=== PATIENT | female | born 1935 | race Caucasian/White ===

== ENCOUNTER 2020-03-11 14:07 | Inpatient (IN) | payer MEDICARE, SELFPAY ==
[2020-03-11] VITALS (8 sets, daily range): BP systolic 133–195; BP diastolic 73–84; PULSE 78–94; RESP 12–20; TEMP 36.2–36.6; O2SAT 94–100
--- NOTE | ~2020-03-11 | XR_ITS ---
EXAMINATION: XR lumbar spine 2-3V EXAM DATE: 03/11/2020 15:21 INDICATION: injury x yrs ago, increased pain shoots down both legs . TECHNIQUE: Lumber spine frontal, lateral, lateral L5-S1 projections for interpretation. There is no prior study for comparison. FINDINGS: There is grade 2 anterolisthesis L4 on L5, without definite spondylolysis. Grade 1 retroli sthesis L2 on L3 and L3 on L4. There is severe disc disease at L2-3, moderate to severe at the lower lumbar levels. There is moderate to severe lumbar facet arthropathy. There is mild to moderate lumbar levoscoliosis. There are no acute fractures identified. Sacrum, sacroiliac joints, sacral arcuate li valerio are intact. IVC filter, cholecystectomy clips. IMPRESSION: 1. Mild to moderate lumbar levoscoliosis. 2. Moderate to severe lumbar spondylosis. 3. Multiple subluxations. Reviewed, dictated and finalized at location A.
--- NOTE | ~2020-03-11 | XR_ITS ---
EXAMINATION: XR hip BI 2V w AP pelvis EXAM DATE: 03/12/2020 17:43 INDICATION: Bilateral hip pain, low back pain. No known recent injury. TECHNIQUE: Each hip imaged independently (separate right and also left hip) 'frog leg' and frontal p rojections for interpretation. Frontal projection pelvis. Comparison is made to prior examination fr om 03/08/2017. FINDINGS: No radiographic evidence of hip avascular necrosis. There is moderate bilateral hip primar y osteoarthritis. There are no acute fractures or dislocations identified. There is no subcutaneous gas. There are arterial calcifications, arteriosclerosis. There is an IVC filter. Advanced lower l umbar spondylosis. IMPRESSION: Moderate bilateral hip osteoarthritis. Reviewed, dictated and finalized at location A.
--- NOTE | 2020-03-11 14:38 | ED.BACK ---
HPI - Back Pain/Injury General Chief Complaint: Back Pain/Injury <Sabi Hector PA-C - Last Filed: 03/11/20 20:36> Stated Complaint: LOW BACK AND HIP PAIN <ABDI De Santiago Last Filed: 03/11/20 20:36> Time Seen by Provider: 03/11/20 14:15 <ABDI De Santiago Last Filed: 03/11/20 20:36> Source: patient and EMS <Sabi Hector PA-C - Last Filed: 03/11/20 20:36> Mode of arrival: EMS <ABDI De Santiago Last Filed: 03/11/20 20:36> Limitations: physical limitation <ABDI De Santiago Last Filed: 03/11/20 20:36> History of Present Illness HPI Narrative: Patient presents to the emergency department with chief complaint of low back pain that is radiating down bilateral legs. It began this morning. Patient states she has chronic low back pain but does not usually have radiation down the posterior aspects of her lower extremities. Patient states that her daughter attempted to help her ambulate today but could not so she called EMS. Patient states she has been prescribed hydrocodone for pain and last took 1 at 5 AM. Patient was given 15 mg of Toradol IV and 4 mg of Zofran by EMS reports that her symptoms have greatly improved. The nurse noted at the patient reported diarrhea, the patient states she has chronic intermittent diarrhea due to gastritis and she is at her baseline on today. She denies bloody stools or persistent watery stools. Patient denies loss of bowel or bladder function or saddle paresthesias. She denies fever, chills, nausea, vomiting, abdominal pain, chest pain, shortness of breath, headache, changes in vision or hearing or any other associated symptoms. Patient denies any recent falls or direct injuries to her back. <ABDI De Santiago Last Filed: 03/11/20 20:36> Related Data Home Medications: Home Medications Medication Instructions Recorded Confirmed amlodipine 5 mg PO DAILY 03/11/20 esomeprazole magnesium 40 mg PO DAILY 03/11/20 <ABDI De Santiago Last Filed: 03/11/20 20:36> Allergies/Adverse Reactions: Allergies Allergy/AdvReac Type Severity Reaction Status Date / Time atorvastatin Allergy Unknown ache Verified 03/11/20 14:24 <Sabi Hector PA-C - Last Filed: 03/11/20 20:36> Review of Systems Review of Systems: Narrative: CONSTITUTIONAL: Denies fever, chills, or sweats. EYES: Denies visual changes, redness, or discharge. ENT: Denies rhinorrhea, congestion, sore throat, or otalgia. CARDIOVASCULAR: Denies chest pain, palpitations, or edema. RESPIRATORY: Denies cough or dyspnea. GASTROINTESTINAL: Denies abdominal pain, nausea, vomiting, or diarrhea. GENITOURINARY: Denies dysuria or hematuria. SKIN: Denies rash or itching. MUSCULOSKELETAL: Reports back pain denies joint pain, or myalgia. NEUROLOGIC: Denies headache, numbness, dizziness, or weakness. PSYCHIATRIC: Denies anxiety or depression. <Sabi Hector PA-C - Last Filed: 03/11/20 20:36> [facility] Social History Social History: Social History Smoking status: Never smoker Alcohol intake: never Gender identity (if verbalized by the patient): Female <Sabi Hector PA-C - Last Filed: 03/11/20 20:36> Exam Narrative: Exam Narrative: GENERAL: Well-appearing, well-nourished, and in no acute distress. HEAD: Normocephalic, atraumatic. EYES: PERRLA and EOMI. ENT: Nares clear, no rhinorrhea or epistaxis. Mucous membranes moist. Oropharynx without tonsillar hypertrophy exudate or other lesions. Bilateral TMs pearly george nonbulging NECK: Supple. No adenopathy or masses. CHEST: Clear to auscultation. No respiratory distress. No wheezes rales or rhonchi HEART: Regular rate and rhythm. No murmur heard. BACK: Patient declined evaluation at this time and she does not want to remove herself from the bedpan. Will reevaluate once patient is complete. ABDOMEN: Soft, nontender, nondistended, normal active bowel sounds. EXTREMITIES: Normal range of motion. No cindy
[2020-03-11 16:18] LABS: Add Urine Microscopic? YES; Appearance Urine Cloudy (Clear); Bacteria Urine 2+ /hpf; Bilirubin Urine Negative (Negative); Blood Urine 1+ (Negative); Color Urine Yellow (Yellow); Glucose Urine UA Negative (Negative); Ketones Urine Negative (Negative); Leukocyte Esterase Ur 2+ LEU/UL (Negative); Nitrate Urine Negative (Negative); Protein Urine 1+ mg/dL (Negative); Specific Grav Ur 1.018 (1.001-1.035); Squamous Epithelial Cell Urine Rare /hpf (Few); Urobilinogen Urine Negative mg/dL (<2.0); WBC Urine 31-50 /hpf
[2020-03-11 17:01] LABS: Basophils Percent Auto 0.3 % (0.2-1.2); Eosinophils Percent Auto 0.1 % (0-4.4); Hematocrit 36.2 % (37.0-47.0); Hemoglobin 11.9 g/dL (12.0-15.0); Immature Granulocyte Absolute 0.03 K/mm3 (0.00-0.031); Immature Granulocyte Percent A 0.2 % (0-0.5); Lymphocytes Absolute Auto 1.22 K/mm3 (0.9-3.2); Lymphocytes Percent Auto 9.6 % (18.3-44.2); Mean Corpuscular HGB Conc 32.9 g/dl (32-36); Mean Corpuscular Volume 88.3 fl (80-100); Monocytes Absolute Auto 0.4 K/mm3 (0.1-0.6); Monocytes Percent Auto 3.2 % (2.6-8.5); Neutrophils Percent Auto 86.6 % (45.5-73.1); Nucleated Red Blood Cells Perc 0.2 % (0.0-0.2); Platelet Count Result 291 k/mm3 (150-375); Red Cell Distribution Width 14.6 % (11.5-14.5); White Blood Count 12.7 K/mm3 (4.5-10.0)
[2020-03-11 18:29] LABS: Alanine Aminotransferase 9 U/L (4-35); Albumin Level 4.4 g/dL (3.5-5.1); Alkaline Phosphatase 78 U/L (38-126); Anion Gap 10 mmol/L (8-16); Aspartate Amino Transferase 18 U/L (14-36); Bilirubin,Total 0.5 mg/dL (0.2-1.3); Blood Urea Nitrogen 22 mg/dL (7-17); Calcium 9.6 mg/dL (8.4-10.2); Carbon Dioxide 26 mmol/L (22-30); Chloride 103 mmol/L (98-107); Estimated CRCL calculation 24 ml/min; Estimated Glomerular Filt Rate 33; Glucose 146 mg/dL (65-105); Potassium 5.1 mmol/L (3.4-5.0); Sodium 139 mmol/L (137-145)
[2020-03-11] MEDS: fentaNYL CITRATE INJ (*CRX) 100 MCG/2 ML VIAL 25 MCG IV PUSH (18:58)
[2020-03-11] MEDS: SODIUM CHLORIDE 0.9% IV 1,000 ML 999 ML IV CONT (18:59)
--- NOTE | 2020-03-11 20:20 | PC.NURSE ---
Patient notified this RN she has not taken any of her medications today. Patient due for dose of 5mg amlodipine. TAYLOR Celestin notified.
[2020-03-11] MEDS: amLODIPine BESYLATE 5 MG TABLET PO (20:32)
--- NOTE | 2020-03-11 21:21 | PC.NURSE ---
Patient unable to get out of bed and ambulate due to pain. She reports this is why she called the ambulance this evening because she has been unable to walk. MALLORY Anne notified.
[2020-03-12] MEDS: HYDROmorphone HCL INJ (*CRX) 1 MG/ML SYR 0.5 MG IV PUSH (00:01)
--- NOTE | 2020-03-12 00:06 | PM.IMHP ---
H&P: HPI History of Present Illness Date/Time: 03/12/20 00:06 Chief complaint: Intractable Back Pain Narrative: Meche Woodward is a 84 year old female with past medical history arthritis, GERD, hypothyroidism presents to the ED with complaints of bilateral hip pain. She was feeling fine until this morning when she could not get out of her bed. Her pain was very severe and in both hips. She has had a similar episode last year treated with steroids with good improvement by her primary care physician. she states her arthritis is in most joints. she previously has had a right knee replacement and thinks she may need hip replacements however is apprehensive because friend of hers a few months after hip replacement. In the ED: Patient was found to have a UTI with positive UA elevated WBCs, leuk esterase positive, rare epithelial cells. Lumbar spine x-ray shows [id number] scoliosis and moderate to severe spondylosis, multiple subluxations. Patient was recently planned to be discharged home with antibiotic for UTI. Patient was unable to transfer from bed to wheelchair. patient admitted for observation for UTI and intractable hip pain. Review of Systems Review of Systems: Narrative: Constitutional: No Fever, No Chills, No Night Sweats, No Fatigue, No Malaise ENT/Mouth: No Hearing Changes, No Ear Pain, No Nasal Congestion, No Sinus Pain, No Hoarseness, No sore throat, No Rhinorrhea, No Swallowing Difficulty Eyes: No Eye Pain, No Redness, No Vision Changes Cardiovascular: No Chest Pain, No Palpitations, No Dyspnea on Exertion, No Orthopnea, No Claudication, No Edema Respiratory: No Cough, No Sputum, No Wheezing, No Shortness of Breath Gastrointestinal: No Nausea, No Vomiting, No Diarrhea, No Constipation, No Abdominal Pain, No Heartburn, No Hematochezia, No Melena Genitourinary: No Dysuria, No Urinary Frequency, No Hematuria, No Urinary Incontinence, No Urgency Musculoskeletal: severe back pain, hip joint stiffness and pain Skin: No Skin Lesions, No Pruritis, No Hair Changes Neuro: No Weakness, No Numbness, No Paresthesias, No Loss of Consciousness, No Syncope, No Dizziness, No Headache Psych: No Anxiety/Panic, No Depression, No Insomnia Heme: No Bruising, No Bleeding Lymph: No Adenopathy Endocrine: No Polyuria, No Polydipsia, No Temperature Intolerance PMFSH Past Medical History Medical History CAD (coronary artery disease) 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, lower extremity, recurrent Essential hypertension Gastritis 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 Osteoarthritis Surgical History Surgical History (Updated 03/12/20 @ 01:02 by Viviana Love, RN) Status post right knee replacement Family History Family History (Updated 03/12/20 @ 00:44 by Viviana Love, RN) Father Pancreas cancer COPD (chronic obstructive pulmonary disease) Mother Acute myocardial infarction Sibling Hypertension Social History Social History (Updated 03/12/20 @ 00:44 by Viviana Love, RN) Smoking status: Never smoker Alcohol intake: never Substance use: never Substance use type: does not use Living arrangements: with family Additional living arrangements comments: lives with her adult daughter, a respiratory therapist at [facility]. she is thinking about moving to [place] as she is becoming a burden on her daughter Occupation/Education: retired Gender identity (if verbalized by the patient): Female Spiritual care concerns: No Agree to blood products: Yes Meds Home Medications and Allergies Home Medications Medication Instructions Recorded Confirmed Type apixaban 2.5 mg tablet 2.5 mg PO BID #60 tablet 04/11/19 Rx levothyroxine 150 mcg tablet 150 mcg PO DAILY #90 tablet 10/09/19 Rx hydrocodone 7.5 mg-acetaminophen 1 tablet PO Q6H PRN #120 tablet 03/02/20 Rx 325 mg tablet amlodipine 5 mg PO DAILY 03/11/20 History esomeprazole ma
--- NOTE | 2020-03-12 00:10 | ADMGEN ---
This patient, Meche Woodward, was admitted to Medical Room 340-01. Patient/family oriented to hospital policies and general routines including ID bracelet, bed and alarms, visiting hours, pain management, procedures, bathroom and other care routines, personal items, smoking policy, room service/diet, and visiting hours. Information on how to activate the Rapid Response Team has been discussed. Patient/Family are encouraged to report perceived risks to care and to ask questions if they do not understand what they are told or what they should do.
[2020-03-12 00:23] VITALS: BP 158/80; PULSE 84; RESP 18; TEMP 36.4; O2SAT 98; BMI 27.8
[2020-03-12] MEDS: SODIUM CHLORIDE 0.9% IV 250 ML 75 ML IV CONT (01:51)
[2020-03-12 04:47] VITALS: BP 148/72; PULSE 84; RESP 16; TEMP 36.2; O2SAT 99
[2020-03-12] MEDS: HYDROcodone/acetaminophen (*CRX) 7.5-325 MG TABLET 1 TAB PO ×3 (05:35→20:07)
[2020-03-12] MEDS: LEVOTHYROXINE SODIUM 150 MCG TABLET PO (05:36)
[2020-03-12] MEDS: amLODIPine BESYLATE 5 MG TABLET PO (08:08)
[2020-03-12] MEDS: PANTOPRAZOLE 40 MG TABLET PO (08:09)
[2020-03-12] MEDS: APIXABAN 2.5 MG TABLET PO ×2 (08:09→20:05)
[2020-03-12 09:52] LABS: Basophils Absolute Auto 0.1 K/mm3 (0.0-0.1); Basophils Percent Auto 0.6 % (0.2-1.2); Eosinophils Absolute Auto 0.1 K/mm3 (0-0.3); Eosinophils Percent Auto 1.2 % (0-4.4); Hematocrit 34.4 % (37.0-47.0); Immature Granulocyte Absolute 0.03 K/mm3 (0.00-0.031); Immature Granulocyte Percent A 0.3 % (0-0.5); Lymphocytes Absolute Auto 2.28 K/mm3 (0.9-3.2); Lymphocytes Percent Auto 26.4 % (18.3-44.2); Mean Corpuscular Hemoglobin 28.4 pg (26-34); Mean Corpuscular Volume 88.9 fl (80-100); Mean Platelet Volume 11.2 fl (7.4-10.4); Monocytes Absolute Auto 0.7 K/mm3 (0.1-0.6); Neutrophils Absolute Auto 5.5 K/mm3 (1.3-6.7); Neutrophils Percent Auto 63.5 % (45.5-73.1); Platelet Count Result 151 k/mm3 (150-375); Red Blood Count 3.87 M/mm3 (4.2-5.4); Red Cell Distribution Width 14.7 % (11.5-14.5); White Blood Count 8.7 K/mm3 (4.5-10.0)
[2020-03-12 10:08] LABS: Anion Gap 8 mmol/L (8-16); Blood Urea Nitrogen 23 mg/dL (7-17); Calcium 9.1 mg/dL (8.4-10.2); Carbon Dioxide 26 mmol/L (22-30); Chloride 104 mmol/L (98-107); Estimated CRCL calculation 22 ml/min; Estimated Glomerular Filt Rate 31; Glucose 173 mg/dL (65-105); Magnesium 1.7 mg/dL (1.6-2.3); Potassium 4.1 mmol/L (3.4-5.0); Sodium 138 mmol/L (137-145)
--- NOTE | 2020-03-12 11:47 | PM.IMPN ---
Progress Note: A&P Assessment and Plan (1) Intractable back pain: Code(s): M54.9 - Dorsalgia, unspecified Status: Acute Assessment and Plan: Patient describes worsening back pain and MARLO hip pain. EMS was activated when she was unable to get out of bed. Unable to stand due to pain. XR L-spine shows moderate to severe lumbar spondylosis, multiple subluxations. Bilateral hip XRs pending. Continue pain control [place] for now. Avoiding NSAIDs given her renal function, anticoagulation, and history of gastritis. Appreciate orthopedic surgery recommendations. PT OT, discharge planning. Patient declines discharge placement other than home. Care coordination arranging home health. (2) Acute UTI: Code(s): N39.0 - Urinary tract infection, site not specified Status: Acute Assessment and Plan: Patient reports increased urinary frequency. Urine culture growing E coli. Continue IV Rocephin (day 2) with sensitivity report pending. (3) Hypertension: Qualifiers: Hypertension type: unspecified Qualified Code(s): I10 - Essential (primary) hypertension Code(s): I10 - Essential (primary) hypertension Status: Chronic Assessment and Plan: BP stable maintained on her home Norvasc. Continue to monitor BP. (4) Hyperkalemia: Code(s): E87.5 - Hyperkalemia Status: Resolved Assessment and Plan: Resolved. Monitor BMP. (5) Atherosclerotic heart disease of [place] coronary artery with other forms of angina pectoris: Code(s): I25.118 - Atherosclerotic heart disease of [place] coronary artery with other forms of angina pectoris Status: Chronic Assessment and Plan: Stable. No chest pain today. (6) Chronic kidney disease, stage 4 (severe): Code(s): N18.4 - Chronic kidney disease, stage 4 (severe) Status: Acute Assessment and Plan: Appears to be a baseline based on review previous labs. Monitor BMP. (7) 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 (acquired): Code(s): E03.9 - 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, unspecified Status: Chronic Assessment and Plan: Maintained on home levothyroxine. Subjective Date/time seen: 03/12/20 11:00 Interval history: Ms. Woodward is an 84yo F admitted for bilateral hip pain and UTI. She was unable to get out of bed and presented to ED due to weakness and intractable pain. She reports her pain is controlled at rest currently, worse with any movement. She has a history of chronic bowel and bladder incontinence, this is unchanged. She denies chest pain, shortness of breath, palpitations. She has tolerated some oral intake without nausea or vomiting. Review of Systems Review of Systems: All systems reviewed & are unremarkable except as noted in HPI and below Exam Narrative: Exam Narrative: General: Elderly female resting supine in bed in no acute distress. HEENT: Normocephalic, EOMI, oral mucosa moist. Cardiovascular: Rate and rhythm are regular. Respiratory: Lungs clear to auscultation anteriorly and laterally. Non-labored breathing. Tolerating room air. Abdomen: Soft, non-tender, non-distended, bowel sounds present. Extremities: Peripheral pulses intact. Bilateral hip range of motion limited secondary to pain. Positive straight leg raise bilateral. Neuro: No focal neurological deficits appreciated. Speech is clear. Objective Data Vital Signs Vital Signs: Last Vital Signs Temp 97.8 F 03/12/20 14:27 Pulse 86 03/12/20 14:27 Resp 18 03/12/20 14:27 BP 129/60 03/12/20 14:27 Pulse Ox 97 03/12/20 14:27 Intake/Output Intake/Output: Intake & Output 03/09/20 03/10/20 03/11/20 03/12/20 23:
--- NOTE | 2020-03-12 13:17 | PM.CNOR ---
Assessment and Plan Assessment and plan (1) Bilateral hip pain: Code(s): M25.551 - Pain in right hip; M25.552 - Pain in left hip Status: Acute Assessment and Plan: Previous lumbar xrays show lumbar scoliosis, spondylosis and subluxations. No pain in groin. Hip pain is likely from back. Waiting results of hip xrays. Will access need for hip injection after reviewing xrays. History of Present Illness HPI Consult date: 03/13/20 Requesting physician: Naren Schneider DO Consult reason: other (hip injection for severe hip arthritis) Chief complaint: Intractable Back Pain Narrative: Pleasant 84-year-old female patient was admitted 03/11/2020 for intractable back pain. She states she woke fine and was able to ambulate normally with a walker. When she went back to bed, she got dizzy lightheaded and diaphoretic. She states at that point she had severe back pain and hip pain that radiated through her back down to her posterior legs. No radiation past the knee. She states the pain was sharp 10/10 pain and she was a unable to ambulate. No pain in her groin on either side. Pain worse with movement and walking. Pain is better if she is lying still. She states at night she sleeps on both her back and her sides. Mild pain when she is laying on either side. She states this has happened to her once last year; however, it was less severe. She was prescribed prednisone and her pain got better. She states she has a long history of arthritis in her back. She has a history of a right TKA in 2010. She also has pain in her left knee when ambulating. She believes this is due to arthritis. she takes hydrocodone for her pain. 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 she is thinking about moving to custodial as she is becoming a burden on her daughter Gender identity (if verbalized by the patient): Female Spiritual care concerns: No Agree to blood products: Yes Meds Home Medications and Allergies Home Medications Medication Instructions Recorded Confirmed Type apixaban 2.5 mg tablet 2.5 mg PO BID #60 tablet 04/11/19 03/12/20 Rx levothyroxine 150 mcg tablet 150 mcg PO DAILY #90 tablet 10/09/19 03/12/20 Rx hydrocodone 7.5 mg-acetaminophen 1 tablet PO Q6H PRN #120 tablet 03/02/20 03/12/20 Rx 325 mg tablet amlodipine 5 mg PO DAILY 03/11/20 03/12/20 History esomeprazole magnesium [Nexium] 40 mg PO BID 03/11/20 03/12/20 History Allergies Allergy/AdvReac Type Severity Reaction Status Date / Time atorvastatin Allergy Unknown ache Verified 03/11/20 14:24 Vital Signs Vital Signs - 24 hr 03/11/20 14:15 03/11/20 16:16 03/11/20 18:17 Temperature 97.8 F Pulse Rate 94 78 78 Respiratory Rate 20 15 12 Blood Pressure 133/73 170/80 H Pulse Oximetry 96 98 97 03/11/20 19:16 03/11/20 19:28 03/11/20 20:27 Temperature 97.8 F Pulse Rate 83 84 Respiratory Rate 14 15 Blood Pressure 195/79 H 148/76 H Pulse Oximetry 100 94 03/11/20 22:12 03/11/20 23:28 03/12/20 00:23 Temperature 97.2 F L 97.6 F Pulse Rate 84 78 84 Respir
[2020-03-12 14:27] VITALS: BP 129/60; PULSE 86; RESP 18; TEMP 36.6; O2SAT 97
[2020-03-12] MEDS: MAGNESIUM OXIDE 200 MG TABLET PO (20:05)
[2020-03-12 22:00] VITALS: BP 146/74; PULSE 88; RESP 16; TEMP 36.1; O2SAT 97
[2020-03-13] MEDS: LEVOTHYROXINE SODIUM 150 MCG TABLET PO (05:30)
[2020-03-13] MEDS: HYDROcodone/acetaminophen (*CRX) 7.5-325 MG TABLET 1 TAB PO ×2 (05:31→12:02)
[2020-03-13 05:51] LABS: Hematocrit 32.3 % (37.0-47.0); Hemoglobin 10.3 g/dL (12.0-15.0); Mean Corpuscular HGB Conc 31.9 g/dl (32-36); Mean Corpuscular Hemoglobin 27.9 pg (26-34); Mean Corpuscular Volume 87.5 fl (80-100); Mean Platelet Volume 11.5 fl (7.4-10.4); Platelet Count Result 140 k/mm3 (150-375); Red Blood Count 3.69 M/mm3 (4.2-5.4); Red Cell Distribution Width 14.6 % (11.5-14.5); White Blood Count 10.3 K/mm3 (4.5-10.0)
[2020-03-13 06:00] VITALS: BP 128/61; PULSE 78; RESP 18; TEMP 36.1; O2SAT 96
[2020-03-13 06:07] LABS: Anion Gap 7 mmol/L (8-16); Blood Urea Nitrogen 23 mg/dL (7-17); Carbon Dioxide 27 mmol/L (22-30); Chloride 105 mmol/L (98-107); Estimated CRCL calculation 24 ml/min; Estimated Glomerular Filt Rate 33; Glucose 102 mg/dL (65-105); Magnesium 1.8 mg/dL (1.6-2.3); Potassium 4.2 mmol/L (3.4-5.0); Sodium 139 mmol/L (137-145)
[2020-03-13] MEDS: MAGNESIUM OXIDE 200 MG TABLET PO ×2 (08:31→20:15)
[2020-03-13] MEDS: amLODIPine BESYLATE 5 MG TABLET PO (08:31)
[2020-03-13] MEDS: PANTOPRAZOLE 40 MG TABLET PO (08:31)
[2020-03-13] MEDS: APIXABAN 2.5 MG TABLET PO ×2 (08:31→20:15)
[2020-03-13 08:35] VITALS: PULSE 76; RESP 18; O2SAT 95
--- NOTE | 2020-03-13 11:07 | PM.IMPN ---
Progress Note: A&P Assessment and Plan (1) Intractable back pain: Code(s): M54.9 - Dorsalgia, unspecified Status: Acute Assessment and Plan: Patient describes worsening back pain and MARLO hip pain. EMS was activated when she was unable to get out of bed. Great difficulty standing and ambulating due to pain. XR L-spine shows moderate to severe lumbar spondylosis, multiple subluxations. Bilateral hip XRs show moderate bilateral hip osteoarthritis. Continue pain control with Tylenol and [place] for now. Avoiding NSAIDs given her renal function, anticoagulation, and history of gastritis. Appreciate orthopedic surgery recommendations. PT OT, discharge planning. Patient declines discharge placement other than home. Care coordination arranging home health. (2) Acute UTI: Code(s): N39.0 - Urinary tract infection, site not specified Status: Acute Assessment and Plan: Patient reports increased urinary frequency. Urine culture grew ESBL E coli, unfortunately resistant to IV ceftriaxone. Switch IV ceftriaxone to IV Zosyn this AM (day 1) based on the sensitivity report. (3) Hypertension: Qualifiers: Hypertension type: unspecified Qualified Code(s): I10 - Essential (primary) hypertension Code(s): I10 - Essential (primary) hypertension Status: Chronic Assessment and Plan: BP stable maintained on her home Norvasc. Continue to monitor BP. (4) Atherosclerotic heart disease of [place] coronary artery with other forms of angina pectoris: Code(s): I25.118 - Atherosclerotic heart disease of [place] coronary artery with other forms of angina pectoris Status: Chronic Assessment and Plan: Stable. No chest pain today. (5) Chronic kidney disease, stage 4 (severe): Code(s): N18.4 - Chronic kidney disease, stage 4 (severe) Status: Acute Assessment and Plan: Appears to be at baseline based on review previous labs. Monitor BMP. (6) 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 (acquired): Code(s): E03.9 - 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, unspecified Status: Chronic Assessment and Plan: Maintained on home levothyroxine. Subjective Date/time seen: 03/13/20 09 Interval history: Ms. Woodward is an 84yo F admitted for bilateral hip pain and UTI. She reports her hip pain is decently controlled at rest but significantly worse with even minimal movement. She is tolerating oral intake and denies nausea or vomiting. She denies any chest pain or shortness of breath. Was able to sleep a bit last night. RN notes she was able to get up to chair with PT this afternoon. Review of Systems Review of Systems: All systems reviewed & are unremarkable except as noted in HPI and below Exam Narrative: Exam Narrative: General: Elderly female resting supine in bed in no acute distress. HEENT: Normocephalic, EOMI, oral mucosa moist. Cardiovascular: Rate and rhythm are regular. Respiratory: Lungs clear to auscultation anteriorly and laterally. Non-labored breathing. Tolerating room air. Abdomen: Soft, non-tender, non-distended, bowel sounds present. Extremities: Peripheral pulses intact. Bilateral hip range of motion limited secondary to pain. Positive straight leg raise bilateral. Neuro: No focal neurological deficits appreciated. Speech is clear. Objective Data Vital Signs Vital Signs: Last Vital Signs Temp 97.7 F 03/13/20 13:47 Pulse 83 03/13/20 13:47 Resp 16 03/13/20 13:47 BP 145/67 H 03/13/20 13:47 Pulse Ox 100 03/13/20 13:47 Intake/Output Intake/Output: Intake & Output 10/20/03/11/20 03/12/20 03/13/20 23:59 23:59 23:59 23:59 Intake Total 1050 1620 290 Output Total 150 Balance 900 1620
[2020-03-13 13:47] VITALS: BP 145/67; PULSE 83; RESP 16; TEMP 36.5; O2SAT 100
[2020-03-13 22:00] VITALS: BP 146/85; PULSE 87; RESP 16; TEMP 37.1; O2SAT 99
[2020-03-14] MEDS: HYDROcodone/acetaminophen (*CRX) 7.5-325 MG TABLET 1 TAB PO ×4 (00:55→23:35)
[2020-03-14] MEDS: LEVOTHYROXINE SODIUM 150 MCG TABLET PO (05:36)
[2020-03-14 05:42] VITALS: BP 155/62; PULSE 79; RESP 16; TEMP 36.6; O2SAT 96
[2020-03-14 07:00] LABS: Basophils Absolute Auto 0.1 K/mm3 (0.0-0.1); Basophils Percent Auto 0.5 % (0.2-1.2); Eosinophils Absolute Auto 0.4 K/mm3 (0-0.3); Eosinophils Percent Auto 3.7 % (0-4.4); Hematocrit 31.2 % (37.0-47.0); Immature Granulocyte Absolute 0.06 K/mm3 (0.00-0.031); Immature Granulocyte Percent A 0.6 % (0-0.5); Lymphocytes Percent Auto 26.9 % (18.3-44.2); Mean Corpuscular HGB Conc 32.1 g/dl (32-36); Mean Corpuscular Hemoglobin 27.9 pg (26-34); Mean Corpuscular Volume 86.9 fl (80-100); Mean Platelet Volume 11.9 fl (7.4-10.4); Monocytes Absolute Auto 0.9 K/mm3 (0.1-0.6); Monocytes Percent Auto 8.2 % (2.6-8.5); Neutrophils Absolute Auto 6.3 K/mm3 (1.3-6.7); Neutrophils Percent Auto 60.1 % (45.5-73.1); Platelet Count Result 145 k/mm3 (150-375); Red Blood Count 3.59 M/mm3 (4.2-5.4); Red Cell Distribution Width 14.6 % (11.5-14.5); White Blood Count 10.4 K/mm3 (4.5-10.0)
[2020-03-14] MEDS: APIXABAN 2.5 MG TABLET PO ×2 (08:05→20:14)
[2020-03-14] MEDS: MAGNESIUM OXIDE 200 MG TABLET PO ×2 (08:05→20:14)
[2020-03-14] MEDS: PANTOPRAZOLE 40 MG TABLET PO (08:05)
[2020-03-14] MEDS: amLODIPine BESYLATE 5 MG TABLET PO (08:05)
--- NOTE | 2020-03-14 09:41 | PCPTNOTE ---
Attempted physial therapy this visit however patient declined due to feeling sick to her stomach. Nursing staff was notified and states she was given medication. Will attempt at later time.
--- NOTE | 2020-03-14 10:48 | PM.IMPN ---
Progress Note: A&P Assessment and Plan (1) Intractable back pain: Code(s): M54.9 - Dorsalgia, unspecified Status: Acute Assessment and Plan: Patient describes worsening back pain and MARLO hip pain. EMS was activated when she was unable to get out of bed. Great difficulty standing and ambulating due to pain. XR L-spine shows moderate to severe lumbar spondylosis, multiple subluxations. Bilateral hip XRs show moderate bilateral hip osteoarthritis. Continue pain control with Tylenol and [place] for now. Avoiding NSAIDs given her renal function, anticoagulation, and history of gastritis. Appreciate orthopedic surgery recommendations. Discussed with Dr Connolly - he indicates the likely origin of her pain is her back and recommends she re-establish with pain management for injections outpatient. Continue PT OT, discharge planning. Care coordination has arranged home health. Hopeful for discharge tomorrow. (2) Acute UTI: Code(s): N39.0 - Urinary tract infection, site not specified Status: Acute Assessment and Plan: Patient reports increased urinary frequency. Urine culture grew ESBL E coli. Switched IV ceftriaxone to IV Zosyn this yesterday (day 2) based on the sensitivity report. (3) Hypertension: Qualifiers: Hypertension type: unspecified Qualified Code(s): I10 - Essential (primary) hypertension Code(s): I10 - Essential (primary) hypertension Status: Chronic Assessment and Plan: BP stable maintained on her home Norvasc. Continue to monitor BP. (4) Atherosclerotic heart disease of [place] coronary artery with other forms of angina pectoris: Code(s): I25.118 - Atherosclerotic heart disease of [place] coronary artery with other forms of angina pectoris Status: Chronic Assessment and Plan: Stable. No chest pain today. (5) Chronic kidney disease, stage 4 (severe): Code(s): N18.4 - Chronic kidney disease, stage 4 (severe) Status: Acute Assessment and Plan: Appears to be at baseline based on review previous labs. Monitor BMP. (6) 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 (acquired): Code(s): E03.9 - 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, unspecified Status: Chronic Assessment and Plan: Maintained on home levothyroxine. Subjective Date/time seen: 03/14/20 10:15 Interval history: Ms. Woodward is an 84yo F admitted for bilateral hip pain and UTI. She rates her hip/back pain at a 5/10 severity currently, but notes she was in significant pain when she stood to use the restroom and get showered this morning. She was able to sleep a bit last night. She denies chest pain or shortness of breath. She is tolerating oral intake without nausea or vomiting. Review of Systems Review of Systems: All systems reviewed & are unremarkable except as noted in HPI and below Exam Narrative: Exam Narrative: General: Elderly female resting sitting up in bed in no acute distress. HEENT: Normocephalic, EOMI, oral mucosa moist. Cardiovascular: Rate and rhythm are regular. Respiratory: Lungs clear to auscultation anteriorly and laterally. Non-labored breathing. Tolerating room air. Abdomen: Soft, non-tender, non-distended, bowel sounds present. Extremities: Peripheral pulses intact. Bilateral hip range of motion limited secondary to back pain. Trace edema MARLO lower extremities below the knee. Neuro: No focal neurological deficits appreciated. Speech is clear. Objective Data Vital Signs Vital Signs: Last Vital Signs Temp 97.8 F 03/14/20 05:42 Pulse 79 03/14/20 05:42 Resp 16 03/14/20 05:42 BP 155/62 H 03/14/20 05:42 Pulse Ox 96 03/14/20 05:42 Intake/Output Intake/Output: Intake & Output 10
[2020-03-14 14:00] VITALS: BP 135/79; PULSE 84; RESP 16; TEMP 36.5; O2SAT 100
[2020-03-14 21:45] VITALS: BP 164/65; PULSE 76; RESP 16; TEMP 37.3; O2SAT 97
[2020-03-15] MEDS: LEVOTHYROXINE SODIUM 150 MCG TABLET PO (05:32)
[2020-03-15 05:56] VITALS: BP 135/58; PULSE 64; RESP 16; TEMP 36.8; O2SAT 98
[2020-03-15 06:22] LABS: Anion Gap 6 mmol/L (8-16); Blood Urea Nitrogen 20 mg/dL (7-17); Calcium 9.1 mg/dL (8.4-10.2); Carbon Dioxide 30 mmol/L (22-30); Chloride 102 mmol/L (98-107); Estimated CRCL calculation 25 ml/min; Estimated Glomerular Filt Rate 36; Glucose 109 mg/dL (65-105); Magnesium 1.9 mg/dL (1.6-2.3); Potassium 4.1 mmol/L (3.4-5.0); Sodium 138 mmol/L (137-145)
[2020-03-15] MEDS: amLODIPine BESYLATE 5 MG TABLET PO (08:09)
[2020-03-15] MEDS: APIXABAN 2.5 MG TABLET PO ×2 (08:09→21:25)
[2020-03-15] MEDS: MAGNESIUM OXIDE 200 MG TABLET PO ×2 (08:09→21:25)
[2020-03-15] MEDS: PANTOPRAZOLE 40 MG TABLET PO (08:09)
[2020-03-15] MEDS: HYDROcodone/acetaminophen (*CRX) 7.5-325 MG TABLET 1 TAB PO ×2 (08:56→17:51)
[2020-03-15 14:00] VITALS: BP 142/57; PULSE 72; RESP 12; TEMP 37; O2SAT 100
--- NOTE | 2020-03-15 16:11 | PM.IMPN ---
Progress Note: A&P Assessment and Plan (1) Intractable back pain: Code(s): M54.9 - Dorsalgia, unspecified Status: Acute Assessment and Plan: Patient describes worsening back pain and MARLO hip pain. EMS was activated when she was unable to get out of bed. XR L-spine shows moderate to severe lumbar spondylosis, multiple subluxations. Bilateral hip XRs show moderate bilateral hip osteoarthritis. Continue pain control with Tylenol and [place] for now. Avoiding NSAIDs given her renal function, anticoagulation, and history of gastritis. Appreciate orthopedic surgery recommendations. Discussed with Dr Connolly - he indicates the likely origin of her pain is her back and recommends she re-establish with pain management for injections outpatient. Continue PT OT, discharge planning. COVID test for discharge planning, dispo is SNF. (2) Acute UTI: Code(s): N39.0 - Urinary tract infection, site not specified Status: Acute Assessment and Plan: Patient reports increased urinary frequency. Urine culture grew ESBL E coli. Continue IV Zosyn (day 3) based on the sensitivity report. (3) Hypertension: Qualifiers: Hypertension type: unspecified Qualified Code(s): I10 - Essential (primary) hypertension Code(s): I10 - Essential (primary) hypertension Status: Chronic Assessment and Plan: BP stable maintained on her home Norvasc. Continue to monitor BP. (4) Atherosclerotic heart disease of [place] coronary artery with other forms of angina pectoris: Code(s): I25.118 - Atherosclerotic heart disease of [place] coronary artery with other forms of angina pectoris Status: Chronic Assessment and Plan: Stable. No chest pain today. (5) Chronic kidney disease, stage 4 (severe): Code(s): N18.4 - Chronic kidney disease, stage 4 (severe) Status: Acute Assessment and Plan: Appears to be at baseline based on review previous labs. Monitor BMP. (6) 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 (acquired): Code(s): E03.9 - 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, unspecified Status: Chronic Assessment and Plan: Maintained on home levothyroxine. Subjective Date/time seen: 03/15/20 1115 Interval history: Ms. Woodward is an 84yo F admitted for back/bilateral hip pain and UTI. Her back pain is improved today and in fact she was able to walk to the restroom this morning with assistance. Overall she reports feeling better today than when she came in. She has better range of motion today. She denies chest pain or shortness of breath. She is tolerating oral intake without nausea or vomiting. Review of Systems Review of Systems: All systems reviewed & are unremarkable except as noted in HPI and below Exam Narrative: Exam Narrative: General: Elderly female resting comfortably sitting up in bedside chair in no acute distress. HEENT: Normocephalic, EOMI, oral mucosa moist. Cardiovascular: Rate and rhythm are regular. Respiratory: Lungs clear to auscultation in all wright. Non-labored breathing. Tolerating room air. Abdomen: Soft, non-tender, non-distended, bowel sounds present. Extremities: Peripheral pulses intact. Trace edema MARLO lower extremities below the knee. MARLO calves nontender to palpation. Neuro: No focal neurological deficits appreciated. Speech is clear. Objective Data Vital Signs Vital Signs: Last Vital Signs Temp 98.6 F 03/15/20 14:00 Pulse 72 03/15/20 14:00 Resp 12 03/15/20 14:00 BP 142/57 H 03/15/20 14:00 Pulse Ox 100 03/15/20 14:00 Intake/Output Intake/Output: Intake & Output 03/12/20 03/13/20 03/14/20 03/15/20 23:59 23:59 23:59 23:59 Intake Total 6045 948 2621 550 Balance 9114 341 3093 55
[2020-03-15 21:15] VITALS: BP 152/67; PULSE 74; RESP 14; TEMP 37.2; O2SAT 97
[2020-03-16] MEDS: HYDROcodone/acetaminophen (*CRX) 7.5-325 MG TABLET 1 TAB PO ×3 (00:09→12:02)
[2020-03-16 05:05] VITALS: BP 157/70; PULSE 74; RESP 14; TEMP 36.8; O2SAT 99
[2020-03-16 05:59] LABS: Basophils Absolute Auto 0.1 K/mm3 (0.0-0.1); Basophils Percent Auto 0.8 % (0.2-1.2); Eosinophils Absolute Auto 0.4 K/mm3 (0-0.3); Eosinophils Percent Auto 4.6 % (0-4.4); Hematocrit 31.2 % (37.0-47.0); Immature Granulocyte Absolute 0.03 K/mm3 (0.00-0.031); Immature Granulocyte Percent A 0.3 % (0-0.5); Lymphocytes Absolute Auto 3.21 K/mm3 (0.9-3.2); Lymphocytes Percent Auto 37.2 % (18.3-44.2); Mean Corpuscular HGB Conc 32.1 g/dl (32-36); Mean Corpuscular Volume 87.4 fl (80-100); Mean Platelet Volume 11.3 fl (7.4-10.4); Monocytes Absolute Auto 0.8 K/mm3 (0.1-0.6); Monocytes Percent Auto 8.8 % (2.6-8.5); Neutrophils Absolute Auto 4.2 K/mm3 (1.3-6.7); Neutrophils Percent Auto 48.3 % (45.5-73.1); Platelet Count Result 184 k/mm3 (150-375); Red Blood Count 3.57 M/mm3 (4.2-5.4); Red Cell Distribution Width 14.6 % (11.5-14.5); White Blood Count 8.6 K/mm3 (4.5-10.0)
[2020-03-16 06:19] LABS: Anion Gap 6 mmol/L (8-16); Blood Urea Nitrogen 22 mg/dL (7-17); Calcium 9.2 mg/dL (8.4-10.2); Carbon Dioxide 32 mmol/L (22-30); Chloride 100 mmol/L (98-107); Estimated CRCL calculation 25 ml/min; Estimated Glomerular Filt Rate 36; Glucose 107 mg/dL (65-105); Potassium 4.1 mmol/L (3.4-5.0); Sodium 138 mmol/L (137-145)
[2020-03-16] MEDS: amLODIPine BESYLATE 5 MG TABLET PO (08:10)
[2020-03-16] MEDS: APIXABAN 2.5 MG TABLET PO (08:10)
[2020-03-16] MEDS: LEVOTHYROXINE SODIUM 150 MCG TABLET PO (08:10)
[2020-03-16] MEDS: PANTOPRAZOLE 40 MG TABLET PO (08:10)
[2020-03-16] MEDS: MAGNESIUM OXIDE 200 MG TABLET PO (08:10)
[2020-03-16 11:16] LABS: SARS-CoV-2 RNA PCR Negative
[2020-03-16 14:00] VITALS: BP 166/73; PULSE 87; RESP 18; TEMP 36.4; O2SAT 100
--- NOTE | 2020-03-16 14:11 | PM.DS ---
DS: Admitting Diagnosis Admitting Diagnosis Admitting Diagnosis: Intractable Back Pain DS: Discharge Diagnosis Discharge Diagnosis (1) Intractable back pain: Code(s): M54.9 - Dorsalgia, unspecified Status: Acute Assessment and Plan: Date of Admission 03/11/20 Date of Discharge/DOS 03/16/20 Ms. Woodward is a pleasant 84yo F with history of coronary artery disease, chronic kidney disease, hypothyroidism, and hypertension who presented to the ED from home for evaluation of back pain, bilateral hip pain, and ambulatory dysfunction. Imaging demonstrated moderate to severe lumbar spondylosis with multiple subluxations, moderate bilateral hip osteoarthritis. Orthopedics was consulted for evaluation of possible hip injections. Dr Connolly reviewed the plain films and described that the etiology of her pain is mostly her back and she will benefit from re-establishing care with pain management upon discharge. She was maintained on her home dose of [place] here with moderate relief. She was found to have a urinary tract infection with ESBL E coli for which she was treated with IV zosyn and discharged with oral augmentin to complete the course based on the sensitivity report. She was maintained on her home Eliquis which she takes for history of lower extremity DVT. She worked with PT/OT and made progress ambulating. She was felt to be a good candidate to continue therapy at SNF. She was hemodynamically stable for discharge to [facility] on 03/16[facility]. COVID testing for discharge screen is negative. She is encouraged to follow up with a pain management physician upon discharge from SNF if still having pain. Patient describes worsening back pain and MARLO hip pain. EMS was activated when she was unable to get out of bed. XR L-spine shows moderate to severe lumbar spondylosis, multiple subluxations. Bilateral hip XRs show moderate bilateral hip osteoarthritis. Continue pain control with Tylenol and [place]. Avoiding NSAIDs given her renal function, anticoagulation, and history of gastritis. Appreciate orthopedic surgery recommendations. Discussed with Dr Connolly - he indicates the likely origin of her pain is her back and recommends she re-establish with pain management for injections outpatient. (2) Acute UTI: Code(s): N39.0 - Urinary tract infection, site not specified Status: Acute Assessment and Plan: Patient reports increased urinary frequency. Urine culture grew ESBL E coli. Treated with 4 days of IV zosyn and discharged with oral augmentin to complete course. (3) Hypertension: Qualifiers: Hypertension type: unspecified Qualified Code(s): I10 - Essential (primary) hypertension Code(s): I10 - Essential (primary) hypertension Status: Chronic Assessment and Plan: BP stable maintained on her home Norvasc. (4) Atherosclerotic heart disease of [place] coronary artery with other forms of angina pectoris: Code(s): I25.118 - Atherosclerotic heart disease of [place] coronary artery with other forms of angina pectoris Status: Chronic Assessment and Plan: Stable. No chest pain today. (5) Chronic kidney disease, stage 4 (severe): Code(s): N18.4 - Chronic kidney disease, stage 4 (severe) Status: Acute Assessment and Plan: Appears to be at baseline based on review previous labs. (6) 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 (acquired): Code(s): E03.9 - 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, unspecified Status: Chronic Assessment and Plan: Maintained on home levothyroxine. DS: Summary Time Spent with Patient Time attestation: Total time spent providing and/or coordinating di
== END 2020-03-16 15:55 | DRG 690 ==
LOC: ANHED 23:05 → ANH3MED 23:18
PROVIDERS: Physician Assistant; Admitting Provider Student in an Organized Health Care Education/Training Program; Emergency Provider Emergency Medicine; PCP Family Medicine; Visit Provider Physician Assistant
DX: N39.0 Urinary tract infection, site not specified (principal); N18.4 Chronic kidney disease, stage 4 (severe); I10 Essential (primary) hypertension; E87.5 Hyperkalemia; I12.9 Hypertensive chronic kidney disease with stage 1 through stage 4 chronic kidney disease, or unspecified chronic kidney disease; E03.9 Hypothyroidism, unspecified; R27.0 Ataxia, unspecified; M54.9 Dorsalgia, unspecified; E11.22 Type 2 diabetes mellitus with diabetic chronic kidney disease; Z20.828 Contact with and (suspected) exposure to other viral communicable diseases
CPT/HCPCS: 36415; 51701; 72100; 73521; 80048; 80053; 81001; 83735; 85025; 85027; 87077; 87086; 87088; 87186; 87635; 96361; 96365; 96375; 97110; 97116; 97161; 97165; 97530; 97535; 99285; A9270; C9803; G0378; J0696; J1170; J2543; J3010; J7030; J7050; U0003

== ENCOUNTER 2020-05-04 17:58 | Outpatient (NON) | payer MEDICARE, SELFPAY ==
[2020-05-04 18:37] LABS: Basophils Absolute Auto 0.05 K/mm3 (0.00-0.10); Basophils Percent Auto 1.1 % (0.0-1.0); Eosinophils Absolute Auto 0.35 K/mm3 (0.02-0.50); Eosinophils Percent Auto 7.4 % (1.0-6.0); Hematocrit 36.1 % (35.0-42.0); Hemoglobin 11.1 g/dL (11.7-13.8); Immature Granulocyte Absolute 0.01 K/mm3 (0.00-0.00); Immature Granulocyte Percent A 0.2 % (0.0-0.0); Lymphocytes Absolute Auto 2.11 K/mm3 (1.10-4.50); Lymphocytes Percent Auto 44.9 % (18.0-42.0); Mean Corpuscular HGB Conc 30.7 g/dL (32.0-36.0); Mean Corpuscular Volume 91.2 fL (78.0-102.0); Mean Platelet Volume 11.7 fl (9.2-11.8); Monocytes Absolute Auto 0.41 K/mm3 (0.10-0.90); Monocytes Percent Auto 8.7 % (2.0-11.0); Neutrophils Absolute Auto 1.8 K/mm3 (1.7-7.2); Neutrophils Percent Auto 37.7 % (50.0-70.0); Platelet Count Result 211 K/mm3 (150-420); Red Blood Count 3.96 M/mm3 (4.20-5.40); White Blood Count 4.7 K/mm3 (4.8-10.8)
[2020-05-04 19:02] LABS: Anion Gap 9 mmol/L (8-16); Blood Urea Nitrogen 16 mg/dL (7-18); Calcium 9.2 mg/dL (8.5-10.1); Carbon Dioxide 28 mmol/L (21-32); Chloride 106 mmol/L (98-108); Estimated Glomerular Filt Rate 37; Glucose 77 mg/dL (70-99); Osmolality Calculated 296 mOsm/kg (285-295); Potassium 4.5 mmol/L (3.5-5.1); Sodium 143 mmol/L (136-145); Thyroid Stimulating Hormone 0.06 uIU/mL (0.36-3.74)
== END 2020-05-04 17:59 ==
LOC: CHSLAB 18:00 → CHSHH 05-06 11:26
PROVIDERS: PCP Family Medicine; Visit Provider Family Medicine
DX: M47.816 Spondylosis without myelopathy or radiculopathy, lumbar region (principal); M16.0 Bilateral primary osteoarthritis of hip; N39.0 Urinary tract infection, site not specified; I25.118 Atherosclerotic heart disease of native coronary artery with other forms of angina pectoris; R53.1 Weakness
CPT/HCPCS: 36415; 80048; 84443; 85025

== ENCOUNTER 2020-05-26 15:31 | Inpatient (IN) | payer MEDICARE, SELFPAY ==
--- NOTE | ~2020-05-26 | XR_ITS ---
EXAMINATION: XR chest 2V EXAM DATE: 05/26/2020 16:34 INDICATION: weakness x 3 days, LE edema. TECHNIQUE: Frontal and lateral projections of the chest obtained and reviewed. Comparison is made to prior examination from 06/17/2016. FINDINGS: The lungs are clear. There are no pleural effusions. The cardiomediastinal silhouette is within normal limits. There is no pneumothorax suspected. There are bony degenerative changes. Ther e is aortic arteriosclerosis. There is an IVC filter. Advanced lumbar spondylosis. IMPRESSION: No acute cardiopulmonary findings. Reviewed, dictated and finalized at location A. [place] MEDIA DESIGNER
--- NOTE | ~2020-05-26 | NM_ITS ---
EXAMINATION: NM pulmonary perfusion DATE: 05/27/2020 10:54 INDICATION: Weakness. TECHNIQUE: 5 mCi Tc-99m MAA was administered intravenously for perfusion images. Scintigraphic image s of the chest were obtained. COMPARISON: Chest 2 views 05/26/2020 FINDINGS: Perfusion images show small defects in the lower lobes. IMPRESSION: 1. Pulmonary embolism absent (very low probability). Reviewed, dictated and finalized at location A. ARCHITECT
--- NOTE | ~2020-05-26 | US_ITS ---
EXAMINATION: US venous doppler [facility] DATE: 05/27/2020 10:56 INDICATION: Lower limb swelling. TECHNIQUE: Grayscale ultrasound images without and with compression and Doppler ultrasound images of the bilateral lower extremity veins were obtained. COMPARISON: Ultrasound 09/27/2012, 08/25/2014 FINDINGS: There is thrombus in right common femoral vein, profunda femoral vein, femoral vein, popliteal vein, and posterior tibial and peroneal veins. The visualized portions of left common femoral vein, profunda femoral vein, femoral vein, posterior t ibial veins, and greater saphenous vein outflow are patent. There is a small left Gotti's cyst. IMPRESSION: 1. Acute deep vein thrombosis involving right thigh and lower leg veins. I called this result to Dr. Geiger. 2. Small left Gotti's cyst. Reviewed, dictated and finalized at location A. ESSIONAL FEE CODER IMPRESSION: 1. Acute deep vein thrombosis involving right thigh and lower leg veins. I gini led this result to Dr. Geiger. 2. Small left Gotti's cyst.
[2020-05-26 15:35] VITALS: BP 137/75; PULSE 88; RESP 20; TEMP 37.2; O2SAT 99
[2020-05-26 15:47] LABS: Glucose Point of Care 167 (65-105)
--- NOTE | 2020-05-26 15:56 | ED.WEAKNESS ---
HPI - Weakness General Chief complaint: Weakness Stated complaint: AMB Time Seen by Provider: 05/26/20 16:04 Source: patient Mode of arrival: EMS Limitations: no limitations History of Present Illness HPI Narrative: 84-year-old woman who was recently admitted for UTI and weakness at [facility] comes in today by EMS for weakness that she has had for the last 3 days. She states he uses typically able to take care of herself at home, using a walker and a wheelchair to get around. For the last two days she has been unable to do that. According to the patient and the home health nurse checked her blood pressure and it was 92. She drink 2 full glasses of water and the number improved however she still does not feel well and has weakness. She also complains of swelling in her right leg. Patient states that she has had some nausea but no vomiting and denies cough, shortness breath, sore throat, cold symptoms, dysuria, hematuria, bloody stools, melena and diarrhea. MD Complaint: generalized weakness Onset (ago): day(s) (3) Duration: constant Location: generalized Migration: none Severity: moderate Relieving factors: none Exacerbating factors: none Associated symptoms: other (nausea) Related Data Allergies Allergy/AdvReac Type Severity Reaction Status Date / Time atorvastatin Allergy Unknown ache Verified 03/11/20 14:24 Review of Systems Constitutional: Constitutional: Denies chills, Reports fatigue, Denies fever(s) and Reports weakness Eyes: Eyes: Denies change in vision and Denies photophobia ENT: Denies dysphagia, Denies nasal congestion and Denies sore throat Cardiovascular: Cardiovascular: Denies chest pain and Denies radiating jaw, neck or arm pain Respiratory: Respiratory: Denies cough, Denies dyspnea and Denies wheezing Gastrointestinal: Gastrointestinal: Denies abdominal pain, Denies diarrhea, Reports nausea and Denies vomiting Genitourinary: Genitourinary: Denies hematuria, Denies nocturia and Denies dysuria Musculoskeletal: Musculoskeletal: Denies arthralgias and Denies joint swelling Integumentary/Breasts: Skin/Breast: Denies pruritus, Denies erythema and Denies rash Neurologic: Denies vertigo, Denies dizziness and Denies syncope Hematologic/Lymphatic: Hematologic/Lymphatic: Denies easy bleeding and Denies easy bruising Allergic/Immunologic: Allergic/Immunologic: Denies lip swelling and Reports throat swelling PMFSH Past Medical History Medical History CAD (coronary artery disease) 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 she is thinking about moving to halfway as she is becoming a burden on her daughter Gender identity (if verbalized by the patient): Female Spiritual care concerns: No Agree to blood products: Yes Exam Const: General: no acute distress, alert and ill appearing (mildly) Orientation/consciousness: patient oriented x3 Limitations: no limitations HENMT: Ears: external ears normal, TM's normal bilaterally and EAC's normal General nose exam: Normal nares present Face and sinus: normal facial exam Mouth: Yes moist mucous membranes Throat: posterior oropharynx nor
--- NOTE | 2020-05-26 16:00 | ADMGEN ---
This patient, Meche Woodward, was admitted to 2nd Floor Room 209-1. Patient/family oriented to hospital policies and general routines including ID bracelet, bed and alarms, visiting hours, pain management, procedures, bathroom and other care routines, personal items, smoking policy, room service/diet, and no visiting hours. pt has shirt, pants, shoes from home, id and ins cards placed in med room in bio bag with pt label. Information on how to activate the Rapid Response Team has been discussed. Patient/Family are encouraged to report perceived risks to care and to ask questions if they do not understand what they are told or what they should do.
[2020-05-26 16:11] LABS: Add Urine Microscopic? YES; Bilirubin Urine Negative (Negative); Blood Urine Negative (Negative); Color Urine Yellow (Yellow); Glucose Urine UA Negative (Negative); Ketones Urine Trace (Negative); Leukocyte Esterase Ur 1+ LEU/UL (Negative); Nitrate Urine Positive (Negative); Protein Urine Negative (Negative); Specific Grav Ur 1.025 (1.010-1.020); Urobilinogen Urine 0.2 mg/dL (0.2-1.0)
--- NOTE | 2020-05-26 16:12 | ECG_ITS ---
Measurements Intervals [place] Rate: 83 P: -16 NM: 171 QRS: -29 QRSD: 98 T: 78 QT: 380 QTc: 447 Interpretive Statements SINUS RHYTHM DELAYED PRECORDIAL R/S TRANSITION LEFT VENTRICULAR HYPERTROPHY AND ST-T CHANGE BASELINE ARTIFACT- I, II, III, AVR, AVL, AVF, V1-V2 BORDERLINE ECG Electronically Signed On 05-26-2020 18:11:20 BIOINFORMATICS RESEARCH TECHNICIAN by Mark Ruiz D.O.
[2020-05-26 16:29] LABS: Appearance Urine Sl Cloudy (Clear); Bacteria Urine 2+ /hpf; RBC Urine None seen /hpf (0-2); Squamous Epithelial Cell Urine Few /hpf (Few)
[2020-05-26 16:44] LABS: Basophils Absolute Auto 0.07 K/mm3 (0.00-0.10); Basophils Percent Auto 0.5 % (0.0-1.0); Eosinophils Absolute Auto 0.02 K/mm3 (0.02-0.50); Eosinophils Percent Auto 0.1 % (1.0-6.0); Hematocrit 32.5 % (35.0-42.0); Hemoglobin 10.3 g/dL (11.7-13.8); Immature Granulocyte Absolute 0.07 K/mm3 (0.00-0.00); Immature Granulocyte Percent A 0.5 % (0.0-0.0); Lymphocytes Absolute Auto 1.91 K/mm3 (1.10-4.50); Lymphocytes Percent Auto 13.5 % (18.0-42.0); Mean Corpuscular HGB Conc 31.7 g/dL (32.0-36.0); Mean Corpuscular Hemoglobin 28.3 pg (27.0-31.0); Mean Corpuscular Volume 89.3 fL (78.0-102.0); Mean Platelet Volume 12.2 fl (9.2-11.8); Monocytes Absolute Auto 1.08 K/mm3 (0.10-0.90); Monocytes Percent Auto 7.6 % (2.0-11.0); Neutrophils Percent Auto 77.8 % (50.0-70.0); Platelet Count Result 151 K/mm3 (150-420); Red Blood Count 3.64 M/mm3 (4.20-5.40); Red Cell Distribution Width 15.3 % (11.6-14.4); White Blood Count 14.1 K/mm3 (4.8-10.8)
[2020-05-26 16:59] LABS: INR 1.1; Partial Thromboplastin Time 38.2 SEC (23.90-30.70); Prothrombin Time 11.6 Seconds (9.50-12.10)
[2020-05-26 17:03] LABS: D Dimer 6.74 mg/L (0.19-0.50); Lactic Acid Reflex 1.3 mmol/L (0.4-2.0)
[2020-05-26 17:06] LABS: Alanine Aminotransferase 7 U/L (14-59); Albumin Level 3.6 g/dL (3.4-5.0); Alkaline Phosphatase 73 U/L (46-116); Anion Gap 10 mmol/L (8-16); Aspartate Amino Transferase 12 U/L (15-37); Bilirubin,Total 0.6 mg/dL (0.00-1.00); Blood Urea Nitrogen 30 mg/dL (7-18); CRP 17.6 mg/dL (0.0-0.9); Calcium 8.8 mg/dL (8.5-10.1); Carbon Dioxide 25 mmol/L (21-32); Chloride 97 mmol/L (98-108); Estimated Glomerular Filt Rate 25; Glucose 152 mg/dL (70-99); Osmolality Calculated 283 mOsm/kg (285-295); Potassium 3.7 mmol/L (3.5-5.1); Sodium 132 mmol/L (136-145); Total Protein 7.4 g/dL (6.4-8.2); Troponin I 8.6 ng/L (0.00-60.4)
[2020-05-26] MEDS: SODIUM CHLORIDE 0.9% IV 500 ML 999 ML IV CONT (17:28)
[2020-05-26 17:32] VITALS: BP 131/64; PULSE 78; O2SAT 100
[2020-05-26 18:13] VITALS: BMI 25.5
[2020-05-26 18:33] VITALS: BP 149/75; PULSE 88; RESP 18; TEMP 36.4; O2SAT 100
[2020-05-26] MEDS: SODIUM CHLORIDE 0.9% IV 1,000 ML 100 ML IV CONT (18:50)
[2020-05-26 20:15] VITALS: BP 146/70; PULSE 87; RESP 18; TEMP 36.3; O2SAT 99
[2020-05-26] MEDS: APIXABAN 2.5 MG TABLET PO (20:21)
[2020-05-26] MEDS: HYDROcodone/acetaminophen (*CRX) 7.5-325 MG TABLET 1 TAB PO (20:22)
[2020-05-27] VITALS: BP 144/62; PULSE 89; RESP 18; TEMP 36.7; O2SAT 99
[2020-05-27 05:40] LABS: Basophils Absolute Auto 0.06 K/mm3 (0.00-0.10); Basophils Percent Auto 0.6 % (0.0-1.0); Eosinophils Absolute Auto 0.21 K/mm3 (0.02-0.50); Eosinophils Percent Auto 2.3 % (1.0-6.0); Hematocrit 29.9 % (35.0-42.0); Hemoglobin 9.4 g/dL (11.7-13.8); Immature Granulocyte Absolute 0.05 K/mm3 (0.00-0.00); Immature Granulocyte Percent A 0.5 % (0.0-0.0); Lymphocytes Absolute Auto 2.22 K/mm3 (1.10-4.50); Lymphocytes Percent Auto 23.9 % (18.0-42.0); Mean Corpuscular HGB Conc 31.4 g/dL (32.0-36.0); Mean Corpuscular Hemoglobin 27.9 pg (27.0-31.0); Mean Corpuscular Volume 88.7 fL (78.0-102.0); Mean Platelet Volume 11.4 fl (9.2-11.8); Monocytes Absolute Auto 0.94 K/mm3 (0.10-0.90); Monocytes Percent Auto 10.1 % (2.0-11.0); Neutrophils Absolute Auto 5.8 K/mm3 (1.7-7.2); Neutrophils Percent Auto 62.6 % (50.0-70.0); Platelet Count Result 151 K/mm3 (150-420); Red Blood Count 3.37 M/mm3 (4.20-5.40); Red Cell Distribution Width 15.3 % (11.6-14.4); White Blood Count 9.3 K/mm3 (4.8-10.8)
[2020-05-27] MEDS: HYDROcodone/acetaminophen (*CRX) 7.5-325 MG TABLET 1 TAB PO ×3 (06:05→20:00)
[2020-05-27] MEDS: LEVOTHYROXINE SODIUM 100 MCG TABLET PO (06:06)
[2020-05-27] MEDS: LEVOTHYROXINE SODIUM 25 MCG TABLET PO (06:06)
[2020-05-27 06:09] LABS: Alanine Aminotransferase 7 U/L (14-59); Albumin Level 2.9 g/dL (3.4-5.0); Alkaline Phosphatase 60 U/L (46-116); Anion Gap 9 mmol/L (8-16); Aspartate Amino Transferase < 10 U/L (15-37); Bilirubin,Total 0.5 mg/dL (0.00-1.00); Blood Urea Nitrogen 24 mg/dL (7-18); Calcium 8.4 mg/dL (8.5-10.1); Carbon Dioxide 24 mmol/L (21-32); Chloride 102 mmol/L (98-108); Estimated CRCL calculation 21 ml/min; Estimated Glomerular Filt Rate 33; Glucose 100 mg/dL (70-99); Osmolality Calculated 284 mOsm/kg (285-295); Potassium 3.8 mmol/L (3.5-5.1); Sodium 135 mmol/L (136-145); Total Protein 5.8 g/dL (6.4-8.2)
--- NOTE | 2020-05-27 06:35 | PC.NURSE ---
Notified Dr. Villaseñor to clarify orders.
[2020-05-27] MEDS: SODIUM CHLORIDE 0.9% IV 1,000 ML 100 ML IV CONT ×2 (06:56→21:57)
[2020-05-27 08:00] VITALS: BP 117/60; PULSE 88; RESP 20; TEMP 38.3; O2SAT 95
[2020-05-27] MEDS: APIXABAN 2.5 MG TABLET PO (09:16)
[2020-05-27] MEDS: amLODIPine BESYLATE 5 MG TABLET PO (09:16)
[2020-05-27] MEDS: PANTOPRAZOLE 40 MG TABLET PO ×2 (09:16→17:59)
--- NOTE | 2020-05-27 12:15 | PM.IMHP ---
H&P: HPI History of Present Illness Date/Time: 05/27/20 12:15 Chief Complaint: Swelling Right Leg, Generalized Weakness Narrative: Meche Woodward is a 84 year old female who came into the ER for right leg swelling and a little nausea. Recent hospitalization at [facility] for urinary tract infection and appears that discharge date was 03/16/2020. Patient admits that her daughter and friends were asking why she was still on Eliquis and doubted that she needed any more and as result patient stopped taking her Eliquis. Patient is also complaining of little bit of weakness for the previous 3 days. Patient does not know when the swelling in her leg started. Review of Systems Constitutional: Constitutional: Reports no additional constitutional complaints, Denies body ache(s), Denies chills and Denies fever(s) Cardiovascular: Cardiovascular: Reports no additional cardiovascular complaints, Denies chest pain, Denies chest pain at rest and Denies chest pain with activity Respiratory: Respiratory: Reports no additional respiratory complaints, Denies dyspnea and Denies dyspnea on exertion Gastrointestinal: Gastrointestinal: Reports no additional gastrointestinal complaints Musculoskeletal: Comments: Admits to swelling in the right leg however patient does not know when this started PMFSH Past Medical History Medical History CAD (coronary artery disease) 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, lower extremity, recurrent Essential hypertension Gastritis 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 Osteoarthritis Surgical History Surgical History Status post right knee replacement Family History Family History Father Pancreas cancer COPD (chronic obstructive pulmonary disease) Mother Acute myocardial infarction Sibling Hypertension Social History Social History Smoking status: Never smoker Second hand tobacco smoke exposure: Yes Alcohol intake: never Substance use: current Substance use type: painkillers Other substance usage details: norco Last use: 05/26/20 Additional living arrangements comments: lives with her adult daughter, a respiratory therapist at [facility]. she is thinking about moving to senior care as she is becoming a burden on her daughter Gender identity (if verbalized by the patient): Female Spiritual care concerns: No Agree to blood products: Yes Meds Home Medications and Allergies Home Medications Medication Instructions Recorded Confirmed Type acetaminophen [Mapap 650 mg PO Q4H PRN #90 tablet 03/16/20 05/26/20 Rx (acetaminophen)] hydrocodone-acetaminophen [[place]] 1 tablet PO Q6H PRN #20 tablet 03/16/20 05/26/20 Rx polyethylene glycol 3350 [Miralax] 17 g PO DAILY PRN #5 ea 03/16/20 05/26/20 Rx amlodipine 5 mg tablet 5 mg PO DAILY #90 tablet 04/22/20 05/26/20 Rx esomeprazole magnesium 40 mg 40 mg PO BID #180 cap 04/22/20 05/26/20 Rx capsule,delayed release levothyroxine 125 mcg tablet 125 mcg PO DAILY #90 tablet 05/06/20 05/26/20 Rx Allergies Allergy/AdvReac Type Severity Reaction Status Date / Time atorvastatin Allergy Unknown ache Verified 03/11/20 14:24 Vital Signs Vital Signs - 24 hr 05/26/20 15:35 05/26/20 17:32 05/26/20 18:33 Temperature 98.9 F 97.6 F Pulse Rate 88 78 88 Respiratory Rate 20 18 Blood Pressure 137/75 131/64 149/75 H Pulse Oximetry 99 100 100 05/26/20 20:15 05/27/20 00:00 05/27/20 08:00 Temperature 97.4 F L 98.1 F 101 F H Pulse Rate 87 89 88 Respiratory Rate 18 18 20 Blood Pressure 146/70 H 144/62 H 117/60 Pulse Oximetry 99 99 95 Exam Const: General: cooperative, comfortable, no acute distress, alert and awake Nutritional Appearance: average body habitus Resp: Effort & Inspection: normal respiratory effor
[2020-05-27 16:00] VITALS: BP 132/59; PULSE 80; RESP 18; TEMP 37.6; O2SAT 99
[2020-05-27] MEDS: APIXABAN 2.5 MG TABLET 10 MG PO (20:00)
[2020-05-27 20:45] VITALS: BP 132/56; PULSE 90; RESP 18; TEMP 36.9; O2SAT 97
[2020-05-28] VITALS: BP 118/46; PULSE 84; RESP 20; TEMP 37.4; O2SAT 94
[2020-05-28 05:36] LABS: Hematocrit 27.3 % (35.0-42.0); Hemoglobin 8.5 g/dL (11.7-13.8); Mean Corpuscular HGB Conc 31.1 g/dL (32.0-36.0); Mean Corpuscular Hemoglobin 27.6 pg (27.0-31.0); Mean Corpuscular Volume 88.6 fL (78.0-102.0); Mean Platelet Volume 11.1 fl (9.2-11.8); Platelet Count Result 160 K/mm3 (150-420); Red Blood Count 3.08 M/mm3 (4.20-5.40); Red Cell Distribution Width 15.4 % (11.6-14.4); White Blood Count 8.7 K/mm3 (4.8-10.8)
[2020-05-28 05:49] LABS: Anion Gap 9 mmol/L (8-16); Blood Urea Nitrogen 21 mg/dL (7-18); Calcium 8.3 mg/dL (8.5-10.1); Carbon Dioxide 23 mmol/L (21-32); Chloride 105 mmol/L (98-108); Estimated CRCL calculation 23 ml/min; Estimated Glomerular Filt Rate 36; Glucose 107 mg/dL (70-99); Osmolality Calculated 287 mOsm/kg (285-295); Potassium 3.6 mmol/L (3.5-5.1); Sodium 137 mmol/L (136-145)
[2020-05-28] MEDS: LEVOTHYROXINE SODIUM 100 MCG TABLET PO (06:08)
[2020-05-28] MEDS: LEVOTHYROXINE SODIUM 25 MCG TABLET PO (06:08)
[2020-05-28 07:45] VITALS: BP 137/60; PULSE 81; RESP 18; TEMP 37.3; O2SAT 98
[2020-05-28] MEDS: APIXABAN 2.5 MG TABLET 10 MG PO ×2 (08:57→20:59)
[2020-05-28] MEDS: amLODIPine BESYLATE 5 MG TABLET PO (08:57)
[2020-05-28] MEDS: PANTOPRAZOLE 40 MG TABLET PO ×2 (08:57→18:21)
[2020-05-28] MEDS: HYDROcodone/acetaminophen (*CRX) 7.5-325 MG TABLET 1 TAB PO ×2 (09:03→15:45)
--- NOTE | 2020-05-28 13:41 | PM.IMPN ---
Progress Note: A&P Assessment and Plan (1) Acute UTI: Code(s): N39.0 - Urinary tract infection, site not specified Status: Acute Assessment and Plan: 05/27/2020 patient started on Rocephin, urine culture pending, the patient here less than 3 days will continue oral antibiotics on discharge 05/28/2020 continue Rocephin, urine culture positive for E coli (2) Acute DVT (deep venous thrombosis): Code(s): I82.409 - Acute embolism and thrombosis of unspecified deep veins of unspecified lower extremity Status: Acute Assessment and Plan: 05/27/2020 ultrasound report indicates right thigh and right lower extremity acute DVT, after discussing Eliquis dosing with pharmacist will place patient on 7 day course of 10 mg b.i.d. and then dose to be lowered to 5 mg b.i.d. thereafter, patient will need close follow-up with primary care provider on discharge 05/28/2020 continue with Eliquis at this time, case management is checking on insurance coverage of Eliquis, my understanding is patient was on different anticoagulation in the past, if insurance does not cover Eliquis will have to switch to something that is covered so that she can be discharged on that medication (3) Chronic kidney disease, stage 4 (severe): Code(s): N18.4 - Chronic kidney disease, stage 4 (severe) Status: Acute Assessment and Plan: 05/27/2020 monitoring renal function, avoid nephrotoxic medication, renal dosing as appropriate 05/28/2020 renal function appears to be a baseline this time (4) Essential (primary) hypertension: Code(s): I10 - Essential (primary) hypertension Status: Acute Assessment and Plan: 05/27/2020 continue home medication, monitor vital signs, make adjustments to medications as needed 05/28/2020 no adjustments needed the medication at this time (5) 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 (acquired): Code(s): E03.9 - 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, unspecified Status: Chronic Assessment and Plan: 05/27/2020 continue levothyroxine 125 mcg daily, patient follow-up with primary care provider on discharge and obtain lab work if needed 05/28/2020 continue medications support for this chronic stable condition Subjective Date/time seen: 05/28/20 13:41 Patient states she is feeling pretty good today. Patient denies any trouble with breathing. She has no pains in her chest nor does she have any abdominal issues. Patient states she has not noticed any stool that looks bloody. Patient was informed about the long-term use of Eliquis or possibly another anticoagulant. Review of Systems Constitutional: Constitutional: Reports no additional constitutional complaints Cardiovascular: Cardiovascular: Reports no additional cardiovascular complaints, Denies chest pain, Denies chest pain at rest and Denies chest pain with activity Respiratory: Respiratory: Reports no additional respiratory complaints and Denies dyspnea Gastrointestinal: Gastrointestinal: Reports no additional gastrointestinal complaints Musculoskeletal: Comments: right leg swelling without pain. Exam Const: General: cooperative, comfortable, no acute distress, alert and awake Nutritional Appearance: average body habitus Resp: Effort & Inspection: normal respiratory effort Auscultation: clear to auscultation bilaterally Cardio: Rate: regular rate Rhythm: regular rhythm Heart sounds: S1 normal heart sound present and S2 normal heart sound present GI: GI Palp: Yes Soft to palpation and No Tenderness to palpation present (GI) Auscultation: normal bowel sounds Extrem: Right lower extremity: edema Details: pitting and 3+ Objective Data Vital Signs Vital Signs: Vital Signs - 24 hr 05/27/20 16:00 05/27/20 20:45 05/28/20 00:00 Temperature 99.6 F 98.4 F 99.4 F Pulse Rate 80 90 84 Respiratory Rate 18 18 20 Blood Pressure 132/59 L 132/56 L 118/46 L Pulse Oximetry 99 97 94 05/28/20 07:45 Temperature 99.2 F Pulse Rate 81 Respiratory Rate 18 Blood Pressure
[2020-05-28 15:45] VITALS: BP 136/56; PULSE 65; RESP 18; TEMP 36.8; O2SAT 95
[2020-05-28 15:50] LABS: INR 1.1; Prothrombin Time 12.5 Seconds (9.50-12.10)
[2020-05-28 23:35] VITALS: TEMP 38.1
[2020-05-28] MEDS: ACETAMINOPHEN 325 MG TABLET 650 MG PO (23:35)
--- NOTE | 2020-05-28 23:40 | PC.NURSE ---
Patient noted to have a 100.6 temperature and also complains of pain to her right leg rated @ 5 on 0-10 scale. PRN Tylenol given. Patient also incontinent of urine with incontinence care provided and bed linens changed. Patient denies any other pain/complaints/needs @ this time. No distress noted. Call light in reach.
[2020-05-29] VITALS: BP 146/69; PULSE 100; RESP 20; TEMP 38.1; O2SAT 95
[2020-05-29 00:45] VITALS: TEMP 36.9
[2020-05-29] MEDS: ACETAMINOPHEN 325 MG TABLET 650 MG PO (00:45)
[2020-05-29] MEDS: LEVOTHYROXINE SODIUM 25 MCG TABLET PO (05:42)
[2020-05-29] MEDS: LEVOTHYROXINE SODIUM 100 MCG TABLET PO (05:42)
[2020-05-29 05:44] LABS: Hemoglobin 8.8 g/dL (11.7-13.8); Mean Corpuscular HGB Conc 31.4 g/dL (32.0-36.0); Mean Corpuscular Hemoglobin 27.6 pg (27.0-31.0); Mean Corpuscular Volume 87.8 fL (78.0-102.0); Mean Platelet Volume 10.7 fl (9.2-11.8); Platelet Count Result 197 K/mm3 (150-420); Red Blood Count 3.19 M/mm3 (4.20-5.40); Red Cell Distribution Width 15.6 % (11.6-14.4); White Blood Count 8.7 K/mm3 (4.8-10.8)
[2020-05-29 05:56] LABS: Anion Gap 10 mmol/L (8-16); Blood Urea Nitrogen 17 mg/dL (7-18); Calcium 8.9 mg/dL (8.5-10.1); Carbon Dioxide 24 mmol/L (21-32); Chloride 104 mmol/L (98-108); Estimated CRCL calculation 23 ml/min; Estimated Glomerular Filt Rate 37; Glucose 109 mg/dL (70-99); Osmolality Calculated 288 mOsm/kg (285-295); Potassium 3.7 mmol/L (3.5-5.1); Sodium 138 mmol/L (136-145)
[2020-05-29] MEDS: HYDROcodone/acetaminophen (*CRX) 7.5-325 MG TABLET 1 TAB PO ×3 (06:01→22:46)
[2020-05-29 07:30] VITALS: BP 110/55; PULSE 76; RESP 18; TEMP 36.2; O2SAT 97
[2020-05-29 08:25] LABS: Occult Blood Negative (Negative)
[2020-05-29] MEDS: PANTOPRAZOLE 40 MG TABLET PO ×2 (09:43→17:03)
[2020-05-29] MEDS: amLODIPine BESYLATE 5 MG TABLET PO (09:43)
[2020-05-29] MEDS: ENOXAPARIN 60 MG/0.6 ML SYRINGE SUB-Q ×2 (09:43→20:47)
--- NOTE | 2020-05-29 10:30 | PC.NURSE ---
Patient resting in bed, hob elevated. Pillow applied under right leg. Calll light at side.
--- NOTE | 2020-05-29 13:02 | PM.IMPN ---
Progress Note: A&P Assessment and Plan (1) Acute UTI: Code(s): N39.0 - Urinary tract infection, site not specified Status: Acute Assessment and Plan: 05/27/2020 patient started on Rocephin, urine culture pending, the patient here less than 3 days will continue oral antibiotics on discharge 05/28/2020 continue Rocephin, urine culture positive for E coli 05/29/2020 continue Rocephin, sensitivity has resulted likely send patient home on Levaquin (2) Acute DVT (deep venous thrombosis): Code(s): I82.409 - Acute embolism and thrombosis of unspecified deep veins of unspecified lower extremity Status: Acute Assessment and Plan: 05/27/2020 ultrasound report indicates right thigh and right lower extremity acute DVT, after discussing Eliquis dosing with pharmacist will place patient on 7 day course of 10 mg b.i.d. and then dose to be lowered to 5 mg b.i.d. thereafter, patient will need close follow-up with primary care provider on discharge 05/28/2020 continue with Eliquis at this time, case management is checking on insurance coverage of Eliquis, my understanding is patient was on different anticoagulation in the past, if insurance does not cover Eliquis will have to switch to something that is covered so that she can be discharged on that medication 05/29/2020 Patient currently on therapeutic Lovenox to be transition to Coumadin, patient has the ability with help from family to be able to get her shots while taking her Coumadin and follow-up with lab work Monday prior to appointment with her primary care provider (3) Chronic kidney disease, stage 4 (severe): Code(s): N18.4 - Chronic kidney disease, stage 4 (severe) Status: Acute Assessment and Plan: 05/27/2020 monitoring renal function, avoid nephrotoxic medication, renal dosing as appropriate 05/28/2020 renal function appears to be a baseline this time 05/29/2020 renal function remains at baseline (4) Essential (primary) hypertension: Code(s): I10 - Essential (primary) hypertension Status: Acute Assessment and Plan: 05/27/2020 continue home medication, monitor vital signs, make adjustments to medications as needed 05/28/2020 no adjustments needed the medication at this time 05/29/2020 no adjustments needed today (5) 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 (acquired): Code(s): E03.9 - 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, unspecified Status: Chronic Assessment and Plan: 05/27/2020 continue levothyroxine 125 mcg daily, patient follow-up with primary care provider on discharge and obtain lab work if needed 05/28/2020 continue medications support for this chronic stable condition 05/29/2020 continue with current regimen Subjective Date/time seen: 05/29/20 13:02 Overall patient states she is doing well. Denies any shortness of breath or chest pain. Denies any abdominal pain or urinary issues. Only complaint patient has is occasional pain in the right leg where her DVT is located. Review of Systems Constitutional: Constitutional: Reports no additional constitutional complaints Cardiovascular: Cardiovascular: Reports no additional cardiovascular complaints, Denies chest pain, Denies chest pain at rest and Denies chest pain with activity Respiratory: Respiratory: Reports no additional respiratory complaints, Denies dyspnea and Denies dyspnea on exertion Gastrointestinal: Gastrointestinal: Reports no additional gastrointestinal complaints Musculoskeletal: Musculoskeletal: Reports no additional musculoskeletal complaints and Reports abnormal gait Comments: Right leg pain due to swelling and DVT Exam Const: General: cooperative, comfortable, no acute distress, alert, awake and Physically active Resp: Effort & Inspection: normal respiratory effort Auscultation: clear to auscultation bilaterally Cardio: Rate: regular rate Heart sounds: S1 normal heart sound present and S2 normal heart sound present GI: GI Palp: Yes Soft to palpation and No Tenderness to palpation pres
[2020-05-29 15:35] VITALS: BP 131/63; PULSE 92; RESP 18; TEMP 37.1; O2SAT 100
[2020-05-29] MEDS: WARFARIN (*PBKC) 5 MG TABLET PO (17:03)
[2020-05-30] VITALS: BP 137/71; PULSE 98; RESP 20; TEMP 37.8; O2SAT 96
[2020-05-30 01:30] VITALS: TEMP 37.3
[2020-05-30] MEDS: LEVOTHYROXINE SODIUM 100 MCG TABLET PO (05:55)
[2020-05-30] MEDS: LEVOTHYROXINE SODIUM 25 MCG TABLET PO (05:55)
[2020-05-30 06:05] LABS: Hematocrit 27.3 % (35.0-42.0); Hemoglobin 8.7 g/dL (11.7-13.8); Mean Corpuscular HGB Conc 31.9 g/dL (32.0-36.0); Mean Corpuscular Hemoglobin 28.2 pg (27.0-31.0); Mean Corpuscular Volume 88.6 fL (78.0-102.0); Mean Platelet Volume 11.2 fl (9.2-11.8); Platelet Count Result 223 K/mm3 (150-420); Red Blood Count 3.08 M/mm3 (4.20-5.40); Red Cell Distribution Width 15.3 % (11.6-14.4); White Blood Count 7.9 K/mm3 (4.8-10.8)
[2020-05-30 06:16] LABS: Anion Gap 11 mmol/L (8-16); Blood Urea Nitrogen 16 mg/dL (7-18); Calcium 8.3 mg/dL (8.5-10.1); Carbon Dioxide 24 mmol/L (21-32); Chloride 104 mmol/L (98-108); Estimated CRCL calculation 24 ml/min; Estimated Glomerular Filt Rate 40; Glucose 96 mg/dL (70-99); Osmolality Calculated 289 mOsm/kg (285-295); Potassium 3.8 mmol/L (3.5-5.1); Sodium 139 mmol/L (136-145)
[2020-05-30 06:18] LABS: INR 1.1; Prothrombin Time 12.6 Seconds (9.50-12.10)
--- NOTE | 2020-05-30 07:43 | PM.DS ---
DS: Admitting Diagnosis Admitting Diagnosis Admitting Diagnosis: Urinary tract infection and DVT DS: Discharge Diagnosis Discharge Diagnosis (1) Acute UTI: Code(s): N39.0 - Urinary tract infection, site not specified Status: Acute Assessment and Plan: 05/27/2020 patient started on Rocephin, urine culture pending, the patient here less than 3 days will continue oral antibiotics on discharge 05/28/2020 continue Rocephin, urine culture positive for E coli 05/29/2020 continue Rocephin, sensitivity has resulted likely send patient home on Levaquin 05/30/2020 will send patient home with Levaquin for 3 days (2) Acute DVT (deep venous thrombosis): Code(s): I82.409 - Acute embolism and thrombosis of unspecified deep veins of unspecified lower extremity Status: Acute Assessment and Plan: 05/27/2020 ultrasound report indicates right thigh and right lower extremity acute DVT, after discussing Eliquis dosing with pharmacist will place patient on 7 day course of 10 mg b.i.d. and then dose to be lowered to 5 mg b.i.d. thereafter, patient will need close follow-up with primary care provider on discharge 05/28/2020 continue with Eliquis at this time, case management is checking on insurance coverage of Eliquis, my understanding is patient was on different anticoagulation in the past, if insurance does not cover Eliquis will have to switch to something that is covered so that she can be discharged on that medication 05/29/2020 Patient currently on therapeutic Lovenox to be transition to Coumadin, patient has the ability with help from family to be able to get her shots while taking her Coumadin and follow-up with lab work Monday prior to appointment with her primary care provider 05/30/2020 Ashok irwin order placed, patient has the ability to do subcu Lovenox at home while transitioning on Coumadin and she will have an outpatient lab order for her to obtain an INR on Monday prior to visiting her PCP. (3) Chronic kidney disease, stage 4 (severe): Code(s): N18.4 - Chronic kidney disease, stage 4 (severe) Status: Acute Assessment and Plan: 05/27/2020 monitoring renal function, avoid nephrotoxic medication, renal dosing as appropriate 05/28/2020 renal function appears to be a baseline this time 05/29/2020 renal function remains at baseline 05/30/2020 renal function looks good in at baseline today (4) Essential (primary) hypertension: Code(s): I10 - Essential (primary) hypertension Status: Acute Assessment and Plan: 05/27/2020 continue home medication, monitor vital signs, make adjustments to medications as needed 05/28/2020 no adjustments needed the medication at this time 05/29/2020 no adjustments needed today 05/30/2020 vital signs stable patient may continue current regiment which is her home regimen on discharge (5) 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 (acquired): Code(s): E03.9 - 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, unspecified Status: Chronic Assessment and Plan: 05/27/2020 continue levothyroxine 125 mcg daily, patient follow-up with primary care provider on discharge and obtain lab work if needed 05/28/2020 continue medications support for this chronic stable condition 05/29/2020 continue with current regimen 05/30/2020 continue current regiment on outpatient follow-up with PCP DS: Summary Hospital Course Hospital Course: patient found to have UTI and DVT. DVT covered with Lovenox initially was going to start Eliquis however insurance would not cover this so we went with Coumadin. Patient has resources to be able to take the Lovenox shots at home and follow up for lab work on Monday while transitioning on to Coumadin. Patient had 3 days of Rocephin will follow that as outpatient with Levaquin for 3 days. Time Spent with Patient Time attestation: Total time spent providing and/or coordinating discharge services: < 30 minutes Exam Const: General: cooperative, comfortable, no acute distress, alert, awake and Physically active Nut
[2020-05-30 08:00] VITALS: BP 140/68; PULSE 88; TEMP 37.4; O2SAT 99
[2020-05-30] MEDS: PANTOPRAZOLE 40 MG TABLET PO (09:20)
[2020-05-30] MEDS: ENOXAPARIN 60 MG/0.6 ML SYRINGE SUB-Q (09:20)
[2020-05-30] MEDS: HYDROcodone/acetaminophen (*CRX) 7.5-325 MG TABLET 1 TAB PO (09:20)
[2020-05-30] MEDS: amLODIPine BESYLATE 5 MG TABLET PO (09:21)
[2020-05-30] MEDS: ACETAMINOPHEN 325 MG TABLET 650 MG PO (13:25)
--- NOTE | 2020-06-01 09:46 | PC.NURSE ---
Pt states she received and understood her discharge instructions. Pt also states I got good care .
--- NOTE | 2020-06-04 04:23 | PC.NURSE ---
IV fluid was started on 05/26/20 at 1850 by Navin Clifford RN; The IV fluid was completed by TAURUS Gonzalez at 0650 on 05/27/20
== END 2020-05-30 15:10 | disposition home or self-care (01) | DRG 300 ==
LOC: CHSED 16:17 → CHS2ND 17:33
PROVIDERS: Nurse Practitioner Family; Admitting Provider Emergency Medicine; Emergency Provider Emergency Medicine; PCP Family Medicine; Visit Provider Emergency Medicine
DX: I82.411 Acute embolism and thrombosis of right femoral vein (principal); N39.0 Urinary tract infection, site not specified; N18.4 Chronic kidney disease, stage 4 (severe); I82.431 Acute embolism and thrombosis of right popliteal vein; I82.441 Acute embolism and thrombosis of right tibial vein; I82.451 Acute embolism and thrombosis of right peroneal vein; I25.10 Atherosclerotic heart disease of native coronary artery without angina pectoris; I12.9 Hypertensive chronic kidney disease with stage 1 through stage 4 chronic kidney disease, or unspecified chronic kidney disease; E03.9 Hypothyroidism, unspecified; M19.90 Unspecified osteoarthritis, unspecified site; B96.20 Unspecified Escherichia coli [E. coli] as the cause of diseases classified elsewhere; Z96.651 Presence of right artificial knee joint
CPT/HCPCS: 36415; 51701; 71046; 78580; 80048; 80053; 81001; 82272; 83605; 84484; 85025; 85027; 85380; 85610; 85730; 86140; 87040; 87077; 87086; 87088; 87186; 93005; 93970; 96361; 96365; 96366; 97110; 97161; 97165; 97530; 99285; A9270; A9540; G0378; J0696; J1650; J7030; J7040

== ENCOUNTER 2020-06-01 13:05 | Outpatient (NON) | payer MEDICARE, SELFPAY ==
[2020-06-01 14:22] LABS: INR 2.9; Prothrombin Time 31.2 Seconds (11.1-14.7)
== END 2020-06-01 13:06 ==
PROVIDERS: PCP Family Medicine; Visit Provider Nurse Practitioner Family
DX: I82.409 Acute embolism and thrombosis of unspecified deep veins of unspecified lower extremity (principal)
CPT/HCPCS: 85610

== ENCOUNTER 2020-06-08 11:19 | Outpatient (NON) | payer MEDICARE, SELFPAY ==
[2020-06-08 12:22] LABS: INR 6.7
== END 2020-06-08 11:20 ==
PROVIDERS: PCP Family Medicine; Visit Provider Family Medicine
DX: M47.816 Spondylosis without myelopathy or radiculopathy, lumbar region (principal); M16.0 Bilateral primary osteoarthritis of hip; N39.0 Urinary tract infection, site not specified; S33.100 Subluxation of unspecified lumbar vertebra; X58.XXXD Exposure to other specified factors, subsequent encounter; I82.409 Acute embolism and thrombosis of unspecified deep veins of unspecified lower extremity
CPT/HCPCS: 85610

== ENCOUNTER 2020-11-30 18:21 | Emergency (ER) | payer MEDICARE, BC, SELFPAY ==
--- NOTE | 2020-11-30 18:38 | ED.EXTPRO ---
HPI - Extremity Problem General Chief complaint: Unspecified Stated complaint: SWELLING IN LEGS Source: patient, family and RN notes reviewed Mode of arrival: ambulatory Limitations: no limitations History of Present Illness Complaint: extremity swelling Onset (ago): week(s) (1) Pain Consistency: constant Location: left, right and lower extremity Quality: aching Radiation: none Relieving factors: nothing Exacerbating factors: walking Associated symptoms: denies other symptoms Related Data Allergies Allergy/AdvReac Type Severity Reaction Status Date / Time atorvastatin Allergy Unknown ache Verified 07/16/20 14:51 Review of Systems Review of Systems: All systems reviewed & are unremarkable except as noted in HPI and below Constitutional: Constitutional: Denies chills and Denies fever(s) Eyes: Eyes: Reports eye discharge and Reports itchy eyes Cardiovascular: Cardiovascular: Denies chest pain Respiratory: Respiratory: Denies dyspnea [facility] Past Medical History Medical History CAD (coronary artery disease) 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, lower extremity, recurrent Essential hypertension Gastritis 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 Osteoarthritis Surgical History Surgical History Status post right knee replacement Family History Family History Father Pancreas cancer COPD (chronic obstructive pulmonary disease) Mother Acute myocardial infarction Sibling Hypertension Social History Social History Second hand tobacco smoke exposure: Yes Alcohol intake: never Substance use: current Substance use type: painkillers Other substance usage details: norco Last use: 05/26/20 Additional living arrangements comments: lives with her adult daughter, a respiratory therapist at [employer]. she is thinking about moving to [facility] as she is becoming a burden on her daughter Gender identity (if verbalized by the patient): Female Spiritual care concerns: No Agree to blood products: Yes Exam Const: General: healthy appearing and no acute distress Nutritional Appearance: well nourished Orientation/consciousness: patient oriented x3 HENMT: Head: normal to inspection Ears: external ears normal Face and sinus: normal facial exam Eyes: Conjunctivae: conjunctival abnormality bilateral conjunctival injection diffuse Pupils: Equal, round and reactive pupils present EOM: EOMs intact bilaterally Neck: Neck: normal visual inspection Resp: Effort & Inspection: normal respiratory effort Auscultation: clear to auscultation bilaterally Cardio: Rate: regular rate Rhythm: regular rhythm Heart sounds: no murmurs GI: GI Palp: Yes Soft to palpation and No Tenderness to palpation present (GI) Auscultation: normal bowel sounds Back/Spine/Pelvis: Cervical Spine: cervical ROM normal Thoracic/Lumbar Spine: thoraco-lumbar ROM normal Skin: General skin exam: normal color Rashes: no rashes Neuro: General: patient oriented x3, moves all extremities, no meningeal signs and no focal motor deficits Speech: normal speech Gait exam (Neuro): Normal gait present Extrem: General: full ROM, normal exam except as noted and pedal edema bilaterally (to mid gates) pitting and 2+ Course Vital Signs Vital signs: Vital Signs Temperature 36.4 C 11/30/20 18:40 Pulse Rate 88 11/30/20 18:40 Respiratory Rate 20 11/30/20 18:40 Blood Pressure 188/85 H 11/30/20 18:40 Pulse Oximetry 96 11/30/20 18:40 Temperature 36.4 C 11/30/20 18:40 Pulse Rate 88 11/30/20 18:40 Respiratory Rate 20 11/30/20 18:40 Blood Pressure 188/85 H 11/30/20 18:40 Pulse Oximetry 96 11/30/20 18:40 MDM - Extremity (Nontraumatic) Lab Data Result diagrams: 11/30/20 18:53 11/30/20 18:
[2020-11-30 18:40] VITALS: BP 188/85; PULSE 88; RESP 20; TEMP 36.4; O2SAT 96
[2020-11-30 18:57] LABS: Basophils Absolute Auto 0.04 K/mm3 (0.00-0.10); Basophils Percent Auto 0.5 % (0.0-1.0); Eosinophils Absolute Auto 0.11 K/mm3 (0.02-0.50); Eosinophils Percent Auto 1.5 % (1.0-6.0); Hematocrit 32.7 % (35.0-42.0); Hemoglobin 10.4 g/dL (11.7-13.8); Immature Granulocyte Absolute 0.02 K/mm3 (0.00-0.00); Immature Granulocyte Percent A 0.3 % (0.0-0.0); Lymphocytes Absolute Auto 2.06 K/mm3 (1.10-4.50); Lymphocytes Percent Auto 28.3 % (18.0-42.0); Mean Corpuscular HGB Conc 31.8 g/dL (32.0-36.0); Mean Corpuscular Hemoglobin 26.7 pg (27.0-31.0); Mean Corpuscular Volume 83.8 fL (78.0-102.0); Mean Platelet Volume 10.4 fl (9.2-11.8); Monocytes Percent Auto 6.9 % (2.0-11.0); Neutrophils Absolute Auto 4.6 K/mm3 (1.7-7.2); Neutrophils Percent Auto 62.5 % (50.0-70.0); Platelet Count Result 235 K/mm3 (150-420); Red Cell Distribution Width 16.4 % (11.6-14.4); White Blood Count 7.3 K/mm3 (4.8-10.8)
[2020-11-30 19:10] LABS: INR 1.1; Prothrombin Time 11.4 Seconds (9.50-12.10)
[2020-11-30 19:19] LABS: Alanine Aminotransferase 14 U/L (14-59); Alkaline Phosphatase 72 U/L (46-116); Anion Gap 14 mmol/L (8-16); Aspartate Amino Transferase 11 U/L (15-37); Bilirubin,Total 0.4 mg/dL (0.00-1.00); Blood Urea Nitrogen 24 mg/dL (7-18); Calcium 9.2 mg/dL (8.5-10.1); Carbon Dioxide 26 mmol/L (21-32); Chloride 103 mmol/L (98-108); Estimated CRCL calculation 18 ml/min; Estimated Glomerular Filt Rate 34; Glucose 138 mg/dL (70-99); NT Pro B Type Natriuretic Pept 685 pg/mL (0-450); Osmolality Calculated 302 mOsm/kg (285-295); Potassium 4.3 mmol/L (3.5-5.1); Sodium 143 mmol/L (136-145)
[2020-11-30 19:30] VITALS: BP 180/78; PULSE 72; RESP 18; TEMP 36.6; O2SAT 96
== END 2020-11-30 19:39 | disposition home or self-care (01) ==
PROVIDERS: Emergency Provider Emergency Medicine; PCP Family Medicine
DX: I50.21 Acute systolic (congestive) heart failure (principal); H10.33 Unspecified acute conjunctivitis, bilateral; I25.10 Atherosclerotic heart disease of native coronary artery without angina pectoris; E03.9 Hypothyroidism, unspecified; I12.9 Hypertensive chronic kidney disease with stage 1 through stage 4 chronic kidney disease, or unspecified chronic kidney disease; N18.4 Chronic kidney disease, stage 4 (severe)
CPT/HCPCS: 36415; 80053; 83880; 85025; 85610; 99283

== ENCOUNTER 2021-08-18 19:09 | Observation (INO) | payer MEDICARE, SELFPAY ==
--- NOTE | ~2021-08-18 | CT_ITS ---
EXAMINATION: CTA chest PE protocol DATE: 08/18/2021 23:01 INDICATION: Dizziness. TECHNIQUE: Computed tomography angiography (CTA) of the chest was performed with 100 mL Omnipaque-350 intravenous contrast timed to evaluate the pulmonary arteries. Coronal maximum intensity projection 3D-reconstructions were created by the technologist. Automated exposure control and iterative reconst ruction technique were employed. The dose-length product was 410.27 mGy-cm. COMPARISON: CT abdomen and pelvis 03/11/2019 FINDINGS: There is mild scarring at the lung apices. There is mild bronchiectasis in the inferior demetrius gs. There is peripheral septal thickening in the lungs. No honeycombing. No pleural effusion. The hea rt size is normal. There are coronary artery calcifications. No pericardial effusion. There is no pul monary embolus. There is a moderate-sized sliding hiatal hernia. There are changes of cholecystectomy . There is moderate thoracic spondylosis and severe cervical spondylosis. IMPRESSION: 1. No pulmonary embolus. 2. Chronic interstitial lung disease in a pattern of nonspecific interstitial pneumonia (NSIP) versus usual interstitial pneumonia (UIP). 3. Moderate-sized sliding hiatal hernia. Reviewed, dictated and finalized at location A. IMPRESSION: 1. No pulmonary embolus. 2. Chronic interstitial lung disease in a pattern of nonspecific interstitial p neumonia (NSIP) versus usual interstitial pneumonia (UIP). 3. Moderate-sized sliding hiatal hernia.
--- NOTE | ~2021-08-18 | XR_ITS ---
EXAMINATION: XR chest 2V DATE: 08/18/2021 19:48 INDICATION: Hypertension. TECHNIQUE: Frontal and lateral views of the chest were obtained. COMPARISON: Chest 2 views 05/26/2020, CT abdomen and pelvis 03/11/2019 FINDINGS: There is mild atelectasis versus scarring in left mid and lower lung zones. No pleural effu rufina or pneumothorax. The heart size is normal. Surgical clips in the right upper quadrant are likely from cholecystectomy. IMPRESSION: 1. Mild atelectasis versus scarring in left mid and lower lung zones. Reviewed, dictated and finalized at location A.
--- NOTE | ~2021-08-18 | CT_ITS ---
EXAMINATION: CT brain wo con DATE: 08/18/2021 19:41 INDICATION: Headache. TECHNIQUE: Computed tomography (CT) of the head was performed without intravenous contrast. The mA wa s adjusted according to patient size. Iterative reconstruction technique was employed. The dose-lengt h product was 605.33 mGy-cm. COMPARISON: Head CT 03/29/2017 FINDINGS: There are old infarcts in the left thalamus and bilateral basal ganglia. There are scattere d areas of low attenuation in the cerebral white matter. There is no intracranial hemorrhage, acute i nfarction, or abnormal intracranial mass lesion. The ventricles are normal in size. There are likely changes of ocular lens replacement surgeries. There are changes of left-sided scleral banding procedu re. There is a radiodense implant at the superomedial aspect of left ocular globe. There is a small l eft mastoid effusion. There is mild mucosal thickening in the ethmoid sinuses. IMPRESSION: 1. 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 2. Worsened extensive nonspecific cerebral white matter disease, which likely represents chronic smal l vessel ischemic disease. Reviewed, dictated and finalized at location A. IMPRESSION: 1. 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 2. Worsened extensive nonspecific cerebral white matter disease, which likely r epresents chronic small vessel ischemic disease.
[2021-08-18 19:14] VITALS: BP 162/83; PULSE 100; RESP 19; TEMP 36.8; O2SAT 100
--- NOTE | 2021-08-18 19:26 | ECG_ITS ---
Measurements Intervals [place] Rate: 93 P: -23 FL: 150 QRS: -27 QRSD: 85 T: 55 QT: 293 QTc: 364 Interpretive Statements SINUS RHYTHM MODERATE VOLTAGE CRITERIA FOR LVH, CONSIDER NORMAL VARIANT [MEETS CRITERIA IN ONE OF: R(aVL), S(V1), R(V5), R(V5/V6)+S(V1)] NONSPECIFIC T-WAVE ABNORMALITY BORDERLINE ECG COMPARED TO ECG 05/26/2020 16:26:17 T-WAVE ABNORMALITY NOW PRESENT Electronically Signed On 08-19-2021 15:33:11 CDT by Shan Gibbs M.D.
--- NOTE | 2021-08-18 19:29 | ED.DIZZY ---
HPI - Dizziness General Chief Complaint: Recheck/Abnormal Lab/Rx Stated Complaint: htn Source: patient and EMS Mode of arrival: EMS Limitations: no limitations History of Present Illness HPI Narrative: The patient is an 86-year-old female with a history of hypertension, recurrent DVT on anticoagulation, osteoarthritis, chronic kidney disease, presenting to the emergency department for evaluation of multiple complaints including headache, dizziness. Patient states she has been busy with movement today, states that she noticed her blood pressure was elevated. Patient called her primary care physician's office and was told to increase her Lasix and amlodipine dose which she did. She states typically her blood pressure is 150 systolic, today it is been up to 170 systolics. She denies ear pain. She denies vision changes, difficulty with word finding, unilateral numbness or weakness. Patient has had no oral intake today, states she has not had anything to eat or drink because of lack of appetite. Patient was independently, states that meals are typically delivered to her or she will make sandwiches, but states she did not feel much like eating. Patient denies dysuria or hematuria. Denies fever, chills, chest pain. Denies any significant shortness of breath. Denies nausea, vomiting, diarrhea. Reports headache which is posterior, has been present all day. Reports mild neck pain. Denies recent fall or injury. Patient has been compliant with her anticoagulation. She denies leg edema, significant calf tenderness or redness. No recent immobility. Patient has been ambulatory. Related Data Home Medications Medication Instructions Recorded Confirmed ezetimibe 10 mg tablet 10 mg PO DAILY 01/29/21 07/28/21 Allergies Allergy/AdvReac Type Severity Reaction Status Date / Time atorvastatin Allergy Unknown ache Verified 07/27/21 14:44 Review of Systems Review of Systems: CONSTITUTIONAL: Denies fever, chills, or sweats. EYES: Denies visual changes, redness, or discharge. ENT: Denies rhinorrhea, congestion, sore throat, or otalgia. CARDIOVASCULAR: Denies chest pain, palpitations, or edema. RESPIRATORY: Denies cough or dyspnea. Denies pleuritic pain. GASTROINTESTINAL: Denies abdominal pain, nausea, vomiting, or diarrhea. GENITOURINARY: Denies dysuria or hematuria. SKIN: Denies rash or itching. MUSCULOSKELETAL: Denies back pain, joint pain, or myalgia. NEUROLOGIC: Reports headache without focal numbness, or weakness. 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, lower extremity, recurrent Essential hypertension Gastritis 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 Osteoarthritis Surgical History Surgical History Status post right knee replacement Family History Family History Father Pancreas cancer COPD (chronic obstructive pulmonary disease) Mother Acute myocardial infarction Sibling Hypertension Social History Social History (Updated 07/27/21 @ 14:53 by Willian Gonzalez MA) Second hand tobacco smoke exposure: Yes Alcohol intake: never Substance use: current Substance use type: painkillers Other substance usage details: norco Last use: 05/26/20 Additional living arrangements comments: lives with her adult daughter, a respiratory therapist at [employer] [facility]. she is thinking about moving [place] as she is becoming a burden on her daughter Gender identity (if verbalized by the patient): Female Spiritual care concerns: No Agree to blood products: Yes Exam Narrative: GENERAL: Awake, alert, conversant HEAD: Normocephalic, atraumatic. EYES: 2+ PERRLA and EOMI. ENT: Nares clear, no rhinorrhea or epistaxis. Mucous membranes moist. Left TM normal. Small amount of cerumen in right ea
[2021-08-18 20:08] LABS: Basophils Absolute Auto 0.1 K/mm3 (0.0-0.1); Basophils Percent Auto 0.7 % (0.2-1.2); Eosinophils Percent Auto 0.3 % (0-4.4); Hematocrit 39.9 % (37.0-47.0); Hemoglobin 12.2 g/dL (12.0-15.0); Immature Granulocyte Absolute 0.03 K/mm3 (0.00-0.031); Immature Granulocyte Percent A 0.3 % (0-0.5); Lymphocytes Absolute Auto 1.72 K/mm3 (0.9-3.2); Lymphocytes Percent Auto 15.9 % (18.3-44.2); Mean Corpuscular HGB Conc 30.6 g/dl (32-36); Mean Corpuscular Hemoglobin 25.7 pg (26-34); Mean Corpuscular Volume 84.2 fl (80-100); Mean Platelet Volume 10.7 fl (7.4-10.4); Monocytes Absolute Auto 0.5 K/mm3 (0.1-0.6); Monocytes Percent Auto 4.2 % (2.6-8.5); Neutrophils Absolute Auto 8.5 K/mm3 (1.3-6.7); Neutrophils Percent Auto 78.6 % (45.5-73.1); Platelet Count Result 333 k/mm3 (150-375); Red Blood Count 4.74 M/mm3 (4.2-5.4); Red Cell Distribution Width 15.4 % (11.5-14.5); White Blood Count 10.9 K/mm3 (4.5-10.0)
[2021-08-18 20:17] LABS: Alanine Aminotransferase 11 U/L (4-35); Albumin Level 4.9 g/dL (3.5-5.1); Alkaline Phosphatase 95 U/L (38-126); Anion Gap 14 mmol/L (8-16); Aspartate Amino Transferase 23 U/L (14-36); Bilirubin,Total 0.9 mg/dL (0.2-1.3); Blood Urea Nitrogen 24 mg/dL (7-17); Calcium 9.7 mg/dL (8.4-10.2); Carbon Dioxide 28 mmol/L (22-30); Chloride 101 mmol/L (98-107); Estimated Glomerular Filt Rate 33; Glucose 171 mg/dL (65-110); Potassium 3.8 mmol/L (3.4-5.0); Sodium 143 mmol/L (137-145)
[2021-08-18 20:29] LABS: NT Pro B Type Natriuretic Pept 598 pg/mL (5-100); Troponin I < 0.012 ng/mL (0.000-0.034)
[2021-08-18 20:33] LABS: Appearance Urine Clear (Clear); Bilirubin Urine Negative (Negative); Color Urine Yellow (Yellow); Glucose Urine UA Negative (Negative); Ketones Urine Negative (Negative); Leukocyte Esterase Ur 1+ LEU/UL (Negative); Nitrate Urine Negative (Negative); Protein Urine 1+ mg/dL (Negative); Specific Grav Ur 1.015 (1.001-1.035); Urobilinogen Urine 0.2 mg/dL (<2.0); pH Urine 6.5 (5.0-9.0)
[2021-08-18 20:37] LABS: Add Urine Microscopic? YES; Blood Urine Trace-Intact (Negative)
[2021-08-18 20:41] LABS: Bacteria Urine Trace /hpf; Mucus Urine Rare /lpf; RBC Urine 0-2 /hpf (0-2)
[2021-08-18] MEDS: MECLIZINE HCL 25 MG TABLET PO (20:57)
[2021-08-18] MEDS: ACETAMINOPHEN 500 MG TABLET 1000 MG PO (20:58)
[2021-08-18] MEDS: SODIUM CHLORIDE 0.9% IV 500 ML 999 ML IV CONT (20:59)
[2021-08-18 22:07] VITALS: O2SAT 100
[2021-08-18 22:41] VITALS: BP 155/74; PULSE 82
[2021-08-18 22:42] VITALS: BP 157/74; PULSE 89
[2021-08-18 22:43] VITALS: BP 163/83; PULSE 104
--- NOTE | 2021-08-18 22:47 | PC.NURSE ---
pt to ct scan via stretcher
[2021-08-19] VITALS (8 sets, daily range): BP systolic 136–163; BP diastolic 61–72; PULSE 48–85; RESP 14–16; TEMP 36.4–36.7; O2SAT 97–99; BMI 25.4; BMI 25.8
[2021-08-19] MEDS: oxyCODONE HCL (*CRX) 2.5 MG TAB IR PO (00:08)
[2021-08-19 01:00] LABS: SARS-CoV-2 RNA PCR Negative
--- NOTE | 2021-08-19 02:53 | ADMGEN ---
This patient, Meche Woodward, was admitted to Medical Room 342-01. Patient/family oriented to hospital policies and general routines including ID bracelet, bed and alarms, visiting hours, pain management, procedures, bathroom and other care routines, personal items, smoking policy, room service/diet, and visiting hours. Information on how to activate the Rapid Response Team has been discussed. Patient/Family are encouraged to report perceived risks to care and to ask questions if they do not understand what they are told or what they should do.
[2021-08-19] MEDS: LACTATED RINGERS 1,000 ML 75 ML IV CONT (03:22)
--- NOTE | 2021-08-19 03:25 | PM.IMHP ---
H&P: HPI History of Present Illness Date/Time: 08/18/21 23:30 Chief Complaint: Elevated blood pressure Narrative: 86-year-old female with past medical history of GERD, right femoral and popliteal DVT May 2020, diet controlled diabetes, coronary artery disease,, prior CVAs and TIAs, chronic basilar artery insufficiency, and chronic ataxia who presented to the ER with high blood pressures, dizziness and lightheadedness with position changes. The patient is a fair historian regarding her recent events but is less knowledgeable regarding her past medical history. The patient reports that for the last 5 days she has been having intermittent headache at the base of her skull and in her forehead region. The pain is worse is an 8/10 in intensity is currently a 4/10 in intensity. It is accompanied by decreased appetite over the last couple of days and decreased intake of liquids. She denies any nausea or vomiting. She reports that her blood pressure cuff had broken in her daughter recently bought her a new machine. Her blood pressures at home have been up and down and she called her primary care physician who inch orders to double her Lasix and Norvasc. Her usual blood pressures were in the 150 systolic but today of been in the 170s. The patient did this but her symptoms of lightheadedness with standing actually worsened. In the ER orthostatics were performed and patient did not have orthostatic hypotension but did have orthostatic tachycardia with going from sitting to standing. When she stood up she became ?woozy?. The patient evidently does have some chronic dizziness with chronic basilar artery insufficiency and chronic ataxia. Fever documented in her history from 2019 by her primary care provider. The patient reports that she has been take her Emerado for chronic arthritis pain but did not think to take her Emerado for her headache. She has no increased weakness of her extremities and her speech is normal. She denies any vision changes. She has no nystagmus on exam. She is not dizzy or lightheaded if she has rest. Patient is on chronic anticoagulation. On exam of patient's right ear canal was dry with skin obstructing visualization of part of the ear drum, eardrum itself was mildly erythematous, I was unable to self there was any bulging of the eardrum. The patient reports that her right ear occasionally hurts but denies pain at this time. She has not been using any foreign instruments on her 8 year but states that her daughter flush treat your out weaker 2 ago. Review of Systems Review of Systems: 12 systems were reviewed with pertinent positives and negatives per HPI. Except as documented in the HPI, all other systems were reviewed and are negative. [facility] Past Medical History Medical History (Updated 08/19/21 @ 04:13 by Shannan Jackson DO) Anxiety and depression CAD (coronary artery disease) CHF (congestive heart failure) Echocardiogram 06/20/2016: Grade 1 diastolic dysfunction, EF 74%, mild enlargement left atrium Chronic interstitial cystitis 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 mellitus With baseline creatinine between 1.2 and 1.5 CVA (cerebral vascular accident) Evidence of old infarcts in the left thalamus and bilateral basal ganglia DVT, lower extremity, recurrent Left lower extremity distant past, right femoral in lower extremity veins May 2020 Essential hypertension Gastritis Gastritis/duodenitis 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
[2021-08-19] MEDS: LEVOTHYROXINE SODIUM 125 MCG TABLET PO (06:19)
[2021-08-19 07:51] LABS: Glucose Point of Care 116 mg/dl (65-105)
[2021-08-19] MEDS: EZETIMIBE 10 MG TABLET PO (08:39)
[2021-08-19] MEDS: LIDOCAINE 5% PATCH 1 PATCH TOPICAL (08:39)
[2021-08-19] MEDS: amLODIPine BESYLATE 5 MG TABLET 10 MG PO (08:39)
[2021-08-19] MEDS: PANTOPRAZOLE 40 MG TABLET PO ×2 (08:39→17:11)
[2021-08-19] MEDS: METOPROLOL TARTRATE 50 MG TAB BY MOUTH (08:39)
[2021-08-19] MEDS: APIXABAN 2.5 MG TABLET PO ×2 (08:40→17:11)
[2021-08-19] MEDS: HYDROcodone/acetaminophen (*CRX) 7.5-325 MG TABLET 1 TAB PO (08:47)
[2021-08-19 10:51] LABS: Basophils Absolute Auto 0.1 K/mm3 (0.0-0.1); Eosinophils Absolute Auto 0.2 K/mm3 (0-0.3); Eosinophils Percent Auto 2.9 % (0-4.4); Hematocrit 32.4 % (37.0-47.0); Hemoglobin 10.2 g/dL (12.0-15.0); Immature Granulocyte Absolute 0.03 K/mm3 (0.00-0.031); Immature Granulocyte Percent A 0.4 % (0-0.5); Lymphocytes Absolute Auto 2.63 K/mm3 (0.9-3.2); Lymphocytes Percent Auto 31.3 % (18.3-44.2); Mean Corpuscular HGB Conc 31.5 g/dl (32-36); Mean Corpuscular Hemoglobin 26.4 pg (26-34); Mean Corpuscular Volume 83.9 fl (80-100); Mean Platelet Volume 10.8 fl (7.4-10.4); Monocytes Absolute Auto 0.9 K/mm3 (0.1-0.6); Monocytes Percent Auto 10.4 % (2.6-8.5); Neutrophils Absolute Auto 4.6 K/mm3 (1.3-6.7); Platelet Count Result 277 k/mm3 (150-375); Red Blood Count 3.86 M/mm3 (4.2-5.4); Red Cell Distribution Width 15.5 % (11.5-14.5); White Blood Count 8.4 K/mm3 (4.5-10.0)
[2021-08-19] MEDS: ACETAMINOPHEN/BUTALBITAL/CAFFEINE 325-50-40 MG TABLET (FIORICET) 1 TAB PO (10:59)
[2021-08-19 11:01] LABS: Alanine Aminotransferase 9 U/L (4-35); Albumin Level 3.8 g/dL (3.5-5.1); Alkaline Phosphatase 65 U/L (38-126); Anion Gap 5 mmol/L (8-16); Aspartate Amino Transferase 20 U/L (14-36); Bilirubin,Total 0.7 mg/dL (0.2-1.3); Blood Urea Nitrogen 20 mg/dL (7-17); Carbon Dioxide 33 mmol/L (22-30); Chloride 99 mmol/L (98-107); Estimated CRCL calculation 23 ml/min; Estimated Glomerular Filt Rate 36; Glucose 109 mg/dL (65-110); Magnesium 1.6 mg/dL (1.6-2.3); Potassium 3.5 mmol/L (3.4-5.0); Sodium 137 mmol/L (137-145)
--- NOTE | 2021-08-19 11:15 | PM.DS ---
DS: Admitting Diagnosis Discharge Date 08/19/21 1115 Admitting Diagnosis Dizziness and migraine DS: Discharge Diagnosis Discharge Diagnosis (1) Orthostatic lightheadedness: Code(s): R42 - Dizziness and giddiness Status: Acute Assessment and Plan: Patient is having dizziness but has chronic basilar insufficiency. I would think the patient's dizziness is increased from baseline due to recent decreased oral intake and her increased Lasix dose. The fact that she has tachycardia with standing suggest some component of volume depletion. Patient received 1 500 mL bolus of normal saline in the ER. Will continue the patient on IV fluid hydration. Will repeat orthostatic vital signs in a.m.. Will see if the patient's symptoms improve after IV fluid hydration. (2) Dizziness: Code(s): R42 - Dizziness and giddiness Status: Acute Assessment and Plan: An attempt for a CT of the head was supposed be ordered in the ER but unfortunately a CT of the chest was ordered instead. However, after the attempt I did find history of chronic basilar basilar insufficiency, ataxia and gait instability noted in the patient's long-term problem list. I suspect that some of her chronic difficulty has likely been exacerbated due to decreased oral intake. Patient does not have any nystagmus. Given her change in heart rate with position changes I suspect the majority of her symptoms at this time are due to decreased intravascular volume. The patient adamantly refuses an MRI. The patient's symptoms have been ongoing for at least 5 days but sounds as if his likely been going on for even longer than that. Patient is already maximized on chronic 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 with Eliquis. She is not candidate for intervention for neurologic event and she refuses MRI. New neurologic event is not likely. (3) Headache: Qualifiers: Headache chronicity pattern: episodic headache Headache type: unspecified Intractability: not intractable Qualified Code(s): R51.9 - Headache, unspecified Code(s): R51.9 - Headache, unspecified Status: Acute Assessment and Plan: Will resume the patient's home [place] for pain and having hurts patient asked for this if she is having headache. (4) Hypertension: Qualifiers: Hypertension type: primary hypertension Qualified Code(s): I10 - Essential (primary) hypertension Code(s): I10 - Essential (primary) hypertension Status: Acute Assessment and Plan: Patient does have blood pressures that have been intermittently elevated above baseline with currently the patient's blood pressures are in the 150s. Will increase the patient's home Norvasc. Will continue patient's home metoprolol. Patient's Lasix is on hold. DS: Summary Hospital Course Hospital Course: Patient is an 86 year old female with a past medical history of GERD, DVT, diabetes, CAD, CVA and TIA, chronic basilar artery insufficiency and chronic ataxia who presented to the ED for dizziness, lightheadedness, and hypertension. It was noted the patient has been having intermittent headaches for the last few days. Orthostatic blood pressures were taken in the ED which did come out to be negative. CT of the head was taken which did show old infarcts and cerebral white matter disease. Chest x-ray showed mild atelectasis. Patient reported that she does get dizzy when she moves around however it has gotten better for her. Patient was started on IV fluids due to the fact that she appear dry. Patient was tachycardic and her blood pressure is elevated. Patient states that she has been just tired and weak and uses a walker at home. PT and OT did work with patient and she seemed to do well. Patient's dizziness has gotten better. She denies any chest pain, shortness of breath, nausea, vomiting, diarrhea, constipation. Patient will be going home and is stable for discharge at this time with her lab work and her kwame
== END 2021-08-19 18:45 | disposition home health service (06) ==
LOC: ANHED 23:16 → ANH3MED 08-19 10:26
PROVIDERS: Admitting Provider Internal Medicine; Emergency Provider Emergency Medicine; PCP Family Medicine; Visit Provider Nurse Practitioner
DX: R42 Dizziness and giddiness (principal); R53.1 Weakness; R51.9 Headache, unspecified; R26.9 Unspecified abnormalities of gait and mobility; R00.0 Tachycardia, unspecified; E11.22 Type 2 diabetes mellitus with diabetic chronic kidney disease; I13.0 Hypertensive heart and chronic kidney disease with heart failure and stage 1 through stage 4 chronic kidney disease, or unspecified chronic kidney disease; E03.9 Hypothyroidism, unspecified; I25.10 Atherosclerotic heart disease of native coronary artery without angina pectoris; I50.9 Heart failure, unspecified; I65.1 Occlusion and stenosis of basilar artery; N18.4 Chronic kidney disease, stage 4 (severe); K21.9 Gastro-esophageal reflux disease without esophagitis; M19.90 Unspecified osteoarthritis, unspecified site; M06.9 Rheumatoid arthritis, unspecified; Z90.49 Acquired absence of other specified parts of digestive tract; Z86.718 Personal history of other venous thrombosis and embolism; Z79.01 Long term (current) use of 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; Z95.5 Presence of coronary angioplasty implant and graft; Z86.73 Personal history of transient ischemic attack (TIA), and cerebral infarction without residual deficits; Z90.710 Acquired absence of both cervix and uterus; Z96.651 Presence of right artificial knee joint; Z66 Do not resuscitate; Z20.822 Contact with and (suspected) exposure to COVID-19
CPT/HCPCS: 36415; 70450; 71046; 71275; 80053; 81001; 82948; 83735; 83880; 84484; 85025; 87077; 87086; 87186; 93005; 96360; 97161; 97165; 99285; A9270; C9803; G0378; J7040; J7120; Q9967; U0003; U0005

== ENCOUNTER 2021-08-22 13:38 | Emergency (ER) | payer MEDICARE, SELFPAY ==
[2021-08-22 13:55] VITALS: BP 172/71; PULSE 106; RESP 18; TEMP 37; O2SAT 99
--- NOTE | 2021-08-22 14:25 | ED.GENADULT ---
HPI - General Adult General Chief complaint: Dizziness Stated complaint: dizziness Time Seen by Provider: 08/22/21 14:30 Source: patient and RN notes reviewed Mode of arrival: ambulatory Limitations: no limitations History of Present Illness HPI narrative: 86-year-old female with hx CVA, CAD, DM presented for complaint of dizziness worsening over the past 5 days. Endorses passing out for a few minutes before coming to the [facility]. She was discharged from the hospital for the same complaint about 4 days ago; suspected intravascular volume depletion. States dizziness is worse since discharge, described as room spinning sensation. States she landed on her bed. Then called her friend to bring her. 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 Dizziness is worse with changing positions. She states I think I have a problem with my right ear. Endorses being told she has cerumen impaction. She endorses mild headache, nausea, and chronic vision changes. She denies chest pain, palpitations, shortness of breath, vomiting or diarrhea. Related Data Home Medications Medication Instructions Recorded Confirmed ezetimibe 10 mg tablet 10 mg PO DAILY 01/29/21 08/19/21 Allergies Allergy/AdvReac Type Severity Reaction Status Date / Time atorvastatin Allergy Unknown ache Verified 08/22/21 14:37 Review of Systems Review of Systems: CONSTITUTIONAL: Denies body aches, fever, chills, or sweats. EYES: Denies new visual changes, redness, or discharge. ENT: Denies rhinorrhea, congestion, sore throat, or otalgia. CARDIOVASCULAR: Denies chest pain, palpitations, or edema. RESPIRATORY: Denies cough or dyspnea. GASTROINTESTINAL: Denies abdominal pain, nausea, vomiting, or diarrhea. GENITOURINARY: Denies dysuria or hematuria. SKIN: Denies rash, itching, or wounds. MUSCULOSKELETAL: Denies back pain, joint pain, or myalgia. NEUROLOGIC: Endorses dizziness headache denies numbness, tingling, or weakness, PSYCH: Denies depression or anxiety. All systems reviewed & are unremarkable except as noted in HPI and below PMFSH Past Medical History Medical History Anxiety and depression CAD (coronary artery disease) CHF (congestive heart failure) Echocardiogram 06/20/2016: Grade 1 diastolic dysfunction, EF 74%, mild enlargement left atrium Chronic interstitial cystitis 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 mellitus With baseline creatinine between 1.2 and 1.5 CVA (cerebral vascular accident) Evidence of old infarcts in the left thalamus and bilateral basal ganglia DVT, lower extremity, recurrent Left lower extremity distant past, right femoral in lower extremity veins May 2020 Essential hypertension Gastritis Gastritis/duodenitis 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 Occlusion and stenosis of basilar artery Osteoarthritis Rheumatoid polyneuropathy with rheumatoid arthritis TIA (transient ischemic attack) Surgical History Surgical History H/O inguinal hernia repair History of appendectomy History of bladder suspension procedure 2012 and 2013 History of cystoscopy With biopsy of bladder lesion x2 History of heart artery stent (~2006) 4 stents History of hysterectomy Hx of cholecystectomy Status post cataract extraction of both eyes with insertion of intraocular lens Status post right knee replacement Family History Family History Father Pancreas cancer COPD (chronic obstructive pulmonary disease) Mother Acute myocardial infarction Sibling Hypertension Social History Social History Social History: The patient lives in a senior apartment but is independent living. She has been since aroun
[2021-08-22] MEDS: MECLIZINE HCL 25 MG TABLET PO (14:40)
== END 2021-08-22 15:26 | disposition left against medical advice (07) ==
PROVIDERS: Emergency Provider Nurse Practitioner Family; PCP Family Medicine
DX: R42 Dizziness and giddiness (principal); I25.10 Atherosclerotic heart disease of native coronary artery without angina pectoris; I13.0 Hypertensive heart and chronic kidney disease with heart failure and stage 1 through stage 4 chronic kidney disease, or unspecified chronic kidney disease; E11.22 Type 2 diabetes mellitus with diabetic chronic kidney disease; N18.4 Chronic kidney disease, stage 4 (severe); I50.9 Heart failure, unspecified; Z86.73 Personal history of transient ischemic attack (TIA), and cerebral infarction without residual deficits; Z86.718 Personal history of other venous thrombosis and embolism; E03.9 Hypothyroidism, unspecified; M19.90 Unspecified osteoarthritis, unspecified site; M05.50 Rheumatoid polyneuropathy with rheumatoid arthritis of unspecified site; Z79.01 Long term (current) use of 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; H40.9 Unspecified glaucoma; F41.9 Anxiety disorder, unspecified
CPT/HCPCS: 99213; A9270; G0463

== ENCOUNTER 2021-09-02 11:48 | Outpatient (NON) | payer MEDICARE, SELFPAY ==
[2021-09-02 12:17] LABS: Hemoglobin A1C 6.6 % (<5.7)
== END 2021-09-02 11:49 | disposition home or self-care (01) ==
LOC: HOME HLTH 11:51
PROVIDERS: PCP Family Medicine; Visit Provider Family Medicine
DX: I12.9 Hypertensive chronic kidney disease with stage 1 through stage 4 chronic kidney disease, or unspecified chronic kidney disease (principal); N18.4 Chronic kidney disease, stage 4 (severe); E11.22 Type 2 diabetes mellitus with diabetic chronic kidney disease; I25.118 Atherosclerotic heart disease of native coronary artery with other forms of angina pectoris
CPT/HCPCS: 83036; 84443

== ENCOUNTER 2022-06-14 19:45 | Inpatient (IN) | payer MEDICARE, SELFPAY ==
[2022-06-14] VITALS (26 sets, daily range): BP systolic 124–155; BP diastolic 50–109; PULSE 62–85; RESP 14–23; TEMP 36.8; O2SAT 93–100
--- NOTE | ~2022-06-14 | CT_ITS ---
EXAMINATION: CT abdomen pelvis wo con DATE: 06/14/2022 21:02 INDICATION: suprapubic/llq pain TECHNIQUE: Computed tomography (CT) of the abdomen and pelvis was performed without intravenous contr ast. Automated exposure control and iterative reconstruction technique were employed. The dose-length product was 402.33 mGy-cm. COMPARISON: 03/11/2019. FINDINGS: Lower thorax: Heavy coronary artery calcification and/or stents. Senescent changes in the lungs. Depe ndent atelectasis. Moderate hiatal hernia. Liver: Normal. Biliary/Gallbladder: Gallbladder is absent. Common bile duct dilation likely secondary to cholecystec maninder. Pancreas: Fatty atrophy. Spleen: Normal. Adrenals:No mass. Kidneys: Punctate bilateral nonobstructing calculi. Left renal atrophy. Moderate left and severe righ t perinephric stranding. Simple right lower pole cyst. Mild left and moderate right hydronephrosis, w ithout obstructing mass or stone detected GI tract: No small or large bowel dilation. The appendix is not visualized. Diverticulosis without di verticulitis. Mesentery/Peritoneum: No ascites, mass, or free air. Retroperitoneum: No mass. Atherosclerotic abdominal aortic and/or arterial calcifications. IVC filter . Pelvis: Distended urinary bladder with mild wall thickening and surrounding inflammatory change. Gas within the bladder lumen. Surgically absent uterus. Soft Tissues: Uncomplicated fat-containing right inguinal hernia. Fat and fluid containing left ingui nal hernia. Bones: No acute osseous finding. IMPRESSION: 1. Moderate right and mild left hydronephrosis and perinephric stranding without obstructing stone or mass, which may suggest ascending infection/pyelonephritis. 2. Urinary bladder distention and possible cystitis. Gas within the bladder lumen also suggests cysti tis, unless this patient has undergone recent catheterization or instrumentation. 3. Fat and fluid containing left inguinal hernia, correlate with pain/tenderness. Reviewed, dictated and finalized at location K. LLMENT COUNSELOR IMPRESSION: 1. Moderate right and mild left hydronephrosis and perinephric stranding withou t obstructing stone or mass, which may suggest ascending infection/pyelonephrit is. 2. Urinary bladder distention and possible cystitis. Gas within the bladder lum en also suggests cystitis, unless this patient has undergone recent catheteriza tion or instrumentation. 3. Fat and fluid containing left inguinal hernia, correlate with pain/tendernes s.
--- NOTE | ~2022-06-14 | CT_ITS ---
EXAMINATION: CT lumbar spine wo con DATE: 06/18/2022 11:14 INDICATION: Acute urinary retention. TECHNIQUE: Computed tomography (CT) of the lumbar spine was performed without intravenous contrast. A utomated exposure control and iterative reconstruction technique were employed. The dose-length produ ct was 742.70 mGy-cm. COMPARISON: None FINDINGS: There are changes of cholecystectomy. There is a 1.4 cm cyst in right kidney. There are vas cular calcifications at the phyllis of the kidneys. There is mild atrophy of left kidney. There is a marianna ter in the inferior vena cava. There is 11 degrees levoscoliosis of thoracolumbar spine. There is 4 m m retrolisthesis of L2 on L3, 5 mm anterolisthesis of L3 on L4, 5 mm anterolisthesis of L4 on L5, and 3 mm anterolisthesis of L5 on S1. There is mild chronic anterior wedging of T12-L2 vertebral bodies. There is mildly decreased disc height at T11-T12 and T12-L1, moderately decreased disc height at L1- L2, severely decreased disc height at L2-L3 and L3-L4, consistent mildly decreased disc height at L4- L5, and moderately decreased disc height at L5-S1 with endplate remodeling. 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 The following disc levels are specifically discussed: L1-L2: The disc is bulging. There is severe bilateral facet joint osteoarthritis. There is mild bilat eral neural foraminal stenosis. There is mild central canal stenosis. L2-L3: The disc is bulging. There is moderate right and severe left facet joint osteoarthritis. There is moderate bilateral neural foraminal stenosis. There is mild central canal stenosis. L3-L4: The disc is bulging. There is severe bilateral facet joint osteoarthritis. There is moderate b ilateral neural foraminal stenosis. There is mild central canal stenosis. L4-L5: The disc is bulging. There is severe bilateral facet joint osteoarthritis. There is mild bilat eral neural foraminal stenosis. There is moderate central canal stenosis. L5-S1: The disc is bulging. There is severe bilateral facet joint osteoarthritis. There is mild right and moderate left neural foraminal stenosis. There is moderate central canal stenosis. IMPRESSION: 1. Severe lumbar spondylosis. 2. Thoracolumbar levoscoliosis. Reviewed, dictated and finalized at location A. [facility]
--- NOTE | 2022-06-14 20:12 | ED.ABDPAIN ---
HPI - Abdominal Pain General Chief Complaint: Abdominal Pain Stated Complaint: abd pain Time Seen by Provider: 06/14/22 19:51 History of Present Illness HPI narrative: Patient is an 86-year-old female with a history of hypertension, hyperlipidemia, CAD, hypothyroidism, bladder prolapse status post multiple bladder surgeries presenting with abdominal pain. Patient states that she resides at a nursing facility. She states that she has had abdominal pain for the last 1 to 2 days. States that she has been unable to urinate for the last day. States that she does not feel like she needs to urinate. States that her facility tried to place a Peterson catheter but they did not get any urine out so they sent her in for evaluation. Patient reports some diarrhea couple days ago which has resolved. She also reports nausea but no vomiting. No headache, numbness or weakness, chest pain, shortness of breath, cough. Related Data Home Medications Medication Instructions Recorded Confirmed ezetimibe 10 mg tablet (Zetia) 10 mg PO DAILY 01/29/21 06/15/22 Allergies Allergy/AdvReac Type Severity Reaction Status Date / Time atorvastatin Allergy Unknown ache Verified 03/25/22 15:42 Review of Systems Review of Systems: All systems reviewed & are unremarkable except as noted in HPI and below PMFSH Past Medical History Medical History (Updated 06/14/22 @ 22:00 by Julio Cesar Hernandez MD) Anxiety and depression CAD (coronary artery disease) CHF (congestive heart failure) Echocardiogram 06/20/2016: Grade 1 diastolic dysfunction, EF 74%, mild enlargement left atrium Chronic interstitial cystitis 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 mellitus With baseline creatinine between 1.2 and 1.5 CVA (cerebral vascular accident) Evidence of old infarcts in the left thalamus and bilateral basal ganglia DVT, lower extremity, recurrent Left lower extremity distant past, right femoral in lower extremity veins May 2020 Essential hypertension Gastritis Gastritis/duodenitis 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 Occlusion and stenosis of basilar artery Osteoarthritis 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, acute TIA (transient ischemic attack) Surgical History Surgical History H/O inguinal hernia repair History of appendectomy History of bladder suspension procedure 2012 and 2013 History of cystoscopy With biopsy of bladder lesion x2 History of heart artery stent (~2006) 4 stents History of hysterectomy Hx of cholecystectomy Status post cataract extraction of both eyes with insertion of intraocular lens Status post right knee replacement Family History Family History Father Pancreas cancer COPD (chronic obstructive pulmonary disease) Mother Acute myocardial infarction Sibling Hypertension Social History Social History Social History: The patient lives in a senior apartment but is independent living. She has been since around 2018. 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 Code status: DNR/DNI (per patient report) Surrogate decision maker: Daksha (daughter) Smoking status: Never smoker Second hand tobacco smoke exposure: Yes Alcohol intake: never Substance use: never Substance use type: painkillers Lack of Transportation: No Lack of Food: Never True Current Housing: I Have Housing Concerned About Future Housing: No Difficulty Paying Gas/Electric Bills: No Difficulty Paying for Meds: No Currently Unemployed: No Education: Don't Know Difficulty w/ Childcare or Family Care: No Living arrangements: with family Occupation/Education: retired Gender identity (if verbalized by the patient): Female Spiritual care concern
[2022-06-14] MEDS: ONDANSETRON INJ 4 MG/2 ML VIAL IV PUSH (20:32)
[2022-06-14] MEDS: SODIUM CHLORIDE 0.9% IV 1,000 ML 999 ML IV CONT (20:33)
[2022-06-14 20:39] LABS: Basophils Absolute Auto 0.1 K/mm3 (0.0-0.1); Basophils Percent Auto 0.6 % (0.2-1.2); Eosinophils Absolute Auto 0.1 K/mm3 (0-0.3); Eosinophils Percent Auto 0.4 % (0-4.4); Hematocrit 37.1 % (37.0-47.0); Hemoglobin 11.4 g/dL (12.0-15.0); Immature Granulocyte Absolute 0.05 K/mm3 (0.00-0.031); Immature Granulocyte Percent A 0.4 % (0-0.5); Lymphocytes Absolute Auto 0.92 K/mm3 (0.9-3.2); Lymphocytes Percent Auto 6.8 % (18.3-44.2); Mean Corpuscular HGB Conc 30.7 g/dl (32-36); Mean Corpuscular Hemoglobin 26.3 pg (26-34); Mean Corpuscular Volume 85.7 fl (80-100); Mean Platelet Volume 10.2 fl (7.4-10.4); Monocytes Percent Auto 7.3 % (2.6-8.5); Neutrophils Absolute Auto 11.4 K/mm3 (1.3-6.7); Neutrophils Percent Auto 84.5 % (45.5-73.1); Platelet Count Result 393 k/mm3 (150-375); Red Blood Count 4.33 M/mm3 (4.2-5.4); Red Cell Distribution Width 18.6 % (11.5-14.5); White Blood Count 13.5 K/mm3 (4.5-10.0)
[2022-06-14 20:49] LABS: Alanine Aminotransferase 13 U/L (6-35); Albumin Level 4.1 g/dL (3.5-5.1); Alkaline Phosphatase 73 U/L (38-126); Anion Gap 7 mmol/L (8-16); Aspartate Amino Transferase 19 U/L (14-36); Bilirubin,Total 0.6 mg/dL (0.2-1.3); Blood Urea Nitrogen 23 mg/dL (7-17); Carbon Dioxide 23 mmol/L (22-30); Chloride 100 mmol/L (98-107); Estimated CRCL calculation 17 ml/min; Estimated Glomerular Filt Rate 24; Glucose 147 mg/dL (65-110); INR 1.3; Lipase 64 U/L (23-300); Potassium 4.4 mmol/L (3.4-5.0); Prothrombin Time 16.1 Seconds (11.1-14.7); Sodium 130 mmol/L (137-145)
[2022-06-14 20:50] LABS: Partial Thromboplastin Time 34.1 SECONDS (22.3-36.8)
[2022-06-14 21:03] LABS: Add Urine Microscopic? YES; Appearance Urine Clear (Clear); Bilirubin Urine Negative (Negative); Blood Urine Trace-intact (Negative); Color Urine Brown (Yellow); Glucose Urine UA Negative (Negative); Ketones Urine Negative (Negative); Leukocyte Esterase Ur 1+ LEU/UL (Negative); Nitrate Urine Positive (Negative); Protein Urine Trace mg/dL (Negative); Specific Grav Ur 1.015 (1.001-1.035); Urobilinogen Urine 0.2 mg/dL (<2.0)
[2022-06-14 21:06] LABS: Bacteria Urine 1+ /hpf; Mucus Urine Rare /lpf; RBC Urine 0-2 /hpf (0-2); WBC Urine 21-30 /hpf
[2022-06-14] MEDS: cefTRIAXone 2 GM in SODIUM CHLORIDE 0.9% IV 100 ML 200 ML IVPB (21:32)
--- NOTE | 2022-06-14 21:46 | PM.IMHP ---
H&P: HPI History of Present Illness Date/Time: 06/14/22 21:46 Chief Complaint: unable to urinate Narrative: 86 years old lady with history of hypertension, CAD, diastolic CHF, history of DVT on Eliquis, hypothyroidism brought to ED ED from detention because of dysuria. Patient has been unable to urinate in past 24 hours, patient has a suprapubic pain. Patient denies a fever, chills, nausea vomiting. Patient also denies chest pain, shortness of breath. Patient has some bilateral back pain. Patient is brought to ED because the detention cannot place a Peterson catheter in. In the ED, folic acid was placed, about 1 L urine is drained out. And urine is cloudy, urinalysis shows pyuria. CT abdomen pelvis suggest bilateral hydronephrosis, pyelonephritis. Patient is also found to have elevated serum creatinine above baseline. Patient received ceftriaxone in the ED, we admit patient for further evaluation and management. Review of Systems Review of Systems: RS negative except above [facility] Past Medical History Medical History (Updated 06/14/22 @ 22:00 by Julio Cesar Hernandez MD) Anxiety and depression CAD (coronary artery disease) CHF (congestive heart failure) Echocardiogram 06/20/2016: Grade 1 diastolic dysfunction, EF 74%, mild enlargement left atrium Chronic interstitial cystitis 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 mellitus With baseline creatinine between 1.2 and 1.5 CVA (cerebral vascular accident) Evidence of old infarcts in the left thalamus and bilateral basal ganglia DVT, lower extremity, recurrent Left lower extremity distant past, right femoral in lower extremity veins May 2020 Essential hypertension Gastritis Gastritis/duodenitis 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 [facility] (current) use of 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 Occlusion and stenosis of basilar artery Osteoarthritis 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, acute TIA (transient ischemic attack) Surgical History Surgical History H/O inguinal hernia repair History of appendectomy History of bladder suspension procedure 2012 and 2013 History of cystoscopy With biopsy of bladder lesion x2 History of heart artery stent (~2006) 4 stents History of hysterectomy Hx of cholecystectomy Status post cataract extraction of both eyes with insertion of intraocular lens Status post right knee replacement Family History Family History Father Pancreas cancer COPD (chronic obstructive pulmonary disease) Mother Acute myocardial infarction Sibling Hypertension Social History Social History Social History: The patient lives in a senior apartment but is independent living. She has been since around 2018. 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 Code status: DNR/DNI (per patient report) Surrogate decision maker: Daksha (daughter) Smoking status: Never smoker Second hand tobacco smoke exposure: Yes Alcohol intake: never Substance use: never Substance use type: painkillers Living arrangements: with family Occupation/Education: retired Gender identity (if verbalized by the patient): Female Spiritual care concerns: No Agree to blood products: Yes Meds Home Medications and Allergies Home Medications Medication Instructions Recorded Confirmed Type ezetimibe 10 mg tablet (Zetia) 10 mg PO DAILY 01/29/21 03/25/22 History lidocaine 5 % topical patch 1 patch topical DAILY #30 ea 07/28/21 03/25/22 Rx vkmlzqqscl-noasztubrdgsl-odtdedut 1 tablet PO Q6H PRN headache rated 08/19/21 03/25/22 Rx 50 mg-325 mg-40 mg tablet 3-7 #12 tabs metoprolol tartrate 50 mg tablet See Rx Instructions .Route 11/19/21 03/25/22 Rx .COMPLEX #90 tabs furosemide 20 mg tablet See Rx Instructions .Route 12/14/2103/25
[2022-06-15 00:43] VITALS: BMI 24.3
[2022-06-15 00:45] LABS: Influenza A QL RT-PCR Negative (Negative); Influenza B QL RT-PCR Negative (Negative); SARS-CoV-2 RNA PCR Negative
[2022-06-15] MEDS: SODIUM CHLORIDE 0.9% IV 1,000 ML 100 ML IV CONT (02:31)
[2022-06-15 03:43] VITALS: BP 124/55; PULSE 78; RESP 16; TEMP 36; O2SAT 92
[2022-06-15 06:00] VITALS: BP 131/52; PULSE 92; RESP 20; TEMP 36.5; O2SAT 93
[2022-06-15 06:25] LABS: Hemoglobin 10.2 g/dL (12.0-15.0); Mean Corpuscular HGB Conc 30.9 g/dl (32-36); Mean Corpuscular Hemoglobin 26.6 pg (26-34); Mean Corpuscular Volume 85.9 fl (80-100); Mean Platelet Volume 10.9 fl (7.4-10.4); Platelet Count Result 345 k/mm3 (150-375); Red Blood Count 3.84 M/mm3 (4.2-5.4); Red Cell Distribution Width 18.6 % (11.5-14.5); White Blood Count 19.4 K/mm3 (4.5-10.0)
[2022-06-15 06:35] LABS: Anion Gap 6 mmol/L (8-16); Blood Urea Nitrogen 22 mg/dL (7-17); Carbon Dioxide 23 mmol/L (22-30); Chloride 107 mmol/L (98-107); Estimated CRCL calculation 19 ml/min; Estimated Glomerular Filt Rate 28; Glucose 142 mg/dL (65-110); Sodium 136 mmol/L (137-145)
[2022-06-15] MEDS: FUROSEMIDE 20 MG TABLET BY MOUTH (09:04)
[2022-06-15] MEDS: EZETIMIBE 10 MG TABLET PO (09:04)
[2022-06-15] MEDS: amLODIPine BESYLATE 5 MG TABLET PO (09:04)
[2022-06-15] MEDS: APIXABAN 2.5 MG TABLET PO ×2 (09:04→21:29)
[2022-06-15] MEDS: PANTOPRAZOLE 40 MG TABLET PO ×2 (09:04→17:45)
[2022-06-15 10:59] VITALS: PULSE 90
[2022-06-15] MEDS: METOPROLOL TARTRATE 50 MG TAB BY MOUTH (10:59)
[2022-06-15 11:33] VITALS: O2SAT 92
--- NOTE | 2022-06-15 12:16 | PM.IMPN ---
Progress Note: A&P Assessment and Plan (1) Pyelonephritis: Code(s): N12 - Tubulo-interstitial nephritis, not specified as acute or chronic Status: Acute Assessment and Plan: UA shows pyuria, CT shows pyelonephritis bilateral and bilateral hydronephrosis on CT scan secondary to acute urinary retention Receive ceftriaxone in the ED. Previous urine cultures show history of ESBL UTI with last infection 08/18/2021 Stop Rocephin. Changed to Primaxin IV q.6 hours renally dosed. Adjust antibiotics per urine cultures WBC did increase to 19.4 today and patient is not on steroids. Suggesting worsening infection. Blood cultures were not drawn on admission and will draw those today (2) Hyponatremia: Code(s): E87.1 - Hypo-osmolality and hyponatremia Status: Acute Assessment and Plan: Sodium 130 below the baseline of 141 on March 30, 2022 Likely secondary to dehydration. Treated with maintenance Normal saline IV. Repeat sodium 136 today 06/15. Continue to monitor chemistry. Neuro intact and at baseline (3) Acute kidney injury superimposed on CKD: Code(s): N17.9 - Acute kidney failure, unspecified; N18.9 - Chronic kidney disease, unspecified Status: Acute Assessment and Plan: BUN 23, according 2.0, baseline according 1.5 on March 30 2022 Likely resulting from UTI, dehydration and urinary retention Peterson catheter placed in the ED Continued on normal saline IV maintenance 06/15 BUN 22, creatinine 1.7, EGFR 28 and slightly improved from admission Continue to trend chemistry Monitor strict intake and output Avoid nephrotoxin medication (4) Hydronephrosis, bilateral: Code(s): N13.30 - Unspecified hydronephrosis Status: Acute Assessment and Plan: Due to urinary retention. No obvious obstruction on CT scan May consider urologic consultation (5) Urinary retention: Code(s): R33.9 - Retention of urine, unspecified Status: Acute Assessment and Plan: Urine retention likely secondary to urinary infection Placed Peterson catheter in the ED. Patient has no prior history of acute urinary retention. Will start voiding trial when patient infection is improving (6) 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 (acquired): Code(s): E03.9 - 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, unspecified Status: Chronic Assessment and Plan: Chronic, Continue Synthroid 125 mcg tablet p.o. (7) Hypertension: Qualifiers: Hypertension type: unspecified Qualified Code(s): I10 - Essential (primary) hypertension Code(s): I10 - Essential (primary) hypertension Status: Chronic Assessment and Plan: Chronic, stable Continue amlodipine 5 mg daily p.o and metoprolol 50 mg daily. 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 She is not currently on medications for diabetes at this time. Monitor fasting glucose via chemistry and adjust therapy as needed. Plan CODE STATUS: DNR per patient. Family is to bring in patient's advance directive information. Time Spent With Patient Time: 35 minutes with patient assessment, education, and review of imaging, lab work, vitals and documentation in the past 24 hours. 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 She presented to the emergency department from independent living facility with complaints of difficulty urinating and bilateral back pain. UA and CT was suggestive of pyelonephritis.
--- NOTE | 2022-06-15 16:13 | PCPTNOTE ---
Attempted PT evaluation, pt refused due to being tired. Call button was put within reach prior to PT leaving room. RN aware/in room.
[2022-06-15 16:41] VITALS: BP 120/42; PULSE 71; RESP 18; TEMP 36.7; O2SAT 98
[2022-06-15] MEDS: SODIUM CHLORIDE 0.9% IV 1,000 ML 75 ML IV CONT (21:29)
[2022-06-15] MEDS: HYDROcodone/acetaminophen (*CRX) 7.5-325 MG TABLET 1 TAB PO (21:32)
[2022-06-15 22:00] VITALS: BP 106/35; PULSE 70; RESP 16; TEMP 36.7; O2SAT 94
[2022-06-16] MEDS: LEVOTHYROXINE SODIUM 125 MCG TABLET BY MOUTH (05:54)
[2022-06-16 06:00] VITALS: BP 122/36; PULSE 65; RESP 20; TEMP 36.4; O2SAT 96
[2022-06-16 06:13] LABS: Basophils Absolute Auto 0.1 K/mm3 (0.0-0.1); Basophils Percent Auto 0.6 % (0.2-1.2); Eosinophils Absolute Auto 0.7 K/mm3 (0-0.3); Eosinophils Percent Auto 6.5 % (0-4.4); Hematocrit 26.9 % (37.0-47.0); Hemoglobin 8.2 g/dL (12.0-15.0); Immature Granulocyte Absolute 0.06 K/mm3 (0.00-0.031); Immature Granulocyte Percent A 0.5 % (0-0.5); Lymphocytes Absolute Auto 1.57 K/mm3 (0.9-3.2); Lymphocytes Percent Auto 13.8 % (18.3-44.2); Mean Corpuscular HGB Conc 30.5 g/dl (32-36); Mean Corpuscular Hemoglobin 25.5 pg (26-34); Mean Corpuscular Volume 83.8 fl (80-100); Monocytes Absolute Auto 0.8 K/mm3 (0.1-0.6); Monocytes Percent Auto 6.8 % (2.6-8.5); Neutrophils Absolute Auto 8.2 K/mm3 (1.3-6.7); Neutrophils Percent Auto 71.8 % (45.5-73.1); Platelet Count Result 292 k/mm3 (150-375); Red Blood Count 3.21 M/mm3 (4.2-5.4); Red Cell Distribution Width 18.6 % (11.5-14.5); White Blood Count 11.4 K/mm3 (4.5-10.0)
[2022-06-16 06:25] LABS: Anion Gap 5 mmol/L (8-16); Blood Urea Nitrogen 28 mg/dL (7-17); Calcium 7.9 mg/dL (8.4-10.2); Carbon Dioxide 23 mmol/L (22-30); Chloride 104 mmol/L (98-107); Estimated CRCL calculation 18 ml/min; Estimated Glomerular Filt Rate 27; Glucose 97 mg/dL (65-110); Potassium 3.6 mmol/L (3.4-5.0); Sodium 132 mmol/L (137-145)
--- NOTE | 2022-06-16 08:44 | P.PNIM_ITS ---
Progress Note: A&P Assessment and Plan (1) Pyelonephritis: Code(s): N12 - Tubulo-interstitial nephritis, not specified as acute or chronic Status: Acute Assessment and Plan: UA shows pyuria, CT shows pyelonephritis bilateral and bilateral hydronephrosis on CT scan secondary to acute urinary retention. Receive ceftriaxone in the ED. * Previous urine cultures show history of ESBL UTI with last infection 08/18 * Stopped Rocephin 06/15/22. Changed to Primaxin IV q.6 hours renal dosed. * 06/16/22 strangely urine culture shows no growth, however, patient's symptoms, labs and imaging significant for acute infection. * WBC 14 to 19.4 to 11.4 after primaxin started suggesting improvement * change abx to Ertapenem 500 mg IV Q24 hours to complete total 14-day antibiotic course (06/15/22 to 06/28/22). * Blood cultures negative to date. * Insert midline tomorrow morning. * Repeat CBC with diff tomorrow. (2) Hyponatremia: Code(s): E87.1 - Hypo-osmolality and hyponatremia Status: Acute Assessment and Plan: Sodium 130 below the baseline of 141 on March 30, 2022 Likely secondary to dehydration. * Treated with maintenance Normal saline IV. * Repeat sodium 136 today 06/15. * Neuro intact and at baseline * 06/16 Sodium 132, BUN/creatinine mildly increased on IV fluids. Stop IV fluids and resume home dose furosemide tomorrow morning. * Continue to monitor chemistry. (3) Acute kidney injury superimposed on CKD: Code(s): N17.9 - Acute kidney failure, unspecified; N18.9 - Chronic kidney disease, unspecified Status: Acute Assessment and Plan: BUN 23, according 2.0, baseline according 1.5 on March 30 2022 Likely resulting from UTI, dehydration and urinary retention * Hendrix catheter placed in the ED * Treated with normal saline IV maintenance * 06/15 BUN 22, creatinine 1.7, EGFR 28 and slightly improved from admission * 06/16 BUN 28, creatinine 1.8, eGFR 27. Will hold IV fluids for now as renal function slightly worsened while on IV fluids and patient is drinking. * Continue to trend chemistry * Monitor strict intake and output * Avoid nephrotoxin medication (4) Hydronephrosis, bilateral: Code(s): N13.30 - Unspecified hydronephrosis Status: Acute Assessment and Plan: Due to urinary retention. No obvious obstruction on CT scan * May consider urologic consultation * Repeat imaging in 1 week outpatient. (5) Urinary retention: Code(s): R33.9 - Retention of urine, unspecified Status: Acute Assessment and Plan: Urine retention likely secondary to urinary infection * Placed Hendrix catheter in the ED. * Patient has no prior history of acute urinary retention. * DC hendrix tomorrow morning 06/17 and start voiding trial (6) 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 (acquired): Code(s): E03.9 - 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, unspecified Status: Chronic Assessment and Plan: Chronic, Continue Synthroid 125 mcg tablet p.o. (7) Hypertension: Qualifiers: Hypertension type: unspecified Qualified Code(s): I10 - Essential (primary) hypertension Code(s): I10 - Essential (primary) hypertension Status: Chronic Assessment and Plan: Chronic, stable Continue amlodipine 5 mg daily p.o and metoprolol 50 mg daily. (8) CHF (congestive heart failure): Qualifiers: Heart failure type: diastolic Heart failure chronicity: chronic Qualified Code(s): I50.32 - Chronic diastolic (congestive) heart failure Code(s): I50.9 - Heart failure, unspecified Status: C
--- NOTE | 2022-06-16 08:44 | PM.IMPN ---
Progress Note: A&P Assessment and Plan (1) Pyelonephritis: Code(s): N12 - Tubulo-interstitial nephritis, not specified as acute or chronic Status: Acute Assessment and Plan: UA shows pyuria, CT shows pyelonephritis bilateral and bilateral hydronephrosis on CT scan secondary to acute urinary retention. Receive ceftriaxone in the ED. Previous urine cultures show history of ESBL UTI with last infection 08/18/2021 Stopped Rocephin 06/15/22. Changed to Primaxin IV q.6 hours renal dosed. 06/16/22 strangely urine culture shows no growth, however, patient's symptoms, labs and imaging significant for acute infection. WBC 14 to 19.4 to 11.4 after primaxin started suggesting improvement change abx to Ertapenem 500 mg IV Q24 hours to complete total 14-day antibiotic course (06/15/22 to 06/28/22). Blood cultures negative to date. Insert midline tomorrow morning. Repeat CBC with diff tomorrow. (2) Hyponatremia: Code(s): E87.1 - Hypo-osmolality and hyponatremia Status: Acute Assessment and Plan: Sodium 130 below the baseline of 141 on March 30, 2022 Likely secondary to dehydration. Treated with maintenance Normal saline IV. Repeat sodium 136 today 06/15. Neuro intact and at baseline 06/16 Sodium 132, BUN/creatinine mildly increased on IV fluids. Stop IV fluids and resume home dose furosemide tomorrow morning. Continue to monitor chemistry. (3) Acute kidney injury superimposed on CKD: Code(s): N17.9 - Acute kidney failure, unspecified; N18.9 - Chronic kidney disease, unspecified Status: Acute Assessment and Plan: BUN 23, according 2.0, baseline according 1.5 on March 30 2022 Likely resulting from UTI, dehydration and urinary retention Hendrix catheter placed in the ED Treated with normal saline IV maintenance 06/15 BUN 22, creatinine 1.7, EGFR 28 and slightly improved from admission 06/16 BUN 28, creatinine 1.8, eGFR 27. Will hold IV fluids for now as renal function slightly worsened while on IV fluids and patient is drinking. Continue to trend chemistry Monitor strict intake and output Avoid nephrotoxin medication (4) Hydronephrosis, bilateral: Code(s): N13.30 - Unspecified hydronephrosis Status: Acute Assessment and Plan: Due to urinary retention. No obvious obstruction on CT scan May consider urologic consultation Repeat imaging in 1 week outpatient. (5) Urinary retention: Code(s): R33.9 - Retention of urine, unspecified Status: Acute Assessment and Plan: Urine retention likely secondary to urinary infection Placed Hendrix catheter in the ED. Patient has no prior history of acute urinary retention. DC hendrix tomorrow morning 06/17 and start voiding trial (6) 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 (acquired): Code(s): E03.9 - 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, unspecified Status: Chronic Assessment and Plan: Chronic, Continue Synthroid 125 mcg tablet p.o. (7) Hypertension: Qualifiers: Hypertension type: unspecified Qualified Code(s): I10 - Essential (primary) hypertension Code(s): I10 - Essential (primary) hypertension Status: Chronic Assessment and Plan: Chronic, stable Continue amlodipine 5 mg daily p.o and metoprolol 50 mg daily. (8) CHF (congestive heart failure): Qualifiers: Heart failure type: diastolic Heart failure chronicity: chronic Qualified Code(s): I50.32 - Chronic diastolic (congestive) heart failure Code(s): I50.9 - Heart failure, unspecified Status: Chronic Assessment and Plan: Chronic diastolic heart failure, not in acute exacerbation Resume furosemide PO at home dose tomorrow morning. 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
[2022-06-16] MEDS: EZETIMIBE 10 MG TABLET PO (09:34)
[2022-06-16] MEDS: PANTOPRAZOLE 40 MG TABLET PO ×2 (09:34→16:41)
[2022-06-16] MEDS: HYDROcodone/acetaminophen (*CRX) 7.5-325 MG TABLET 1 TAB PO ×2 (09:34→18:00)
[2022-06-16 09:36] VITALS: PULSE 64
[2022-06-16] MEDS: METOPROLOL TARTRATE 25 MG TABLET BY MOUTH (09:36)
--- NOTE | 2022-06-16 09:37 | P.CDI_ITS ---
CDI Query Clarification Request as documented- Diastolic dysfunction, compensated, which is chronic diastolic CHF <Selene Pascal APRN - Last Filed: 06/16/22 13:36> Clarified Diagnosis Clarified Diagnosis: Documented history of CHF. CHF noted on assessment and plan. Pt takes Furosemide as a home medication. Pt currently receiving furosemide. Please specify type and acuity of heart failure if known. * Acute * Chronic * Acute on Chronic * Unknown * Systolic * Diastolic * Combined Systolic and Diastolic * Unknown <Clau Buitrago RN - Last Filed: 06/16/22 09:40>
[2022-06-16 09:57] LABS: Iron 27 ug/dL (37-170)
[2022-06-16 10:06] LABS: Percent Iron Saturation 12 % (20-50)
[2022-06-16 10:55] LABS: Folic Acid 5.2 ng/mL (2.76->20)
[2022-06-16 12:18] VITALS: BMI 24.3
[2022-06-16 14:26] VITALS: BP 109/40; PULSE 58; RESP 16; TEMP 36.1; O2SAT 99
[2022-06-16] MEDS: FERROUS SULFATE DRIED 142 MG TABCR PO (16:41)
[2022-06-16] MEDS: ERTAPENEM SODIUM 0.5 GM in SODIUM CHLORIDE 0.9% IV 50 ML IVPB (16:41)
--- NOTE | 2022-06-16 17:34 | PCOTNOTE ---
Patient was sleeping on arrival to the room. Patient refused treatment this session due to verbalizing she had just recently returned to bed. Patient stated, I'm so tired, I need to rest .
[2022-06-16 22:00] VITALS: BP 122/71; PULSE 72; RESP 18; TEMP 36.4; O2SAT 96
[2022-06-16] MEDS: ALPRAZolam (*CRX) 0.5 MG TABLET PO (22:42)
[2022-06-17] MEDS: LEVOTHYROXINE SODIUM 125 MCG TABLET BY MOUTH (05:53)
[2022-06-17 06:00] VITALS: BP 139/68; PULSE 74; RESP 16; TEMP 36.2; O2SAT 98
--- NOTE | 2022-06-17 06:43 | VASCRN ---
Order received for:Midline insertion to be completed on 06/17/22. Order received 06/16/22 at 1437. After review of the chart and the patient assessment, patient is not a candidate for the following reason(s): CKD category 4. Provider notified: Selene Pascal APRN On 06/16/22 around 1530 provider was notified of chart/lab review finding CKD category 4 and need for vein preservation of upper extremities due to potential dialysis need. Discussed option of IJ insertion for access. After discussion, provider felt that the Midline was still the best option for this patient and wishes to proceed with Midline insertion.
[2022-06-17 06:45] LABS: Basophils Absolute Auto 0.1 K/mm3 (0.0-0.1); Basophils Percent Auto 0.6 % (0.2-1.2); Eosinophils Absolute Auto 1.1 K/mm3 (0-0.3); Eosinophils Percent Auto 12.2 % (0-4.4); Hematocrit 28.9 % (37.0-47.0); Hemoglobin 8.9 g/dL (12.0-15.0); Immature Granulocyte Absolute 0.04 K/mm3 (0.00-0.031); Immature Granulocyte Percent A 0.5 % (0-0.5); Lymphocytes Absolute Auto 1.62 K/mm3 (0.9-3.2); Lymphocytes Percent Auto 18.8 % (18.3-44.2); Mean Corpuscular HGB Conc 30.8 g/dl (32-36); Mean Corpuscular Hemoglobin 26.6 pg (26-34); Mean Corpuscular Volume 86.3 fl (80-100); Mean Platelet Volume 11.2 fl (7.4-10.4); Monocytes Absolute Auto 0.8 K/mm3 (0.1-0.6); Monocytes Percent Auto 8.9 % (2.6-8.5); Neutrophils Absolute Auto 5.1 K/mm3 (1.3-6.7); Platelet Count Result 277 k/mm3 (150-375); Red Blood Count 3.35 M/mm3 (4.2-5.4); Red Cell Distribution Width 18.5 % (11.5-14.5); White Blood Count 8.6 K/mm3 (4.5-10.0)
[2022-06-17 06:54] LABS: Anion Gap 3 mmol/L (8-16); Blood Urea Nitrogen 25 mg/dL (7-17); Calcium 8.2 mg/dL (8.4-10.2); Carbon Dioxide 25 mmol/L (22-30); Chloride 105 mmol/L (98-107); Estimated CRCL calculation 21 ml/min; Estimated Glomerular Filt Rate 31; Glucose 86 mg/dL (65-110); Potassium 3.7 mmol/L (3.4-5.0); Sodium 133 mmol/L (137-145)
[2022-06-17] MEDS: LIDOCAINE HCL 1% LOCAL INJ 2 ML AMPUL 5 ML INFILTRATE (07:30)
[2022-06-17 08:37] VITALS: PULSE 74
[2022-06-17] MEDS: METOPROLOL TARTRATE 25 MG TABLET BY MOUTH (08:37)
[2022-06-17] MEDS: EZETIMIBE 10 MG TABLET PO (08:38)
[2022-06-17] MEDS: FUROSEMIDE 20 MG TABLET BY MOUTH ×2 (08:38→16:24)
[2022-06-17] MEDS: PANTOPRAZOLE 40 MG TABLET PO ×2 (08:38→16:24)
[2022-06-17] MEDS: FERROUS SULFATE DRIED 142 MG TABCR PO (08:38)
[2022-06-17] MEDS: HYDROcodone/acetaminophen (*CRX) 7.5-325 MG TABLET 1 TAB PO ×2 (09:32→21:49)
[2022-06-17 14:00] VITALS: BP 127/45; PULSE 56; RESP 16; TEMP 36.4; O2SAT 100
[2022-06-17] MEDS: SALINE LOCK FLUSH 10 ML IV PUSH ×2 (14:56→21:50)
[2022-06-17] MEDS: ERTAPENEM SODIUM 0.5 GM in SODIUM CHLORIDE 0.9% IV 50 ML IVPB (16:23)
--- NOTE | 2022-06-17 17:17 | P.PNIM_ITS ---
Progress Note: A&P Assessment and Plan (1) Pyelonephritis: Code(s): N12 - Tubulo-interstitial nephritis, not specified as acute or chronic Status: Acute Assessment and Plan: UA shows pyuria, CT shows pyelonephritis bilateral and bilateral hydronephrosis on CT scan secondary to acute urinary retention. Receive ceftriaxone in the ED. * Previous urine cultures show history of ESBL UTI with last infection 08/18 * Stopped Rocephin 06/15/22. Changed to Primaxin IV q.6 hours renal dosed. * 06/16/22 strangely urine culture shows no growth, however, patient's symptoms, labs and imaging significant for acute infection. * WBC 14 to 19.4 to 11.4 after primaxin started suggesting improvement. * change abx to Ertapenem 500 mg IV Q24 hours to complete total 14-day antibiotic course (06/15/22 to 06/28/22). * Blood cultures negative to date. * midline catheter inserted 06/17/22 and okay to use. * 06/17/22 WBC normalized. Afebrile. Continue current management. (2) Hyponatremia: Code(s): E87.1 - Hypo-osmolality and hyponatremia Status: Acute Assessment and Plan: Sodium 130 below the baseline of 141 on March 30, 2022 Likely secondary to dehydration. * Treated with maintenance Normal saline IV. * Repeat sodium 136 today 06/15. * Neuro intact and at baseline * 06/16 Sodium 132, BUN/creatinine mildly increased on IV fluids. Stop IV fluids and resume home dose furosemide tomorrow morning. * Stable (3) Acute kidney injury superimposed on CKD: Code(s): N17.9 - Acute kidney failure, unspecified; N18.9 - Chronic kidney disease, unspecified Status: Acute Assessment and Plan: BUN 23, according 2.0, baseline according 1.5 on March 30 2022 Likely resulting from UTI, dehydration and urinary retention * Hendrix catheter placed in the ED * Treated with normal saline IV maintenance * 06/15 BUN 22, creatinine 1.7, EGFR 28 and slightly improved from admission * 06/16 BUN 28, creatinine 1.8, eGFR 27. Will hold IV fluids for now as renal function slightly worsened while on IV fluids and patient is drinking. * Continue to trend chemistry - renal function continues to improve. Repeat BMP tomorrow. * Monitor strict intake and output * Avoid nephrotoxin medication (4) Hydronephrosis, bilateral: Code(s): N13.30 - Unspecified hydronephrosis Status: Acute Assessment and Plan: Due to urinary retention. No obvious obstruction on CT scan * Repeat imaging in 1 week outpatient. (5) Urinary retention: Code(s): R33.9 - Retention of urine, unspecified Status: Acute Assessment and Plan: Urine retention likely secondary to urinary infection * Placed Hendrix catheter in the ED. * Patient has no prior history of acute urinary retention. * DC hendrix 06/17 and start bladder training. If patient is unable to urinate on her own, will reinsert hendrix catheter and start tamsulosin. (6) 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 (acquired): Code(s): E03.9 - 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, unspecified Status: Chronic Assessment and Plan: Chronic, Continue Synthroid 125 mcg tablet p.o. (7) Hypertension: Qualifiers: Hypertension type: unspecified Qualified Code(s): I10 - Essential (primary) hypertension Code(s): I10 - Essential (primary) hypertension Status: Chronic Assessment and Plan: Chronic, stable Continue amlodipine 5 mg daily p.o and metoprolol 50 mg daily. (8) CHF (congestive heart failure): Qualifiers: Heart failure type: diastolic Heart failure chronicity: chronic Qualified Cod
--- NOTE | 2022-06-17 17:17 | PM.IMPN ---
Progress Note: A&P Assessment and Plan (1) Pyelonephritis: Code(s): N12 - Tubulo-interstitial nephritis, not specified as acute or chronic Status: Acute Assessment and Plan: UA shows pyuria, CT shows pyelonephritis bilateral and bilateral hydronephrosis on CT scan secondary to acute urinary retention. Receive ceftriaxone in the ED. Previous urine cultures show history of ESBL UTI with last infection 08/18/2021 Stopped Rocephin 06/15/22. Changed to Primaxin IV q.6 hours renal dosed. 06/16/22 strangely urine culture shows no growth, however, patient's symptoms, labs and imaging significant for acute infection. WBC 14 to 19.4 to 11.4 after primaxin started suggesting improvement. change abx to Ertapenem 500 mg IV Q24 hours to complete total 14-day antibiotic course (06/15/22 to 06/28/22). Blood cultures negative to date. midline catheter inserted 06/17/22 and okay to use. 06/17/22 WBC normalized. Afebrile. Continue current management. (2) Hyponatremia: Code(s): E87.1 - Hypo-osmolality and hyponatremia Status: Acute Assessment and Plan: Sodium 130 below the baseline of 141 on March 30, 2022 Likely secondary to dehydration. Treated with maintenance Normal saline IV. Repeat sodium 136 today 06/15. Neuro intact and at baseline 06/16 Sodium 132, BUN/creatinine mildly increased on IV fluids. Stop IV fluids and resume home dose furosemide tomorrow morning. Stable (3) Acute kidney injury superimposed on CKD: Code(s): N17.9 - Acute kidney failure, unspecified; N18.9 - Chronic kidney disease, unspecified Status: Acute Assessment and Plan: BUN 23, according 2.0, baseline according 1.5 on March 30 2022 Likely resulting from UTI, dehydration and urinary retention Hendrix catheter placed in the ED Treated with normal saline IV maintenance 06/15 BUN 22, creatinine 1.7, EGFR 28 and slightly improved from admission 06/16 BUN 28, creatinine 1.8, eGFR 27. Will hold IV fluids for now as renal function slightly worsened while on IV fluids and patient is drinking. Continue to trend chemistry - renal function continues to improve. Repeat BMP tomorrow. Monitor strict intake and output Avoid nephrotoxin medication (4) Hydronephrosis, bilateral: Code(s): N13.30 - Unspecified hydronephrosis Status: Acute Assessment and Plan: Due to urinary retention. No obvious obstruction on CT scan Repeat imaging in 1 week outpatient. (5) Urinary retention: Code(s): R33.9 - Retention of urine, unspecified Status: Acute Assessment and Plan: Urine retention likely secondary to urinary infection Placed Hendrix catheter in the ED. Patient has no prior history of acute urinary retention. DC hendrix 06/17 and start bladder training. If patient is unable to urinate on her own, will reinsert hendrix catheter and start tamsulosin. (6) 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 (acquired): Code(s): E03.9 - 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, unspecified Status: Chronic Assessment and Plan: Chronic, Continue Synthroid 125 mcg tablet p.o. (7) Hypertension: Qualifiers: Hypertension type: unspecified Qualified Code(s): I10 - Essential (primary) hypertension Code(s): I10 - Essential (primary) hypertension Status: Chronic Assessment and Plan: Chronic, stable Continue amlodipine 5 mg daily p.o and metoprolol 50 mg daily. (8) CHF (congestive heart failure): Qualifiers: Heart failure type: diastolic Heart failure chronicity: chronic Qualified Code(s): I50.32 - Chronic diastolic (congestive) heart failure Code(s): I50.9 - Heart failure, unspecified Status: Chronic Assessment and Plan: Chronic diastolic heart failure, not in acute exacerbation Resumed furosemide PO at home dose. 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
[2022-06-17] MEDS: APIXABAN 2.5 MG TABLET PO (21:50)
[2022-06-17 22:00] VITALS: BP 127/52; PULSE 82; RESP 16; TEMP 36.6; O2SAT 98
[2022-06-18] MEDS: ALPRAZolam (*CRX) 0.5 MG TABLET PO ×2 (00:07→08:05)
--- NOTE | 2022-06-18 00:28 | PC.NURSE ---
Pt had voiding trial today. Hendrix was reportedly removed at 1230. Pt had no urine output. Bladder was palpated and found to be distended. Upon bladder-scanning the pt it was discovered that pt was retaining urine >861. [employer] TE[employer] OFFICER [place] was contacted and replacement of hendrix catheter was ordered. Hendrix was placed at 2040. Pt responded well and 1000 mL of fluid was drained over the course of an hour as to not drain too quickly. Pt has since put out 600+ mL and is now continuously draining. Pt states that she is feeling much better. Pt is resting now. Pt has no other reports of discomfort and expresses no other needs at this. Will continue to monitor pt.
[2022-06-18] MEDS: HYDROcodone/acetaminophen (*CRX) 7.5-325 MG TABLET 1 TAB PO ×3 (04:28→20:47)
[2022-06-18] MEDS: LEVOTHYROXINE SODIUM 125 MCG TABLET BY MOUTH (05:56)
[2022-06-18] MEDS: SALINE LOCK FLUSH 10 ML IV PUSH ×3 (05:56→20:44)
[2022-06-18 06:00] VITALS: BP 112/59; PULSE 80; RESP 16; TEMP 36.3; O2SAT 95
[2022-06-18 06:58] LABS: Basophils Absolute Auto 0.1 K/mm3 (0.0-0.1); Basophils Percent Auto 0.6 % (0.2-1.2); Eosinophils Absolute Auto 0.5 K/mm3 (0-0.3); Eosinophils Percent Auto 5.4 % (0-4.4); Hematocrit 29.5 % (37.0-47.0); Hemoglobin 9.2 g/dL (12.0-15.0); Immature Granulocyte Absolute 0.03 K/mm3 (0.00-0.031); Immature Granulocyte Percent A 0.4 % (0-0.5); Lymphocytes Absolute Auto 1.69 K/mm3 (0.9-3.2); Lymphocytes Percent Auto 19.8 % (18.3-44.2); Mean Corpuscular HGB Conc 31.2 g/dl (32-36); Mean Corpuscular Hemoglobin 26.1 pg (26-34); Mean Corpuscular Volume 83.8 fl (80-100); Mean Platelet Volume 11.3 fl (7.4-10.4); Monocytes Absolute Auto 0.8 K/mm3 (0.1-0.6); Monocytes Percent Auto 9.1 % (2.6-8.5); Neutrophils Absolute Auto 5.5 K/mm3 (1.3-6.7); Neutrophils Percent Auto 64.7 % (45.5-73.1); Platelet Count Result 303 k/mm3 (150-375); Red Blood Count 3.52 M/mm3 (4.2-5.4); Red Cell Distribution Width 18.1 % (11.5-14.5); White Blood Count 8.5 K/mm3 (4.5-10.0)
[2022-06-18 07:13] LABS: Anion Gap 5 mmol/L (8-16); Blood Urea Nitrogen 23 mg/dL (7-17); Calcium 8.4 mg/dL (8.4-10.2); Carbon Dioxide 27 mmol/L (22-30); Chloride 100 mmol/L (98-107); Estimated CRCL calculation 21 ml/min; Estimated Glomerular Filt Rate 31; Glucose 100 mg/dL (65-110); Potassium 3.2 mmol/L (3.4-5.0); Sodium 132 mmol/L (137-145)
[2022-06-18] MEDS: EZETIMIBE 10 MG TABLET PO (08:05)
[2022-06-18] MEDS: APIXABAN 2.5 MG TABLET PO ×2 (08:05→20:44)
[2022-06-18] MEDS: amLODIPine BESYLATE 5 MG TABLET PO (08:06)
[2022-06-18] MEDS: FUROSEMIDE 20 MG TABLET BY MOUTH ×2 (08:06→16:01)
[2022-06-18] MEDS: FERROUS SULFATE DRIED 142 MG TABCR PO (08:06)
[2022-06-18 08:07] VITALS: PULSE 75
[2022-06-18] MEDS: PANTOPRAZOLE 40 MG TABLET PO ×2 (08:07→16:01)
[2022-06-18] MEDS: METOPROLOL TARTRATE 25 MG TABLET BY MOUTH (08:07)
--- NOTE | 2022-06-18 10:16 | P.PNIM_ITS ---
Progress Note: A&P Assessment and Plan (1) Pyelonephritis: Code(s): N12 - Tubulo-interstitial nephritis, not specified as acute or chronic Status: Acute Assessment and Plan: UA shows pyuria, CT shows pyelonephritis bilateral and bilateral hydronephrosis on CT scan secondary to acute urinary retention. Receive ceftriaxone in the ED. * Previous urine cultures show history of ESBL UTI with last infection 08/18 * Stopped Rocephin 06/15/22. Changed to Primaxin IV q.6 hours renal dosed. * 06/16/22 strangely urine culture shows no growth, however, patient's symptoms, labs and imaging significant for acute infection. * WBC 14 to 19.4 to 11.4 after primaxin started suggesting improvement. * change abx to Ertapenem 500 mg IV Q24 hours to complete total 14-day antibiotic course (06/15/22 to 06/28/22). * Blood cultures negative to date. * midline catheter inserted 06/17/22 and okay to use. * 06/17/22 WBC normalized. Afebrile. Continue current management. (2) Hyponatremia: Code(s): E87.1 - Hypo-osmolality and hyponatremia Status: Acute Assessment and Plan: Sodium 130 below the baseline of 141 on March 30, 2022 Likely secondary to dehydration. * Treated with maintenance Normal saline IV. * Repeat sodium 136 today 06/15. * Neuro intact and at baseline * 06/16 Sodium 132, BUN/creatinine mildly increased on IV fluids. Stop IV fluids and resume home dose furosemide tomorrow morning. * Stable (3) Acute kidney injury superimposed on CKD: Code(s): N17.9 - Acute kidney failure, unspecified; N18.9 - Chronic kidney disease, unspecified Status: Acute Assessment and Plan: BUN 23, according 2.0, baseline according 1.5 on March 30 2022 Likely resulting from UTI, dehydration and urinary retention * Hendrix catheter placed in the ED * Treated with normal saline IV maintenance * 06/15 BUN 22, creatinine 1.7, EGFR 28 and slightly improved from admission * 06/16 BUN 28, creatinine 1.8, eGFR 27. Will hold IV fluids for now as renal function slightly worsened while on IV fluids and patient is drinking. * Continue to trend chemistry - renal function continues to improve. * Monitor strict intake and output * Avoid nephrotoxin medication (4) Hydronephrosis, bilateral: Code(s): N13.30 - Unspecified hydronephrosis Status: Acute Assessment and Plan: Due to urinary retention. No obvious obstruction on CT scan * Repeat imaging in 1 week outpatient. (5) Urinary retention: Code(s): R33.9 - Retention of urine, unspecified Status: Acute Assessment and Plan: Urine retention likely secondary to urinary infection * Placed Hendrix catheter in the ED. * Patient has no prior history of acute urinary retention. * DC hendrix 06/17 and start bladder training. * 06/18 Patient unable to void overnight. Bladder scan showed >800 mL. Hendrix catheter replaced and 1000 mL drained. patient is not currently on anticholinergic/antimuscarinics or other medications that would be contributing. * She has chronic lower back pain with suspected neurogenic claudication from L4-L5 requiring epidural steroid injections in 2010. check CT lumbar spine for possible stenosis * Additionally, she has a h/o urinary urgency/stress incontinence as well as inflammatory bladder lesions s/p steroid injections 2013; bladder suspension surgeries 2012 and 2013. bladder was distended with wall thickening and gas within the lumen suggesting cystitis versus recent catheterization. Will consult Urology for further recommendations. * H/o stroke approximately 3 months ago and may be secondary to
--- NOTE | 2022-06-18 10:16 | PM.IMPN ---
Progress Note: A&P Assessment and Plan (1) Pyelonephritis: Code(s): N12 - Tubulo-interstitial nephritis, not specified as acute or chronic Status: Acute Assessment and Plan: UA shows pyuria, CT shows pyelonephritis bilateral and bilateral hydronephrosis on CT scan secondary to acute urinary retention. Receive ceftriaxone in the ED. Previous urine cultures show history of ESBL UTI with last infection 08/18/2021 Stopped Rocephin 06/15/22. Changed to Primaxin IV q.6 hours renal dosed. 06/16/22 strangely urine culture shows no growth, however, patient's symptoms, labs and imaging significant for acute infection. WBC 14 to 19.4 to 11.4 after primaxin started suggesting improvement. change abx to Ertapenem 500 mg IV Q24 hours to complete total 14-day antibiotic course (06/15/22 to 06/28/22). Blood cultures negative to date. midline catheter inserted 06/17/22 and okay to use. 06/17/22 WBC normalized. Afebrile. Continue current management. (2) Hyponatremia: Code(s): E87.1 - Hypo-osmolality and hyponatremia Status: Acute Assessment and Plan: Sodium 130 below the baseline of 141 on March 30, 2022 Likely secondary to dehydration. Treated with maintenance Normal saline IV. Repeat sodium 136 today 06/15. Neuro intact and at baseline 06/16 Sodium 132, BUN/creatinine mildly increased on IV fluids. Stop IV fluids and resume home dose furosemide tomorrow morning. Stable (3) Acute kidney injury superimposed on CKD: Code(s): N17.9 - Acute kidney failure, unspecified; N18.9 - Chronic kidney disease, unspecified Status: Acute Assessment and Plan: BUN 23, according 2.0, baseline according 1.5 on March 30 2022 Likely resulting from UTI, dehydration and urinary retention Hendrix catheter placed in the ED Treated with normal saline IV maintenance 06/15 BUN 22, creatinine 1.7, EGFR 28 and slightly improved from admission 06/16 BUN 28, creatinine 1.8, eGFR 27. Will hold IV fluids for now as renal function slightly worsened while on IV fluids and patient is drinking. Continue to trend chemistry - renal function continues to improve. Monitor strict intake and output Avoid nephrotoxin medication (4) Hydronephrosis, bilateral: Code(s): N13.30 - Unspecified hydronephrosis Status: Acute Assessment and Plan: Due to urinary retention. No obvious obstruction on CT scan Repeat imaging in 1 week outpatient. (5) Urinary retention: Code(s): R33.9 - Retention of urine, unspecified Status: Acute Assessment and Plan: Urine retention likely secondary to urinary infection Placed Hendrix catheter in the ED. Patient has no prior history of acute urinary retention. DC hendrix 06/17 and start bladder training. 06/18 Patient unable to void overnight. Bladder scan showed >800 mL. Hendrix catheter replaced and 1000 mL drained. patient is not currently on anticholinergic/antimuscarinics or other medications that would be contributing. She has chronic lower back pain with suspected neurogenic claudication from L4-L5 requiring epidural steroid injections in 2010. check CT lumbar spine for possible stenosis Additionally, she has a h/o urinary urgency/stress incontinence as well as inflammatory bladder lesions s/p steroid injections 2013; bladder suspension surgeries 2012 and 2013. bladder was distended with wall thickening and gas within the lumen suggesting cystitis versus recent catheterization. Will consult Urology for further recommendations. H/o stroke approximately 3 months ago and may be secondary to neurogenic bladder. (6) 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 (acquired): Code(s): E03.9 - 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, unspecified Status: Chronic Assessment and Plan: Chronic, Continue Synthroid 125 mcg tablet p.o. (7) Hypertension: Qualifiers: Hypertension type: unspecified Qualified Code(s): I10 - Essential (primary) hypertension Code(s): I10 - Esse
--- NOTE | 2022-06-18 11:41 | PCPTNOTE ---
Patient declined PT stating her back is hurting and she just got repositioned in bed onto her side. Patient states maybe later today .
[2022-06-18 14:00] VITALS: BP 140/90; PULSE 77; RESP 16; TEMP 36.1; O2SAT 97
[2022-06-18] MEDS: ERTAPENEM SODIUM 0.5 GM in SODIUM CHLORIDE 0.9% IV 50 ML IVPB (15:05)
[2022-06-18] MEDS: POTASSIUM CHLORIDE 20 MEQ TABLET 40 MEQ PO (17:54)
--- NOTE | 2022-06-18 20:19 | WPDURCON ---
Assessment and Plan Assessment and plan (1) Urinary retention with incomplete bladder emptying: Code(s): R33.9 - Retention of urine, unspecified Status: Acute (2) Flaccid neurogenic bladder: Code(s): N31.2 - Flaccid neuropathic bladder, not elsewhere classified Status: Acute Plan the urinary tension symptoms are likely secondary to her recent stroke along with physical deconditioning. She is tolerating the Peterson catheter well. She will likely need to be discharged home with a Peterson catheter in place. We will arrange outpatient follow-up. She will need a urodynamics. When she gets stronger if she is able she could potentially be taught intermittent catheterization versus chronic indwelling Peterson catheter versus suprapubic tube. Urology Consult Note HPI Date Seen: 06/18/22 Requesting Physician: Julio Cesar Hernandez MD Primary Care Provider: Cullen Jeong MD Consult Narrative Narrative: Meche Woodward is a 86 year old female who we have been asked to consult on by the hospitalist for urinary retention. 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 She states before this she had issues with urinary incontinence. Since her stroke she has had continued issues with urinary incontinence but also with inability to void. She was brought to the emergency room several days ago with inability to void for 24 hours. Peterson catheter was placed with 1 L residual. After several days it was removed. She has been since unable to void and the catheter was replaced with greater than 1 L of residual urine. Her urine cultures negative. Her blood cultures negative. CT scan shows distended bladder and bilateral hydronephrosis. There was some suggestion of possible pyelonephritis, but cultures have ultimately been negative. The hydronephrosis and stranding around the kidneys is likely due to her urinary retention. She is now tolerating the catheter well. She continues to be weak. Her past surgical history is significant for cystoscopies in the past as well as some sort of Uro gynecologic surgery Review of Systems Review of Systems: All systems reviewed & are unremarkable except as noted in HPI and below PMFSH Past Medical History Medical History Anxiety and depression CAD (coronary artery disease) CHF (congestive heart failure) Echocardiogram 06/20/2016: Grade 1 diastolic dysfunction, EF 74%, mild enlargement left atrium Chronic interstitial cystitis 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 mellitus With baseline creatinine between 1.2 and 1.5 CVA (cerebral vascular accident) Evidence of old infarcts in the left thalamus and bilateral basal ganglia DVT, lower extremity, recurrent Left lower extremity distant past, right femoral in lower extremity veins May 2020 Essential hypertension Gastritis Gastritis/duodenitis 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 penitentiary (current) use of 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 Occlusion and stenosis of basilar artery Osteoarthritis 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, acute TIA (transient ischemic attack) Surgical History Surgical History H/O inguinal hernia repair History of appendectomy History of bladder suspension procedure 2012 and 2013 History of cystoscopy With biopsy of bladder lesion x2 History of heart artery stent (~2006) 4 stents History of hysterectomy Hx of cholecystectomy Status post cataract extraction of both eyes with insertion of intraocular lens Status post right knee replacement Family History Family History Father Pancreas cancer COPD (chronic obstructive pulmonary disease) Mother Acute myocardial infarction Sibling Hypertension Social History Social History
[2022-06-18 22:00] VITALS: BP 132/56; PULSE 78; RESP 18; TEMP 36.9; O2SAT 95
[2022-06-19] VITALS (7 sets, daily range): BP systolic 84–131; BP diastolic 46–76; PULSE 73–114; RESP 16–20; TEMP 36.2–36.4; O2SAT 91–100
[2022-06-19] MEDS: SALINE LOCK FLUSH 10 ML IV PUSH ×3 (05:01→20:32)
[2022-06-19] MEDS: LEVOTHYROXINE SODIUM 125 MCG TABLET BY MOUTH (05:02)
[2022-06-19 05:19] LABS: Anion Gap 3 mmol/L (8-16); Blood Urea Nitrogen 24 mg/dL (7-17); Calcium 8.3 mg/dL (8.4-10.2); Carbon Dioxide 31 mmol/L (22-30); Chloride 98 mmol/L (98-107); Estimated CRCL calculation 22 ml/min; Estimated Glomerular Filt Rate 33; Glucose 98 mg/dL (65-110); Magnesium 1.2 mg/dL (1.6-2.3); Potassium 3.8 mmol/L (3.4-5.0); Sodium 132 mmol/L (137-145)
--- NOTE | 2022-06-19 08:29 | P.DS_ITS ---
DS: Admitting Diagnosis Discharge Date 06/20/2022 1623 Admitting Diagnosis Pyelonephritis Hyponatremia Acute kidney injury superimposed on CKD Hydronephrosis, bilateral Urinary retention DS: Discharge Diagnosis Discharge Diagnosis (1) Pyelonephritis: Code(s): N12 - Tubulo-interstitial nephritis, not specified as acute or chronic Status: Acute Assessment and Plan: UA shows pyuria, CT shows pyelonephritis bilateral and bilateral hydronephrosis on CT scan secondary to acute urinary retention. Received ceftriaxone in the ED. * Previous urine cultures show history of ESBL UTI with last infection 08/18/2021 * Stopped Rocephin 06/15/22. Changed to Primaxin IV q.6 hours renal dosed. * 06/16/22 strangely urine culture shows no growth, however, patient's symptoms, labs and imaging significant for acute infection. * WBC 14 to 19.4 to 11.4 after primaxin started suggesting improvement/treating active infection. * change abx to Ertapenem 500 mg IV Q24 hours to complete total 14-day antibiotic course (06/15/22 to 06/28/22). * Blood cultures negative to date. * midline catheter inserted 06/17/22 and okay to use. * 06/17/22 WBC normalized. Afebrile. Continue current management. (2) Hyponatremia: Code(s): E87.1 - Hypo-osmolality and hyponatremia Status: Acute Assessment and Plan: Sodium 130 below the baseline of 141 on March 30, 2022 Likely secondary to dehydration. * Treated with maintenance Normal saline IV. * Repeat sodium 136 today 06/15. * Neuro intact and at baseline * 06/16 Sodium 132, BUN/creatinine mildly increased on IV fluids. Stop IV fluids and resume home dose furosemide tomorrow morning. * 06/20 sodium 130 and treated with IV fluids. (3) Acute kidney injury superimposed on CKD: Code(s): N17.9 - Acute kidney failure, unspecified; N18.9 - Chronic kidney disease, unspecified Status: Acute Assessment and Plan: BUN 23, according 2.0, baseline according 1.5 on March 30 2022 Likely resulting from UTI, dehydration and urinary retention * Hendrix catheter placed in the ED * Treated with normal saline IV maintenance * 06/15 BUN 22, creatinine 1.7, EGFR 28 and slightly improved from admission * 06/16 BUN 28, creatinine 1.8, eGFR 27. * 06/19 BUN 24, creatinine 1.5. Given 250 mL NS fluids for orthostatic hypotension * 06/20 BUN 25, creatinine 1.7. Given 500 mL NS fluids * Avoid nephrotoxin medication (4) Hydronephrosis, bilateral: Code(s): N13.30 - Unspecified hydronephrosis Status: Acute Assessment and Plan: Due to urinary retention. No obvious obstruction on CT scan * Repeat imaging in 1 week outpatient. (5) Urinary retention: Code(s): R33.9 - Retention of urine, unspecified Status: Acute Assessment and Plan: Urine retention likely secondary to urinary infection * Placed Hendrix catheter in the ED. * Patient has no prior history of acute urinary retention. * DC hendrix 06/17 and start bladder training. * 06/18 Patient unable to void overnight. Bladder scan showed >800 mL. Hendrix catheter replaced and 1000 mL drained. patient is not currently on anticholinergic/antimuscarinics or other medications that would be contributing. * She has chronic lower back pain with suspected neurogenic claudication from L4-L5 requiring epidural steroid injections in 2010. check CT lumbar spine for possible stenosis * Additionally, she has a h/o urinary urgency/stress incontinence as well as inflammatory bladder lesions s/p steroid injections 2013; bladder suspension surgeries 2012 and 2013
--- NOTE | 2022-06-19 08:29 | PM.DS ---
DS: Admitting Diagnosis Discharge Date 06/20/2022 1623 Admitting Diagnosis Pyelonephritis Hyponatremia Acute kidney injury superimposed on CKD Hydronephrosis, bilateral Urinary retention DS: Discharge Diagnosis Discharge Diagnosis (1) Pyelonephritis: Code(s): N12 - Tubulo-interstitial nephritis, not specified as acute or chronic Status: Acute Assessment and Plan: UA shows pyuria, CT shows pyelonephritis bilateral and bilateral hydronephrosis on CT scan secondary to acute urinary retention. Received ceftriaxone in the ED. Previous urine cultures show history of ESBL UTI with last infection 08/18/2021 Stopped Rocephin 06/15/22. Changed to Primaxin IV q.6 hours renal dosed. 06/16/22 strangely urine culture shows no growth, however, patient's symptoms, labs and imaging significant for acute infection. WBC 14 to 19.4 to 11.4 after primaxin started suggesting improvement/treating active infection. change abx to Ertapenem 500 mg IV Q24 hours to complete total 14-day antibiotic course (06/15/22 to 06/28/22). Blood cultures negative to date. midline catheter inserted 06/17/22 and okay to use. 06/17/22 WBC normalized. Afebrile. Continue current management. (2) Hyponatremia: Code(s): E87.1 - Hypo-osmolality and hyponatremia Status: Acute Assessment and Plan: Sodium 130 below the baseline of 141 on March 30, 2022 Likely secondary to dehydration. Treated with maintenance Normal saline IV. Repeat sodium 136 today 06/15. Neuro intact and at baseline 06/16 Sodium 132, BUN/creatinine mildly increased on IV fluids. Stop IV fluids and resume home dose furosemide tomorrow morning. 06/20 sodium 130 and treated with IV fluids. (3) Acute kidney injury superimposed on CKD: Code(s): N17.9 - Acute kidney failure, unspecified; N18.9 - Chronic kidney disease, unspecified Status: Acute Assessment and Plan: BUN 23, according 2.0, baseline according 1.5 on March 30 2022 Likely resulting from UTI, dehydration and urinary retention Hendrix catheter placed in the ED Treated with normal saline IV maintenance 06/15 BUN 22, creatinine 1.7, EGFR 28 and slightly improved from admission 06/16 BUN 28, creatinine 1.8, eGFR 27. 06/19 BUN 24, creatinine 1.5. Given 250 mL NS fluids for orthostatic hypotension 06/20 BUN 25, creatinine 1.7. Given 500 mL NS fluids Avoid nephrotoxin medication (4) Hydronephrosis, bilateral: Code(s): N13.30 - Unspecified hydronephrosis Status: Acute Assessment and Plan: Due to urinary retention. No obvious obstruction on CT scan Repeat imaging in 1 week outpatient. (5) Urinary retention: Code(s): R33.9 - Retention of urine, unspecified Status: Acute Assessment and Plan: Urine retention likely secondary to urinary infection Placed Hendrix catheter in the ED. Patient has no prior history of acute urinary retention. DC hendrix 06/17 and start bladder training. 06/18 Patient unable to void overnight. Bladder scan showed >800 mL. Hendrix catheter replaced and 1000 mL drained. patient is not currently on anticholinergic/antimuscarinics or other medications that would be contributing. She has chronic lower back pain with suspected neurogenic claudication from L4-L5 requiring epidural steroid injections in 2010. check CT lumbar spine for possible stenosis Additionally, she has a h/o urinary urgency/stress incontinence as well as inflammatory bladder lesions s/p steroid injections 2013; bladder suspension surgeries 2012 and 2013. bladder was distended with wall thickening and gas within the lumen suggesting cystitis versus recent catheterization. Will consult Urology for further recommendations. H/o stroke approximately 3 months ago and may be secondary to neurogenic bladder. Evaluated by Urology and likely 2/2 neurogenic bladder. Continue hendrix catheter at discharge and follow up with Urology outpatient for urodynamic studies.
[2022-06-19] MEDS: FERROUS SULFATE DRIED 142 MG TABCR PO (09:21)
[2022-06-19] MEDS: METOPROLOL TARTRATE 25 MG TABLET BY MOUTH (09:21)
[2022-06-19] MEDS: PANTOPRAZOLE 40 MG TABLET PO ×2 (09:22→17:19)
[2022-06-19] MEDS: APIXABAN 2.5 MG TABLET PO ×2 (09:22→20:32)
[2022-06-19] MEDS: EZETIMIBE 10 MG TABLET PO (09:22)
[2022-06-19] MEDS: amLODIPine BESYLATE 5 MG TABLET PO (09:22)
[2022-06-19] MEDS: MAGNESIUM SULFATE 3GM/D5W100ML 3 GM/100 ML BAG IVPB (09:23)
[2022-06-19] MEDS: FUROSEMIDE 20 MG TABLET BY MOUTH (09:24)
[2022-06-19] MEDS: HYDROcodone/acetaminophen (*CRX) 7.5-325 MG TABLET 1 TAB PO ×2 (11:22→22:15)
--- NOTE | 2022-06-19 13:28 | PM.IMPN ---
Progress Note: A&P Assessment and Plan (1) Pyelonephritis: Code(s): N12 - Tubulo-interstitial nephritis, not specified as acute or chronic Status: Acute Assessment and Plan: UA shows pyuria, CT shows pyelonephritis bilateral and bilateral hydronephrosis on CT scan secondary to acute urinary retention. Receive ceftriaxone in the ED. Previous urine cultures show history of ESBL UTI with last infection 08/18/2021 Stopped Rocephin 06/15/22. Changed to Primaxin IV q.6 hours renal dosed. 06/16/22 strangely urine culture shows no growth, however, patient's symptoms, labs and imaging significant for acute infection. WBC 14 to 19.4 to 11.4 after primaxin started suggesting improvement. change abx to Ertapenem 500 mg IV Q24 hours to complete total 14-day antibiotic course (06/15/22 to 06/28/22). Blood cultures negative to date. midline catheter inserted 06/17/22 and okay to use. 06/17/22 WBC normalized. Afebrile. Continue current management. (2) Hyponatremia: Code(s): E87.1 - Hypo-osmolality and hyponatremia Status: Acute Assessment and Plan: Sodium 130 below the baseline of 141 on March 30, 2022 Likely secondary to dehydration. Treated with maintenance Normal saline IV. Repeat sodium 136 today 06/15. Neuro intact and at baseline 06/16 Sodium 132, BUN/creatinine mildly increased on IV fluids. Stop IV fluids and resume home dose furosemide tomorrow morning. Stable (3) Acute kidney injury superimposed on CKD: Code(s): N17.9 - Acute kidney failure, unspecified; N18.9 - Chronic kidney disease, unspecified Status: Acute Assessment and Plan: BUN 23, according 2.0, baseline according 1.5 on March 30 2022 Likely resulting from UTI, dehydration and urinary retention Hendrix catheter placed in the ED Treated with normal saline IV maintenance 06/15 BUN 22, creatinine 1.7, EGFR 28 and slightly improved from admission 06/16 BUN 28, creatinine 1.8, eGFR 27. Will hold IV fluids for now as renal function slightly worsened while on IV fluids and patient is drinking. Continue to trend chemistry - renal function continues to improve. Monitor strict intake and output Avoid nephrotoxin medication (4) Hydronephrosis, bilateral: Code(s): N13.30 - Unspecified hydronephrosis Status: Acute Assessment and Plan: Due to urinary retention. No obvious obstruction on CT scan Repeat imaging in 1 week outpatient. (5) Urinary retention: Code(s): R33.9 - Retention of urine, unspecified Status: Acute Assessment and Plan: Urine retention likely secondary to urinary infection Placed Hendrix catheter in the ED. Patient has no prior history of acute urinary retention. DC hendrix 06/17 and start bladder training. 06/18 Patient unable to void overnight. Bladder scan showed >800 mL. Hendrix catheter replaced and 1000 mL drained. patient is not currently on anticholinergic/antimuscarinics or other medications that would be contributing. She has chronic lower back pain with suspected neurogenic claudication from L4-L5 requiring epidural steroid injections in [address]. check CT lumbar spine for possible stenosis Additionally, she has a h/o urinary urgency/stress incontinence as well as inflammatory bladder lesions s/p steroid injections 2013; bladder suspension surgeries 2012 and 2013. bladder was distended with wall thickening and gas within the lumen suggesting cystitis versus recent catheterization. Will consult Urology for further recommendations. H/o stroke approximately 3 months ago and may be secondary to neurogenic bladder. Evaluated by Urology and likely 2/2 neurogenic bladder. Continue hendrix catheter at discharge and follow up with Urology outpatient for urodynamic studies. (6) 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 (acquired): Code(s): E03.9 - 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, unspecified Status: Chronic Assessment and Plan: Chronic, Continue Synthroid 125 mcg tablet p.o. (7) Hy
[2022-06-19] MEDS: SODIUM CHLORIDE 0.9% IV 250 ML 125 ML IV CONT (13:43)
[2022-06-19] MEDS: ERTAPENEM SODIUM 0.5 GM in SODIUM CHLORIDE 0.9% IV 50 ML IVPB (17:19)
[2022-06-20] MEDS: SALINE LOCK FLUSH 10 ML IV PUSH ×2 (05:02→16:43)
[2022-06-20] MEDS: LEVOTHYROXINE SODIUM 125 MCG TABLET BY MOUTH (05:02)
[2022-06-20 05:17] LABS: Hematocrit 30.4 % (37.0-47.0); Hemoglobin 9.6 g/dL (12.0-15.0); Mean Corpuscular HGB Conc 31.6 g/dl (32-36); Mean Corpuscular Hemoglobin 25.8 pg (26-34); Mean Corpuscular Volume 81.7 fl (80-100); Mean Platelet Volume 10.6 fl (7.4-10.4); Platelet Count Result 323 k/mm3 (150-375); Red Blood Count 3.72 M/mm3 (4.2-5.4); Red Cell Distribution Width 17.8 % (11.5-14.5); White Blood Count 8.5 K/mm3 (4.5-10.0)
[2022-06-20 05:29] LABS: Anion Gap 3 mmol/L (8-16); Blood Urea Nitrogen 25 mg/dL (7-17); Calcium 7.9 mg/dL (8.4-10.2); Carbon Dioxide 32 mmol/L (22-30); Chloride 96 mmol/L (98-107); Estimated CRCL calculation 19 ml/min; Estimated Glomerular Filt Rate 28; Glucose 101 mg/dL (65-110); Magnesium 1.2 mg/dL (1.6-2.3); Potassium 3.2 mmol/L (3.4-5.0); Sodium 131 mmol/L (137-145)
[2022-06-20 05:32] VITALS: BP 118/55; PULSE 88; RESP 16; TEMP 36.1; O2SAT 97
[2022-06-20 08:17] VITALS: PULSE 88
[2022-06-20] MEDS: METOPROLOL TARTRATE 25 MG TABLET BY MOUTH (08:17)
[2022-06-20] MEDS: EZETIMIBE 10 MG TABLET PO (08:17)
[2022-06-20] MEDS: PANTOPRAZOLE 40 MG TABLET PO ×2 (08:17→09:44)
[2022-06-20] MEDS: HYDROcodone/acetaminophen (*CRX) 7.5-325 MG TABLET 1 TAB PO ×2 (08:18→17:23)
[2022-06-20] MEDS: FERROUS SULFATE DRIED 142 MG TABCR PO (08:18)
[2022-06-20] MEDS: amLODIPine BESYLATE 5 MG TABLET PO (08:18)
[2022-06-20] MEDS: APIXABAN 2.5 MG TABLET PO (08:19)
[2022-06-20] MEDS: NEOMYCIN/POLYMYXIN/BACITRACIN OINTMENT 15 GM TUBE 1 APPLIC TOPICAL ×2 (08:19→16:43)
[2022-06-20] MEDS: MAGNESIUM SULFATE 3GM/D5W100ML 3 GM/100 ML BAG IVPB (08:50)
[2022-06-20] MEDS: POTASSIUM CHLORIDE 20 MEQ TABLET 40 MEQ PO (08:51)
[2022-06-20] MEDS: SODIUM CHLORIDE 0.9% IV 500 ML 100 ML IV CONT (08:52)
[2022-06-20 14:00] VITALS: BP 147/72; PULSE 66; RESP 18; TEMP 36.1; O2SAT 100
[2022-06-20 15:46] LABS: Anion Gap 6 mmol/L (8-16); Blood Urea Nitrogen 24 mg/dL (7-17); Calcium 8.3 mg/dL (8.4-10.2); Carbon Dioxide 28 mmol/L (22-30); Chloride 96 mmol/L (98-107); Estimated CRCL calculation 22 ml/min; Estimated Glomerular Filt Rate 33; Glucose 190 mg/dL (65-110); Magnesium 2.2 mg/dL (1.6-2.3); Sodium 130 mmol/L (137-145)
[2022-06-20] MEDS: ERTAPENEM SODIUM 0.5 GM in SODIUM CHLORIDE 0.9% IV 50 ML IVPB (16:42)
--- NOTE | 2022-06-20 16:56 | PCCCNOTE ---
Phone call received from Marilyn needing a packet since the patient has a dc order at this time. Called to Grecia at [facility], she states that it is a little late but she will call the facility and will call Lavatory Attendant back. Per Grecia okay to accept tonight please send discharge plan with medications as soon as possible. Report will be called to main facility #, [address], [place] for room 109. Packet taken up the floor and given to Marilyn with instructions for covid and to fax discharge instructions including meds as soon as possible to [phone].
[2022-06-20 17:18] LABS: EDCOVIDSCREEN Negative (Negative)
== END 2022-06-20 20:42 | DRG 690 ==
LOC: ANHED 21:14 → ANH3MEDSUR 22:32
PROVIDERS: Admitting Provider Hospitalist; Emergency Provider Emergency Medicine; PCP Family Medicine; Visit Provider Nurse Practitioner Family
DX: N10 Acute pyelonephritis (principal); E87.1 Hypo-osmolality and hyponatremia; I13.0 Hypertensive heart and chronic kidney disease with heart failure and stage 1 through stage 4 chronic kidney disease, or unspecified chronic kidney disease; I50.32 Chronic diastolic (congestive) heart failure; I69.354 Hemiplegia and hemiparesis following cerebral infarction affecting left non-dominant side; E11.22 Type 2 diabetes mellitus with diabetic chronic kidney disease; N18.4 Chronic kidney disease, stage 4 (severe); R33.9 Retention of urine, unspecified; N13.30 Unspecified hydronephrosis; E86.0 Dehydration; N17.9 Acute kidney failure, unspecified; E03.9 Hypothyroidism, unspecified; D50.9 Iron deficiency anemia, unspecified; I25.10 Atherosclerotic heart disease of native coronary artery without angina pectoris; F41.8 Other specified anxiety disorders; H40.9 Unspecified glaucoma; M05.50 Rheumatoid polyneuropathy with rheumatoid arthritis of unspecified site; M19.90 Unspecified osteoarthritis, unspecified site; D72.829 Elevated white blood cell count, unspecified; N31.2 Flaccid neuropathic bladder, not elsewhere classified; Z86.718 Personal history of other venous thrombosis and embolism; Z79.01 Long term (current) use of 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; Z90.49 Acquired absence of other specified parts of digestive tract; Z95.5 Presence of coronary angioplasty implant and graft; Z90.710 Acquired absence of both cervix and uterus; Z98.42 Cataract extraction status, left eye; Z98.41 Cataract extraction status, right eye; Z96.1 Presence of intraocular lens; Z96.651 Presence of right artificial knee joint; Z66 Do not resuscitate
CPT/HCPCS: 36415; 36569; 51702; 72131; 74176; 80048; 80053; 81001; 82607; 82728; 82746; 83540; 83550; 83605; 83690; 83735; 85025; 85027; 85610; 85730; 87040; 87086; 87426; 87636; 96365; 96367; 96375; 97110; 97161; 97166; 97530; 97535; 99285; A9270; C1751; C9803; G0378; J0131; J0696; J0743; J1335; J2405; J3475; J7030; J7040

== ENCOUNTER 2023-12-07 14:34 | Inpatient (IN) | payer MEDICARE, SELFPAY ==
[2023-12-07] VITALS (8 sets, daily range): BP systolic 101–152; BP diastolic 58–95; PULSE 72–83; RESP 14–18; TEMP 36.5–36.7; O2SAT 98–100; BMI 21.4
--- NOTE | ~2023-12-07 | XR_ITS ---
EXAMINATION: XR retrograde pyelo w/stent RT DATE: 12/09/2023 08:38 INDICATION: Right internal ureteral stent placement TECHNIQUE: Fluoroscopic images from a right internal ureteral stent placement are submitted for heri dillon 17 seconds of fluoroscopy time. FINDINGS: There is a right double-J internal ureteral stent projecting in expected position, with proximal [place] loop at the level of the renal pelvis. The distal coil is now visualized.. IMPRESSION: 1. Right internal ureteral stent placement. Please refer to real-time procedural findings for lina king. Reviewed, dictated and finalized at location B. IMPRESSION: 1. Right internal ureteral stent placement. Please refer to real-time procedu ral findings for details.
--- NOTE | ~2023-12-07 | CT_ITS ---
CT abdomen pelvis wo con Ordering provider: Joaquin Giles MD History: 88 years Female with . right ureteral calculus post stent placement . Comparison: December 07, 2023 Technique: CT abdomen and pelvis without IV and without oral contrast. Automated exposure control and iterative reconstruction technique were employed. The dose-length product was 410.43 mGy-cm. Findings: VISUALIZED LOWER CHEST: Dependent atelectatic changes with underlying emphysematous changes. Possibility of soft tissue density in the area of the junction of the right atrium with the IVC canno t be excluded. This may be part of the IVC. This area measures 2.5 x 3.5 cm. Echocardiography is advi sed to evaluate this area. UPPER ABDOMINAL ORGANS: Liver: Normal. Gallbladder: Status post cholecystectomy. Spleen: Normal. Stomach/duodenum: Sliding hiatus hernia. Pancreas: Atrophic. Adrenals: Normal. Kidneys: Bilateral kidney stones with atrophic left kidney. Right double-J stent. Cyst in the right k idney lower pole. PELVIC ORGANS: The bladder is underfilled with thickened wall. BOWEL AND MESENTERY: Colon: Mild sigmoid diverticulosis without diverticulitis. Fecal material seen in the colon suggestiv e of constipation. Normal appendix. Small Bowel: Normal. No obstruction. Peritoneum/mesentery: No free air or free fluid. No mesenteric lymphadenopathy. RETROPERITONEUM: Mild atheromatous disease of the abdominal aorta. IVC filter. No retroperitoneal ly mphadenopathy. MUSCULOSKELETAL: Superficial soft tissues: Left inguinal hernia with bowel content. Right inguinal hernia with fat con tent. Otherwise, The superficial soft tissues are normal. Bones: Age appropriate degenerative changes of the spine. Retrolisthesis at the level of L3-L4 and L4 -L5. Anterolisthesis at the level of L4-L5. IMPRESSION: 1. Bilateral renal stones with atrophic left kidney. Right double-J stent. 2. Constipation. 3. Small sliding hiatus hernia. Possibility of soft tissue linking the area of the junction of the I VC with the right atrium cannot be excluded. Echocardiography advised. 4. Bilateral inguinal hernia with bowel content on the left side. 5. Thickened wall of the urinary bladder. Reviewed, dictated and finalized at location A. IMPRESSION: 1. Bilateral renal stones with atrophic left kidney. Right double-J stent. 2. Constipation. 3. Small sliding hiatus hernia. Possibility of soft tissue linking the area of the junction of the IVC with the right atrium cannot be excluded. Echocardiogr aphy advised. 4. Bilateral inguinal hernia with bowel content on the left side. 5. Thickened wall of the urinary bladder.
--- NOTE | ~2023-12-07 | CT_ITS ---
CT abdomen pelvis wo con Ordering provider: Mindy Oreilly MD History: 88 years Female with . LBM 1 week ago; N/V; low abd pain . Comparison: June 14, 2022 Technique: CT abdomen and pelvis without IV and without oral contrast. Automated exposure control and iterative reconstruction technique were employed. The dose-length product was 331.96 mGy-cm. Findings: VISUALIZED LOWER CHEST: Dependent atelectasis. Emphysematous changes. UPPER ABDOMINAL ORGANS: Liver: Normal. Gallbladder: Status post cholecystectomy. Spleen: Normal. Stomach/duodenum: Sliding hiatus hernia. Thickened wall of the stomach. Clinical evaluation advised. Pancreas: Atrophic. Adrenals: Normal. Kidneys: Stone is seen in the right kidney upper pole measuring 3 mm. stones are seen in the right ki dney lower pole versus vascular calcification. Right hydronephrotic changes are noted. Possibility of stone in the lower ureter cannot be excluded although not well demonstrated. Follow-up advised. Multiple stones in the left kidney versus vascular calcifications with atrophic changes. Hydronephrot ic changes versus parapelvic cysts are not excluded. No ureteric stones seen. PELVIC ORGANS: The bladder shows thickened wall with Peterson's catheter. BOWEL AND MESENTERY: Colon: No evidence of diverticulitis. No evidence of appendicitis. Small Bowel: Normal. No obstruction. Peritoneum/mesentery: No free air or free fluid. No mesenteric lymphadenopathy. RETROPERITONEUM: Moderate atheromatous disease of the abdominal aorta. IVC filter is noted in the IV C. No retroperitoneal lymphadenopathy. MUSCULOSKELETAL: Superficial soft tissues: Left inguinal hernia with bowel content no obstruction. Otherwise, The supe rficial soft tissues are normal. Bones: Age appropriate degenerative changes of the spine. Levoscoliosis. Retrolisthesis at the level of L3-L4 with anterolisthesis at the level of L4-L5. IMPRESSION: 1. Hydronephrotic changes in the right kidney. Possible Multiple right kidney stones. Possibility of a stone in the right lower ureter cannot be excluded. No change from previous examination. 2. Atrophic left kidney with multiple stones versus vascular calcifications. Slight dilatation of th e left renal pelvis versus parapelvic cysts. No change from previous examination. 3. Sliding hiatus hernia. 4. Thickened wall of the urinary bladder. 5. Left inguinal hernia with bowel content. Reviewed, dictated and finalized at location A. IMPRESSION: 1. Hydronephrotic changes in the right kidney. Possible Multiple right kidney stones. Possibility of a stone in the right lower ureter cannot be excluded. No change from previous examination. 2. Atrophic left kidney with multiple stones versus vascular calcifications. S light dilatation of the left renal pelvis versus parapelvic cysts. No change fr om previous examination. 3. Sliding hiatus hernia. 4. Thickened wall of the urinary bladder. 5. Left inguinal hernia with bowel content.
--- NOTE | ~2023-12-07 | NM_ITS ---
EXAMINATION: ELE harris renal scan DATE: 12/08/2023 14:25 INDICATION: Hydronephrosis TECHNIQUE: 8.2 mCi Tc-99m MAG3 was administered IV. 40 mg furosemide was administered IV immediately afterward. The patient was scanned in the supine position. A posterior abdominal radionuclide angiog nikos was obtained. A subsequent time course of static images of the kidneys, ureters, and bladder was obtained. COMPARISON: None FINDINGS: The posterior abdominal radionuclide angiogram and sequential static images show normal size and morp hology of the kidneys with decreased size of the left kidney corresponding to the asymmetric mild at the left kidney. There is no central photopenic defect in either kidney to suggest hydronephrosis. Pe ak renal parenchymal uptake was 1.8 min in left kidney and 1.9 min in right kidney (normal peak 3-5 m inutes). The relative early renal uptake was 29% on the left and 71% on the right (<40% is abnormal) . No abnormalities of the ureters or bladder are seen. T1/2 for clearance of activity from the left kidney and proximal collecting system was 12 minutes. T1/2 for clearance of activity from the right kidney and proximal collecting system was 40 minutes. Notes on interpretation: T1/2 <10 minutes is normal, 10-15 minutes is low grade obstruction of questi onable clinical significance, 15-20 minutes is partial obstruction that is likely clinically signific ant, >20 minutes is high grade obstruction. Note that false positives may be seen with supine positio umesh, dehydration, severely dilated nonobstructed kidney, atonic collecting system, poor renal functi on, and chronic furosemide use. IMPRESSION: 1. Atrophic left kidney which contributes only 29% to total renal function 2. Delayed activity clearance from both kidneys which is significant on the right however is without discernible hydronephrosis on the current study and with only mild hydronephrosis in the right kidne y on prior CT. This would argue against high-grade obstruction and suggest the delayed activity clear ance is due at least in part to other indeterminate etiology such as dehydration, chronic furosemide use or poor renal function. Reviewed, dictated and finalized at location A. IMPRESSION: 1. Atrophic left kidney which contributes only 29% to total renal function 2. Delayed activity clearance from both kidneys which is significant on the ri ght however is without discernible hydronephrosis on the current study and with only mild hydronephrosis in the right kidney on prior CT. This would argue aga inst high-grade obstruction and suggest the delayed activity clearance is due a t least in part to other indeterminate etiology such as dehydration, chronic fu rosemide use or poor renal function.
--- NOTE | ~2023-12-07 | XR_ITS ---
[id number] Ordering provider: Meri Boyce APRN History: . Pain TO RIGHT SIDE OF NECK RADIATES TO HEAD . Comparison: None. FINDINGS: VERTEBRAL BODIES: Normal height and alignment. No visible fracture or subluxation. The dens is intact . DISK SPACES: Narrowing of the disc C3-C3, C4-C5, C5-C6 and C6-C7. Multilevel facet joint disease. Mul tilevel uncovertebral joint osteoarthritic changes. PARASPINOUS SOFT TISSUES: No prevertebral soft tissue swelling. IMPRESSION: No acute osseous abnormality cervical spine. Reviewed, dictated and finalized at location A.
[2023-12-07 16:37] LABS: Basophils Absolute Auto 0.1 K/mm3 (0.0-0.1); Eosinophils Absolute Auto 0.2 K/mm3 (0-0.3); Eosinophils Percent Auto 2.2 % (0-4.4); Hematocrit 33.6 % (37.0-47.0); Hemoglobin 10.6 g/dL (12.0-15.0); Immature Granulocyte Absolute 0.03 K/mm3 (0.00-0.031); Immature Granulocyte Percent A 0.3 % (0-0.5); Lymphocytes Absolute Auto 1.82 K/mm3 (0.9-3.2); Lymphocytes Percent Auto 19.2 % (18.3-44.2); Mean Corpuscular HGB Conc 31.5 g/dl (32-36); Mean Corpuscular Volume 92.1 fl (80-100); Mean Platelet Volume 11.3 fl (7.4-10.4); Monocytes Absolute Auto 0.5 K/mm3 (0.1-0.6); Monocytes Percent Auto 5.6 % (2.6-8.5); Neutrophils Absolute Auto 6.8 K/mm3 (1.3-6.7); Neutrophils Percent Auto 71.7 % (45.5-73.1); Platelet Count Result 290 k/mm3 (150-375); Red Blood Count 3.65 M/mm3 (4.2-5.4); Red Cell Distribution Width 14.2 % (11.5-14.5); White Blood Count 9.5 K/mm3 (4.5-10.0)
[2023-12-07 16:45] LABS: Alanine Aminotransferase 9 U/L (6-35); Albumin Level 4.7 g/dL (3.5-5.1); Alkaline Phosphatase 70 U/L (38-126); Anion Gap 15 mmol/L (4-12); Aspartate Amino Transferase 17 U/L (14-36); Bilirubin,Total 0.7 mg/dL (0.2-1.3); Blood Urea Nitrogen 25 mg/dL (7-17); Calcium 9.7 mg/dL (8.4-10.2); Carbon Dioxide 21 mmol/L (22-30); Chloride 105 mmol/L (98-107); Estimated CRCL calculation 17 ml/min; Estimated Glomerular Filt Rate 27; Glucose 99 mg/dL (65-110); Lipase 92 U/L (23-300); Potassium 3.9 mmol/L (3.4-5.0); Sodium 141 mmol/L (137-145)
--- NOTE | 2023-12-07 17:09 | ED.NAVMDI ---
HPI - Nausea/Vomiting/Diarrhea General Chief complaint: Nausea/Vomiting/Diarrhea Stated complaint: multiple complaints Time Seen by Provider: 12/07/23 16:58 Source: patient and EMS Mode of arrival: EMS Limitations: no limitations History of Present Illness HPI Narrative: Patient presents with multiple complaints. She notes for the past 3 days she has had generalized weakness, nausea and vomiting (last episode of the latter yesterday). She has felt dizzy and has been constipated reporting that her last bowel movement was approximately 1 week ago. Her symptoms are associated with low abdominal pain she has had decreased p.o. intake. Denies any chest pain, shortness of breath, or cough. Patient has an indwelling Peterson catheter. She states she has had multiple abdominal surgeries including for bladder surgeries and hysterectomy. Having some back pain. Related Data Allergies Allergy/AdvReac Type Severity Reaction Status Date / Time atorvastatin Allergy Unknown ache Verified 12/07/23 14:44 [facility] Past Medical History Medical History Anxiety and depression CAD (coronary artery disease) CHF (congestive heart failure) Echocardiogram 06/20/2016: Grade 1 diastolic dysfunction, EF 74%, mild enlargement left atrium Chronic indwelling Peterson catheter Chronic interstitial cystitis 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 mellitus With baseline creatinine between 1.2 and 1.5 CVA (cerebral vascular accident) Evidence of old infarcts in the left thalamus and bilateral basal ganglia DVT, lower extremity, recurrent Left lower extremity distant past, right femoral in lower extremity veins May 2020 Essential hypertension Gastritis Gastritis/duodenitis 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 correction (current) use of 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 Occlusion and stenosis of basilar artery Osteoarthritis 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, acute TIA (transient ischemic attack) Surgical History Surgical History H/O inguinal hernia repair History of appendectomy History of bladder suspension procedure 2012 and 2013 History of cystoscopy With biopsy of bladder lesion x2 History of heart artery stent (~2006) 4 stents History of hysterectomy Hx of cholecystectomy Status post cataract extraction of both eyes with insertion of intraocular lens Status post right knee replacement Family History Family History Father Pancreas cancer COPD (chronic obstructive pulmonary disease) Mother Acute myocardial infarction Sibling Hypertension Social History Social History (Updated 12/07/23 @ 19:50 by Mindy Oreilly MD) Social History: The patient lives in a senior apartment but is independent living. She has been since around 2018. 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 Code status: DNR/DNI (per patient report, confirmed 12/07/23) Surrogate decision maker: Daksha (daughter) Smoking status: Never smoker Second hand tobacco smoke exposure: Yes Alcohol intake: never Substance use: never Substance use type: does not use Lack of Transportation: No Lack of Food: Never True Current Housing: I Have Housing Concerned About Future Housing: No Difficulty Paying Gas/Electric Bills: No Difficulty Paying for Meds: No Currently Unemployed: No Education: Don't Know Difficulty w/ Childcare or Family Care: No Living arrangements: with family Occupation/Education: retired Gender identity (if verbalized by the patient): Female Spiritual care concerns: No Agree to blood products: Yes Exam Narrative: GENERAL: well-nourished, and in no acute distress. Malodorous of foul smelling urine. HEAD: Normocephalic, atraumatic. EYES: Non injected, non icteric ENT: Nares clear, no rh
[2023-12-07 17:39] LABS: Magnesium 1.8 mg/dL (1.6-2.3)
[2023-12-07 18:06] LABS: Influenza A QL RT-PCR Negative (Negative); Influenza B QL RT-PCR Negative (Negative); RSV RNA, RT-PCR Negative (Negative); SARS-CoV-2 RNA PCR Negative (Negative)
[2023-12-07] MEDS: MORPHINE SULFATE (*CRX) 4 MG/ML INJ IV PUSH (18:06)
[2023-12-07] MEDS: SODIUM CHLORIDE 0.9% IV 1,000 ML 999 ML IV CONT (18:07)
[2023-12-07] MEDS: ONDANSETRON INJ 4 MG/2 ML VIAL IV PUSH (18:40)
[2023-12-07] MEDS: PANTOPRAZOLE 40 MG TABLET PO (18:59)
[2023-12-07 19:25] LABS: Appearance Urine Clear (Clear); Bacteria Urine 3+ /hpf; Bilirubin Urine Negative (Negative); Blood Urine Negative (Negative); Color Urine Yellow (Yellow); Glucose Urine UA Negative (Negative); Ketones Urine Negative (Negative); Leukocyte Esterase Ur 2+ LEU/UL (Negative); Nitrate Urine Positive (Negative); Non Pathogenic Casts 0-2; Protein Urine Negative (Negative); RBC Urine 0-2 /hpf (0-2); Specific Grav Ur 1.007 (1.001-1.035); Squamous Epithelial Cell Urine None Seen /hpf (Few); Urobilinogen Urine 0.2 mg/dL (<2.0); WBC Urine 21-50 /hpf (0-3)
[2023-12-07 19:34] LABS: Add Urine Microscopic? YES
[2023-12-07] MEDS: ACETAMINOPHEN 500 MG TABLET 1000 MG PO (20:12)
--- NOTE | 2023-12-07 22:44 | ADMGEN ---
This patient, Meche Woodward, was admitted to Medical Room 249-01. Patient/family oriented to hospital policies and general routines including ID bracelet, bed and alarms, visiting hours, pain management, procedures, bathroom and other care routines, personal items, smoking policy, room service/diet, and visiting hours. Information on how to activate the Rapid Response Team has been discussed. Patient/Family are encouraged to report perceived risks to care and to ask questions if they do not understand what they are told or what they should do.
[2023-12-08 04:21] VITALS: BP 134/59; PULSE 75; RESP 18; TEMP 36.4; O2SAT 99
[2023-12-08] MEDS: ACETAMINOPHEN 325 MG TABLET 650 MG PO (04:41)
--- NOTE | 2023-12-08 05:33 | PM.IMHP ---
H&P: HPI History of Present Illness Date/Time: 12/08/23 05:33 Chief Complaint: Constipation Narrative: 88-year-old female with a past medical history of GERD, chronic anticoagulation due to history of DVTs, diabetes mellitus, coronary artery disease, chronic kidney disease stage 4, chronic urinary retention with chronic indwelling Peterson catheter who presented to the ER with 1 week of constipation. The patient reports that she usually does not have constipation but for the last week has not been able have a bowel movement. She can feel the stool sitting at her rectum. She has not been able have a bowel movement despite taking 4 doses of MiraLax about 4 days ago. Due to feeling bloated in being concerned that she may not be able to prove she has not had much to eat or drink for the last 4 days. She did have several episodes of vomiting about 4 days ago and decided that she felt so bad that she did want to try to eat again. She has not had any further vomiting or nausea but just does not feel good. She has had increasing weakness and became lightheaded. She has been having some a lower abdominal pain. She has chronic low back pain is unchanged from baseline. She denies any foul-smelling urine and did not notice any changes in her urine in her catheter bag. However, on arrival to the ER patient's urine appeared turbid. She reports that she has had a chronic Peterson catheter for at least 2 years. Review of Systems Review of Systems: 12 systems were reviewed with pertinent positives and negatives per HPI. Except as documented in the HPI, all other systems were reviewed and are negative. [facility] Past Medical History Medical History (Updated 12/08/23 @ 14:31 by Meri Boyce APRN) Anxiety and depression CAD (coronary artery disease) CHF (congestive heart failure) Echocardiogram 06/20/2016: Grade 1 diastolic dysfunction, EF 74%, mild enlargement left atrium Chronic indwelling Peterson catheter Chronic interstitial cystitis 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 mellitus With baseline creatinine between 1.2 and 1.5 CVA (cerebral vascular accident) Evidence of old infarcts in the left thalamus and bilateral basal ganglia DVT, lower extremity, recurrent Left lower extremity distant past, right femoral in lower extremity veins May 2020 Essential hypertension Gastritis Gastritis/duodenitis 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 Occlusion and stenosis of basilar artery Osteoarthritis 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, acute TIA (transient ischemic attack) Surgical History Surgical History H/O inguinal hernia repair History of appendectomy History of bladder suspension procedure 2012 and 2013 History of cystoscopy With biopsy of bladder lesion x2 History of heart artery stent (~2006) 4 stents History of hysterectomy Hx of cholecystectomy Status post cataract extraction of both eyes with insertion of intraocular lens Status post right knee replacement Family History Family History Father Pancreas cancer COPD (chronic obstructive pulmonary disease) Mother Acute myocardial infarction Sibling Hypertension Social History Social History Social History: The patient lives in a senior apartment but is independent living. She has been since around 2018. 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 Code status: DNR/DNI (per patient report, confirmed 12/07/23) Surrogate decision maker: Daksha (daughter) Smoking status: Former smoker Second hand tobacco smoke exposure: Yes Alcohol intake: never Substance use: never Substance use type: painkillers Do You Feel Safe in your Home?: Yes Lack of Transportation: No Lack of Food: N
[2023-12-08] MEDS: LEVOTHYROXINE SODIUM 125 MCG TABLET PO (06:11)
[2023-12-08] MEDS: SODIUM CHLORIDE 0.9% IV 1,000 ML 75 ML IV CONT (06:12)
[2023-12-08 06:51] LABS: Basophils Absolute Auto 0.1 K/mm3 (0.0-0.1); Basophils Percent Auto 0.6 % (0.2-1.2); Eosinophils Absolute Auto 0.5 K/mm3 (0-0.3); Immature Granulocyte Absolute 0.03 K/mm3 (0.00-0.031); Immature Granulocyte Percent A 0.3 % (0-0.5); Lymphocytes Absolute Auto 1.09 K/mm3 (0.9-3.2); Lymphocytes Percent Auto 12.1 % (18.3-44.2); Mean Corpuscular HGB Conc 31.3 g/dl (32-36); Mean Corpuscular Hemoglobin 28.9 pg (26-34); Mean Corpuscular Volume 92.5 fl (80-100); Mean Platelet Volume 11.1 fl (7.4-10.4); Monocytes Absolute Auto 0.5 K/mm3 (0.1-0.6); Monocytes Percent Auto 5.2 % (2.6-8.5); Neutrophils Absolute Auto 6.9 K/mm3 (1.3-6.7); Neutrophils Percent Auto 76.8 % (45.5-73.1); Platelet Count Result 267 k/mm3 (150-375); Red Blood Count 3.46 M/mm3 (4.2-5.4); Red Cell Distribution Width 14.1 % (11.5-14.5)
[2023-12-08 07:01] LABS: Anion Gap 11 mmol/L (4-12); Blood Urea Nitrogen 22 mg/dL (7-17); Calcium 8.9 mg/dL (8.4-10.2); Carbon Dioxide 22 mmol/L (22-30); Chloride 107 mmol/L (98-107); Estimated CRCL calculation 19 ml/min; Estimated Glomerular Filt Rate 30; Glucose 83 mg/dL (65-110); Potassium 3.8 mmol/L (3.4-5.0); Sodium 140 mmol/L (137-145)
[2023-12-08 08:01] VITALS: O2SAT 98
--- NOTE | 2023-12-08 08:36 | PM.IMPN ---
Progress Note: A&P Assessment and Plan (1) Urinary tract infection: Code(s): N39.0 - Urinary tract infection, site not specified Status: Acute Assessment and Plan: 12/08/23: UA positive for nitrate, 2+ leukocyte, 21-50 urine WBC, 3+ urine bacteria. Urine culture was obtained and pending Patient was given Rocephin in the ED We will switch to meropenem as she is had history of ESBL in the past Patient has chronic indwelling Peterson catheter CT of the abdomen pelvis shows hydronephrotic changes in the right kidney with possible multiple right kidney stones and possible stone in the right lower ureter, atrophy of left kidney with multiple stones versus vascular calcification, thickening of the wall of the urinary bladder Peterson catheter was changed in the emergency room (2) Hydronephrosis, right: Code(s): N13.30 - Unspecified hydronephrosis Status: Acute Assessment and Plan: See above plan of care (3) Acute kidney injury superimposed on stage 4 chronic kidney disease: Code(s): N17.9 - Acute kidney failure, unspecified; N18.4 - Chronic kidney disease, stage 4 (severe) Status: Acute Assessment and Plan: 12/08/23: Creatinine initially 1.8 now down to 1.6, EGFR originally 27 now up to 30 Baseline creatinine 1.5-1.7 and EGFR baseline 27-31 Will continue to monitor (4) Chronic indwelling Peterson catheter: Code(s): Z97.8 - Presence of other specified devices Status: Acute Assessment and Plan: 12/08/23: Peterson catheter changed in the emergency room (5) 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 (acquired): Code(s): E03.9 - 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, unspecified Status: Chronic Assessment and Plan: 12/08/23: Continue Synthroid (6) Hypertension: Qualifiers: Hypertension type: unspecified Qualified Code(s): I10 - Essential (primary) hypertension Code(s): I10 - Essential (primary) hypertension Status: Chronic Assessment and Plan: 12/08/23: Blood pressure ranging Continue amlodipine and lisinopril (7) Iron deficiency anemia: Code(s): D50.9 - Iron deficiency anemia, unspecified Status: Chronic Assessment and Plan: 12/08/23: Hemoglobin 10.0 Patient not currently on any iron supplementation (8) 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: Code(s): E03.9 - 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, unspecified Status: Acute Assessment and Plan: 12/08/23: Continue Synthroid (9) DVT, lower extremity, recurrent: Code(s): I82.409 - Acute embolism and thrombosis of unspecified deep veins of unspecified lower extremity Status: Acute Assessment and Plan: 12/08/23: on Eliquis (10) Cervical muscle pain: Code(s): M54.2 - Cervicalgia Status: Acute Assessment and Plan: 12/08/23: Will get x-ray of C-spine Patient denies any injury or history of neck pain. She states that it is hard to turn her head to the right and when she does she gets excruciating pain to the point where she feels like she is going to pass out with associated dizziness Time Spent With Patient Time with patient: Greater than 35 minutes Subjective Date/time seen: 12/08/23 08:36 Interval history: Interval history: This is an 88-year-old female with a chronic indwelling Peterson catheter who presented to hospital on 12/07/2023 with complaints of weakness, nausea, and vomiting. Workup in the hospital included an abdomen pelvis CT which shown hydronephrotic changes in the right kidney, possible multiple right kidney stones possibility of a stone in the right lower ureter cannot be excluded, atrophy sick left kidney with multiple stones versus vascular calcification, slight dilatation of the left renal pelvis versus parapelvic cysts, sliding hiatus hernia, thickened wall of the urinary bladder, left inguinal hernia with bowel content. Initial labs include a normal white blood cell count of 9.5, hemoglobin 10.6, creatinine 1.8, EGFR 27, lipase 92. UA was obtained and w
[2023-12-08 08:39] VITALS: BP 149/52; PULSE 76; O2SAT 99
[2023-12-08] MEDS: EZETIMIBE 10 MG TABLET PO (08:42)
[2023-12-08] MEDS: lisinopriL 20 MG TABLET PO (08:42)
[2023-12-08] MEDS: APIXABAN 2.5 MG TABLET PO ×2 (08:42→20:49)
[2023-12-08] MEDS: PANTOPRAZOLE 40 MG TABLET PO (08:42)
[2023-12-08] MEDS: amLODIPine BESYLATE 10 MG TABLET PO (08:43)
[2023-12-08] MEDS: HYDROcodone/acetaminophen (*CRX) 7.5-325 MG TABLET 1 TAB PO ×3 (08:43→20:49)
--- NOTE | 2023-12-08 09:24 | WPDURCON ---
Assessment and Plan Assessment and plan (1) Abnormal finding on urinalysis: Code(s): R82.90 - Unspecified abnormal findings in urine Status: Acute Assessment and Plan: UA abnormal, concerning for UTI. Urine culture pending at this time. Continue empiric antibiotics while awaiting final culture results (2) Hydronephrosis, right: Code(s): N13.30 - Unspecified hydronephrosis Status: Acute Assessment and Plan: Right hydronephrosis that appears unchanged from prior scans. Will obtain renal scan to assess for high grade obstruction. NPO at this time while awaiting results. If evidence of obstruction, would plan for right ureteral stent placement. If no significant obstruction, would hold off on intervention as she is relatively asymptomatic at this time and renal function is stable. (3) Atrophy of left kidney: Code(s): N26.1 - Atrophy of kidney (terminal) Status: Acute Assessment and Plan: Chronic, unchanged left renal atrophy. No need for further evaluation at this time. Renal function is consistent with baseline (4) Chronic indwelling Peterson catheter: Code(s): Z97.8 - Presence of other specified devices Status: Acute Assessment and Plan: Chronic x1.5 years following stroke. Changed monthly at nursing facility. Last exchanged in the ER on 12/07/2023 Urology Consult Note HPI Date Seen: 12/08/23 Requesting Physician: Shannan Jackson DO Primary Care Provider: Megan Jeong MD Consult Narrative Narrative: Meche Woodward is a 88 year old female with a history of chronic indwelling Peterson catheter secondary to neurogenic bladder from CVA who is being seen in consultation for evaluation of hydronephrosis. She presented to the emergency department on 12/07/2023 with complaints of weakness, nausea, dizziness, and constipation. Upon arrival, it was noted that urine output from Peterson was quite cloudy. On arrival, her vital signs were stable and she was afebrile, WBC 9.5, creatinine 1.8, UA with positive leukocytes, nitrites, WBC, 3+ bacteria. Urine culture is pending at this time. Peterson catheter was exchanged while in the ER. CT of the abdomen/pelvis was completed which shows hydronephrosis of the right kidney with several right renal stones and possible right distal ureter stone as well as atrophic left kidney with multiple left renal stones versus calcifications is unchanged from prior scans. At the time of my evaluation, the patient is resting comfortably. She does complain of some abdominal pain related to constipation. Reports no issues with her Peterson catheter. Does have some mild right flank pain and complains of chronic low back pain. Denies nausea, vomiting, fever, chills, hematuria. Reports her Peterson catheter is changed monthly at her nursing facility. She has had an indwelling Peterson catheter for about 1.5 years following her stroke. Review of Systems Review of Systems: All systems reviewed & are unremarkable except as noted in HPI and below [facility] Past Medical History Medical History (Updated 12/08/23 @ 08:57 by Meri Boyce, FOREST PATHOLOGIST) Anxiety and depression CAD (coronary artery disease) CHF (congestive heart failure) Echocardiogram 06/20/2016: Grade 1 diastolic dysfunction, EF 74%, mild enlargement left atrium Chronic indwelling Peterson catheter Chronic interstitial cystitis 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 mellitus With baseline creatinine between 1.2 and 1.5 CVA (cerebral vascular accident) Evidence of old infarcts in the left thalamus and bilateral basal ganglia DVT, lower extremity, recurrent Left lower extremity distant past, right femoral in lower extremity veins May 2020 Essential hypertension Gastritis Gastritis/duodenitis 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
[2023-12-08] MEDS: MEROPENEM 1 GM/NS 100 ML 1 GM/100 ML BAG IVPB ×2 (10:54→20:50)
[2023-12-08] MEDS: FUROSEMIDE INJ 40 MG/4 ML VIAL IV PUSH (13:44)
[2023-12-08 14:54] VITALS: BP 125/59; PULSE 80; RESP 16; TEMP 36.9; O2SAT 100
[2023-12-08] MEDS: DOCUSATE SODIUM 400 MG/400 ML ENEMA RECTAL (16:26)
[2023-12-08] MEDS: DICLOFENAC SODIUM 1% 100 GM GEL (*BKC) 1 APPLIC TOPICAL ×2 (18:00→20:51)
--- NOTE | 2023-12-08 18:16 | PC.NURSE ---
During AM rounds, urology PA was speaking to patient. PA relayed to RN to keep patient NPO so that she could have a scan done and possible stent placement. In the afternoon once the patient had returned from scans, RN was awaiting report and further instruction. RN received phone call from preop stating they wanted to take the patient for stent placement procedure, however, the patient was found with radha crackers and milk at the bedside. Patient's daughter stated she requested the snack for the patient and the tech brought them in, unaware there would be a further procedure this afternoon. RN noted there was not an NPO order placed on the patient's chart. RN notified preop, and preop stated the procedure would have to be cancelled and rescheduled for tomorrow. PA notified. RN then placed an NPO at midnight order for the procedure tomorrow to avoid further miscommunication.
[2023-12-08] MEDS: SERTRALINE HCL 25 MG TABLET PO (20:49)
[2023-12-08 21:06] VITALS: BP 138/55; PULSE 80; RESP 16; TEMP 36.9; O2SAT 100
[2023-12-09] VITALS (14 sets, daily range): BP systolic 100–137; BP diastolic 41–78; PULSE 63–85; RESP 12–18; TEMP 36.1–37.2; O2SAT 93–100
[2023-12-09] MEDS: SODIUM CHLORIDE 0.9% IV 1,000 ML 75 ML IV CONT ×2 (01:48→18:17)
[2023-12-09] MEDS: ALPRAZolam (*CRX) 0.5 MG TABLET PO (05:34)
[2023-12-09] MEDS: LEVOTHYROXINE SODIUM 125 MCG TABLET PO (05:34)
--- NOTE | 2023-12-09 07:18 | WPDHPUPDATE1 ---
History and Physical Update Update Date/Time: 12/09/23 07:18 History and Physical has been reviewed, including an updated exam of the patient. There are NO changes in the patient's condition. Risks, benefits, and alternatives have been discussed and questions answered. Patient agrees to proceed with procedure. Proceed with cystoscopy, right retrograde right stent placement possible ureteroscopy
--- NOTE | 2023-12-09 07:40 | PC.NURSE ---
To OR per bed, IV saline locked. Patient left the unit before morning assessment was completed by this nurse.
[2023-12-09] MEDS: ceFAZolin 2 GM/D5W 50 ML 2 GM/50 ML BAG IVPB (07:51)
--- NOTE | 2023-12-09 07:53 | WPDANESEPPF ---
Anes - Initial Pre Proc Eval Procedure: Operation Date: 12/09/23 07:30 Proposed Procedures p Cystoscopy, Right Stent Placement - Joaquin Giles MD Date/Time: 12/09/23 07:53 Surgeon: Shannan Jackson DO Pre Op Diagnosis: UTI due to chronic indwelling hendrix Patient Data Age: 88 Gender: F Height: 1.63 m Weight: 56.6 kg Last Vital Signs Temp 36.1 C L 12/09/23 06:47 Pulse 74 12/09/23 06:47 Resp 18 12/09/23 06:47 BP 128/47 L 12/09/23 06:47 Pulse Ox 95 12/09/23 06:47 O2 Del Method Room Air 12/08/23 08:40 Allergies Allergy/AdvReac Type Severity Reaction Status Date / Time atorvastatin Allergy Unknown ache Verified 12/07/23 14:44 Home Medications Medication Instructions Recorded Confirmed Type ezetimibe 10 mg tablet (Zetia) 10 mg PO DAILY #90 tabs 03/16/23 12/07/23 Rx furosemide 20 mg tablet 20 mg PO DAILY #7 tabs 03/16/23 12/07/23 Rx amlodipine 10 mg-benazepril 20 mg 1 cap PO DAILY #90 caps 04/11/23 12/07/23 Rx capsule apixaban 2.5 mg tablet (Eliquis) 2.5 mg PO BID #90 tabs 07/03/23 12/07/23 Rx esomeprazole magnesium 40 mg 40 mg PO DAILY #90 caps 08/04/23 12/07/23 Rx capsule,delayed release (Nexium) hydrocodone 7.5 mg-acetaminophen 1 tablet PO Q6H PRN pain #120 tabs 12/05/23 12/07/23 Rx 325 mg tablet alprazolam 0.5 mg tablet 0.5 mg PO BID PRN Anxiety 12/07/23 12/07/23 History levothyroxine 125 mcg tablet 125 mcg PO DAILY 12/07/23 12/07/23 History sertraline 25 mg tablet (Zoloft) 25 mg PO HS 12/07/23 12/07/23 History Patient hx anesthesia problems: none Family hx anesthesia problems: none Results Review: All pre-operative results and documents have been reviewed as part of the pre-operative evaluation. COUNT INCLUDES THE [facility] Past Medical History Medical History Anxiety and depression CAD (coronary artery disease) CHF (congestive heart failure) Echocardiogram 06/20/2016: Grade 1 diastolic dysfunction, EF 74%, mild enlargement left atrium Chronic indwelling Hendrix catheter Chronic interstitial cystitis 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 mellitus With baseline creatinine between 1.2 and 1.5 CVA (cerebral vascular accident) Evidence of old infarcts in the left thalamus and bilateral basal ganglia DVT, lower extremity, recurrent Left lower extremity distant past, right femoral in lower extremity veins May 2020 Essential hypertension Gastritis Gastritis/duodenitis 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 Occlusion and stenosis of basilar artery Osteoarthritis 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, acute TIA (transient ischemic attack) Surgical History Surgical History H/O inguinal hernia repair History of appendectomy History of bladder suspension procedure 2012 and 2013 History of cystoscopy With biopsy of bladder lesion x2 History of heart artery stent (~2006) 4 stents History of hysterectomy Hx of cholecystectomy Status post cataract extraction of both eyes with insertion of intraocular lens Status post right knee replacement Family History Family History Father Pancreas cancer COPD (chronic obstructive pulmonary disease) Mother Acute myocardial infarction Sibling Hypertension Social History Social History Social History: The patient lives in a senior apartment but is independent living. She has been since around 2018. 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 Code status: DNR/DNI (per patient report, confirmed 12/07/23) Surrogate decision maker: Daksha (daughter) Smoking status: Former smoker Second hand tobacco smoke exposure: Yes Alcohol intake: never Substance use: never Substance use typ
--- NOTE | 2023-12-09 08:33 | W.PM.PROC2 ---
Procedure Note - Detailed Date of Procedure 12/09/23 Pre-op Diagnosis UTI with possibly right ureteral calculus Post-op Diagnosis Same (Lesion lateral to the right ureteral orifice with oozing) Procedure Performed Cystoscopy, right retrograde pyelogram, right ureteral stent placement, fulguration of lesion, complex Peterson catheter placement Surgeon Joaquin Giles MD Anesthesia General Description of Procedure Patient was taken to the operative suite correctly identified. Once anesthesia was obtained she was placed in dorsal lithotomy position prepped and draped usual sterile fashion. Twenty-two Malagasy scope was inserted the bladder. She has an irregularity just lateral to the right ureteral orifice measuring approximately 2 cm area. It is friable in nature. As she is on Eliquis we did not biopsy this area. Using a Bugbee electrode we tended fulgurated without much success. Twenty-four Malagasy resectoscope sheath was then inserted in the bladder and using a ball electrode where of a to fulgurate the lesion. A Sensor wire was then placed into the right ureteral orifice. Regent was inserted in a pyelogram was performed. 4.8 Malagasy contour stent was then placed with the proximal end coiled in the renal pelvis and the distal end in the bladder. Eight[address] was then placed with 10 cc in the balloon. This was connected to continuous bladder irrigation. Patient is taken recovery stable condition. Ultimate plan is to get over this acute episode. Will most likely reimage her 2-[address] w [address] scan to see if we can delineate any further ureteral stones. Will discuss the lesion in the bladder with patient family. This completes dictation. Please send a copy of op note to my office Estimated Blood Loss 5 Drains Yes Packing No Pathology None sent Complications No immediate complications Condition Stable Disposition PACU
[2023-12-09] MEDS: LIDOCAINE HCL 2% GEL UROJET 10 ML PKG MUCOUS MEM (08:34)
[2023-12-09] MEDS: LACTATED RINGERS 1,000 ML 30 ML IV CONT (08:41)
[2023-12-09 08:55] LABS: Glucose Point of Care 111 mg/dl (65-105)
[2023-12-09] MEDS: MORPHINE SULFATE (*CRX) 2 MG/ML INJ IV PUSH (09:46)
[2023-12-09] MEDS: MEROPENEM 1 GM/NS 100 ML 1 GM/100 ML BAG IVPB ×2 (11:10→20:50)
[2023-12-09] MEDS: PANTOPRAZOLE 40 MG TABLET PO (11:12)
[2023-12-09] MEDS: amLODIPine BESYLATE 10 MG TABLET PO (11:12)
[2023-12-09] MEDS: DICLOFENAC SODIUM 1% 100 GM GEL (*BKC) 1 APPLIC TOPICAL ×3 (11:12→20:50)
[2023-12-09] MEDS: EZETIMIBE 10 MG TABLET PO (11:12)
[2023-12-09] MEDS: lisinopriL 20 MG TABLET PO (11:12)
[2023-12-09] MEDS: FUROSEMIDE 20 MG TABLET PO (11:13)
--- NOTE | 2023-12-09 11:30 | PM.IMPN ---
Progress Note: A&P Assessment and Plan (1) Abnormal finding on urinalysis: Code(s): R82.90 - Unspecified abnormal findings in urine Status: Acute Assessment and Plan: UA abnormal on presentation, concerning for UTI. Urine cultures pending at this time. Continue meropenem while awaiting culture results. (2) Hydronephrosis, right: Code(s): N13.30 - Unspecified hydronephrosis Status: Acute Assessment and Plan: Noted to have right hydronephrosis and renal scan showed high-grade obstruction. Underwent cystoscopy with right retrograde pyelogram and right ureteral stent placement today. Tolerated procedure well. Appreciate Urology consultation. (3) Lesion of bladder: Code(s): N32.9 - Bladder disorder, unspecified Status: Acute Assessment and Plan: Noted to have friable bladder irregularity which was fulgurated today in the OR. She has been started on CBI. Urine is completely clear at the time of my evaluation. Appreciate Urology evaluation. Continue to wean CBI. Eliquis on hold at this time (4) Acute kidney injury superimposed on stage 4 chronic kidney disease: Code(s): N17.9 - Acute kidney failure, unspecified; N18.4 - Chronic kidney disease, stage 4 (severe) Status: Acute Assessment and Plan: Baseline creatinine appears to be around 1.5-1.6. Creatinine elevated to 1.8 on arrival, improved to 1.6 yesterday. Awaiting labs today to further assess. Seems like she is likely back at her baseline. Will stop IV fluidsonce she is tolerating her diet (5) Atrophy of left kidney: Code(s): N26.1 - Atrophy of kidney (terminal) Status: Acute Assessment and Plan: Chronic, ongoing issue. No need further evaluation at this time (6) Constipation: Qualifiers: Constipation type: unspecified constipation type Qualified Code(s): K59.00 - Constipation, unspecified Code(s): K59.00 - Constipation, unspecified Status: Acute Assessment and Plan: Received Colace enema on arrival. Had a bowel movement yesterday. Continue to monitor. MiraLax and Colace as needed (7) Cervical muscle pain: Code(s): M54.2 - Cervicalgia Status: Chronic Assessment and Plan: Cervical spine x-ray without any acute findings. Continue supportive care. May benefit from PT eval (8) DVT, lower extremity, recurrent: Code(s): I82.409 - Acute embolism and thrombosis of unspecified deep veins of unspecified lower extremity Status: Acute Assessment and Plan: IVC filter in place. On Eliquis, which is on hold at this time given fulguration of bladder lesion. Subjective Date/time seen: 12/09/23 11:30 Interval history: Meche is doing fair today. Just returned from surgery. Slightly sleepy during encounter but answers all questions appropriately. Denies abdominal pain, flank pain, back pain. Complains of chronic neck pain. Denies nausea, vomiting, fever, chills. No shortness of breath, cough, chest pain. Review of Systems Review of Systems: All systems reviewed & are unremarkable except as noted in HPI and below Exam Narrative: General: Well-nourished, well-appearing 88-year-old female, sitting up in bed, comfortable, NARD Neuro: awake, alert and oriented x4, speech clear, no focal neuro deficits noted HEENMT: normocephalic, atraumatic, EOMI, sclerae anicteric Respiratory: clear to auscultation bilaterally, nonlabored breathing Cardio: regular rate, regular rhythm with S1-S2 Abdomen: nondistended, normoactive bowel sounds, soft, nontender to palpation : Peterson catheter draining crystal clear urine on moderate CBI Extremities: no edema, erythema, or tenderness to palpation Skin: no rashes or lesions, warm and dry Psych: appropriate mood and affect, judgment and insight intact Objective Data Vital Signs Vital Signs: Vital Signs - 24 hr 12/08/23 14:54 12/08/23
[2023-12-09 11:52] LABS: Hematocrit 34.2 % (37.0-47.0); Hemoglobin 11.1 g/dL (12.0-15.0); Mean Corpuscular HGB Conc 32.5 g/dl (32-36); Mean Corpuscular Hemoglobin 29.9 pg (26-34); Mean Corpuscular Volume 92.2 fl (80-100); Mean Platelet Volume 11.4 fl (7.4-10.4); Platelet Count Result 264 k/mm3 (150-375); Red Blood Count 3.71 M/mm3 (4.2-5.4); Red Cell Distribution Width 14.1 % (11.5-14.5)
[2023-12-09 12:04] LABS: Anion Gap 10 mmol/L (4-12); Blood Urea Nitrogen 21 mg/dL (7-17); Calcium 8.3 mg/dL (8.4-10.2); Carbon Dioxide 26 mmol/L (22-30); Chloride 102 mmol/L (98-107); Estimated CRCL calculation 19 ml/min; Estimated Glomerular Filt Rate 30; Glucose 144 mg/dL (65-110); Potassium 3.7 mmol/L (3.4-5.0); Sodium 138 mmol/L (137-145)
[2023-12-09] MEDS: INSULIN ASPART (*BKC) 100 UNITS/ML SUB-Q (18:24)
[2023-12-09 18:25] LABS: Glucose Point of Care 282 mg/dl (65-105)
[2023-12-09] MEDS: SERTRALINE HCL 25 MG TABLET PO (20:50)
[2023-12-09] MEDS: HYDROcodone/acetaminophen (*CRX) 7.5-325 MG TABLET 1 TAB PO (21:01)
[2023-12-09 23:10] LABS: Glucose Point of Care 157 mg/dl (65-105)
[2023-12-10 01:35] VITALS: BP 108/44; PULSE 72; RESP 18; TEMP 36.6; O2SAT 95
[2023-12-10 05:59] LABS: Hematocrit 30.9 % (37.0-47.0); Hemoglobin 9.7 g/dL (12.0-15.0); Mean Corpuscular HGB Conc 31.4 g/dl (32-36); Mean Corpuscular Hemoglobin 28.9 pg (26-34); Mean Platelet Volume 11.5 fl (7.4-10.4); Platelet Count Result 259 k/mm3 (150-375); Red Blood Count 3.36 M/mm3 (4.2-5.4); Red Cell Distribution Width 14.1 % (11.5-14.5)
[2023-12-10] MEDS: LEVOTHYROXINE SODIUM 125 MCG TABLET PO (06:07)
[2023-12-10 06:19] LABS: Anion Gap 6 mmol/L (4-12); Blood Urea Nitrogen 28 mg/dL (7-17); Calcium 8.1 mg/dL (8.4-10.2); Carbon Dioxide 25 mmol/L (22-30); Chloride 106 mmol/L (98-107); Estimated CRCL calculation 16 ml/min; Estimated Glomerular Filt Rate 25; Glucose 128 mg/dL (65-110); Potassium 3.9 mmol/L (3.4-5.0); Sodium 137 mmol/L (137-145)
[2023-12-10 08:16] LABS: Glucose Point of Care 121 mg/dl (65-105)
[2023-12-10] MEDS: PANTOPRAZOLE 40 MG TABLET PO (09:45)
[2023-12-10] MEDS: SODIUM CHLORIDE 0.9% IV 1,000 ML 75 ML IV CONT (09:47)
[2023-12-10] MEDS: MEROPENEM 1 GM/NS 100 ML 1 GM/100 ML BAG IVPB (09:49)
[2023-12-10] MEDS: EZETIMIBE 10 MG TABLET PO (09:52)
[2023-12-10] MEDS: amLODIPine BESYLATE 10 MG TABLET PO (09:52)
[2023-12-10] MEDS: DICLOFENAC SODIUM 1% 100 GM GEL (*BKC) 1 APPLIC TOPICAL ×4 (09:54→20:50)
[2023-12-10 12:02] LABS: Glucose Point of Care 126 mg/dl (65-105)
--- NOTE | 2023-12-10 12:11 | WPDANESPN ---
Anes - Prog Note Post-Op Date/Time: 12/10/23 12:11 Cardiovascular status: normal Respiratory status: normal Airway patency: baseline Mental status: baseline Post-Op hydration status: normal Vital Signs: Last Vital Signs Temp 36.6 C 12/10/23 01:35 Pulse 72 12/10/23 01:35 Resp 18 12/10/23 01:35 BP 108/44 L 12/10/23 01:35 Pulse Ox 95 12/10/23 01:35 O2 Del Method Room Air 12/09/23 20:00 O2 Flow Rate 8 12/09/23 08:53 Pain Score (VAS): 0/10 I/O: Intake & Output 12/09/23 12/10/23 12/10/23 23:59 07:59 15:59 Intake Total 580 1240 Output Total 250 Balance 330 1240 Laboratory Tests 12/10/23 05:41 12/10/23 05:41 12/09/23 12/09/23 12/10/23 18:22 22:33 05:41 WBC 8.0 RBC 3.36 L Hgb 9.7 L Hct 30.9 L MCV 92.0 MCH 28.9 MCHC 31.4 L RDW 14.1 Plt Count 259 MPV 11.5 H Sodium 137 Potassium 3.9 Chloride 106 Carbon Dioxide 25 Anion Gap 6 BUN 28 H Creatinine 1.90 H Estim Creat Clear Calc 16 Estimated GFR 25 L Glucose 128 H POC Capillary Glucose 282 H 157 H Calcium 8.1 L 12/10/23 12/10/23 08:00 11:52 WBC RBC Hgb Hct MCV MCH MCHC RDW Plt Count MPV Sodium Potassium Chloride Carbon Dioxide Anion Gap BUN Creatinine Estim Creat Clear Calc Estimated GFR Glucose POC Capillary Glucose 121 H 126 H Calcium Microbiology 12/07/23 18:45 Urine Clean Catch Urine Culture - Final Post-procedural complaints: none Patient Feedback: Patient satisfied with anesthetic care.
--- NOTE | 2023-12-10 12:24 | WPDUROPN2 ---
Progress Note: A&P Assessment and Plan (1) Lesion of bladder: Code(s): N32.9 - Bladder disorder, unspecified Status: Acute Assessment and Plan: may require biopsy or resection when addressing the right possible ureteral stone in 3-4 weeks time (2) Urinary tract infection: Code(s): N39.0 - Urinary tract infection, site not specified Status: Acute Assessment and Plan: being treated appropriately (3) Chronic indwelling Peterson catheter: Code(s): Z97.8 - Presence of other specified devices Status: Acute Assessment and Plan: hold CBI at this point time. Not quite certain why has chronic indwelling Peterson but that may need to be addressed further as outpatient (4) Right ureteral calculus: Code(s): N20.1 - Calculus of ureter Status: Acute Assessment and Plan: question of a right ureteral calculus on CT scan. Will plan on reimaging in the next day or [address] scan Subjective Subjective Date/Time Seen: 12/10/23 12:24 Post Op day: 1 ( Cystoscopy with right stent placement and fulguration of bladder lesion) Principal diagnosis: possible ureteral calculus with bladder lesion Interval history: feeling better at this time. Her urinalysis is clear with minimal CBI. Will hold CBI at this time Review of Systems Review of Systems: All systems reviewed & are unremarkable except as noted in HPI and below Exam Const: General: cooperative and comfortable Resp: Effort & Inspection: normal respiratory effort Cardio: Rate: regular rate Rhythm: regular rhythm Objective Data Vital Signs Vital Signs: Vital Signs - 24 hr 12/09/23 14:16 12/09/23 18:13 12/09/23 18:18 Temperature 36.4 C 36.2 C L Pulse Rate 82 85 Respiratory Rate 12 16 Blood Pressure 117/52 L 100/42 L 100/42 L Pulse Oximetry 96 97 Oxygen Delivery 12/09/23 20:00 12/09/23 22:27 12/10/23 01:35 Temperature 36.8 C 36.6 C Pulse Rate 85 71 72 Respiratory Rate 16 16 18 Blood Pressure 106/45 L 108/44 L Pulse Oximetry 97 98 95 Oxygen Delivery Room Air Intake/Output Intake/Output: Intake & Output 12/07/23 12/08/23 12/09/23 12/10/23 23:59 23:59 23:59 23:59 Intake Total 1050 1790 4270 1240 Output Total 500 2900 Balance 1050 1290 1370 1240 Meds/Results Medications: Active Medications Generic Name Dose Route Start Last Admin Trade Name Freq PRN Reason Stop Dose Admin Acetaminophen 650 mg 12/07/23 20:26 12/08/23 04:41 Acetaminophen 325 Mg Tablet PO 650 mg Q4H PRN Administration Mild Pain (1-3) or Fever Hydrocodone Bitart/Acetaminophen 1 tab 12/08/23 05:36 12/09/23 21:01 Hydrocodone/Acetaminophen (*Crx) 7.5-325 Mg Tablet PO 1 tab Q6H PRN Administration pain 4-6 Alprazolam 0.5 mg 12/08/23 05:36 12/09/23 05:34 Alprazolam (*Crx) 0.5 Mg Tablet PO 0.5 mg BID PRN Administration Anxiety Amlodipine Besylate 10 mg 12/08/23 09:00 12/10/23 09:52 Amlodipine Besylate 10 Mg Tablet PO 01/07/24 08:59 10 mg DAILY CHIRAG Administration Apixaban 2.5 mg 12/08/23 09:00 12/09/23 11:11 Apixaban 2.5 Mg Tablet PO Not Given Q12HR CHIRAG Dextrose 12.5 gm 12/09/23 13:50 Dextrose 50% 25 Gm/50 Ml Syringe IV PUSH PRN PRN Hypoglycemia Protocol Diclofenac Sodium 1 applic 12/08/23 17:00 12/10/23 09:54 Diclofenac Sodium 1% 100 Gm Gel (*Bkc) TOPICAL 1 applic QID CHIRAG Administration Docusate Sodium 100 mg 12/09/23 11:37 Docusate Sodium 100 Mg Capsule PO Q12H PRN Constipation Ezetimibe 10 mg 12/08/23 09:00 12/10/23 09:52 Ezetimibe 10 Mg Tablet PO 10 mg DAILY CHIRAG Administration Fentanyl Citrate 25 mcg 12/09/23 07:55 Fentanyl Citrate Inj (*Crx) 100 Mcg/2 Ml Vial IV PUSH Q2M PRN Pain Furosemide 20 mg 12/08/23 09:00 12/10/23 09:52 Furosemide 20 Mg Tablet PO Not Given DAILY CHIRAG Glucagon 1 mg 12/09/23 13:50 Glucagon For Inj 1 M
[2023-12-10 14:03] VITALS: BP 108/44; PULSE 67; RESP 17; TEMP 36.5; O2SAT 100
[2023-12-10] MEDS: HYDROcodone/acetaminophen (*CRX) 7.5-325 MG TABLET 1 TAB PO ×2 (15:44→23:52)
--- NOTE | 2023-12-10 16:03 | PM.IMPN ---
Progress Note: A&P Assessment and Plan (1) Abnormal finding on urinalysis: Code(s): R82.90 - Unspecified abnormal findings in urine Status: Acute Assessment and Plan: UA abnormal on presentation, concerning for UTI. Urine cultures pending at this time. Continue meropenem while awaiting culture results. (2) Hydronephrosis, right: Code(s): N13.30 - Unspecified hydronephrosis Status: Acute Assessment and Plan: Noted to have right hydronephrosis and renal scan showed high-grade obstruction. Underwent cystoscopy with right retrograde pyelogram and right ureteral stent placement today. Tolerated procedure well. Appreciate Urology consultation. Has a burning sensation when urine passes into hendrix bag --Urology planning repeat CT in 1-2 days for stone --Change meropenem to Augmentin BID (3) Lesion of bladder: Code(s): N32.9 - Bladder disorder, unspecified Status: Acute Assessment and Plan: Noted to have friable bladder irregularity which was fulgurated today in the OR. She has been started on CBI. Urine is completely clear at the time of my evaluation. Appreciate Urology evaluation. Continue to wean CBI. Eliquis on hold at this time (4) Acute kidney injury superimposed on stage 4 chronic kidney disease: Code(s): N17.9 - Acute kidney failure, unspecified; N18.4 - Chronic kidney disease, stage 4 (severe) Status: Acute Assessment and Plan: Baseline creatinine appears to be around 1.5-1.6. Creatinine elevated to 1.8 on arrival, improved to 1.6 yesterday. Awaiting labs today to further assess. Seems like she is likely back at her baseline. --Off IV fluids (5) Atrophy of left kidney: Code(s): N26.1 - Atrophy of kidney (terminal) Status: Acute Assessment and Plan: Chronic, ongoing issue. No need further evaluation at this time (6) Constipation: Qualifiers: Constipation type: unspecified constipation type Qualified Code(s): K59.00 - Constipation, unspecified Code(s): K59.00 - Constipation, unspecified Status: Acute Assessment and Plan: Received Colace enema on arrival. Had a large bowel movement yesterday. Continue to monitor. MiraLax and Colace as needed (7) Cervical muscle pain: Code(s): M54.2 - Cervicalgia Status: Chronic Assessment and Plan: Cervical spine x-ray without any acute findings. Continue supportive care. May benefit from PT eval (8) DVT, lower extremity, recurrent: Code(s): I82.409 - Acute embolism and thrombosis of unspecified deep veins of unspecified lower extremity Status: Acute Assessment and Plan: IVC filter in place. On Eliquis, which is on hold at this time given fulguration of bladder lesion. Time Spent With Patient Time: 45 minutes Subjective Date/time seen: 12/10/23 16:03 Interval history: Blood pressure low normal, held lasix and furosemide this morning. Urology following, planning follow up CT in 2-3 days. Urine culture with mixed javad but UA was positive on admission (positive nitrites, large bacteria, 21-50 WBC's). Review of Systems Review of Systems: 12 systems were reviewed with pertinent positives and negatives per HPI. Except as documented in the HPI, all other systems were reviewed and are negative. All systems reviewed & are unremarkable except as noted in HPI and below Exam Narrative: General: Well-nourished, well-appearing 88-year-old female, sitting up in bed, comfortable, NARD Neuro: awake, alert and oriented x4, speech clear, no focal neuro deficits noted HEENMT: normocephalic, atraumatic, EOMI, sclerae anicteric Respiratory: clear to auscultation bilaterally, nonlabored breathing Cardio: regular rate, regular rhythm with S1-S2 Abdomen: nondistended, normoactive bowel sounds, soft, nontender to palpation : Hendrix catheter draining crystal clear urine on moderate CBI
[2023-12-10 17:22] LABS: Glucose Point of Care 118 mg/dl (65-105)
[2023-12-10 19:33] LABS: Basophils Percent Auto 0.3 % (0.2-1.2); Eosinophils Absolute Auto 0.1 K/mm3 (0-0.3); Eosinophils Percent Auto 0.8 % (0-4.4); Hematocrit 29.9 % (37.0-47.0); Hemoglobin 9.5 g/dL (12.0-15.0); Immature Granulocyte Absolute 0.03 K/mm3 (0.00-0.031); Immature Granulocyte Percent A 0.3 % (0-0.5); Lymphocytes Absolute Auto 2.03 K/mm3 (0.9-3.2); Lymphocytes Percent Auto 21.1 % (18.3-44.2); Mean Corpuscular HGB Conc 31.8 g/dl (32-36); Mean Corpuscular Hemoglobin 29.3 pg (26-34); Mean Corpuscular Volume 92.3 fl (80-100); Mean Platelet Volume 11.2 fl (7.4-10.4); Neutrophils Absolute Auto 6.5 K/mm3 (1.3-6.7); Neutrophils Percent Auto 67.5 % (45.5-73.1); Platelet Count Result 248 k/mm3 (150-375); Red Blood Count 3.24 M/mm3 (4.2-5.4); Red Cell Distribution Width 14.3 % (11.5-14.5); White Blood Count 9.6 K/mm3 (4.5-10.0)
[2023-12-10 20:00] VITALS: PULSE 67; RESP 17; O2SAT 100
[2023-12-10] MEDS: AMOXICILLIN/CLAVULANATE K 500-125 MG TAB 1 TABLET PO (20:50)
[2023-12-10] MEDS: SERTRALINE HCL 25 MG TABLET PO (20:50)
[2023-12-10 21:09] LABS: Glucose Point of Care 133 mg/dl (65-105)
[2023-12-10 22:00] VITALS: BP 116/44; PULSE 73; RESP 14; TEMP 36.7; O2SAT 99
[2023-12-10] MEDS: SODIUM CHLORIDE 0.9% IV 1,000 ML 125 ML IV CONT (23:52)
[2023-12-11 03:09] LABS: Appearance Urine Clear (Clear); Bacteria Urine None Seen /hpf; Bilirubin Urine Negative (Negative); Blood Urine 3+ (Negative); Color Urine Yellow (Yellow); Glucose Urine UA Negative (Negative); Ketones Urine Negative (Negative); Leukocyte Esterase Ur 2+ LEU/UL (Negative); Nitrate Urine Negative (Negative); Non Pathogenic Casts 0-2; Protein Urine 1+ mg/dL (Negative); RBC Urine >100 /hpf (0-2); Sodium Urine Random 130 meq/L; Specific Grav Ur 1.011 (1.001-1.035); Squamous Epithelial Cell Urine Few /hpf (Few); Urobilinogen Urine 0.2 mg/dL (<2.0); WBC Urine 51-100 /hpf (0-3); pH Urine 6.5 (5.0-9.0)
[2023-12-11 03:11] LABS: Creatinine Urine 48.3 mg/dL
[2023-12-11 03:22] LABS: Add Urine Microscopic? YES
[2023-12-11] MEDS: LEVOTHYROXINE SODIUM 125 MCG TABLET PO (05:13)
[2023-12-11 05:53] LABS: Anion Gap 9 mmol/L (4-12); Blood Urea Nitrogen 30 mg/dL (7-17); Calcium 7.9 mg/dL (8.4-10.2); Carbon Dioxide 23 mmol/L (22-30); Chloride 106 mmol/L (98-107); Estimated CRCL calculation 16 ml/min; Estimated Glomerular Filt Rate 25; Glucose 105 mg/dL (65-110); Potassium 3.7 mmol/L (3.4-5.0); Sodium 138 mmol/L (137-145)
[2023-12-11] MEDS: SODIUM CHLORIDE 0.9% IV 1,000 ML 125 ML IV CONT ×2 (08:34→16:30)
[2023-12-11 08:35] LABS: Glucose Point of Care 91 mg/dl (65-105)
[2023-12-11] MEDS: PANTOPRAZOLE 40 MG TABLET PO (09:08)
[2023-12-11] MEDS: amLODIPine BESYLATE 10 MG TABLET PO (09:08)
[2023-12-11] MEDS: EZETIMIBE 10 MG TABLET PO (09:08)
[2023-12-11] MEDS: AMOXICILLIN/CLAVULANATE K 500-125 MG TAB 1 TABLET PO (09:08)
[2023-12-11 09:09] VITALS: RESP 14; O2SAT 99
[2023-12-11] MEDS: DICLOFENAC SODIUM 1% 100 GM GEL (*BKC) 1 APPLIC TOPICAL ×4 (09:09→21:40)
[2023-12-11] MEDS: HYDROcodone/acetaminophen (*CRX) 7.5-325 MG TABLET 1 TAB PO ×2 (09:15→16:34)
--- NOTE | 2023-12-11 09:34 | WPDUROPN2 ---
Progress Note: A&P Assessment and Plan (1) Lesion of bladder: Code(s): N32.9 - Bladder disorder, unspecified Status: Acute Assessment and Plan: Noted to have friable bladder lesion s/p fulguration 12/09/23. May require biopsy or resection when addressing the right possible ureteral stone in 3-4 weeks time (2) Right ureteral calculus: Code(s): N20.1 - Calculus of ureter Status: Acute Assessment and Plan: Question of a right ureteral calculus on CT scan. Consider repeat CT scan in the next couple days (3) Hydronephrosis, right: Code(s): N13.30 - Unspecified hydronephrosis Status: Acute Assessment and Plan: Found to have right hydronephrosis on CT on admission. Follow-up renal scan consistent with high-grade obstruction. Underwent cystoscopy with right ureteral stent placement on 12/09/23 (4) Urinary tract infection: Code(s): N39.0 - Urinary tract infection, site not specified Status: Acute Assessment and Plan: Urine culture with mixed javad (5) Chronic indwelling Peterson catheter: Code(s): Z97.8 - Presence of other specified devices Status: Acute Assessment and Plan: Secondary to neurogenic bladder following stroke. Continue chronic Peterson Subjective Subjective Date/Time Seen: 12/11/23 09:34 Interval history: She is doing well today. Has no concerns. Tolerating her diet. Denies nausea, vomiting, fever, chills. Peterson catheter draining clear yellow urine. Review of Systems Review of Systems: All systems reviewed & are unremarkable except as noted in HPI and below Exam Narrative: General: Awake, alert, comfortable, no acute distress HEENT: Normocephalic, atraumatic, sclerae anicteric Respiratory: Normal respiratory effort, no accessory muscle use Abdomen: Nondistended, soft, nontender : Peterson catheter draining clear yellow urine Skin: Normal coloration, warm and dry Neurologic: No focal neuro deficits noted Psychiatric: Appropriate mood and affect, judgment and insight intact Objective Data Vital Signs Vital Signs: Vital Signs - 24 hr 12/10/23 14:03 12/10/23 09:45 12/10/23 20:00 Temperature 97.7 F Pulse Rate 67 67 Respiratory Rate 17 17 Blood Pressure 108/44 L Pulse Oximetry 100 100 Oxygen Delivery Room Air Room Air 12/10/23 22:00 Temperature 98.0 F Pulse Rate 73 Respiratory Rate 14 Blood Pressure 116/44 L Pulse Oximetry 99 Oxygen Delivery Intake/Output Intake/Output: Intake & Output 12/08/23 12/09/23 12/10/23 12/11/23 23:59 23:59 23:59 23:59 Intake Total 1790 4270 3050 1300 Output Total 500 2900 900 Balance 1290 1370 2150 1300 Meds/Results Medications: Active Medications Generic Name Dose Route Start Last Admin Trade Name Freq PRN Reason Stop Dose Admin Acetaminophen 650 mg 12/07/23 20:26 12/08/23 04:41 Acetaminophen 325 Mg Tablet PO 650 mg Q4H PRN Administration Mild Pain (1-3) or Fever Hydrocodone Bitart/Acetaminophen 1 tab 12/08/23 05:36 12/11/23 09:15 Hydrocodone/Acetaminophen (*Crx) 7.5-325 Mg Tablet PO 1 tab Q6H PRN Administration pain 4-6 Alprazolam 0.5 mg 12/08/23 05:36 12/09/23 05:34 Alprazolam (*Crx) 0.5 Mg Tablet PO 0.5 mg BID PRN Administration Anxiety Amlodipine Besylate 10 mg 12/08/23 09:00 12/11/23 09:08 Amlodipine Besylate 10 Mg Tablet PO 01/07/24 08:59 10 mg DAILY CHIRAG Administration Amoxicillin/Clavulanate Potassium 1 tablet 12/10/23 21:00 12/11/23 09:08 Amoxicillin/Clavulanate K 500-125 Mg Tab PO 1 tablet Q12HR CHIRAG Administration Apixaban 2.5 mg 12/08/23 09:00 12/09/23 11:11 Apixaban 2.5 Mg Tablet PO Not Given Q12HR CHIRAG Dextrose 12.5 gm 12/09/23 13:50 Dextrose 50% 25 Gm/50 Ml Syringe IV PUSH PRN PRN Hypoglycemia Protocol Diclofenac Sodium 1 applic 12/08/23 17:00 12/11/23 09:09 Diclofenac Sodium 1% 100 Gm Ge
[2023-12-11] MEDS: ONDANSETRON INJ 4 MG/2 ML VIAL IV PUSH (10:25)
[2023-12-11 12:10] LABS: Glucose Point of Care 110 mg/dl (65-105)
--- NOTE | 2023-12-11 13:09 | PCPTNOTE ---
On 12/11/23, the student, [Tessie Dent], provided care and completed [facility] documentation on this patient. I have reviewed the student's documentation and agree with the findings.
--- NOTE | 2023-12-11 13:11 | PM.IMPN ---
Progress Note: A&P Assessment and Plan (1) Lesion of bladder: Code(s): N32.9 - Bladder disorder, unspecified Status: Acute Assessment and Plan: Noted to have friable bladder lesion s/p fulguration 12/09/23. May require biopsy or resection when addressing the right possible ureteral stone in 3-4 weeks time (2) Right ureteral calculus: Code(s): N20.1 - Calculus of ureter Status: Acute Assessment and Plan: Question of a right ureteral calculus on CT scan. Consider repeat CT scan in the next couple days, per urology (3) Hydronephrosis, right: Code(s): N13.30 - Unspecified hydronephrosis Status: Acute (4) Chronic indwelling Hendrix catheter: Code(s): Z97.8 - Presence of other specified devices Status: Acute (5) CKD (chronic kidney disease): Qualifiers: Chronic kidney disease stage: stage 4 (severe) Qualified Code(s): N18.4 - Chronic kidney disease, stage 4 (severe) Code(s): N18.9 - Chronic kidney disease, unspecified Status: Acute Assessment and Plan: (6) Nausea & vomiting: Code(s): R11.2 - Nausea with vomiting, unspecified Status: Acute (7) Abnormal CT of the abdomen: Code(s): R93.5 - Abnormal findings on diagnostic imaging of other abdominal regions, including retroperitoneum Status: Acute (8) Bacteriuria: Code(s): R82.71 - Bacteriuria Status: Acute Plan Found to have right hydronephrosis on CT on admission. Follow-up renal scan consistent with high-grade obstruction. Underwent cystoscopy with right ureteral stent placement on 12/09/23. lesion in bladder needs follow up. Still having dysuria but negative urine culture, mild VITALIY. Nauseated and dizzy 12/10. Discharge home when clinically improved with urology follow up. Echo for abnormal CT findings & increased meds for constipation Abnormal CT Imaging: CT 12/11/23 IMPRESSION: 1. Bilateral renal stones with atrophic left kidney. Right double-J stent. 2. Constipation. 3. Small sliding hiatus hernia. Possibility of soft tissue linking the area of the junction of the IVC with the right atrium cannot be excluded. Echocardiography advised. 4. Bilateral inguinal hernia with bowel content on the left side. 5. Thickened wall of the urinary bladder. --Echo as recommended above Hydronephrosis, right, acute: Noted to have right hydronephrosis and renal scan showed high-grade obstruction. Underwent cystoscopy with right retrograde pyelogram and right ureteral stent placement today. Tolerated procedure well. Appreciate Urology consultation. Has a burning sensation when urine passes into hendrix bag --Urology planning repeat CT in 1-2 days for stone --Change meropenem to Augmentin BID Dysuria Hematuria Bacteriuria Chronic indwelling Hendrix UA abnormal on presentation, concerning for UTI but culture showed mixed javad. Still reporting dysuria. Received Meropenem 12/07-12/09, Augmentin 12/09-12/10. Repeat UA 12/10 >100, RBC's, 51-100 WBC's, no bacteria --Monitor off antibiotics --Repeat urine culture pending --Hold eliquis for hematuria --Follow blood count --Fluids --Secondary to neurogenic bladder following stroke. 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 On Eliquis, which is on hold at this time given fulguration of bladder lesion and with continued hematuria --Resume eliquis when able Lesion of bladder: Noted to have friable bladder irregularity which was fulgurated in OR. Was on CBI, discontinued. Appreciate Urology evaluation. Continue to wean CBI. Eliquis on hold Acute kidney injury superimposed on stage 4 chronic kidney disease: Baseline creatinine appears to be around 1.5-1.6. Creatinine elevated to 1.8 on arrival, fluctuating >1.6 <1.9 --NS @125 --Urine Na/Creatinine 3.7%, consistent with intrinsic renal failure. No casts on UA Renal Scan w/Medication NM 12/08/23 15:45 IMPRESSION:
[2023-12-11 14:07] VITALS: BP 112/49; PULSE 69; RESP 15; TEMP 36.1; O2SAT 99
[2023-12-11 16:56] LABS: Glucose Point of Care 136 mg/dl (65-105)
[2023-12-11 20:00] VITALS: PULSE 69; RESP 15; O2SAT 99
[2023-12-11 21:15] VITALS: BP 126/50; PULSE 74; RESP 16; TEMP 37.2; O2SAT 100
[2023-12-11] MEDS: SERTRALINE HCL 25 MG TABLET PO (21:40)
[2023-12-11] MEDS: BISACODYL 10 MG SUPPOSITORY RECTAL (21:40)
[2023-12-11 21:53] LABS: Glucose Point of Care 118 mg/dl (65-105)
--- NOTE | 2023-12-12 | ECHO_ITS ---
Patient Info Name: Meche Woodward Age: 88 years : 1935 Gender: Female Ht: 64 in Wt: 124 lbs BSA: 1.59 m2 HR: 80 bpm BP: 156 / 53 mmHg Heart Rhythm: Sinus Rhythm Technical Quality: Good Exam Date: 12/12/2023 9:10 AM Exam Location: Echo Lab Patient Status: Inpatient Admit Date: 12/08/2023 Staff Ordering Physician: Linda Richard APRN Veterinary Medicine Scientist: Teresa Mata RDCS Attending Provider: Linda Richard APRN Exam Type: CA echo doppler color flow Study Info Indications - CT abnormality Complete two-dimensional, color flow and Doppler transthoracic echocardiogram is performed. Summary 1. Left ventricular chamber dimension is normal. 2. Left ventricular systolic function is normal, estimated at 60-65%. 3. The left ventricular diastolic function is grade I diastolic dysfunction. 4. Right ventricular systolic function is normal. 5. There is mild aortic valve regurgitation. 6. There is mild tricuspid valve regurgitation. Left Ventricle Left ventricular chamber dimension is normal. Left ventricular systolic function is normal, estimated at 60-65%. There is no increased left ventricular wall thickness. The left ventricular diastolic function is grade I diastolic dysfunction. Right Ventricle Right ventricular chamber dimension is normal. Right ventricular systolic function is normal. Left Atria Left atrial chamber dimension is normal. Right Atria Right atrial chamber dimension is normal. Atrial Septum Intact interatrial septum visualized by color flow imaging. Aortic Valve The aortic valve is trileaflet. There is no aortic valve stenosis. There is mild aortic valve regurgitation. There is mild aortic valve calcification. Pulmonic Valve The pulmonic valve is normal. There is trace pulmonic regurgitation. Mitral Valve There is trace mitral valve regurgitation. The mitral valve annulus is moderately calcified. Tricuspid Valve There is mild tricuspid valve regurgitation. Pericardium/Pleural There is no pericardial effusion. Inferior Vena Cava Normal inferior vena cava with >50% collapse upon inspiration consistent with normal right atrial pressure, 3 mmHg. Aorta The aortic root size at the sinus of Valsalva is normal. Left Ventricular Outflow Tract Name Value Normal LVOT 2D LVOT Diameter 1.8 cm LVOT Doppler LVOT Peak Gradient 4 mmHg LVOT Mean Gradient 3 mmHg LVOT VTI 23 cm LVOT VTI/AV VTI Ratio 0.8 LVOT Stroke Volume 57 ml LVOT CO 4.4 l/min LVOT CI 2.7 l/min/m2 Pulmonic Valve Name Value Normal PV Doppler PV Peak Gradient 5 mmHg Mitral Valve Name Value Normal
[2023-12-12] MEDS: SODIUM CHLORIDE 0.9% IV 1,000 ML 125 ML IV CONT ×3 (00:39→17:39)
[2023-12-12 04:15] VITALS: BP 156/53; PULSE 80; RESP 20; TEMP 37.3; O2SAT 97
[2023-12-12 05:20] LABS: Basophils Absolute Auto 0.1 K/mm3 (0.0-0.1); Basophils Percent Auto 0.6 % (0.2-1.2); Eosinophils Absolute Auto 0.5 K/mm3 (0-0.3); Eosinophils Percent Auto 5.6 % (0-4.4); Hematocrit 30.9 % (37.0-47.0); Hemoglobin 9.8 g/dL (12.0-15.0); Immature Granulocyte Absolute 0.03 K/mm3 (0.00-0.031); Immature Granulocyte Percent A 0.3 % (0-0.5); Lymphocytes Percent Auto 25.4 % (18.3-44.2); Mean Corpuscular HGB Conc 31.7 g/dl (32-36); Mean Corpuscular Hemoglobin 29.4 pg (26-34); Mean Corpuscular Volume 92.8 fl (80-100); Mean Platelet Volume 11.5 fl (7.4-10.4); Monocytes Absolute Auto 0.9 K/mm3 (0.1-0.6); Monocytes Percent Auto 10.2 % (2.6-8.5); Neutrophils Absolute Auto 5.3 K/mm3 (1.3-6.7); Neutrophils Percent Auto 57.9 % (45.5-73.1); Platelet Count Result 244 k/mm3 (150-375); Red Blood Count 3.33 M/mm3 (4.2-5.4); Red Cell Distribution Width 14.3 % (11.5-14.5); White Blood Count 9.1 K/mm3 (4.5-10.0)
[2023-12-12 05:35] LABS: Anion Gap 8 mmol/L (4-12); Blood Urea Nitrogen 28 mg/dL (7-17); CRP 0.6 mg/dL (<1.0); Calcium 7.5 mg/dL (8.4-10.2); Carbon Dioxide 21 mmol/L (22-30); Chloride 108 mmol/L (98-107); Estimated CRCL calculation 19 ml/min; Estimated Glomerular Filt Rate 30; Glucose 98 mg/dL (65-110); Potassium 3.9 mmol/L (3.4-5.0); Sodium 137 mmol/L (137-145)
[2023-12-12 05:46] LABS: Erythrocyte Sedimentation Rate 21 mm/hr (0-20)
[2023-12-12] MEDS: LEVOTHYROXINE SODIUM 125 MCG TABLET PO (06:04)
[2023-12-12] MEDS: DOCUSATE SODIUM 100 MG CAPSULE PO (06:04)
[2023-12-12] MEDS: HYDROcodone/acetaminophen (*CRX) 7.5-325 MG TABLET 1 TAB PO ×3 (06:05→20:25)
--- NOTE | 2023-12-12 08:13 | PM.IMPN ---
Progress Note: A&P Assessment and Plan (1) Lesion of bladder: Code(s): N32.9 - Bladder disorder, unspecified Status: Acute Assessment and Plan: Noted to have friable bladder lesion s/p fulguration 12/09/23. May require biopsy or resection when addressing the right possible ureteral stone in 3-4 weeks time (2) Right ureteral calculus: Code(s): N20.1 - Calculus of ureter Status: Acute Assessment and Plan: Question of a right ureteral calculus on CT scan. Consider repeat CT scan in the next couple days, per urology (3) Hydronephrosis, right: Code(s): N13.30 - Unspecified hydronephrosis Status: Acute (4) Chronic indwelling Hendrix catheter: Code(s): Z97.8 - Presence of other specified devices Status: Acute (5) CKD (chronic kidney disease): Qualifiers: Chronic kidney disease stage: stage 4 (severe) Qualified Code(s): N18.4 - Chronic kidney disease, stage 4 (severe) Code(s): N18.9 - Chronic kidney disease, unspecified Status: Acute Assessment and Plan: (6) Nausea & vomiting: Code(s): R11.2 - Nausea with vomiting, unspecified Status: Acute (7) Abnormal CT of the abdomen: Code(s): R93.5 - Abnormal findings on diagnostic imaging of other abdominal regions, including retroperitoneum Status: Acute (8) Bacteriuria: Code(s): R82.71 - Bacteriuria Status: Acute Plan Found to have right hydronephrosis on CT on admission. Follow-up renal scan consistent with high-grade obstruction. Underwent cystoscopy with right ureteral stent placement on 12/09/23. lesion in bladder needs follow up. Still having dysuria but negative urine culture, mild VITALIY. Nauseated and dizzy 12/10. Discharge home when clinically improved with urology follow up. Echo for abnormal CT findings & increased meds for constipation Abnormal CT Imaging: CT 12/11/23 IMPRESSION: 1. Bilateral renal stones with atrophic left kidney. Right double-J stent. 2. Constipation. 3. Small sliding hiatus hernia. Possibility of soft tissue linking the area of the junction of the IVC with the right atrium cannot be excluded. Echocardiography advised. 4. Bilateral inguinal hernia with bowel content on the left side. 5. Thickened wall of the urinary bladder. --Echo ordered Hydronephrosis, right, acute: Noted to have right hydronephrosis and renal scan showed high-grade obstruction. Underwent cystoscopy with right retrograde pyelogram and right ureteral stent placement today. Tolerated procedure well. Has a burning sensation when urine passes into hendrix bag --Urology planning repeat CT in 1-2 days for stone --s/p Augmentin BID Dysuria Hematuria Bacteriuria Chronic indwelling Hendrix UA abnormal on presentation, concerning for UTI but culture showed mixed javad. Still reporting dysuria. Received Meropenem 12/07-12/09, Augmentin 12/09-12/10. Repeat UA 12/10 >100, RBC's, 51-100 WBC's, no bacteria --Monitor off antibiotics --Repeat urine culture pending --Hold eliquis for hematuria --Follow blood count --Fluids --Secondary to neurogenic bladder following stroke. 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 On Eliquis, which is on hold at this time given fulguration of bladder lesion and with continued hematuria --Resume eliquis when able Lesion of bladder: Noted to have friable bladder irregularity which was fulgurated in OR. Was on CBI, discontinued. -Urology consulted - May require biopsy or resection when addressing the right possible ureteral stone in 3-4 weeks time -Continue to wean CBI. Eliquis on hold Acute kidney injury superimposed on stage 4 chronic kidney disease: Baseline creatinine appears to be around 1.5-1.6. Creatinine elevated to 1.8 on arrival -creatinine today 1.6 --NS @125 --Urine Na/Creatinine 3.7%, consistent with intrinsic renal failure. No casts on UA Renal Scan w/Medication NM 0
[2023-12-12 08:40] LABS: Glucose Point of Care 92 mg/dl (65-105)
--- NOTE | 2023-12-12 09:27 | WPDUROPN2 ---
Progress Note: A&P Assessment and Plan (1) Lesion of bladder: Code(s): N32.9 - Bladder disorder, unspecified Status: Acute Assessment and Plan: Noted to have friable bladder lesion s/p fulguration 12/09/23. Will plan for outpatient transurethral resection of bladder lesion in several weeks once Eliquis is able to be held for appropriate amount of time preoperatively (2) Right ureteral calculus: Code(s): N20.1 - Calculus of ureter Status: Acute Assessment and Plan: Question of a right ureteral calculus on initial CT. She underwent cystoscopy with right ureteral stent placement on 12/09/23. Follow-up CT abdomen/pelvis completed yesterday shows bilateral kidney stones with atrophic left kidney and right ureteral stent in expected position but no ureteral stone. Will plan for cystoscopy, stent removal, and right ureteroscopy as an outpatient in conjunction with TUR bladder lesions as above. (3) Hydronephrosis, right: Code(s): N13.30 - Unspecified hydronephrosis Status: Acute Assessment and Plan: Found to have right hydronephrosis on CT on admission. Follow-up renal scan consistent with high-grade obstruction. Underwent cystoscopy with right ureteral stent placement on 12/09/23. Plan as above. (4) Urinary tract infection: Code(s): N39.0 - Urinary tract infection, site not specified Status: Ruled-out Assessment and Plan: Urine culture with mixed javad (5) Chronic indwelling Peterson catheter: Code(s): Z97.8 - Presence of other specified devices Status: Acute Assessment and Plan: Secondary to neurogenic bladder following stroke. Continue chronic Peterson Subjective Subjective Date/Time Seen: 12/12/23 09:27 Interval history: Doing well today. Denies abdominal pain or flank pain. Reports no issues with Peterson catheter which is draining clear yellow urine. Complains of constipation. States she will be going to rehab following hospital discharge. Review of Systems Review of Systems: All systems reviewed & are unremarkable except as noted in HPI and below Exam Narrative: General: Awake, alert, comfortable, no acute distress HEENT: Normocephalic, atraumatic, sclerae anicteric Respiratory: Normal respiratory effort, no accessory muscle use Abdomen: Nondistended, soft, nontender : Peterson catheter draining clear yellow urine Skin: Normal coloration, warm and dry Neurologic: No focal neuro deficits noted Psychiatric: Appropriate mood and affect, judgment and insight intact Objective Data Vital Signs Vital Signs: Vital Signs - 24 hr 12/11/23 10:06 12/11/23 14:07 12/11/23 20:00 Temperature 97.0 F L Pulse Rate 69 69 Respiratory Rate 15 15 Blood Pressure 112/49 L Pulse Oximetry 99 99 Oxygen Delivery Room Air Room Air 12/11/23 21:15 12/12/23 04:15 Temperature 99 F 99.2 F Pulse Rate 74 80 Respiratory Rate 16 20 Blood Pressure 126/50 L 156/53 H Pulse Oximetry 100 97 Oxygen Delivery Intake/Output Intake/Output: Intake & Output 12/09/23 12/10/23 12/11/23 12/12/23 23:59 23:59 23:59 23:59 Intake Total 4270 3050 2963.7 1100 Output Total 2900 900 750 Balance 1370 2150 2963.7 350 Meds/Results Medications: Active Medications Generic Name Dose Route Start Last Admin Trade Name Blasq PRN Reason Stop Dose Admin Acetaminophen 650 mg 12/07/23 20:26 12/08/23 04:41 Acetaminophen 325 Mg Tablet PO 650 mg Q4H PRN Administration Mild Pain (1-3) or Fever Hydrocodone Bitart/Acetaminophen 1 tab 12/08/23 05:36 12/12/23 06:05 Hydrocodone/Acetaminophen (*Crx) 7.5-325 Mg Tablet PO 1 tab Q6H PRN Administration pain 4-6 Alprazolam 0.5 mg 12/08/23 05:36 12/09/23 05:34 Alprazolam (*Crx) 0.5 Mg Tablet PO 0.5 mg BID PRN Administration Anxiety Amlodipine Besylate 7.5 mg 12/12/23 09:00 Amlodipine Besylate 2.5 Mg Tablet PO DAILY CHIRAG Apixa
[2023-12-12] MEDS: PANTOPRAZOLE 40 MG TABLET PO (09:42)
[2023-12-12] MEDS: EZETIMIBE 10 MG TABLET PO (09:43)
[2023-12-12] MEDS: amLODIPine BESYLATE 2.5 MG TABLET 7.5 MG PO (09:43)
[2023-12-12] MEDS: DICLOFENAC SODIUM 1% 100 GM GEL (*BKC) 1 APPLIC TOPICAL ×4 (09:43→20:27)
[2023-12-12] MEDS: SENNOSIDES 8.6 MG TABLET PO ×2 (09:43→17:39)
[2023-12-12] MEDS: polyethylene glycoL 3350 17 GM POWD.PACK PO ×2 (09:44→17:40)
[2023-12-12 12:43] LABS: Glucose Point of Care 163 mg/dl (65-105)
[2023-12-12 15:28] VITALS: BP 118/52; PULSE 74; RESP 18; TEMP 36.8; O2SAT 100
[2023-12-12 17:16] LABS: Glucose Point of Care 117 mg/dl (65-105)
[2023-12-12] MEDS: SERTRALINE HCL 25 MG TABLET PO (20:25)
[2023-12-12 20:44] LABS: Glucose Point of Care 129 mg/dl (65-105)
[2023-12-12 21:26] VITALS: BP 139/56; PULSE 71; RESP 16; TEMP 36.9; O2SAT 100
[2023-12-13] MEDS: SODIUM CHLORIDE 0.9% IV 1,000 ML 125 ML IV CONT ×2 (01:04→08:46)
[2023-12-13] MEDS: LEVOTHYROXINE SODIUM 125 MCG TABLET PO (05:03)
[2023-12-13] MEDS: HYDROcodone/acetaminophen (*CRX) 7.5-325 MG TABLET 1 TAB PO ×2 (05:03→16:41)
[2023-12-13 05:40] LABS: Basophils Absolute Auto 0.1 K/mm3 (0.0-0.1); Basophils Percent Auto 0.8 % (0.2-1.2); Eosinophils Absolute Auto 0.6 K/mm3 (0-0.3); Eosinophils Percent Auto 7.8 % (0-4.4); Hematocrit 30.5 % (37.0-47.0); Hemoglobin 9.3 g/dL (12.0-15.0); Immature Granulocyte Absolute 0.03 K/mm3 (0.00-0.031); Immature Granulocyte Percent A 0.4 % (0-0.5); Lymphocytes Absolute Auto 2.43 K/mm3 (0.9-3.2); Lymphocytes Percent Auto 30.4 % (18.3-44.2); Mean Corpuscular HGB Conc 30.5 g/dl (32-36); Mean Corpuscular Hemoglobin 28.3 pg (26-34); Mean Corpuscular Volume 92.7 fl (80-100); Mean Platelet Volume 11.8 fl (7.4-10.4); Monocytes Absolute Auto 0.8 K/mm3 (0.1-0.6); Monocytes Percent Auto 9.4 % (2.6-8.5); Neutrophils Absolute Auto 4.1 K/mm3 (1.3-6.7); Neutrophils Percent Auto 51.2 % (45.5-73.1); Platelet Count Result 233 k/mm3 (150-375); Red Blood Count 3.29 M/mm3 (4.2-5.4); Red Cell Distribution Width 14.3 % (11.5-14.5)
[2023-12-13 05:55] LABS: Anion Gap 7 mmol/L (4-12); Blood Urea Nitrogen 23 mg/dL (7-17); Calcium 8.1 mg/dL (8.4-10.2); Carbon Dioxide 22 mmol/L (22-30); Chloride 108 mmol/L (98-107); Estimated CRCL calculation 20 ml/min; Estimated Glomerular Filt Rate 33; Glucose 92 mg/dL (65-110); Sodium 137 mmol/L (137-145)
[2023-12-13 06:00] VITALS: BP 141/52; PULSE 79; RESP 18; TEMP 36.3; O2SAT 100
--- NOTE | 2023-12-13 07:09 | PM.IMPN ---
Progress Note: A&P Assessment and Plan (1) Lesion of bladder: Code(s): N32.9 - Bladder disorder, unspecified Status: Acute Assessment and Plan: Noted to have friable bladder lesion s/p fulguration 12/09/23. Will plan for outpatient transurethral resection of bladder lesion in several weeks once Eliquis is able to be held for appropriate amount of time preoperatively. Okay to resume Eliquis at this time from urologic standpoint (2) Right ureteral calculus: Code(s): N20.1 - Calculus of ureter Status: Acute Assessment and Plan: Question of a right ureteral calculus on initial CT. She underwent cystoscopy with right ureteral stent placement on 12/09/23. Follow-up CT abdomen/pelvis completed 12/10 shows bilateral kidney stones with atrophic left kidney and right ureteral stent in expected position but no ureteral stone. Will plan for cystoscopy, stent removal, and right ureteroscopy as an outpatient in conjunction with TUR bladder lesion as above. (3) Hydronephrosis, right: Code(s): N13.30 - Unspecified hydronephrosis Status: Acute Assessment and Plan: Found to have right hydronephrosis on CT on admission. Follow-up renal scan consistent with high-grade obstruction. Underwent cystoscopy with right ureteral stent placement on 12/09/23. Plan as above. (4) Urinary tract infection: Code(s): N39.0 - Urinary tract infection, site not specified Status: Ruled-out Assessment and Plan: Urine culture with mixed javad (5) Chronic indwelling Peterson catheter: Code(s): Z97.8 - Presence of other specified devices Status: Acute Assessment and Plan: Secondary to neurogenic bladder following stroke. Continue chronic Peterson Subjective Date/time seen: 12/13/23 07:09 Interval history: 88-year-old female with a past medical history of GERD, chronic anticoagulation due to history of DVTs, diabetes mellitus, coronary artery disease, chronic kidney disease stage 4, chronic urinary retention with chronic indwelling Peterson catheter who presented to the ER with 1 week of constipation. Review of Systems Review of Systems: All systems reviewed & are unremarkable except as noted in HPI and below Exam Narrative: AF General: well nourished, well-developed female in no acute respiratory distress who is nontoxic appearing, lying semi recumbent in bed. HEENT: Normocephalic. Atraumatic. Pupils equal round reactive to light. Extraocular movement intact. Sclera clear and anicteric. Nares patent. No oral lesions. Moist mucous membranes. Tongue is midline. Palate jamia symmetrically. No facial asymmetry. Neck: Neck was supple. No dominant adenopathy, thyromegaly or masses. 2+ carotid upstrokes without bruits. Chest: Lungs are clear to auscultation bilaterlly. No wheezes or crackles. CV: Heart was regular rate and rhythm. S1-S2. No murmurs, gallops, or rubs. Abd: Abdomen was soft. Nontender. Nondistended. Postive bowel sounds. No organomegaly or masses. Ext: No clubbing, cyanosis, or edema. 2+ DP pulses bilaterally. Neuro: Patient is alert and oriented x4. Strenth is 5/5 in both upper and lower extremities. Cranial nerves 2-12 are intact. Speech is clear. Psych: Normal nood and affect. Patient is pleasant and cooperative. Skin: Warm and dry. No rashes noted. Objective Data Vital Signs Vital Signs: Vital Signs - 24 hr 12/12/23 09:40 12/12/23 15:28 12/12/23 21:26 Temperature 98.2 F 98.4 F Pulse Rate 74 71 Respiratory Rate 18 16 Blood Pressure 118/52 L 139/56 L Pulse Oximetry 100 100 Oxygen Delivery Room Air 12/13/23 06:00 Temperature 97.4 F L Pulse Rate 79 Respiratory Rate 18 Blood Pressure 141/52 H Pulse Oximetry 100 Oxygen Delivery Intake/Output Intake/Output: Intake & Output 12/10/23 12/11/23 12/12/23 12/13/23 23:59 23:59 23:59 23:59 Intake Total 3050 2963.7 4015.8 1200 Output Total 900 1875 700 Balance 2150 2963
[2023-12-13 08:12] LABS: Glucose Point of Care 84 mg/dl (65-105)
[2023-12-13 08:40] VITALS: BP 147/52; PULSE 73
[2023-12-13] MEDS: amLODIPine BESYLATE 2.5 MG TABLET 7.5 MG PO (08:42)
[2023-12-13] MEDS: SENNOSIDES 8.6 MG TABLET PO ×2 (08:43→16:41)
[2023-12-13] MEDS: PANTOPRAZOLE 40 MG TABLET PO (08:43)
[2023-12-13] MEDS: EZETIMIBE 10 MG TABLET PO (08:44)
[2023-12-13] MEDS: ACETAMINOPHEN 325 MG TABLET 650 MG PO (08:44)
[2023-12-13] MEDS: DICLOFENAC SODIUM 1% 100 GM GEL (*BKC) 1 APPLIC TOPICAL ×2 (08:44→16:43)
[2023-12-13] MEDS: polyethylene glycoL 3350 17 GM POWD.PACK PO ×2 (08:45→16:42)
--- NOTE | 2023-12-13 09:23 | WPDUROPN2 ---
Progress Note: A&P Assessment and Plan (1) Lesion of bladder: Code(s): N32.9 - Bladder disorder, unspecified Status: Acute Assessment and Plan: Noted to have friable bladder lesion s/p fulguration 12/09/23. Will plan for outpatient transurethral resection of bladder lesion in several weeks once Eliquis is able to be held for appropriate amount of time preoperatively. Okay to resume Eliquis at this time from urologic standpoint (2) Right ureteral calculus: Code(s): N20.1 - Calculus of ureter Status: Acute Assessment and Plan: Question of a right ureteral calculus on initial CT. She underwent cystoscopy with right ureteral stent placement on 12/09/23. Follow-up CT abdomen/pelvis completed 12/10 shows bilateral kidney stones with atrophic left kidney and right ureteral stent in expected position but no ureteral stone. Will plan for cystoscopy, stent removal, and right ureteroscopy as an outpatient in conjunction with TUR bladder lesion as above. (3) Hydronephrosis, right: Code(s): N13.30 - Unspecified hydronephrosis Status: Acute Assessment and Plan: Found to have right hydronephrosis on CT on admission. Follow-up renal scan consistent with high-grade obstruction. Underwent cystoscopy with right ureteral stent placement on 12/09/23. Plan as above. (4) Urinary tract infection: Code(s): N39.0 - Urinary tract infection, site not specified Status: Ruled-out Assessment and Plan: Urine culture with mixed javad (5) Chronic indwelling Peterson catheter: Code(s): Z97.8 - Presence of other specified devices Status: Acute Assessment and Plan: Secondary to neurogenic bladder following stroke. Continue chronic Peterson Subjective Subjective Date/Time Seen: 12/13/23 09:23 Interval history: Doing fair today. Complains of headache and dizziness. Denies abdominal pain, nausea, vomiting, fever, chills. No suprapubic pain. No issues with Peterson catheter which is draining clear yellow urine. Review of Systems Review of Systems: All systems reviewed & are unremarkable except as noted in HPI and below Exam Narrative: General: Awake, alert, comfortable, no acute distress HEENT: Normocephalic, atraumatic, sclerae anicteric Respiratory: Normal respiratory effort, no accessory muscle use Abdomen: Nondistended, soft, nontender : Peterson catheter draining clear yellow urine Skin: Normal coloration, warm and dry Neurologic: No focal neuro deficits noted Psychiatric: Appropriate mood and affect, judgment and insight intact Objective Data Vital Signs Vital Signs: Vital Signs - 24 hr 12/12/23 09:40 12/12/23 15:28 12/12/23 21:26 Temperature 98.2 F 98.4 F Pulse Rate 74 71 Respiratory Rate 18 16 Blood Pressure 118/52 L 139/56 L Pulse Oximetry 100 100 Oxygen Delivery Room Air 12/13/23 06:00 12/13/23 08:40 Temperature 97.4 F L Pulse Rate 79 73 Respiratory Rate 18 Blood Pressure 141/52 H 147/52 H Pulse Oximetry 100 Oxygen Delivery Intake/Output Intake/Output: Intake & Output 12/10/23 12/11/23 12/12/23 12/13/23 23:59 23:59 23:59 23:59 Intake Total 3050 2963.7 4015.8 2522.5 Output Total 900 1875 700 Balance 2150 2963.7 2140.8 1822.5 Meds/Results Medications: Active Medications Generic Name Dose Route Start Last Admin Trade Name Freq PRN Reason Stop Dose Admin Acetaminophen 650 mg 12/07/23 20:26 12/13/23 08:44 Acetaminophen 325 Mg Tablet PO 650 mg Q4H PRN Administration Mild Pain (1-3) or Fever Hydrocodone Bitart/Acetaminophen 1 tab 12/08/23 05:36 12/13/23 05:03 Hydrocodone/Acetaminophen (*Crx) 7.5-325 Mg Tablet PO 1 tab Q6H PRN Administration pain 4-6 Alprazolam 0.5 mg 12/08/23 05:36 12/09/23 05:34 Alprazolam (*Crx) 0.5 Mg Tablet PO 0.5 mg BID PRN Administration Anxiety Amlodipine Besylate 7.5 mg 12/12/23 09:00 12/13/23 08:42 A
--- NOTE | 2023-12-13 10:51 | PCOTNOTE ---
Attempted to see pt for Occupational therapy treatment. Pt currently has visitor at this time. Will attempt later today and/or tomorrow.
[2023-12-13 11:59] LABS: Glucose Point of Care 111 mg/dl (65-105)
[2023-12-13 13:01] VITALS: BP 151/59; PULSE 79; RESP 12; TEMP 36.6; O2SAT 99
[2023-12-13 13:04] VITALS: BP 155/66; PULSE 91; RESP 16; TEMP 36.6; O2SAT 100
[2023-12-13 13:07] VITALS: BP 158/71; PULSE 124; RESP 16; TEMP 36.6; O2SAT 100
[2023-12-13] MEDS: ONDANSETRON INJ 4 MG/2 ML VIAL IV PUSH (13:16)
[2023-12-13 15:02] VITALS: BP 138/54; PULSE 71; RESP 12; TEMP 36.4; O2SAT 99
[2023-12-13 16:56] LABS: Glucose Point of Care 155 mg/dl (65-105)
--- NOTE | 2023-12-13 17:14 | PM.DS ---
DS: Admitting Diagnosis Discharge Date 12/13/2023 Admitting Diagnosis lesion of bladder right ureteral calculus hydronephrosis, right chronic indwelling Hendrix catheter home chronic kidney disease DS: Discharge Diagnosis Discharge Diagnosis (1) Lesion of bladder: Code(s): N32.9 - Bladder disorder, unspecified Status: Acute (2) Right ureteral calculus: Code(s): N20.1 - Calculus of ureter Status: Acute (3) Hydronephrosis, right: Code(s): N13.30 - Unspecified hydronephrosis Status: Acute (4) Urinary tract infection: Code(s): N39.0 - Urinary tract infection, site not specified Status: Ruled-out (5) Chronic indwelling Hendrix catheter: Code(s): Z97.8 - Presence of other specified devices Status: Acute DS: Summary Hospital Course Reason for hospitalization: lesion of bladder right ureteral calculus hydronephrosis, right chronic indwelling Hendrix catheter home chronic kidney disease Hospital Course: 88-year-old female with a past medical history of GERD, chronic anticoagulation due to history of DVTs, diabetes mellitus, coronary artery disease, chronic kidney disease stage 4, chronic urinary retention with chronic indwelling Hendrix catheter who presented to the ER with 1 week of constipation. During admission patient was started on a bowel regimen and received an enema which resulted in a large bowel movement. A urine culture was obtained and concerning for UTI. Hendrix catheter was changed in the ED. She was started on rocephin then switched to meropenem due to previous ESBL. Urine culture was negative during admission and antibiotics were discontinued. An Abdominal/pelvis CT showed Hydronephrotic changes in the right kidney. Possible Multiple right kidney stones. Atrophic left kidney with multiple stones. Slight dilatation of the left renal pelvis versus parapelvic cysts. Urology was consulted. A renal scan showed atrophic left kidney with 29% renal function and delayed clearance from both kidneys concerning for high grade obstruction. Patient underwent a Cystoscopy, right retrograde pyelogram, right ureteral stent placement, fulguration of lesion, complex Hendrix catheter placement on 12/[address] Giles. Patient had a friable bladder lesion s/p fulguration and was started on CBI by urology. At that time eliquis was on hold. On 12/09 CBI was discontinued. Per urology this may require biopsy or resection when addressing the right possible ureteral stone in 3-4 weeks time. A follow up CT was obtained and showed bilateral renal stones with atrophic left kidney. Right double J stent in place. Per urology will plan for cystoscopy, stent removal, and right ureteroscopy as an outpatient in conjunction with TUR bladder lesions. Per urology able to restart eliquis at time of discharge. Patient endorsed vertigo and neck pain during admission. C spine XR showed no acute osseous abnormality. Started on Meclizine 25 mg three times a day as needed for dizziness. Patient discharged in a stable condition to [facility]. She has a follow-up with Urology as scheduled and her PCP in 1 week. Status at Discharge Functional status at discharge: uses cane/walker Time Spent with Patient Time attestation: Total time spent providing and/or coordinating discharge services: Time spent: Greater than 30 minutes Exam Narrative: AF HR 71 RR 12 SpO2 99 BP 138/54 General: female in no acute respiratory distress who is nontoxic appearing, lying semi recumbent in bed. HEENT: Normocephalic. Atraumatic. Sclera clear and anicteric. No facial asymmetry. Chest: Lungs are clear to auscultation bilaterally. No wheezes or crackles. CV: Heart was regular rate and rhythm. S1-S2. No murmurs, gallops, or rubs. : hendrix catheter in place Abd: Abdomen was soft. Nontender. Nondistended. Positive bowel sounds. No organomegaly or masses. Indwelling catheter in place. Ext: No clubbing, cyanosis, or edema. 2+ DP pulses bilaterally.
== END 2023-12-13 17:45 | DRG 660 ==
LOC: ANHED 20:08 → ANH3MEDSUR 21:42 → ANH2MED 21:48
PROVIDERS: Emergency Medicine; Nurse Practitioner Acute Care; Physician Assistant; Urology; Admitting Provider Internal Medicine; Emergency Provider Student in an Organized Health Care Education/Training Program; PCP Family Medicine; Visit Provider Student in an Organized Health Care Education/Training Program
PROC: BT1D1ZZ Fluoroscopy of Right Kidney, Ureter and Bladder using Low Osmolar Contrast (ICD-10-PCS; CPT 52352; principal; 2023-12-09 07:30)
DX: N32.9 Bladder disorder, unspecified (principal); I13.0 Hypertensive heart and chronic kidney disease with heart failure and stage 1 through stage 4 chronic kidney disease, or unspecified chronic kidney disease; N13.2 Hydronephrosis with renal and ureteral calculous obstruction; N39.0 Urinary tract infection, site not specified; N17.9 Acute kidney failure, unspecified; N18.4 Chronic kidney disease, stage 4 (severe); E03.9 Hypothyroidism, unspecified; E11.22 Type 2 diabetes mellitus with diabetic chronic kidney disease; K59.00 Constipation, unspecified; K21.9 Gastro-esophageal reflux disease without esophagitis; I50.9 Heart failure, unspecified; I25.10 Atherosclerotic heart disease of native coronary artery without angina pectoris; I69.398 Other sequelae of cerebral infarction; N26.1 Atrophy of kidney (terminal); N31.9 Neuromuscular dysfunction of bladder, unspecified; R33.9 Retention of urine, unspecified; Z79.01 Long term (current) use of 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; Z86.718 Personal history of other venous thrombosis and embolism; Z95.5 Presence of coronary angioplasty implant and graft; Z90.710 Acquired absence of both cervix and uterus; Z90.49 Acquired absence of other specified parts of digestive tract; Z98.41 Cataract extraction status, right eye; Z98.42 Cataract extraction status, left eye; Z96.1 Presence of intraocular lens; Z96.651 Presence of right artificial knee joint; Z66 Do not resuscitate; Z96.0 Presence of urogenital implants; Z87.891 Personal history of nicotine dependence; Z20.822 Contact with and (suspected) exposure to COVID-19
CPT/HCPCS: 36415; 72040; 74176; 74420; 78708; 80048; 80053; 81001; 81003; 82570; 82948; 83690; 83735; 84300; 85025; 85027; 85652; 86140; 87086; 87088; 87637; 93306; 96361; 96375; 97110; 97161; 97166; 97530; 99285; A9270; A9562; C1758; C1769; C2617; G0378; J0690; J0696; J1100; J1815; J1940; J2185; J2270; J2405; J2704; J3010; J7030; J7120; Q9966

== ENCOUNTER 2023-12-15 14:47 | Emergency (ER) | payer OTHER, MEDICARE, SELFPAY ==
--- NOTE | ~2023-12-15 | CT_ITS ---
EXAMINATION: CT brain wo con DATE: 12/15/2023 16:31 INDICATION: weakness . TECHNIQUE: Computed tomography (CT) of the head was performed without intravenous contrast. The mA wa s adjusted according to patient size. Iterative reconstruction technique was employed. The dose-lengt h product was 605.33 mGy-cm. COMPARISON: None. FINDINGS: Motion artifact is present. No acute intracranial hemorrhage or extra-axial fluid collection. No hydrocephalus, mass, or herniation. No acute ischemic infarct. Unremarkable dural venous sinus attenuation. No acute osseous abnormality. Trace left mastoid fluid. The remaining aerated spaces are clear. Mild atrophy and chronic white matter change. Atherosclerotic intracranial calcification. Bilateral l ens replacements. Old left thalamic and bilateral basal gangli lacunar infarcts. Metallic implant on the left globe. IMPRESSION: No acute intracranial process. Reviewed, dictated and finalized at location K.
--- NOTE | ~2023-12-15 | XR_ITS ---
XR chest 2V 12/15/2023 15:14 Indication: Weakness Procedure: 2 view chest Comparison: 08/18/2021 Findings: Prominence of the right hilum, suspicious for lymphadenopathy. Heart size normal. No focal pneumonia, edema, pleural effusion or pneumothorax. Impression: 1: Right hilar prominence, suspicious for lymphadenopathy. Reviewed, dictated and finalized at location B. Impression: 1: Right hilar prominence, suspicious for lymphadenopathy.
[2023-12-15 14:42] VITALS: BP 159/59; PULSE 74; RESP 12; TEMP 36.4; O2SAT 97
--- NOTE | 2023-12-15 14:54 | ECG_ITS ---
Test Date: 2023-12-15 14:52:50 Measurements Intervals [place] Rate: 71 P: 36 MN: 188 QRS: -21 QRSD: 97 T: 31 QT: 368 QTc: 401 Interpretive Statements SINUS RHYTHM WITH FREQUENT VENTRICULAR PREMATURE COMPLEXES POSSIBLE ANTERIOR MYOCARDIAL INFARCTION , OF INDETERMINATE AGE BORDERLINE ST-T WAVE ABNORMALITY- HIGH LATERAL LEADS BASELINE ARTIFACT- I, II, III, AVR, AVL, V2 ABNORMAL ECG No previous ECG available for comparison Electronically Signed On 12-16-2023 07:51:07 CDT by Mark Ruiz D.O.
[2023-12-15 14:56] VITALS: PULSE 79
--- NOTE | 2023-12-15 15:04 | ED.GENADULT ---
HPI - General Adult General Chief complaint: Weakness Stated complaint: weakness Time Seen by Provider: 12/15/23 14:55 History of Present Illness HPI narrative: 88-year-old female prior history of CVA presented to the emergency department for evaluation for increased generalized weakness. Patient states she had a stent placed in her kidney few weeks ago and does have an indwelling Peterson catheter which she states she has had since having her stroke. Patient states he does feel increasingly weak but denies any focal weakness. Patient states he does have some left-sided deficit from her CVA. Patient denies any recent falls or injuries. Patient is currently and [facility]. Related Data Home Medications Medication Instructions Recorded Confirmed alprazolam 0.5 mg tablet 0.5 mg PO BID PRN Anxiety 12/07/23 12/13/23 levothyroxine 125 mcg tablet 125 mcg PO DAILY 12/07/23 12/13/23 sertraline 25 mg tablet (Zoloft) 25 mg PO HS 12/07/23 12/13/23 Allergies Allergy/AdvReac Type Severity Reaction Status Date / Time atorvastatin Allergy Unknown ache Verified 12/15/23 14:57 Review of Systems Review of Systems: All systems reviewed & are unremarkable except as noted in HPI and below PMFSH Past Medical History Medical History Anxiety and depression CAD (coronary artery disease) CHF (congestive heart failure) Echocardiogram 06/20/2016: Grade 1 diastolic dysfunction, EF 74%, mild enlargement left atrium Chronic indwelling Peterson catheter Chronic interstitial cystitis 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 mellitus With baseline creatinine between 1.2 and 1.5 CVA (cerebral vascular accident) Evidence of old infarcts in the left thalamus and bilateral basal ganglia DVT, lower extremity, recurrent Left lower extremity distant past, right femoral in lower extremity veins May 2020 Essential hypertension Gastritis Gastritis/duodenitis 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 Occlusion and stenosis of basilar artery Osteoarthritis 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, acute TIA (transient ischemic attack) Surgical History Surgical History H/O inguinal hernia repair History of appendectomy History of bladder suspension procedure 2012 and 2013 History of cystoscopy With biopsy of bladder lesion x2 History of heart artery stent (~2006) 4 stents History of hysterectomy Hx of cholecystectomy Status post cataract extraction of both eyes with insertion of intraocular lens Status post right knee replacement Family History Family History Father Pancreas cancer COPD (chronic obstructive pulmonary disease) Mother Acute myocardial infarction Sibling Hypertension Social History Social History Social History: The patient lives in a senior apartment but is independent living. She has been since around 2018. 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 Code status: DNR/DNI (per patient report, confirmed 12/07/23) Surrogate decision maker: Daksha (daughter) Smoking status: Unknown if ever smoked Second hand tobacco smoke exposure: No Alcohol intake: never Substance use: never Substance use type: does not use Do You Feel Safe in your Home?: Yes Lack of Transportation: No Lack of Food: Never True Current Housing: I Have Housing Concerned About Future Housing: No Difficulty Paying Gas/Electric Bills: No Difficulty Paying for Meds: No Currently Unemployed: No Education: High School Diploma/GED Difficulty w/ Childcare or Family Care: No Living arrangements: with family Occupation/Education: retired Gender identity (if verbalized by the patient): Female Sexual Orientat
[2023-12-15 15:08] LABS: Basophils Absolute Auto 0.1 K/mm3 (0.0-0.1); Basophils Percent Auto 0.5 % (0.2-1.2); Eosinophils Absolute Auto 0.6 K/mm3 (0-0.3); Eosinophils Percent Auto 5.2 % (0-4.4); Hematocrit 33.2 % (37.0-47.0); Hemoglobin 10.4 g/dL (12.0-15.0); Immature Granulocyte Absolute 0.02 K/mm3 (0.00-0.031); Immature Granulocyte Percent A 0.2 % (0-0.5); Lymphocytes Absolute Auto 2.31 K/mm3 (0.9-3.2); Lymphocytes Percent Auto 21.1 % (18.3-44.2); Mean Corpuscular HGB Conc 31.3 g/dl (32-36); Mean Corpuscular Volume 92.5 fl (80-100); Mean Platelet Volume 11.7 fl (7.4-10.4); Monocytes Percent Auto 8.9 % (2.6-8.5); Neutrophils Percent Auto 64.1 % (45.5-73.1); Platelet Count Result 271 k/mm3 (150-375); Red Blood Count 3.59 M/mm3 (4.2-5.4)
[2023-12-15 15:14] LABS: Appearance Urine Clear (Clear); Bacteria Urine Rare /hpf; Bilirubin Urine Negative (Negative); Blood Urine Negative (Negative); Color Urine Yellow (Yellow); Glucose Urine UA Negative (Negative); Ketones Urine Negative (Negative); Leukocyte Esterase Ur 3+ LEU/UL (Negative); Nitrate Urine Negative (Negative); Non Pathogenic Casts 0-2; Protein Urine Negative (Negative); RBC Urine 0-2 /hpf (0-2); Specific Grav Ur 1.005 (1.001-1.035); Squamous Epithelial Cell Urine None Seen /hpf (Few); Urobilinogen Urine 0.2 mg/dL (<2.0); WBC Urine 21-50 /hpf (0-3)
[2023-12-15 15:20] LABS: Add Urine Microscopic? YES
[2023-12-15 15:20] LABS: Alanine Aminotransferase 7 U/L (6-35); Albumin Level 3.7 g/dL (3.5-5.1); Alkaline Phosphatase 64 U/L (38-126); Anion Gap 8 mmol/L (4-12); Aspartate Amino Transferase 20 U/L (14-36); Bilirubin,Total 0.4 mg/dL (0.2-1.3); Blood Urea Nitrogen 22 mg/dL (7-17); Calcium 9.1 mg/dL (8.4-10.2); Carbon Dioxide 27 mmol/L (22-30); Chloride 103 mmol/L (98-107); Estimated CRCL calculation 20 ml/min; Estimated Glomerular Filt Rate 30; Glucose 129 mg/dL (65-110); Sodium 138 mmol/L (137-145)
[2023-12-15 15:47] LABS: Influenza A QL RT-PCR Negative (Negative); Influenza B QL RT-PCR Negative (Negative); RSV RNA, RT-PCR Negative (Negative); SARS-CoV-2 RNA PCR Negative (Negative)
[2023-12-15] MEDS: AZITHROMYCIN 250 MG TABLET 500 MG PO (17:50)
[2023-12-15 17:54] VITALS: BP 158/65; PULSE 89; RESP 15; O2SAT 100
[2023-12-15 18:41] VITALS: BP 145/60; PULSE 84; RESP 16; O2SAT 100
== END 2023-12-15 19:10 ==
PROVIDERS: Emergency Provider Emergency Medicine; PCP Family Medicine
DX: N39.0 Urinary tract infection, site not specified (principal); J18.9 Pneumonia, unspecified organism; Z20.822 Contact with and (suspected) exposure to COVID-19; I13.0 Hypertensive heart and chronic kidney disease with heart failure and stage 1 through stage 4 chronic kidney disease, or unspecified chronic kidney disease; N18.4 Chronic kidney disease, stage 4 (severe); I50.9 Heart failure, unspecified; I25.10 Atherosclerotic heart disease of native coronary artery without angina pectoris; I69.954 Hemiplegia and hemiparesis following unspecified cerebrovascular disease affecting left non-dominant side; E03.9 Hypothyroidism, unspecified; M19.90 Unspecified osteoarthritis, unspecified site; M35.3 Polymyalgia rheumatica; M06.9 Rheumatoid arthritis, unspecified; Z66 Do not resuscitate; Z96.0 Presence of urogenital implants; Z95.5 Presence of coronary angioplasty implant and graft; Z96.651 Presence of right artificial knee joint; Z96.1 Presence of intraocular lens; Z98.42 Cataract extraction status, left eye; Z98.41 Cataract extraction status, right eye; Z86.718 Personal history of other venous thrombosis and embolism; Z90.710 Acquired absence of both cervix and uterus; Z90.49 Acquired absence of other specified parts of digestive tract; Z79.899 Other long term (current) drug therapy; Z79.01 Long term (current) use of 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; R94.31 Abnormal electrocardiogram [ECG] [EKG]
CPT/HCPCS: 36415; 70450; 71046; 80053; 81001; 85025; 87077; 87086; 87088; 87186; 87637; 93005; 96365; 99284; A9270; J0696

== ENCOUNTER 2023-12-18 17:22 | Outpatient (CLI) | payer OTHER, MEDICARE, SELFPAY ==
--- NOTE | ~2023-12-18 | CT_ITS ---
EXAMINATION: CT brain wo con DATE: 12/18/2023 17:57 INDICATION: Altered mental status TECHNIQUE: Computed tomography (CT) of the head was performed without intravenous contrast. Sagittal and coronal reconstructions were performed. The mA was adjusted according to patient size. Iterative reconstruction technique was employed. The dose-length product was 605.33 mGy-cm. COMPARISON: head CT dated 12/15/2023 FINDINGS: Old lacunar infarcts at the left thalamus and bilateral basal ganglia. Again seen is extensive scatte red specific white matter hypoattenuation consistent with chronic small vessel ischemic disease. No a cute intracranial hemorrhage, acute infarction or abnormal extra axial fluid collection. Symmetric pr ominence of the sulci and ventricles consistent with mild to moderate age-appropriate diffuse cerebra l volume loss. No mass/mass effect. Changes of bilateral intraocular lens replacement. There are also changes of prior left scleral banding procedure. Chronic small radiodense implant at the superomedia l aspect of the left ocular globe. Mild mucosal thickening the bilateral ethmoid sinuses. Minimal lef t mastoid effusion. IMPRESSION: 1. Unchanged old infarcts in the left thalamus and bilateral basal ganglia. No acute intracranial pro cess. 2. Age-related changes including mild to moderate diffuse volume loss and extensive nonspecific cereb ral white matter hypoattenuation consistent with chronic small vessel ischemic disease. Reviewed, dictated and finalized at location A. IMPRESSION: 1. Unchanged old infarcts in the left thalamus and bilateral basal ganglia. No acute intracranial process. 2. Age-related changes including mild to moderate diffuse volume loss and exten sive nonspecific cerebral white matter hypoattenuation consistent with chronic small vessel ischemic disease.
== END 2023-12-18 17:23 | disposition home or self-care (01) ==
LOC: ANHIMG 17:23
PROVIDERS: PCP Family Medicine; Visit Provider Hospitalist
DX: R41.82 Altered mental status, unspecified (principal); R90.82 White matter disease, unspecified; I25.2 Old myocardial infarction
CPT/HCPCS: 70450

== ENCOUNTER 2024-04-14 16:51 | Inpatient (IN) | payer MEDICARE, SELFPAY ==
--- NOTE | ~2024-04-14 | XR_ITS ---
XR chest 1V portable DATE: 04/14/2024 19:00 INDICATION: Decreased breath sounds TECHNIQUE: Portable upright AP chest on 04/14/2024 at 1859 hours COMPARISON: 12/15/2023 AP chest FINDINGS: There is severe thoracic and abdominal aortic calcification. Coronary artery calcifications and apparent coronary artery stent. Heart size appears within normal limits. No hilar or mediastinal enlargement is evident. There is mild elevation of the right diaphragm. Suggestion of mild infiltrate in the left mid and lower lung zones. However a compliance monitor device overlies the area, which might create some artifact simulating infiltrate. In addition, the patient i s mildly rotated and this is a single portable view. Osteopenia. Severe glenohumeral osteoarthritis and rotator cuff atrophy are noted bilaterally. Status post cholecystectomy. IMPRESSION: Question of mild infiltrate in the left mid and lower lung zones; Limited portable study Reviewed, dictated and finalized at location A. INTEGRATION ARCHITECT IMPRESSION: Question of mild infiltrate in the left mid and lower lung zones; L imited portable study
--- NOTE | ~2024-04-14 | CT_ITS ---
EXAMINATION: CT chest abdomen pelvis wo con DATE: 04/14/2024 21:10 INDICATION: Pneumonia, pyelonephritis TECHNIQUE: Computed tomography (CT) of the chest, abdomen, and pelvis was performed without intraveno us contrast. Automated exposure control and iterative reconstruction technique were employed. Exam do se: 465.18 mGy-cm total exam DLP. COMPARISON: 12/11/2023 CT abdomen pelvis 04/14/2024 portable AP chest FINDINGS: There are multiple scattered areas of peripheral interlobular septal soft tissue thickening and bron chiectasis, likely due to mild usual interstitial pneumonia type pulmonary interstitial fibrosis. No pulmonary consolidation or pulmonary mass lesion is detected. Heart size is normal. Very prominent extensive coronary artery calcifications. Very prominent thoraci c aortic and great vessel calcification. No thoracic aortic aneurysm. No hilar or mediastinal mass lesion or lymphadenopathy. No pericardial or pleural effusion. Status post cholecystectomy. The liver, spleen, pancreas and adrenal glands are unremarkable. No bile duct or pancreatic duct dila tation. There is severe left renal atrophy. There is moderate hydronephrosis of the right And CC and right internal urinary stent is in expected position. There is mild left perinephric stran ding and periureteral stranding on the right which may be consistent with right pyelonephritis. There is a Peterson catheter within the urinary bladder. There is moderate diffuse thickening urinary bl adder wall which may be consistent with cystitis. Status post hysterectomy. There is extensive prominent abdominal aortic calcification, severe calcification of the superior mes enteric artery, prominent bilateral renal artery calcifications. Calcification inferior mesenteric ar marlon. IVC filter. Prominent amount of fecal material in the rectum and colon. No bowel obstruction or intraperitoneal f ree air is detected. Mild sigmoid diverticulosis; no evidence of diverticulitis. There is a small sli ding hiatal hernia. There are extensive degenerative changes of the cervical and thoracic as well as lumbar spine in rebecca tion to bilateral hip osteoarthritis. No suspicious osteolytic or osteoblastic lesions are noted. IMPRESSIONS: Usual interstitial pneumonia type pulmonary interstitial fibrosis; no active pneumonia is evident Severe atherosclerotic calcification of the coronary arteries, thoracic and abdominal aorta, mesenter ic vessels and renal arteries Status post cholecystectomy Severe left renal atrophy Moderate right hydronephrosis despite right internal urinary stent Perinephric stranding and periureteral stranding on the right suggesting pyelonephritis Mild thickening of urinary bladder wall, suggesting possible cystitis Status post hysterectomy Small sliding hiatal hernia Prominent amount of fecal material in the rectum and colon seminal no bowel obstruction or free air Mild sigmoid diverticulosis; no evidence of diverticulitis Reviewed, dictated and finalized at location A. BANDER IMPRESSIONS: Usual interstitial pneumonia type pulmonary interstitial fibrosis; no active pn eumonia is evident Severe atherosclerotic calcification of the coronary arteries, thoracic and abd ominal aorta, mesenteric vessels and renal arteries Status post cholecystectomy Severe left renal atrophy Moderate right hydronephrosis despite right internal urinary stent Perinephric stranding and periureteral stranding on the right suggesting pyelon ephritis Mild thickening of urinary bladder wall, suggesting possible cystitis Status post hysterectomy Small sliding hiatal hernia Prominent amount of fecal material in the rectum and colon seminal no bowel obs truction or free air Mild sigmoid diverticulosis; no evidence of diverticulitis
[2024-04-14 16:52] VITALS: BP 123/71; PULSE 88; RESP 16; TEMP 36.4; O2SAT 98
[2024-04-14 17:43] VITALS: BP 136/63; PULSE 86; RESP 18; O2SAT 96
--- NOTE | 2024-04-14 18:08 | ECG_ITS ---
Test Date: 2024-04-14 19:10:18 Measurements Intervals [place] Rate: 84 P: 14 OR: 213 QRS: -32 QRSD: 98 T: 137 QT: 338 QTc: 401 Interpretive Statements SINUS RHYTHM WITH FIRST DEGREE AV BLOCK WITH OCCASIONAL VENTRICULAR PREMATURE COMPLEXES LEFT AXIS DEVIATION LEFT VENTRICULAR HYPERTROPHY AND ST-T CHANGE POSSIBLE ANTERIOR MYOCARDIAL INFARCTION , OF INDETERMINATE AGE BASELINE ARTIFACT- I, III, AVL, V1-V2 ABNORMAL ECG Compared to ECG 12/15/2023 14:52:50 First degree AV block now present Electronically Signed On 04-15-2024 06:09:21 WASTE EXAMINER by Mark Ruiz D.O.
--- NOTE | 2024-04-14 18:35 | ED.FEMALEGU ---
HPI - Female Genitourinary General Chief complaint: Urogenital-Female <Leanna Duenas APRN - Last Filed: 04/14/24 23:46> Stated complaint: not feeling well <Leanna Duenas APRN - Last Filed: 04/14/24 23:46> Time Seen by Provider: 04/14/24 16:59 <Leanna Duenas APRN - Last Filed: 04/14/24 23:46> History of Present Illness HPI Narrative: Patient is an 80-year-old female who presents to the ER with concerns for recurrent UTI. She is very soft-spoken upon examination, and therefore, it is difficult to obtain a history. Per patient's triage notes, she was treated for a UTI on March 27 but her symptoms have not improved. Patient has Peterson catheter and EMS reports her urine has turned ?darker. Her medical records indicated history of high blood pressure, hypothyroidism, and high cholesterol. <Leanna Duenas APRN - Last Filed: 04/14/24 23:46> Related Data Home medications: Home Medications Medication Instructions Recorded Confirmed acetaminophen 500 mg tablet 500 mg PO Q6H PRN Pain 12/27/23 04/14/24 ascorbic acid (vitamin C) 500 mg 500 mg PO DAILY 04/14/24 04/14/24 tablet bisacodyl 5 mg tablet,delayed 5 mg PO DAILY PRN Constipation 04/14/24 04/14/24 release esomeprazole magnesium 40 mg 40 mg PO DAILY 04/14/24 04/14/24 capsule,delayed release famotidine 10 mg tablet 10 mg PO DAILY 04/14/24 04/14/24 hydrocodone 7.5 mg-acetaminophen 1 tablet PO Q4H PRN pain 04/14/24 04/14/24 325 mg tablet polyethylene glycol 3350 17 gram 17 g PO QAM PRN Constipation 04/14/24 04/14/24 oral powder packet (Miralax) sertraline 25 mg tablet 25 mg PO HS 04/14/24 04/14/24 zinc sulfate 50 mg zinc (220 mg) 50 mg PO DAILY 04/14/24 04/14/24 tablet <Leanna Duenas APRN - Last Filed: 04/14/24 23:46> Allergies/Adverse reactions: Allergies Allergy/AdvReac Type Severity Reaction Status Date / Time atorvastatin Allergy Unknown ache Verified 04/14/24 22:02 <Leanna Duenas APRN - Last Filed: 04/14/24 23:46> Review of Systems Review of Systems: All systems reviewed & are unremarkable except as noted in HPI and below <Leanna Duenas APRN - Last Filed: 04/14/24 23:46> [facility] Past Medical History Medical History: Medical History Anxiety and depression CAD (coronary artery disease) Cervical myofascial pain syndrome CHF (congestive heart failure) Echocardiogram 06/20/2016: Grade 1 diastolic dysfunction, EF 74%, mild enlargement left atrium Chronic indwelling Peterson catheter Chronic interstitial cystitis 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 mellitus With baseline creatinine between 1.2 and 1.5 DVT, lower extremity, recurrent Left lower extremity distant past, right femoral in lower extremity veins May 2020 Essential hypertension Gastritis Gastritis/duodenitis 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 Hypertension 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 Neck pain, chronic Occlusion and stenosis of basilar artery Osteoarthritis 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, acute TIA (transient ischemic attack) Vision disturbance glaucoma retinal detachment sp cataract extraction bilateral <Leanna Duenas APRN - Last Filed: 04/14/24 23:46> Surgical History Surgical History: Surgical History H/O inguinal hernia repair History of appendectomy History of bladder suspension procedure 2012 and 2013 History of cystoscopy With biopsy of bladder lesion x2 History of heart artery stent (~2006) 4 stents History of hysterectomy Hx of cholecystectomy Status post cataract extraction of both eyes with insertion of intraocular lens Status post right knee replacement <Leanna Duenas APRN - Last Filed: 04/14/24 23:46> Family History Family History: Family History Father Pancreas cancer COPD (chronic obstructive pulmonary disease) Mother Acute myocardial infarction Sibling Hypertension <Leanna Duenas APRN - Last Filed: 04/14/24 23:46> Social History Social History: Social History Social History: The patient lives in a senior apartment but is independent living. She has been since around 2018. 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 Code status: DNR/DNI (per patient report, confirmed 12/07/23) Surrogate decision maker: Daksha (daughter) Smoking status: Never smoker Substance use type: does not use Do You Feel Safe in your Home?: Yes Lack of Transportation: No Lack of Food: Never True Current Housing: I Have Housing Concerned About Future Housing: No Difficulty Paying Gas/Electric Bills: No Difficulty Paying for Meds: No Currently Unemployed: No Education: High School Diploma/GED Difficulty w/ Childcare or Family Care: No Living arrangements: with family Occupation/Education: retired Gender identity (if verbalized by the patient): Female Sexual Orientation (if Verbalized by the Patient): Straight or Heterosexual Spiritual care concerns: No Agree to blood products: Yes <Leanna Duenas APRN - Last Filed: 04/14/24 23:46> Exam Narrative: GENERAL: Well appearing, well-nourished, non-toxic, in no acute distress. HEAD: Normocephalic, atraumatic. NECK: Supple. No adenopathy, no masses. RESPIRATORY: Airway patent, respirations nonlabored. Clear to auscultation bilaterally, no rales, rhonchi, wheezing. CARDIOVASCULAR: Regular rate and rhythm without murmurs, rubs, or gallops. Peripheral pulses 2+ and equal bilaterally. ABDOMINAL: Soft, mildly tender with palpation, nondistended, no hepatosplenomegaly. Normoactive BS. MUSCULOSKELETAL: Moves all extremities. Strength/ROM intact without gross deformities. SKIN: Warm, dry, pallor. No rashes. NEURO: A&O X3. Speech clear. No ataxic movements. PSYCHIATRIC: Appropriate mood and affect. Normal interaction. <Leanna Duenas APRN - Last Filed: 04/14/24 23:46> Course SURGERY TECH/PA Physician Supervision For this patient encounter, I reviewed the SURGERY TECH or PA documentation, treatment plan, and medical decision making and/or I had [id number] time with this patient. I performed all aspects of the MDM as documented. <Emma Peñaloza MD - Last Filed: 04/15/24 14:55> Vital Signs Vital signs: Vital Signs Temperature 97.6 F 04/14/24 16:52 Pulse Rate 88 04/14/24 16:52 Respiratory Rate 16 04/14/24 16:52 Blood Pressure 123/71 04/14/24 16:52 Pulse Oximetry 98 04/14/24 16:52 Temperature 97.6 F 04/15/24 06:00 Pulse Rate 84 04/15/24 12:01 Respiratory Rate 20 04/15/24 08:17 Blood Pressure 114/55 L 04/15/24 06:00 Pulse Oximetry 97 04/15/24 08:17 Oxygen Delivery Room Air 04/15/24 08:17 <Leanna Duenas APRN - Last Filed: 04/14/24 23:46> Vital Signs Temperature 97.6 F 04/14/24 16:52 Pulse Rate 88 04/14/24 16:52 Respiratory Rate 16 04/14/24 16:52 Blood Pressure 123/71 04/14/24 16:52 Pulse Oximetry 98 04/14/24 16:52 Temperature 97.6 F 04/15/24 06:00 Pulse Rate 84 04/15/24 12:01 Respiratory Rate 20 04/15/24 08:17 Blood Pressure 114/55 L 04/15/24 06:00 Pulse Oximetry 97 04/15/24 08:17 Oxygen Delivery Room Air 04/15/24 08:17 <Emma Peñaloza MD - Last Filed: 04/15/24 14:55> MDM - Female Genitourinary MDM Narrative Medical decision making narrative: Patient is an 80-year-old female who presents to the ER with concerns for recurrent UTI. She is very soft-spoken upon examination, and therefore, it is difficult to obtain a history. Per patient's triage notes, she was treated for a UTI on March 27 but her symptoms have not improved. Patient has Peterson catheter and EMS reports her urine has turned ?darker. Her medical records indicated history of high blood pressure, hypothyroidism, and high cholesterol. Labs Ordered: CBC, CMP, PTT, INR, lactic acid, CK, troponin, lipase Imaging Ordered: chest x-ray Results: Pt's chest x-ray indicated Question of mild infiltrate in the left mid and lower lung zones; Limited portable study. Pt's chest/abdomen/pelvis CT scans indicated Usual interstitial pneumonia type pulmonary interstitial fibrosis; no active pneumonia is evident Severe atherosclerotic calcification of the coronary arteries, thoracic and abdominal aorta, mesenteric vessels and renal arteries Status post cholecystectomy Severe left renal atrophy Moderate right hydronephrosis despite right internal urinary stent Perinephric stranding and periureteral stranding on the right suggesting pyelonephritis Mild thickening of urinary bladder wall, suggesting possible cystitis Status post hysterectomy Small sliding hiatal hernia Prominent amount of fecal material in the rectum and colon seminal no bowel obstruction or free air Mild sigmoid diverticulosis; no evidence of diverticulitis Pt's urinalysis indicated pt has a UTI with a pH of greater than 9.0, for +protein, positive nitrates, 3+ leukocytes, 21-50 RBCs. Patient's CBC showed a white blood cell count 12.7, hemoglobin of 9.6, hematocrit of 31.1%, platelet count of 440, neutrophils 73.3%. Her CMP indicated a sodium 132, potassium of 5.8, carbon dioxide of 19, BUN of 51, creatinine of 1.9, GFR of 25, and glucose of 145. Her total CK was 29 (drawn d/t pt's dark urine), her lipase was 65, and her lactate was within normal limits. Patient's urinalysis indicated a 4+ protein, trace glucose, 3+ blood, positive nitrates, 3+ leukocyte, pH greater than 9.0, and mucus. Diagnosis: hyperkalemia, pneumonia, urinary tract infection Disposition/Plan: 1944-Pt's potassium is higher than it has been in the past, so will treat with insulin and D50. 2099-Pt given 1L NS IV bolus @ 500/hour to help treat pt's worsening chronic kidney disease and dehydration. Patient started IV ceftriaxone to treat UTI and pneumonia. 2229- Patient will be admitted to the hospital for IV antibiotic administration and electrolyte monitoring. She will be admitted on telemetry due to her hyperkalemia. Patient and her daughter verbalized understanding plan and are in agreement. <Leanna Duenas, [employer] BUILDINGS SUPERVISOR - Last Filed: 04/14/24 23:46> Differential Diagnosis Differential diagnosis: Likely urinary tract infection, cystitis, dysmenorrhea and other (pneumonia, hyperkalemia, dehydration) <Leanna Duenas APRN - Last Filed: 04/14/24 23:46> Medical Records Attestation: I reviewed the patient's medical records. <Emma Peñaloza MD - Last Filed: 04/15/24 14:55> Lab Data Attestation: I reviewed the patient's lab results. <Emma Peñaloza MD - Last Filed: 04/15/24 14:55> Result diagrams: 04/15/24 08:07 04/15/24 08:07 <Leanna Duenas APRN - Last Filed: 04/14/24 23:46> Labs: Lab Results 04/14/24 04/14/24 04/14/24 Range/Units 18:47 19:25 20:03 WBC 12.7 H (4.5-10.0) K/mm3 RBC 3.87 L (4.2-5.4) M/mm3 Hgb 9.6 L (12.0-15.0) g/dL Hct 31.1 L (37.0-47.0) % MCV 80.4 (80-100) fl MCH 24.8 L (26-34) pg MCHC 30.9 L (32-36) g/dl RDW 15.8 H (11.5-14.5) % Plt Count 448 H (150-375) k/mm3 MPV 8.9 (7.4-10.4) fl Immature Gran % (Auto) 0.6 H (0-0.5) % Neut % (Auto) 73.3 H (45.5-73.1) % Lymph % (Auto) 14.8 L (18.3-44.2) % Hart % (Auto) 8.7 H (2.6-8.5) % Eos % (Auto) 2.0 (0-4.4) % Baso % (Auto) 0.6 (0.2-1.2) % Lymph # (Auto) 1.88 (0.9-3.2) K/mm3 Hart # (Auto) 1.1 H (0.1-0.6) K/mm3 Eos # (Auto) 0.3 (0-0.3) K/mm3 Baso # (Auto) 0.1 (0.0-0.1) K/mm3 Abs Immat Gran (auto) 0.08 H (0.00-0.031) K/mm3 Absolute Neuts (auto) 9.3 H (1.3-6.7) K/mm3 Absolute Nucleated RBC 0.000 (0.0-0.012) K/mm3 Nucleated RBC % 0.0 (0.0-0.2) % PT 21.1 H (11.1-14.7) Seconds INR 1.8 APTT 49.3 H (22.3-36.8) Seconds Sodium 132 L (137-145) mmol/L Potassium 5.8 H (3.4-5.0) mmol/L Chloride 103 (98-107) mmol/L Carbon Dioxide 19 L (22-30) mmol/L Anion Gap 10 (4-12) mmol/L BUN 51 H (7-17) mg/dL Creatinine 1.90 H (0.7-1.0) mg/dL Estim Creat Clear Calc Not Reportable Estimated GFR 25 L (59 - ) Glucose 145 H (65-110) mg/dL Lactic Acid 0.9 (0.7-2.0) mmol/L Calcium 9.3 (8.4-10.2) mg/dL Total Bilirubin 0.6 (0.2-1.3) mg/dL AST 19 (14-36) U/L ALT 9 (6-35) U/L Alkaline Phosphatase 100 (38-126) U/L Total Creatine Kinase 29 L (30-135) U/L Troponin I < 0.012 (0.000-0.034) ng/mL Total Protein 7.0 (6.3-8.2) g/dL Albumin 3.4 L (3.5-5.1) g/dL Lipase 65 (23-300) U/L Urine Color Blue Diamond H (Yellow) Urine Appearance Turbid H (Clear) Urine pH >=9.0 H (5.0-9.0) Ur Specific [place] 1.013 (1.001-1.035) Urine Protein 4+ H (Negative) mg/dL Urine Glucose (UA) Trace H (Negative) mg/dL Urine Ketones Negative (Negative) mg/dL Ur Blood (Man) 3+ H (Negative) Urine Nitrate Positive H (Negative) Urine Bilirubin Negative (Negative) Urine Urobilinogen 0.2 (<2.0) mg/dL Leukocyte Esterase Rfl 3+ H (Negative) DAVID/UL Urine RBC 21-50 H (0-2) /hpf Urine WBC 10-15 H (0-3) /hpf Ur Squamous Epith Cells Few (Few) /hpf Urine Casts ---- Urine Mucus Moderate H /lpf <Leanna Duenas, [employer]ILD[employer] SUPERVISOR - Last Filed: 04/14/24 23:46> Lab Results 04/14/24 04/14/24 04/14/24 Range/Units 18:47 19:25 20:03 WBC 12.7 H (4.5-10.0) K/mm3 RBC 3.87 L (4.2-5.4) M/mm3 Hgb 9.6 L (12.0-15.0) g/dL Hct 31.1 L (37.0-47.0) % MCV 80.4 (80-100) fl MCH 24.8 L (26-34) pg MCHC 30.9 L (32-36) g/dl RDW 15.8 H (11.5-14.5) % Plt Count 448 H (150-375) k/mm3 MPV 8.9 (7.4-10.4) fl Immature Gran % (Auto) 0.6 H (0-0.5) % Neut % (Auto) 73.3 H (45.5-73.1) % Lymph % (Auto) 14.8 L (18.3-44.2) % Hart % (Auto) 8.7 H (2.6-8.5) % Eos % (Auto) 2.0 (0-4.4) % Baso % (Auto) 0.6 (0.2-1.2) % Lymph # (Auto) 1.88 (0.9-3.2) K/mm3 Hart # (Auto) 1.1 H (0.1-0.6) K/mm3 Eos # (Auto) 0.3 (0-0.3) K/mm3 Baso # (Auto) 0.1 (0.0-0.1) K/mm3 Abs Immat Gran (auto) 0.08 H (0.00-0.031) K/mm3 Absolute Neuts (auto) 9.3 H (1.3-6.7) K/mm3 Absolute Nucleated RBC 0.000 (0.0-0.012) K/mm3 Nucleated RBC % 0.0 (0.0-0.2) % PT 21.1 H (11.1-14.7) Seconds INR 1.8 APTT 49.3 H (22.3-36.8) Seconds Sodium 132 L (137-145) mmol/L Potassium 5.8 H (3.4-5.0) mmol/L Chloride 103 (98-107) mmol/L Carbon Dioxide 19 L (22-30) mmol/L Anion Gap 10 (4-12) mmol/L BUN 51 H (7-17) mg/dL Creatinine 1.90 H (0.7-1.0) mg/dL Estim Creat Clear Calc Not Reportable Estimated GFR 25 L (59 - ) Glucose 145 H (65-110) mg/dL Lactic Acid 0.9 (0.7-2.0) mmol/L Calcium 9.3 (8.4-10.2) mg/dL Total Bilirubin 0.6 (0.2-1.3) mg/dL AST 19 (14-36) U/L ALT 9 (6-35) U/L Alkaline Phosphatase 100 (38-126) U/L Total Creatine Kinase 29 L (30-135) U/L Troponin I < 0.012 (0.000-0.034) ng/mL Total Protein 7.0 (6.3-8.2) g/dL Albumin 3.4 L (3.5-5.1) g/dL Lipase 65 (23-300) U/L Urine Color Blue Diamond H (Yellow) Urine Appearance Turbid H (Clear) Urine pH >=9.0 H (5.0-9.0) Ur Specific [place] 1.013 (1.001-1.035) Urine Protein 4+ H (Negative) mg/dL Urine Glucose (UA) Trace H (Negative) mg/dL Urine Ketones Negative (Negative) mg/dL Ur Blood (Man) 3+ H (Negative) Urine Nitrate Positive H (Negative) Urine Bilirubin Negative (Negative) Urine Urobilinogen 0.2 (<2.0) mg/dL Leukocyte Esterase Rfl 3+ H (Negative) DAVID/UL Urine RBC 21-50 H (0-2) /hpf Urine WBC 10-15 H (0-3) /hpf Ur Squamous Epith Cells Few (Few) /hpf Urine Casts ---- Urine Mucus Moderate H /lpf <Emma Peñaloza MD - Last Filed: 04/15/24 14:55> Imaging Data Radiologist's impression: ITS Impressions Chest X-Ray 04/14/24 19:06 IMPRESSION: Question of mild infiltrate in the left mid and lower lung zones; Limited portable study Chest/Abdomen/Pelvis CT 04/14/24 21:19 IMPRESSIONS: Usual interstitial pneumonia type pulmonary interstitial fibrosis; no active pneumonia is evident Severe atherosclerotic calcification of the coronary arteries, thoracic and abdominal aorta, mesenteric vessels and renal arteries Status post cholecystectomy Severe left renal atrophy Moderate right hydronephrosis despite right internal urinary stent Perinephric stranding and periureteral stranding on the right suggesting pyelonephritis Mild thickening of urinary bladder wall, suggesting possible cystitis Status post hysterectomy Small sliding hiatal hernia Prominent amount of fecal material in the rectum and colon seminal no bowel obstruction or free air Mild sigmoid diverticulosis; no evidence of diverticulitis <Emma Peñaloza MD - Last Filed: 04/15/24 14:55> Critical Care Time Critical Care Time Critical Care Time: Yes <Emma Peñaloza MD - Last Filed: 04/15/24 14:55> Total Critical Care Time: 33 <Emma Peñaloza MD - Last Filed: 04/15/24 14:55> Discharge Plan Discharge Clinical Impression: Pyelonephritis, Hyperkalemia, Dehydration <Leanna Duenas APRN - Last Filed: 04/14/24 23:46> Patient Disposition: Still a Patient <Leanna Duenas APRN - Last Filed: 04/14/24 23:46> Condition: Stable <Leanna Duenas APRN - Last Filed: 04/14/24 23:46>
[2024-04-14] MEDS: SODIUM CHLORIDE 0.9% IV 1,000 ML 500 ML IV CONT ×2 (19:01→19:53)
[2024-04-14 19:10] LABS: Alanine Aminotransferase 9 U/L (6-35); Albumin Level 3.4 g/dL (3.5-5.1); Alkaline Phosphatase 100 U/L (38-126); Anion Gap 10 mmol/L (4-12); Aspartate Amino Transferase 19 U/L (14-36); Bilirubin,Total 0.6 mg/dL (0.2-1.3); Blood Urea Nitrogen 51 mg/dL (7-17); Calcium 9.3 mg/dL (8.4-10.2); Carbon Dioxide 19 mmol/L (22-30); Chloride 103 mmol/L (98-107); Creatine Kinase 29 U/L (30-135); Estimated Glomerular Filt Rate 25; Glucose 145 mg/dL (65-110); Lipase 65 U/L (23-300); Potassium 5.8 mmol/L (3.4-5.0); Sodium 132 mmol/L (137-145)
[2024-04-14 19:20] LABS: Troponin I < 0.012 ng/mL (0.000-0.034)
[2024-04-14 19:32] LABS: Basophils Absolute Auto 0.1 K/mm3 (0.0-0.1); Basophils Percent Auto 0.6 % (0.2-1.2); Eosinophils Absolute Auto 0.3 K/mm3 (0-0.3); Hematocrit 31.1 % (37.0-47.0); Hemoglobin 9.6 g/dL (12.0-15.0); Immature Granulocyte Absolute 0.08 K/mm3 (0.00-0.031); Immature Granulocyte Percent A 0.6 % (0-0.5); Lymphocytes Absolute Auto 1.88 K/mm3 (0.9-3.2); Lymphocytes Percent Auto 14.8 % (18.3-44.2); Mean Corpuscular HGB Conc 30.9 g/dl (32-36); Mean Corpuscular Hemoglobin 24.8 pg (26-34); Mean Corpuscular Volume 80.4 fl (80-100); Mean Platelet Volume 8.9 fl (7.4-10.4); Monocytes Absolute Auto 1.1 K/mm3 (0.1-0.6); Monocytes Percent Auto 8.7 % (2.6-8.5); Neutrophils Absolute Auto 9.3 K/mm3 (1.3-6.7); Neutrophils Percent Auto 73.3 % (45.5-73.1); Platelet Count Result 448 k/mm3 (150-375); Red Blood Count 3.87 M/mm3 (4.2-5.4); Red Cell Distribution Width 15.8 % (11.5-14.5); White Blood Count 12.7 K/mm3 (4.5-10.0)
--- NOTE | 2024-04-14 19:38 | PC.NURSE ---
Previous TAURUS Mckeon called phlebotomy at 1900 for second set of cultures due to difficult blood draw.
[2024-04-14 19:40] VITALS: BP 135/68; PULSE 84; RESP 14; O2SAT 98
[2024-04-14 19:48] LABS: INR 1.8; Prothrombin Time 21.1 Seconds (11.1-14.7)
[2024-04-14 19:49] LABS: Partial Thromboplastin Time 49.3 Seconds (22.3-36.8)
[2024-04-14 19:50] LABS: Lactic Acid Reflex 0.9 mmol/L (0.7-2.0)
[2024-04-14] MEDS: INSULIN HUMAN REGULAR (*BKC) 100 UNITS/ML 10 UNITS IV PUSH (19:53)
[2024-04-14] MEDS: DEXTROSE 50% 25 GM/50 ML SYRINGE IV PUSH (19:53)
[2024-04-14] MEDS: FUROSEMIDE INJ 40 MG/4 ML VIAL IV PUSH (19:53)
--- NOTE | 2024-04-14 19:55 | PC.NURSE ---
This RN paused previous fluids started by previous RN Linda due to the fluids free running. This RN started the new order of fluids on IV pump so they can run at 500 mls/hr and have a duration of 2 hr due to pt fluid build up.
[2024-04-14 21:06] LABS: Add Urine Microscopic? YES; Appearance Urine Turbid (Clear); Bilirubin Urine Negative (Negative); Blood Urine 3+ (Negative); Color Urine Orange (Yellow); Glucose Urine UA Trace mg/dL (Negative); Ketones Urine Negative (Negative); Leukocyte Esterase Ur 3+ LEU/UL (Negative); Nitrate Urine Positive (Negative); Protein Urine 4+ mg/dL (Negative); Specific Grav Ur 1.013 (1.001-1.035); Urobilinogen Urine 0.2 mg/dL (<2.0); pH Urine >=9.0 (5.0-9.0)
[2024-04-14 21:26] LABS: Mucus Urine Moderate /lpf; RBC Urine 21-50 /hpf (0-2); Squamous Epithelial Cell Urine Few /hpf (Few)
--- NOTE | 2024-04-14 22:11 | PC.NURSE ---
Rn switched to IV tubing and resumed previous fluids.
[2024-04-14] MEDS: AZITHROMYCIN 500 MG/NS 250 ML 500 MG/250 ML BAG 250 MG IVPB (22:32)
[2024-04-14 23:30] VITALS: BP 155/78; PULSE 71; RESP 14; O2SAT 95
[2024-04-14 23:35] VITALS: BP 122/57; PULSE 95; RESP 18; TEMP 35.8; O2SAT 96; BMI 20.7
[2024-04-14 23:42] LABS: INR 1.7; Prothrombin Time 20.4 Seconds (11.1-14.7)
[2024-04-14 23:44] LABS: Partial Thromboplastin Time 50.6 Seconds (22.3-36.8)
[2024-04-15] VITALS (11 sets, daily range): BP systolic 104–136; BP diastolic 47–61; PULSE 84–103; RESP 14–20; TEMP 36.4–36.8; O2SAT 96–99
--- NOTE | 2024-04-15 01:05 | P.HP_ITS ---
H&P: HPI History of Present Illness Date/Time: 04/15/24 01:05 Chief Complaint: altered mental status Narrative: This is an 88-year-old female with past medical history significant for stroke, bed-bound, patient requires a Jonatan lift, type diabetes mellitus, hypothyroidism, dysphagia. patient was brought to the emergency room for evaluation due to generalized weakness, lethargy, poor per orally intake. histor y has been obtained from daughter who is at bedside patient is oriented to place and person. XR chest 1V portable DATE: 04/14/2024 19:00 INDICATION: Decreased breath sounds TECHNIQUE: Portable upright AP chest on 04/14/2024 at 1859 hours COMPARISON: 12/15/2023 AP chest FINDINGS: There is severe thoracic and abdominal aortic calcification. Coronary artery calcifications and apparent coronary artery stent. Heart size appears within normal limits. No hilar or mediastinal enlargement is evident. There is mild elevation of the right diaphragm. Suggestion of mild infiltrate in the left mid and lower lung zones. However a cardiac surgeon device overlies the area, which might create some artifact simulating infiltrate. In addition, the patient is mildly rotated and this is a single portable view. Osteopenia. Severe glenohumeral osteoarthritis and rotator cuff atrophy are noted bilaterally. Status post cholecystectomy. IMPRESSION: Question of mild infiltrate in the left mid and lower lung zones; Limited portable study EXAMINATION: CT chest abdomen pelvis wo con DATE: 04/14/2024 21:10 INDICATION: Pneumonia, pyelonephritis TECHNIQUE: Computed tomography (CT) of the chest, abdomen, and pelvis was performed without intravenous contrast. Automated exposure control and iterative reconstruction technique were employed. Exam dose: 465.18 mGy-cm total exam DLP. COMPARISON: 12/11/2023 CT abdomen pelvis 04/14/2024 portable AP chest FINDINGS: There are multiple scattered areas of peripheral interlobular septal soft tissue thickening and bronchiectasis, likely due to mild usual interstitial pneumonia type pulmonary interstitial fibrosis. No pulmonary consolidation or pulmonary mass lesion is detected. Heart size is normal. Very prominent extensive coronary artery calcifications. Very prominent thoracic aortic and great vessel calcification. No thoracic aortic aneurysm. No hilar or mediastinal mass lesion or lymphadenopathy. No pericardial or pleural effusion. Status post cholecystectomy. The liver, spleen, pancreas and adrenal glands are unremarkable. No bile duct or pancreatic duct dilatation. There is severe left renal atrophy. There is moderate hydronephrosis of the right And CC and right internal urinary stent is in expected position. There is mild left perinephric stranding and periureteral stranding on the right which may be consistent with right pyelonephritis. There is a Peterson catheter within the urinary bladder. There is moderate diffuse thickening urinary bladder wall which may be consistent with cystitis. Status post hysterectomy. There is extensive prominent abdominal aortic calcification, severe calcification of the superior mesenteric artery, prominent bilateral renal artery calcifications. Calcification inferior mesenteric artery. IVC filter. Prominent amount of fecal material in the rectum and colon. No bowel obstruction or intraperitoneal free air is detected. Mild sigmoid diverticulosis; no evidence of diverticulitis. There is a small sliding hiatal hernia. There are extensive degenerative changes of the cervical and thoracic as well as lumbar spine in addition to bilateral hip osteoarthritis. No suspicious osteolytic or osteoblastic lesions are noted. IMPRESSIONS: Usual interstitial pneumonia type pulmonary interstitial fibrosis; no active pneumonia is evident Severe atherosclerotic calcification of the coronary arteries, thoracic and abdominal aorta, mesenteric vessels and renal arteries Status post cholecystectomy Severe left renal atrophy Moderate right hydronephrosis despite right internal urinary stent Perinephric stranding and periureteral stranding on the right suggesting pyelonephritis Mild thickening of urinary bladder wall, suggesting possible cystitis Status post hysterectomy Small sliding hiatal hernia Prominent amount of fecal material in the rectum and colon seminal no bowel obstruction or free air Mild sigmoid diverticulosis; no evidence of diverticulitis Review of Systems Review of Systems: ROS unobtainable: Yes unobtainable due to mental status (obtundation) [facility] Past Medical History Medical History Anxiety and depression CAD (coronary artery disease) Cervical myofascial pain syndrome CHF (congestive heart failure) Echocardiogram 06/20/2016: Grade 1 diastolic dysfunction, EF 74%, mild enlargement left atrium Chronic indwelling Peterson catheter Chronic interstitial cystitis 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 mellitus With baseline creatinine between 1.2 and 1.5 DVT, lower extremity, recurrent Left lower extremity distant past, right femoral in lower extremity veins May 2020 Essential hypertension Gastritis Gastritis/duodenitis 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 Hypertension 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 Neck pain, chronic Occlusion and stenosis of basilar artery Osteoarthritis 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, acute TIA (transient ischemic attack) Vision disturbance glaucoma retinal detachment sp cataract extraction bilateral Surgical History Surgical History H/O inguinal hernia repair History of appendectomy History of bladder suspension procedure 2012 and 2013 History of cystoscopy With biopsy of bladder lesion x2 History of heart artery stent (~2006) 4 stents History of hysterectomy Hx of cholecystectomy Status post cataract extraction of both eyes with insertion of intraocular lens Status post right knee replacement Family History Family History Father Pancreas cancer COPD (chronic obstructive pulmonary disease) Mother Acute myocardial infarction Sibling Hypertension Social History Social History Social History: The patient lives in a senior apartment but is independent living. She has been since around 2018. 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 Code status: DNR/DNI (per patient report, confirmed 12/07/23) Surrogate decision maker: Daksha (daughter) Smoking status: Never smoker Substance use type: does not use Do You Feel Safe in your Home?: Yes Lack of Transportation: No Lack of Food: Never True Current Housing: I Have Housing Concerned About Future Housing: No Difficulty Paying Gas/Electric Bills: No Difficulty Paying for Meds: No Currently Unemployed: No Education: High School Diploma/GED Difficulty w/ Childcare or Family Care: No Living arrangements: with family Occupation/Education: retired Gender identity (if verbalized by the patient): Female Sexual Orientation (if Verbalized by the Patient): Straight or Heterosexual Spiritual care concerns: No Agree to blood products: Yes Meds Home Medications and Allergies Home Medications Medication Instructions Recorded Confirmed Type acetaminophen 500 mg tablet 500 mg PO Q6H PRN Pain 12/27/23 04/14/24 History apixaban 2.5 mg tablet (Eliquis) 2.5 mg PO BID #60 tabs 01/12/24 04/14/24 Rx ezetimibe 10 mg tablet (Zetia) 10 mg PO DAILY 30 days #30 tabs 01/12/24 04/14/24 Rx levothyroxine 125 mcg tablet 125 mcg PO DAILY@0630 30 days #30 01/12/24 04/14/24 Rx (Synthroid) tabs ascorbic acid (vitamin C) 500 mg 500 mg PO DAILY 04/14/24 04/14/24 History tablet bisacodyl 5 mg tablet,delayed 5 mg PO DAILY PRN Constipation 04/14/24 04/14/24 History release esomeprazole magnesium 40 mg 40 mg PO DAILY 04/14/24 04/14/24 History capsule,delayed release famotidine 10 mg tablet 10 mg PO DAILY 04/14/24 04/14/24 History hydrocodone 7.5 mg-acetaminophen 1 tablet PO Q4H PRN pain 04/14/24 04/14/24 History 325 mg tablet polyethylene glycol 3350 17 gram 17 g PO QAM PRN Constipation 04/14/24 04/14/24 History oral powder packet (Miralax) sertraline 25 mg tablet 25 mg PO HS 04/14/24 04/14/24 History zinc sulfate 50 mg zinc (220 mg) 50 mg PO DAILY 04/14/24 04/14/24 History tablet Allergies Allergy/AdvReac Type Severity Reaction Status Date / Time atorvastatin Allergy Unknown ache Verified 04/14/24 22:02 Vital Signs Vital Signs - 24 hr 04/14/24 16:52 04/14/24 17:43 04/14/24 19:40 Temperature 97.6 F Pulse Rate 88 86 84 Respiratory Rate 16 18 14 Blood Pressure 123/71 136/63 135/68 Pulse Oximetry 98 96 98 04/14/24 23:30 04/14/24 23:35 Temperature 96.4 F L Pulse Rate 71 95 Respiratory Rate 14 18 Blood Pressure 155/78 H 122/57 L Pulse Oximetry 95 96 Exam Narrative: laying in a stretcher Const: General: comfortable, no acute distress, well developed, ill appearing, lethargic, patient obtunded and average body habitus Nutritional Appearance: average body habitus Orientation/consciousness: oriented to person, oriented to place, patient obtunded and lethargic HENMT: Head: normal to inspection, normocephalic and atraumatic Ears: hearing grossly normal bilaterally Face/Nose/Sinus: normal facial exam Face and sinus: normal facial exam Eyes: General: appearance normal, both eyes and all related structures Pupils: Equal, round and reactive pupils present EOM: EOMs intact bilaterally Neck: Neck: full ROM, no lymphadenopathy and no JVD Thyroid: thyroid normal Lymphatic: no lymphadenopathy noted Resp: Effort & Inspection: normal respiratory effort and able to speak in complete sentences Auscultation: clear to auscultation bilaterally Cardio: Jugular venous distension: no JVD Rate: regular rate Rhythm: regular rhythm Heart sounds: S1 normal heart sound present and S2 normal heart sound present GI: GI Palp: Yes Soft to palpation and Yes No hepatosplenomegaly present : General: Yes deferred Skin: Rashes: no rashes Wounds: no wounds Neuro: General: oriented to person, oriented to place, CN's II-XI intact bilaterally and patient obtunded Cranial nerves: Yes CN's II-XII intact bilaterally and Yes Equal, round and reactive pupils present Cognition (Neuro): abnormal cognition ( obtundation/ lethargy) Speech: normal speech Gait exam (Neuro): Unable to assess gait and Other gait observations present ( bed bound) Motor exam (neuro): 5/5 motor strength present throughout Extrem: General: normal to inspection, full ROM, no joint enlargement and no pedal edema H&P: Results Labs Labs: Short CBC 04/14/24 Range/Units 19:25 WBC 12.7 H (4.5-10.0) K/mm3 Hgb 9.6 L (12.0-15.0) g/dL Hct 31.1 L (37.0-47.0) % Plt Count 448 H (150-375) k/mm3 BMP 04/14/24 18:47 Sodium 132 L Potassium 5.8 H Chloride 103 Carbon Dioxide 19 L BUN 51 H Creatinine 1.90 H Glucose 145 H Calcium 9.3 Cardiac Enzymes 04/14/24 Range/Units 18:47 Total Creatine Kinase 29 L (30-135) U/L Troponin I < 0.012 (0.000-0.034) ng/mL Liver Function 04/14/24 Range/Units 18:47 Total Bilirubin 0.6 (0.2-1.3) mg/dL AST 19 (14-36) U/L ALT 9 (6-35) U/L Alkaline Phosphatase 100 (38-126) U/L Albumin 3.4 L (3.5-5.1) g/dL Urine 04/14/24 Range/Units 20:03 Urine Color [place] H (Yellow) Urine Appearance Turbid H (Clear) Urine pH >=9.0 H (5.0-9.0) Ur Specific [place] 1.013 (1.001-1.035) Urine Protein 4+ H (Negative) mg/dL Urine Glucose (UA) Trace H (Negative) mg/dL Assessment and Plan Assessment and plan (1) Urinary tract infection: Code(s): N39.0 - Urinary tract infection, site not specified Status: Ruled-out Assessment and Plan: admit to regular medical floor patient started on Rocephin and Zithromax concerns for pneumonia as well noted patient grew E coli resistant to Rocephin in the past will start Merrem (2) Hypertension: Qualifiers: Hypertension type: unspecified Qualified Code(s): I10 - Essential (primary) hypertension Code(s): I10 - Essential (primary) hypertension Status: Chronic Assessment and Plan: resume home meds as needed (3) History of cerebrovascular accident (CVA) with residual deficit: Code(s): I69.30 - Unspecified sequelae of cerebral infarction Status: Chronic Assessment and Plan: supportive care patient is bedbound (4) Gait abnormality: Code(s): R26.9 - Unspecified abnormalities of gait and mobility Status: Acute Assessment and Plan: Jonatan lift (5) CKD (chronic kidney disease): Qualifiers: Chronic kidney disease stage: stage 4 (severe) Qualified Code(s): N18.4 - Chronic kidney disease, stage 4 (severe) Code(s): N18.9 - Chronic kidney disease, unspecified Status: Acute Assessment and Plan: a slight increase from 1.7-1.9 patient received NS in emergency room continue to monitor BUN and creatinine (6) Generalized weakness: Code(s): R53.1 - Weakness Status: Acute Assessment and Plan: likely secondary to chronic illness in the setting of acute urinary tract infection (7) Left sided cerebral hemisphere cerebrovascular accident (CVA): Code(s): I63.9 - Cerebral infarction, unspecified Status: Acute Assessment and Plan: patient is on apixaban (8) Debility: Code(s): R53.81 - Other malaise Status: Acute Assessment and Plan: likely secondary to chronic illness (9) Lung infiltrate: Code(s): R91.8 - Other nonspecific abnormal finding of lung field Status: Acute Assessment and Plan: chronic interstitial pneumonia received Rocephin and Zithromax Hospitalist MIPS Advance Care Plan I have confirmed that the patient's Advanced Care Plan is present, code status is documented, or surrogate decision maker is listed in patient medical record.: Yes Medication Reconciliation I have utilized all available resources to obtain, update and review the patients current medications (includes all prescriptions, OTC, herbals, cannabis, and nutritional supplements).: Yes
--- NOTE | 2024-04-15 01:28 | ADMGEN ---
This patient, Meche Woodward, was admitted to Medical Room 251-01. Patient/family oriented to hospital policies and general routines including ID bracelet, bed and alarms, visiting hours, pain management, procedures, bathroom and other care routines, personal items, smoking policy, room service/diet, and visiting hours. Information on how to activate the Rapid Response Team has been discussed. Patient/Family are encouraged to report perceived risks to care and to ask questions if they do not understand what they are told or what they should do.
[2024-04-15] MEDS: LEVOTHYROXINE SODIUM 125 MCG TABLET PO (05:44)
--- NOTE | 2024-04-15 07:29 | P.PNIM_ITS ---
Progress Note: A&P Assessment and Plan (1) Urinary tract infection: Code(s): N39.0 - Urinary tract infection, site not specified Status: Ruled-out Assessment and Plan: * UA showing turbid appearance, urine pH greater than 9.0, 4+ urine protein, trace urine glucose, 3+ urine blood, positive nitrate, 3+ leukocytes, 21-50 urine RBC, 10-15 urine WBC. * urine and blood cultures obtained and are pending * patient was started on Rocephin and switched to meropenem due to ESBL in the urine on previous culture * CT of the chest abdomen pelvis showed moderate right hydronephrosis despite right internal urinary stent, pyelonephritis, cystitis, severe left renal atrophy (2) Pyelonephritis: Code(s): N12 - Tubulo-interstitial nephritis, not specified as acute or chronic Status: Acute Assessment and Plan: see above plan of care (3) Lung infiltrate: Code(s): R91.8 - Other nonspecific abnormal finding of lung field Status: Acute Assessment and Plan: * chest x-ray shown mild infiltrate in the left mid and lower lung zone * CT of the chest abdomen and pelvis shown interstitial pneumonia type pulmonary interstitial fibrosis, no active pneumonia * continue meropenem and azithromycin (4) CKD (chronic kidney disease): Qualifiers: Chronic kidney disease stage: stage 4 (severe) Qualified Code(s): N18.4 - Chronic kidney disease, stage 4 (severe) Code(s): N18.9 - Chronic kidney disease, unspecified Status: Acute Assessment and Plan: * creatinine currently 1.90 * baseline appears to be 1.6-1.7 * EGFR 25 * patient was given 2 L normal saline while in the ED * continue to trend * CT of the chest abdomen and pelvis shows severe left renal atrophy, moderate right hydronephrosis despite right internal urinary stent (5) History of cerebrovascular accident (CVA) with residual deficit: Code(s): I69.30 - Unspecified sequelae of cerebral infarction Status: Chronic Assessment and Plan: * supportive care * patient is bedbound and uses corey lift at baseline * currently on Eliquis (6) CAD (coronary artery disease): Code(s): I25.10 - Atherosclerotic heart disease of [place] coronary artery without angina pectoris Status: Acute Assessment and Plan: * continues Zeita * CT of the chest abdomen and pelvis shows severe atherosclerotic calcification of the coronary arteries, thoracic and abdominal aorta, mesenteric vessels and renal arteries (7) Failure to thrive: Status: Acute Assessment and Plan: * Extreme weakness and muscular deconditioning * Case management following * Family discussing option of hospice Time Spent With Patient Time with patient: Greater than 35 minutes Subjective Date/time seen: 04/15/24 07:29 Interval history: Interval history: This is an 88-year-old female who presented to the hospital 04/15/2024 with altered mental status. Workup in the hospital included a chest x-ray which showed a questionable mild infiltrate in the left mid and lower lung. Chest/abdomen/ pelvis CT shown pulmonary interstitial fibrosis, no active pneumonia, severe atherosclerotic calcification of the coronary arteries, thoracic and abdominal aorta, mesenteric vessels and renal arteries, severe left renal atrophy, moderate right hydronephrosis despite right internal urinary stent, pyelonephritis, mild thickening of urinary bladder wall suggesting cystitis, prominent amount of fecal matter in the rectum and colon without bowel obstruction or free air, mild sigmoid diverticulosis, small sliding hiatal hernia. Initial labs showed a white blood cell count of 12.7, hemoglobin 9.6, INR 1.8, sodium 132, potassium 5.8, bicarb 19, creatinine 1.9, EGFR 25, troponin was negative, lipase 65. UA showed turbid appearance, greater than 9.0 urine pH, 4+ urine protein, trace glucose, 3+ urine blood, positive nitrate, 3+ leukocyte, 21-50 urine RBC, 10-15 urine WBC. Urine and blood cultures were obtained and are pending. Past urine culture on 01/01/2024 showed E coli that with resistance. patient was given 2 L normal saline, half an amp of D50, 10 units insulin, 40 mg IV push Lasix, Rocephin and azithromycin while in the ED. Subjective: Patient alert to voice, unable to determine orientation. Labs , cultures, and imaging reviewed. Review of Systems 2 Review of Systems: ROS unobtainable: Yes unobtainable due to mental status (obtundation) Exam Narrative: General: In no acute distress, well nourished Head: atraumatic, no encephalopathy Eyes: PERRLA, sclera clear ENT: moist mucous membranes, nasal passages clear Neck: supple, no JVD, no adenopathy, trachea midline Cardiac: Normal S1 and S2. No murmur, gallops or friction rubs, peripheral pulses intact. Respiratory: Lungs clear to auscultation, no adventitious lung sounds, currently on room air Gastrointestinal: soft, non-distended, non-tender, normoactive bowel sounds. : voiding without difficulty. Extremities: moves all extremities well, no edema Skin: clean, dry, intact. No wounds or lesions. Neuro: Alert to voice Psych: minimally interactive Objective Data Vital Signs Vital Signs: Vital Signs - 24 hr 04/14/24 16:52 04/14/24 17:43 04/14/24 19:40 Temperature 97.6 F Pulse Rate 88 86 84 Respiratory Rate 16 18 14 Blood Pressure 123/71 136/63 135/68 Pulse Oximetry 98 96 98 Oxygen Delivery 04/14/24 23:30 04/14/24 23:35 04/15/24 00:00 Temperature 96.4 F L Pulse Rate 71 95 95 Respiratory Rate 14 18 Blood Pressure 155/78 H 122/57 L Pulse Oximetry 95 96 Oxygen Delivery 04/15/24 01:34 04/15/24 04:00 04/15/24 04:00 Temperature Pulse Rate 95 90 90 Respiratory Rate 18 Blood Pressure Pulse Oximetry 96 Oxygen Delivery Room Air 04/15/24 06:00 Temperature 97.6 F Pulse Rate 93 Respiratory Rate 20 Blood Pressure 114/55 L Pulse Oximetry 97 Oxygen Delivery Intake/Output Intake/Output: Intake & Output 04/12/24 04/13/24 04/14/24 04/15/24 23:59 23:59 23:59 23:59 Intake Total 1500 0 Output Total 200 Balance 1500 -200 Meds/Results Medications: Active Medications Generic Name Dose Route Start Last Admin Trade Name Freq PRN Reason Stop Dose Admin Acetaminophen 500 mg 04/15/24 02:59 Acetaminophen 500 Mg Tablet PO Q6H PRN Pain 1-3 Hydrocodone Bitart/Acetaminophen 1 tab 04/15/24 02:59 Hydrocodone/Acetaminophen (*Crx) 7.5-325 Mg Tablet PO Q4H PRN pain 4-6 Apixaban 2.5 mg 04/15/24 09:00 Apixaban 2.5 Mg Tablet PO Q12HR [place] Bisacodyl 5 mg 04/15/24 02:59 Bisacodyl 5 Mg Tablet Ec PO DAILY PRN Constipation Levothyroxine Sodium 125 mcg 04/15/24 06:30 04/15/24 05:44 Levothyroxine Sodium 125 Mcg Tablet PO 125 mcg DAILY@0630 [facility] Administration Pantoprazole Sodium 40 mg 04/15/24 09:00 Pantoprazole 40 Mg Tablet PO QAM [facility] Polyethylene Glycol 17 gm 04/15/24 02:59 Polyethylene Glycol 3350 17 Gm Powd.Pack PO QAM PRN Constipation Sertraline HCl 25 mg 04/15/24 21:00 Sertraline Hcl 25 Mg Tablet PO HS [facility] Radiology Results: ITS Impressions Chest X-Ray 04/14/24 19:06 IMPRESSION: Question of mild infiltrate in the left mid and lower lung zones; Limited portable study Chest/Abdomen/Pelvis CT 04/14/24 21:19 IMPRESSIONS: Usual interstitial pneumonia type pulmonary interstitial fibrosis; no active pneumonia is evident Severe atherosclerotic calcification of the coronary arteries, thoracic and abdominal aorta, mesenteric vessels and renal arteries Status post cholecystectomy Severe left renal atrophy Moderate right hydronephrosis despite right internal urinary stent Perinephric stranding and periureteral stranding on the right suggesting pyelonephritis Mild thickening of urinary bladder wall, suggesting possible cystitis Status post hysterectomy Small sliding hiatal hernia Prominent amount of fecal material in the rectum and colon seminal no bowel obstruction or free air Mild sigmoid diverticulosis; no evidence of diverticulitis Labs Labs: Laboratory Results - last 24 hr 04/14/24 04/14/24 04/14/24 18:47 19:25 20:03 WBC 12.7 H RBC 3.87 L Hgb 9.6 L Hct 31.1 L MCV 80.4 MCH 24.8 L MCHC 30.9 L RDW 15.8 H Plt Count 448 H MPV 8.9 Immature Gran % (Auto) 0.6 H Neut % (Auto) 73.3 H Lymph % (Auto) 14.8 L Gem % (Auto) 8.7 H Eos % (Auto) 2.0 Baso % (Auto) 0.6 Lymph # (Auto) 1.88 Gem # (Auto) 1.1 H Eos # (Auto) 0.3 Baso # (Auto) 0.1 Abs Immat Gran (auto) 0.08 H Absolute Neuts (auto) 9.3 H Absolute Nucleated RBC 0.000 Nucleated RBC % 0.0 PT 21.1 H INR 1.8 APTT 49.3 H Sodium 132 L Potassium 5.8 H Chloride 103 Carbon Dioxide 19 L Anion Gap 10 BUN 51 H Creatinine 1.90 H Estim Creat Clear Calc Not Reportable Estimated GFR 25 L Glucose 145 H Lactic Acid 0.9 Calcium 9.3 Total Bilirubin 0.6 AST 19 ALT 9 Alkaline Phosphatase 100 Total Creatine Kinase 29 L Troponin I < 0.012 Total Protein 7.0 Albumin 3.4 L Lipase 65 Urine Color Swain H Urine Appearance Turbid H Urine pH >=9.0 H Ur Specific [place] 1.013 Urine Protein 4+ H Urine Glucose (UA) Trace H Urine Ketones Negative Ur Blood (Man) 3+ H Urine Nitrate Positive H Urine Bilirubin Negative Urine Urobilinogen 0.2 Leukocyte Esterase Rfl 3+ H Urine RBC 21-50 H Urine WBC 10-15 H Ur Squamous Epith Cells Few Urine Casts ---- Urine Mucus Moderate H 04/14/24 23:16 WBC RBC Hgb Hct MCV MCH MCHC RDW Plt Count MPV Immature Gran % (Auto) Neut % (Auto) Lymph % (Auto) Gem % (Auto) Eos % (Auto) Baso % (Auto) Lymph # (Auto) Gem # (Auto) Eos # (Auto) Baso # (Auto) Abs Immat Gran (auto) Absolute Neuts (auto) Absolute Nucleated RBC Nucleated RBC % PT 20.4 H INR 1.7 APTT 50.6 H Sodium Potassium Chloride Carbon Dioxide Anion Gap BUN Creatinine Estim Creat Clear Calc Estimated GFR Glucose Lactic Acid Calcium Total Bilirubin AST ALT Alkaline Phosphatase Total Creatine Kinase Troponin I Total Protein Albumin Lipase Urine Color Urine Appearance Urine pH Ur Specific [place] Urine Protein Urine Glucose (UA) Urine Ketones Ur Blood (Man) Urine Nitrate Urine Bilirubin Urine Urobilinogen Leukocyte Esterase Rfl Urine RBC Urine WBC Ur Squamous Epith Cells Urine Casts Urine Mucus Imaging Radiologist's impression: XR chest 1V portable DATE: 04/14/2024 19:00 INDICATION: Decreased breath sounds TECHNIQUE: Portable upright AP chest on 04/14/2024 at 1859 hours COMPARISON: 12/15/2023 AP chest FINDINGS: There is severe thoracic and abdominal aortic calcification. Coronary artery calcifications and apparent coronary artery stent. Heart size appears within normal limits. No hilar or mediastinal enlargement is evident. There is mild elevation of the right diaphragm. Suggestion of mild infiltrate in the left mid and lower lung zones. However a therapeutic assistant device overlies the area, which might create some artifact simulating infiltrate. In addition, the patient is mildly rotated and this is a single portable view. Osteopenia. Severe glenohumeral osteoarthritis and rotator cuff atrophy are noted bilaterally. Status post cholecystectomy. IMPRESSION: Question of mild infiltrate in the left mid and lower lung zones; Limited portable study Reviewed, dictated and finalized at location A. * [employer]MENT [employer] EXAMINATION: CT chest abdomen pelvis wo con DATE: 04/14/2024 21:10 INDICATION: Pneumonia, pyelonephritis TECHNIQUE: Computed tomography (CT) of the chest, abdomen, and pelvis was performed without intravenous contrast. Automated exposure control and iterative reconstruction technique were employed. Exam dose: 465.18 mGy-cm total exam DLP. COMPARISON: 12/11/2023 CT abdomen pelvis 04/14/2024 portable AP chest FINDINGS: There are multiple scattered areas of peripheral interlobular septal soft tissue thickening and bronchiectasis, likely due to mild usual interstitial pneumonia type pulmonary interstitial fibrosis. No pulmonary consolidation or pulmonary mass lesion is detected. Heart size is normal. Very prominent extensive coronary artery calcifications. Very prominent thoracic aortic and great vessel calcification. No thoracic aortic aneurysm. No hilar or mediastinal mass lesion or lymphadenopathy. No pericardial or pleural effusion. Status post cholecystectomy. The liver, spleen, pancreas and adrenal glands are unremarkable. No bile duct or pancreatic duct dilatation. There is severe left renal atrophy. There is moderate hydronephrosis of the right And CC and right internal urinary stent is in expected position. There is mild left perinephric stranding and periureteral stranding on the right which may be consistent with right pyelonephritis. There is a Peterson catheter within the urinary bladder. There is moderate diffuse thickening urinary bladder wall which may be consistent with cystitis. Status post hysterectomy. There is extensive prominent abdominal aortic calcification, severe calcification of the superior mesenteric artery, prominent bilateral renal artery calcifications. Calcification inferior mesenteric artery. IVC filter. Prominent amount of fecal material in the rectum and colon. No bowel obstruction or intraperitoneal free air is detected. Mild sigmoid diverticulosis; no evidence of diverticulitis. There is a small sliding hiatal hernia. There are extensive degenerative changes of the cervical and thoracic as well as lumbar spine in addition to bilateral hip osteoarthritis. No suspicious osteolytic or osteoblastic lesions are noted. IMPRESSIONS: Usual interstitial pneumonia type pulmonary interstitial fibrosis; no active pneumonia is evident Severe atherosclerotic calcification of the coronary arteries, thoracic and abdominal aorta, mesenteric vessels and renal arteries Status post cholecystectomy Severe left renal atrophy Moderate right hydronephrosis despite right internal urinary stent Perinephric stranding and periureteral stranding on the right suggesting pyelonephritis Mild thickening of urinary bladder wall, suggesting possible cystitis Status post hysterectomy Small sliding hiatal hernia Prominent amount of fecal material in the rectum and colon seminal no bowel obstruction or free air Mild sigmoid diverticulosis; no evidence of diverticulitis Reviewed, dictated and finalized at location A. [employer]CH[employer] Quality VTE Prophylaxis VTE prophylaxis: pharmacologic ordered
[2024-04-15] MEDS: HYDROcodone/acetaminophen (*CRX) 7.5-325 MG TABLET 1 TAB PO ×3 (08:16→20:30)
[2024-04-15] MEDS: MEROPENEM 500 MG/NS 100 ML 500 MG/100 ML BAG 200 MG IVPB ×2 (08:16→20:23)
[2024-04-15] MEDS: APIXABAN 2.5 MG TABLET PO ×2 (08:17→20:23)
[2024-04-15] MEDS: PANTOPRAZOLE 40 MG TABLET PO (08:17)
[2024-04-15] MEDS: EZETIMIBE 10 MG TABLET PO (08:17)
[2024-04-15 08:31] LABS: Basophils Absolute Auto 0.1 K/mm3 (0.0-0.1); Basophils Percent Auto 0.4 % (0.2-1.2); Eosinophils Absolute Auto 0.3 K/mm3 (0-0.3); Eosinophils Percent Auto 1.9 % (0-4.4); Hematocrit 29.8 % (37.0-47.0); Hemoglobin 9.1 g/dL (12.0-15.0); Immature Granulocyte Absolute 0.09 K/mm3 (0.00-0.031); Immature Granulocyte Percent A 0.6 % (0-0.5); Lymphocytes Absolute Auto 1.41 K/mm3 (0.9-3.2); Mean Corpuscular HGB Conc 30.5 g/dl (32-36); Mean Corpuscular Volume 81.9 fl (80-100); Mean Platelet Volume 9.4 fl (7.4-10.4); Monocytes Absolute Auto 0.8 K/mm3 (0.1-0.6); Monocytes Percent Auto 5.3 % (2.6-8.5); Neutrophils Absolute Auto 11.5 K/mm3 (1.3-6.7); Neutrophils Percent Auto 81.8 % (45.5-73.1); Platelet Count Result 443 k/mm3 (150-375); Red Blood Count 3.64 M/mm3 (4.2-5.4); Red Cell Distribution Width 15.6 % (11.5-14.5); White Blood Count 14.1 K/mm3 (4.5-10.0)
[2024-04-15 08:43] LABS: Alanine Aminotransferase 8 U/L (6-35); Albumin Level 2.9 g/dL (3.5-5.1); Alkaline Phosphatase 94 U/L (38-126); Anion Gap 7 mmol/L (4-12); Aspartate Amino Transferase 21 U/L (14-36); Bilirubin,Total 0.4 mg/dL (0.2-1.3); Blood Urea Nitrogen 48 mg/dL (7-17); Calcium 8.7 mg/dL (8.4-10.2); Carbon Dioxide 22 mmol/L (22-30); Chloride 104 mmol/L (98-107); Estimated CRCL calculation 16 ml/min; Estimated Glomerular Filt Rate 25; Glucose 116 mg/dL (65-110); Potassium 4.8 mmol/L (3.4-5.0); Sodium 133 mmol/L (137-145)
[2024-04-15] MEDS: AZITHROMYCIN 500 MG/NS 250 ML 500 MG/250 ML BAG 250 MG IVPB (08:48)
[2024-04-15] MEDS: SERTRALINE HCL 25 MG TABLET PO (20:23)
[2024-04-15 20:57] LABS: Glucose Point of Care 114 mg/dl (65-105)
[2024-04-16] VITALS (10 sets, daily range): BP systolic 126–145; BP diastolic 52–64; PULSE 88–102; RESP 14–18; TEMP 36.1–36.6; O2SAT 99–100
[2024-04-16] MEDS: LEVOTHYROXINE SODIUM 125 MCG TABLET PO (05:04)
[2024-04-16] MEDS: HYDROcodone/acetaminophen (*CRX) 7.5-325 MG TABLET 1 TAB PO ×3 (05:18→20:30)
[2024-04-16 06:04] LABS: Basophils Absolute Auto 0.1 K/mm3 (0.0-0.1); Basophils Percent Auto 0.6 % (0.2-1.2); Eosinophils Absolute Auto 0.4 K/mm3 (0-0.3); Eosinophils Percent Auto 3.9 % (0-4.4); Hematocrit 30.4 % (37.0-47.0); Hemoglobin 9.2 g/dL (12.0-15.0); Immature Granulocyte Absolute 0.06 K/mm3 (0.00-0.031); Immature Granulocyte Percent A 0.6 % (0-0.5); Lymphocytes Absolute Auto 1.96 K/mm3 (0.9-3.2); Lymphocytes Percent Auto 20.5 % (18.3-44.2); Mean Corpuscular HGB Conc 30.3 g/dl (32-36); Mean Corpuscular Hemoglobin 24.7 pg (26-34); Mean Corpuscular Volume 81.5 fl (80-100); Monocytes Absolute Auto 0.7 K/mm3 (0.1-0.6); Monocytes Percent Auto 7.3 % (2.6-8.5); Neutrophils Absolute Auto 6.4 K/mm3 (1.3-6.7); Neutrophils Percent Auto 67.1 % (45.5-73.1); Platelet Count Result 460 k/mm3 (150-375); Red Blood Count 3.73 M/mm3 (4.2-5.4); Red Cell Distribution Width 15.5 % (11.5-14.5); White Blood Count 9.5 K/mm3 (4.5-10.0)
[2024-04-16 06:17] LABS: Alanine Aminotransferase 8 U/L (6-35); Albumin Level 2.9 g/dL (3.5-5.1); Alkaline Phosphatase 89 U/L (38-126); Anion Gap 8 mmol/L (4-12); Aspartate Amino Transferase 17 U/L (14-36); Bilirubin,Total 0.4 mg/dL (0.2-1.3); Blood Urea Nitrogen 47 mg/dL (7-17); Calcium 8.5 mg/dL (8.4-10.2); Carbon Dioxide 22 mmol/L (22-30); Chloride 103 mmol/L (98-107); Estimated CRCL calculation 16 ml/min; Estimated Glomerular Filt Rate 25; Glucose 109 mg/dL (65-110); Potassium 4.5 mmol/L (3.4-5.0); Sodium 133 mmol/L (137-145)
--- NOTE | 2024-04-16 07:21 | P.PNIM_ITS ---
Progress Note: A&P Assessment and Plan (1) Urinary tract infection: Code(s): N39.0 - Urinary tract infection, site not specified Status: Ruled-out Assessment and Plan: * UA showing turbid appearance, urine pH greater than 9.0, 4+ urine protein, trace urine glucose, 3+ urine blood, positive nitrate, 3+ leukocytes, 21-50 urine RBC, 10-15 urine WBC. * urine culture still pending * Blood cultures showing no growth to date on preliminary read * patient was started on Rocephin and switched to meropenem due to ESBL in the urine on previous culture * CT of the chest abdomen pelvis showed moderate right hydronephrosis despite right internal urinary stent, pyelonephritis, cystitis, severe left renal atrophy * WBC down to 9.5 today (2) Pyelonephritis: Code(s): N12 - Tubulo-interstitial nephritis, not specified as acute or chronic Status: Acute Assessment and Plan: see above plan of care (3) Lung infiltrate: Code(s): R91.8 - Other nonspecific abnormal finding of lung field Status: Acute Assessment and Plan: * chest x-ray shown mild infiltrate in the left mid and lower lung zone * CT of the chest abdomen and pelvis shown interstitial pneumonia type pulmonary interstitial fibrosis, no active pneumonia * Crackles noted on the right lower lobe * continue meropenem and azithromycin (4) CKD (chronic kidney disease): Qualifiers: Chronic kidney disease stage: stage 4 (severe) Qualified Code(s): N18.4 - Chronic kidney disease, stage 4 (severe) Code(s): N18.9 - Chronic kidney disease, unspecified Status: Acute Assessment and Plan: * creatinine currently 1.90 * baseline appears to be 1.6-1.7 * EGFR 25 * patient was given 2 L normal saline while in the ED * continue to trend * CT of the chest abdomen and pelvis shows severe left renal atrophy, moderate right hydronephrosis despite right internal urinary stent (5) History of cerebrovascular accident (CVA) with residual deficit: Code(s): I69.30 - Unspecified sequelae of cerebral infarction Status: Chronic Assessment and Plan: * supportive care * patient is bedbound and uses corey lift at baseline * currently on Eliquis (6) CAD (coronary artery disease): Code(s): I25.10 - Atherosclerotic heart disease of [place] coronary artery without angina pectoris Status: Acute Assessment and Plan: * continues Zeita * CT of the chest abdomen and pelvis shows severe atherosclerotic calcification of the coronary arteries, thoracic and abdominal aorta, mesenteric vessels and renal arteries (7) Failure to thrive: Status: Acute Assessment and Plan: * Extreme weakness and muscular deconditioning * Case management following * Family discussing option of hospice Time Spent With Patient Time with patient: 15 - 25 minutes Subjective Date/time seen: 04/16/24 07:21 Interval history: Interval history: This is an 88-year-old female who presented to the hospital 04/15/2024 with altered mental status. Workup in the hospital included a chest x-ray which showed a questionable mild infiltrate in the left mid and lower lung. Chest/abdomen/ pelvis CT shown pulmonary interstitial fibrosis, no active pneumonia, severe atherosclerotic calcification of the coronary arteries, thoracic and abdominal aorta, mesenteric vessels and renal arteries, severe left renal atrophy, moderate right hydronephrosis despite right internal urinary stent, pyelonephritis, mild thickening of urinary bladder wall suggesting cystitis, prominent amount of fecal matter in the rectum and colon without bowel obstruction or free air, mild sigmoid diverticulosis, small sliding hiatal hernia. Initial labs showed a white blood cell count of 12.7, hemoglobin 9.6, INR 1.8, sodium 132, potassium 5.8, bicarb 19, creatinine 1.9, EGFR 25, troponin was negative, lipase 65. UA showed turbid appearance, greater than 9.0 urine pH, 4+ urine protein, trace glucose, 3+ urine blood, positive nitrate, 3+ leukocyte, 21-50 urine RBC, 10-15 urine WBC. Urine and blood cultures were obtained and are pending. Past urine culture on 01/01/2024 showed E coli that with resistance. patient was given 2 L normal saline, half an amp of D50, 10 units insulin, 40 mg IV push Lasix, Rocephin and azithromycin while in the ED. Subjective: Patient alert to voice, unable to determine orientation. Labs , cultures, and imaging reviewed. Review of Systems Review of Systems: ROS unobtainable: Yes unobtainable due to mental status (obtundation) Constitutional: Constitutional: Reports as per HPI and Reports no additional constitutional complaints Eyes: Eyes: Reports as per HPI and Reports no additional eye complaints ENT: Reports system reviewed and no additional complaints, except as documented and Reports as per HPI Cardiovascular: Cardiovascular: Reports as per HPI and Reports no additional cardiovascular complaints Respiratory: Respiratory: Reports as per HPI and Reports no additional respiratory complaints Gastrointestinal: Gastrointestinal: Reports as per HPI and Reports no additional gastrointestinal complaints Genitourinary: Genitourinary: Reports no additional female genitourinary complaints and Reports as per HPI Musculoskeletal: Musculoskeletal: Reports no additional musculoskeletal complaints and Reports as per HPI Integumentary/Breasts: Skin/Breast: Reports system reviewed and no additional complaints, except as docu and Reports as per HPI Neurologic: Reports system reviewed and no additional complaints, except as documented and Reports as per HPI Psychiatric: Psychiatric: Reports no additional psychiatric complaints and Reports as per HPI Exam Narrative: General: Weak appearing Cardiac: Normal S1 and S2. No murmur, gallops or friction rubs, peripheral pulses intact. Respiratory: Crackles noted in RLL, no adventitious lung sounds, currently on room air Gastrointestinal: soft, non-distended, non-tender, normoactive bowel sounds. : hendrix catheter in place Neuro: Alert to voice, answers some questions, makes eye contact Psych: minimally interactive Objective Data Vital Signs Vital Signs: Vital Signs - 24 hr 04/15/24 08:17 04/15/24 08:04 04/15/24 12:01 Temperature Pulse Rate 102 H 84 Respiratory Rate 20 Blood Pressure Pulse Oximetry 97 Oxygen Delivery Room Air 04/15/24 14:00 04/15/24 16:03 04/15/24 21:23 Temperature 98.2 F 98 F Pulse Rate 95 93 103 H Respiratory Rate 14 18 Blood Pressure 104/47 L 136/61 Pulse Oximetry 99 98 Oxygen Delivery 04/15/24 20:00 04/15/24 20:00 04/16/24 00:00 Temperature Pulse Rate 103 H 96 100 Respiratory Rate 18 Blood Pressure Pulse Oximetry 98 Oxygen Delivery Room Air 04/16/24 04:00 04/16/24 06:00 Temperature 97 F L Pulse Rate 88 93 Respiratory Rate 18 Blood Pressure 145/52 H Pulse Oximetry 99 Oxygen Delivery Intake/Output Intake/Output: Intake & Output 04/13/24 04/14/24 04/15/24 04/16/24 23:59 23:59 23:59 23:59 Intake Total 1500 1509.2 100 Output Total 600 300 Balance 1500 909.2 -200 Meds/Results Medications: Active Medications Generic Name Dose Route Start Last Admin Trade Name Freq PRN Reason Stop Dose Admin Acetaminophen 500 mg 04/15/24 02:59 Acetaminophen 500 Mg Tablet PO Q6H PRN Pain 1-3 Hydrocodone Bitart/Acetaminophen 1 tab 04/15/24 02:59 04/16/24 05:18 Hydrocodone/Acetaminophen (*Crx) 7.5-325 Mg Tablet PO 1 tab Q4H PRN Administration pain 4-6 Apixaban 2.5 mg 04/15/24 09:00 04/15/24 20:23 Apixaban 2.5 Mg Tablet PO 2.5 mg Q12HR CHIRAG Administration Bisacodyl 5 mg 04/15/24 02:59 Bisacodyl 5 Mg Tablet Ec PO DAILY PRN Constipation Ezetimibe 10 mg 04/15/24 09:00 04/15/24 08:17 Ezetimibe 10 Mg Tablet PO 10 mg DAILY CHIRAG Administration Azithromycin 500 mg in 250 mls @ 250 mls/hr 04/15/24 09:00 04/15/24 10:07 Zithromax IVPB Infused Q24H CHIRAG Infusion Meropenem 500 mg in 100 mls @ 200 mls/hr 04/15/24 08:00 04/15/24 20:53 IVPB Infused Q12HR CHIRAG Infusion Levothyroxine Sodium 125 mcg 04/15/24 06:30 04/16/24 05:04 Levothyroxine Sodium 125 Mcg Tablet PO 125 mcg DAILY@0630 CHIRAG Administration Pantoprazole Sodium 40 mg 04/15/24 09:00 04/15/24 08:17 Pantoprazole 40 Mg Tablet PO 40 mg QAM CHIRAG Administration Polyethylene Glycol 17 gm 04/15/24 02:59 Polyethylene Glycol 3350 17 Gm Powd.Pack PO QAM PRN Constipation Sertraline HCl 25 mg 04/15/24 21:00 04/15/24 20:23 Sertraline Hcl 25 Mg Tablet PO 25 mg HS CHIRAG Administration Radiology Results: ITS Impressions Chest X-Ray 04/14/24 19:06 IMPRESSION: Question of mild infiltrate in the left mid and lower lung zones; Limited portable study Chest/Abdomen/Pelvis CT 04/14/24 21:19 IMPRESSIONS: Usual interstitial pneumonia type pulmonary interstitial fibrosis; no active pneumonia is evident Severe atherosclerotic calcification of the coronary arteries, thoracic and abdominal aorta, mesenteric vessels and renal arteries Status post cholecystectomy Severe left renal atrophy Moderate right hydronephrosis despite right internal urinary stent Perinephric stranding and periureteral stranding on the right suggesting pyelonephritis Mild thickening of urinary bladder wall, suggesting possible cystitis Status post hysterectomy Small sliding hiatal hernia Prominent amount of fecal material in the rectum and colon seminal no bowel obstruction or free air Mild sigmoid diverticulosis; no evidence of diverticulitis Labs Labs: Laboratory Results - last 24 hr 04/15/24 04/15/24 04/16/24 08:07 20:19 05:50 WBC 14.1 H 9.5 RBC 3.64 L 3.73 L Hgb 9.1 L 9.2 L Hct 29.8 L 30.4 L MCV 81.9 81.5 MCH 25.0 L 24.7 L MCHC 30.5 L 30.3 L RDW 15.6 H 15.5 H Plt Count 443 H 460 H MPV 9.4 9.0 Immature Gran % (Auto) 0.6 H 0.6 H Neut % (Auto) 81.8 H 67.1 Lymph % (Auto) 10.0 L 20.5 [place] % (Auto) 5.3 7.3 Eos % (Auto) 1.9 3.9 Baso % (Auto) 0.4 0.6 Lymph # (Auto) 1.41 1.96 [place] # (Auto) 0.8 H 0.7 H Eos # (Auto) 0.3 0.4 H Baso # (Auto) 0.1 0.1 Abs Immat Gran (auto) 0.09 H 0.06 H Absolute Neuts (auto) 11.5 H 6.4 Absolute Nucleated RBC 0.000 0.000 Nucleated RBC % 0.0 0.0 Sodium 133 L 133 L Potassium 4.8 4.5 Chloride 104 103 Carbon Dioxide 22 22 Anion Gap 7 8 BUN 48 H 47 H Creatinine 1.90 H 1.90 H Estim Creat Clear Calc 16 16 Estimated GFR 25 L 25 L Glucose 116 H 109 POC Capillary Glucose 114 H Calcium 8.7 8.5 Total Bilirubin 0.4 0.4 AST 21 17 ALT 8 8 Alkaline Phosphatase 94 89 Total Protein 6.0 L 6.0 L Albumin 2.9 L 2.9 L TSH 4.500 Quality VTE Prophylaxis VTE prophylaxis: pharmacologic ordered
[2024-04-16] MEDS: MEROPENEM 500 MG/NS 100 ML 500 MG/100 ML BAG 200 MG IVPB ×2 (08:16→20:30)
[2024-04-16] MEDS: PANTOPRAZOLE 40 MG TABLET PO (08:19)
[2024-04-16] MEDS: EZETIMIBE 10 MG TABLET PO (08:19)
[2024-04-16] MEDS: APIXABAN 2.5 MG TABLET PO ×2 (08:19→20:30)
[2024-04-16] MEDS: AZITHROMYCIN 500 MG/NS 250 ML 500 MG/250 ML BAG 250 MG IVPB (08:49)
[2024-04-16] MEDS: SERTRALINE HCL 25 MG TABLET PO (20:30)
[2024-04-17] VITALS (10 sets, daily range): BP systolic 121–145; BP diastolic 47–88; PULSE 63–98; RESP 14–18; TEMP 36.4–36.5; O2SAT 98–99
[2024-04-17 05:48] LABS: Basophils Percent Auto 0.4 % (0.2-1.2); Eosinophils Absolute Auto 0.3 K/mm3 (0-0.3); Eosinophils Percent Auto 4.1 % (0-4.4); Hematocrit 28.1 % (37.0-47.0); Hemoglobin 8.6 g/dL (12.0-15.0); Immature Granulocyte Absolute 0.06 K/mm3 (0.00-0.031); Immature Granulocyte Percent A 0.9 % (0-0.5); Lymphocytes Absolute Auto 1.61 K/mm3 (0.9-3.2); Lymphocytes Percent Auto 23.8 % (18.3-44.2); Mean Corpuscular HGB Conc 30.6 g/dl (32-36); Mean Corpuscular Hemoglobin 24.7 pg (26-34); Mean Corpuscular Volume 80.7 fl (80-100); Mean Platelet Volume 9.1 fl (7.4-10.4); Monocytes Absolute Auto 0.7 K/mm3 (0.1-0.6); Monocytes Percent Auto 10.6 % (2.6-8.5); Neutrophils Absolute Auto 4.1 K/mm3 (1.3-6.7); Neutrophils Percent Auto 60.2 % (45.5-73.1); Platelet Count Result 410 k/mm3 (150-375); Red Blood Count 3.48 M/mm3 (4.2-5.4); Red Cell Distribution Width 15.7 % (11.5-14.5); White Blood Count 6.8 K/mm3 (4.5-10.0)
[2024-04-17 05:58] LABS: Alanine Aminotransferase 8 U/L (6-35); Albumin Level 2.5 g/dL (3.5-5.1); Alkaline Phosphatase 81 U/L (38-126); Anion Gap 3 mmol/L (4-12); Aspartate Amino Transferase 26 U/L (14-36); Bilirubin,Total 0.3 mg/dL (0.2-1.3); Blood Urea Nitrogen 43 mg/dL (7-17); Calcium 8.2 mg/dL (8.4-10.2); Carbon Dioxide 22 mmol/L (22-30); Chloride 106 mmol/L (98-107); Estimated CRCL calculation 17 ml/min; Estimated Glomerular Filt Rate 27; Glucose 104 mg/dL (65-110); Potassium 4.4 mmol/L (3.4-5.0); Sodium 131 mmol/L (137-145)
[2024-04-17] MEDS: LEVOTHYROXINE SODIUM 125 MCG TABLET PO (06:06)
[2024-04-17] MEDS: HYDROcodone/acetaminophen (*CRX) 7.5-325 MG TABLET 1 TAB PO ×4 (06:06→20:55)
[2024-04-17] MEDS: PANTOPRAZOLE 40 MG TABLET PO (08:37)
[2024-04-17] MEDS: APIXABAN 2.5 MG TABLET PO ×2 (08:37→20:37)
[2024-04-17] MEDS: AZITHROMYCIN 250 MG TABLET 500 MG PO (08:37)
[2024-04-17] MEDS: EZETIMIBE 10 MG TABLET PO (08:37)
[2024-04-17] MEDS: MEROPENEM 500 MG/NS 100 ML 500 MG/100 ML BAG 200 MG IVPB (08:37)
--- NOTE | 2024-04-17 09:24 | P.DS_ITS ---
DS: Admitting Diagnosis Discharge Date 04/17/24 Admitting Diagnosis Urinary tract infection Hypertension History of CVA with residual deficit Gait abnormality Chronic kidney disease Generalized weakness Left-sided CVA Debility Lung infiltrate DS: Discharge Diagnosis Discharge Diagnosis (1) Urinary tract infection: Code(s): N39.0 - Urinary tract infection, site not specified Status: Ruled-out (2) Pyelonephritis: Code(s): N12 - Tubulo-interstitial nephritis, not specified as acute or chronic Status: Acute (3) Lung infiltrate: Code(s): R91.8 - Other nonspecific abnormal finding of lung field Status: Acute (4) CKD (chronic kidney disease): Qualifiers: Chronic kidney disease stage: stage 4 (severe) Qualified Code(s): N18.4 - Chronic kidney disease, stage 4 (severe) Code(s): N18.9 - Chronic kidney disease, unspecified Status: Acute (5) History of cerebrovascular accident (CVA) with residual deficit: Code(s): I69.30 - Unspecified sequelae of cerebral infarction Status: Chronic (6) CAD (coronary artery disease): Code(s): I25.10 - Atherosclerotic heart disease of [place] coronary artery without angina pectoris Status: Acute (7) Failure to thrive: Status: Acute DS: Summary Hospital Course Reason for hospitalization: Urinary tract infection Hypertension History of CVA with residual deficit Gait abnormality Chronic kidney disease Generalized weakness Left-sided CVA Debility Lung infiltrate Hospital Course: This is an 88-year-old female who presented to the hospital 04/15/2024 with altered mental status. Workup in the hospital included a chest x-ray which showed a questionable mild infiltrate in the left mid and lower lung. Chest/abdomen/ pelvis CT shown pulmonary interstitial fibrosis, no active pneumonia, severe atherosclerotic calcification of the coronary arteries, thoracic and abdominal aorta, mesenteric vessels and renal arteries, severe left renal atrophy, moderate right hydronephrosis despite right internal urinary stent, pyelonephritis, mild thickening of urinary bladder wall suggesting cyst itis, prominent amount of fecal matter in the rectum and colon without bowel obstruction or free air, mild sigmoid diverticulosis, small sliding hiatal hernia. Initial labs showed a white blood cell count of 12.7, hemoglobin 9.6, INR 1.8, sodium 132, potassium 5.8, bicarb 19, creatinine 1.9, EGFR 25, troponin was negative, lipase 65. UA showed turbid appearance, greater than 9.0 urine pH, 4+ urine protein, trace glucose, 3+ urine blood, positive nitrate, 3+ leukocyte, 21-50 urine RBC, 10-15 urine WBC. Urine and blood cultures were obtained and are pending. Past urine culture on 01/01/2024 showed E coli that with resistance. patient was given 2 L normal saline, half an amp of D50, 10 units insulin, 40 mg IV push Lasix, Rocephin and azithromycin while in the ED. Patient was transitioned to Augmentin and Azithromycin for pneumonia coverage. She will need to finish this and follow up with PCP in 1 week. She is stable for discharge at this time. UTI was ruled out with urine culture being negative Final diagnosis: Community-acquired pneumonia Status at Discharge Cognitive/behavioral status at discharge: Alert to voice oriented x1 Functional status at discharge: wheelchair bound Overall status at discharge: patient is progressing back to baseline Time Spent with Patient Time attestation: Total time spent providing and/or coordinating discharge services: Time spent: Greater than 30 minutes Exam Narrative: General: In no acute distress, well nourished Cardiac: Normal S1 and S2. No murmur, gallops or friction rubs, peripheral pulses intact. Respiratory: Lungs clear to auscultation, no adventitious lung sounds Gastrointestinal: soft, non-distended, non-tender, normoactive bowel sounds. : voiding without difficulty. Neuro: Alert and oriented x4 DS: Data Data Completed and Pending Completed studies during hospitalization: Chest/abdomen/pelvis CT Chest x-ray Pending studies at discharge: None Labs on day of discharge: Labs from last 24 hours 04/17/24 05:31 WBC 6.8 RBC 3.48 L Hgb 8.6 L Hct 28.1 L MCV 80.7 MCH 24.7 L MCHC 30.6 L RDW 15.7 H Plt Count 410 H MPV 9.1 Immature Gran % (Auto) 0.9 H Neut % (Auto) 60.2 Lymph % (Auto) 23.8 [place] % (Auto) 10.6 H Eos % (Auto) 4.1 Baso % (Auto) 0.4 Lymph # (Auto) 1.61 [place] # (Auto) 0.7 H Eos # (Auto) 0.3 Baso # (Auto) 0.0 Abs Immat Gran (auto) 0.06 H Absolute Neuts (auto) 4.1 Absolute Nucleated RBC 0.000 Nucleated RBC % 0.0 Sodium 131 L Potassium 4.4 Chloride 106 Carbon Dioxide 22 Anion Gap 3 L BUN 43 H Creatinine 1.80 H Estim Creat Clear Calc 17 Estimated GFR 27 L Glucose 104 Calcium 8.2 L Total Bilirubin 0.3 AST 26 ALT 8 Alkaline Phosphatase 81 Total Protein 5.0 L Albumin 2.5 L Preliminary micro results at discharge 04/14/24 18:47 Blood Culture - Preliminary Blood 04/14/24 19:25 Blood Culture - Preliminary Blood Procedures/Treatments: None Discharge Plan Discharge Attending physician on discharge: Peter Truong Discharging Clinician: Meri Boyce Anticipated Discharge Date/Time: 04/17/24 09:17 Patient Disposition: Home, Self-Care Activity: as tolerated Diet: as tolerated Discharge Instructions: * Finish all your antibiotic as directed even if you are feeling better. * You were negative for UTI * You are being treated for bacterial pneumonia * Follow up with your primary care doctor in 1 week. Patient Instructions: Antibiotic Form, Amoxicillin/Clavulanate Potassium (By mouth), Azithromycin (By mouth), Apixaban (By mouth), Pain Management (DC), Bacterial Pneumonia (DC) Patient Language: Lithuanian Stand Alone Forms: General Discharge Information Follow-up/Referrals: Cullen Jeong MD [Primary Care Provider] - 1 Week Discharge Medications: New azithromycin [Zithromax] 250 mg Tablet 500 mg PO DAILY@0800 Qty: 3 0RF amoxicillin-pot clavulanate 875-125 mg tablet 1 tablet PO Q12H Qty: 10 0RF Continued famotidine 10 mg Tablet 10 mg PO DAILY zinc sulfate 50 mg zinc (220 mg) Tablet 50 mg PO DAILY ascorbic acid (vitamin C) 500 mg Tablet 500 mg PO DAILY esomeprazole magnesium 40 mg capsule,delayed release(DR/EC) 40 mg PO DAILY sertraline 25 mg tablet 25 mg PO HS bisacodyl 5 mg Tablet,Delayed Release (Dr/Ec) 5 mg PO DAILY PRN (Reason: Constipation) polyethylene glycol 3350 [Miralax] 17 gram powder in packet 17 g PO QAM PRN (Reason: Constipation) hydrocodone-acetaminophen 7.5-325 mg tablet 1 tablet PO Q4H PRN (Reason: pain) methocarbamol 500 mg tablet 500 mg PO BID acetaminophen 500 mg Tablet 500 mg PO Q6H PRN (Reason: Pain) Eliquis 2.5 mg Tablet 2.5 mg PO BID Qty: 60 0RF levothyroxine [Synthroid] 125 mcg Tablet 125 mcg PO DAILY@0630 30 Days Qty: 30 0RF ezetimibe [Zetia] 10 mg Tablet 10 mg PO DAILY 30 Days Qty: 30 0RF Date of admission: 04/15/24 15:52 Primary Care Provider: Cullen Jeong Admitting Provider: Nicole Klein V. Attending physician on admission: Meri Boyce Condition: Improved Quality VTE Prophylaxis VTE prophylaxis: pharmacologic ordered Hospitalist MIPS Heart Failure (Exclusion) Patient has history of Heart Transplant or Left Ventricular Assistive Device?: No IF YES, STOP HERE Heart Failure (Qualifier) Patient has current or prior documentation of LVEF less than or equal to 40%, or mod/servere depressed LVSF?: No IF NO, STOP HERE
[2024-04-17] MEDS: SERTRALINE HCL 25 MG TABLET PO (20:37)
[2024-04-17] MEDS: AMOXICILLIN/CLAVULANATE K 875-125 MG TAB 1 TABLET PO (20:37)
[2024-04-18] VITALS (10 sets, daily range): BP systolic 121–147; BP diastolic 51–74; PULSE 82–96; RESP 14–16; TEMP 36.2–37.1; O2SAT 98–100
[2024-04-18] MEDS: HYDROcodone/acetaminophen (*CRX) 7.5-325 MG TABLET 1 TAB PO ×2 (05:43→20:01)
[2024-04-18 05:44] LABS: Basophils Percent Auto 0.6 % (0.2-1.2); Eosinophils Absolute Auto 0.5 K/mm3 (0-0.3); Hematocrit 27.9 % (37.0-47.0); Hemoglobin 8.5 g/dL (12.0-15.0); Immature Granulocyte Absolute 0.06 K/mm3 (0.00-0.031); Immature Granulocyte Percent A 0.9 % (0-0.5); Lymphocytes Percent Auto 31.2 % (18.3-44.2); Mean Corpuscular HGB Conc 30.5 g/dl (32-36); Mean Corpuscular Hemoglobin 24.6 pg (26-34); Mean Corpuscular Volume 80.6 fl (80-100); Mean Platelet Volume 9.1 fl (7.4-10.4); Monocytes Absolute Auto 0.7 K/mm3 (0.1-0.6); Monocytes Percent Auto 10.2 % (2.6-8.5); Neutrophils Absolute Auto 3.5 K/mm3 (1.3-6.7); Neutrophils Percent Auto 50.1 % (45.5-73.1); Platelet Count Result 410 k/mm3 (150-375); Red Blood Count 3.46 M/mm3 (4.2-5.4); Red Cell Distribution Width 15.5 % (11.5-14.5); White Blood Count 7.1 K/mm3 (4.5-10.0)
[2024-04-18] MEDS: LEVOTHYROXINE SODIUM 125 MCG TABLET PO (05:44)
[2024-04-18 05:59] LABS: Alanine Aminotransferase 8 U/L (6-35); Albumin Level 2.5 g/dL (3.5-5.1); Alkaline Phosphatase 77 U/L (38-126); Anion Gap 6 mmol/L (4-12); Aspartate Amino Transferase 22 U/L (14-36); Bilirubin,Total 0.4 mg/dL (0.2-1.3); Blood Urea Nitrogen 43 mg/dL (7-17); Carbon Dioxide 22 mmol/L (22-30); Chloride 104 mmol/L (98-107); Estimated CRCL calculation 19 ml/min; Estimated Glomerular Filt Rate 30; Glucose 85 mg/dL (65-110); Potassium 4.3 mmol/L (3.4-5.0); Sodium 132 mmol/L (137-145)
[2024-04-18] MEDS: EZETIMIBE 10 MG TABLET PO (09:28)
[2024-04-18] MEDS: AMOXICILLIN/CLAVULANATE K 875-125 MG TAB 1 TABLET PO ×2 (09:28→20:00)
[2024-04-18] MEDS: AZITHROMYCIN 250 MG TABLET 500 MG PO (09:28)
[2024-04-18] MEDS: PANTOPRAZOLE 40 MG TABLET PO (09:29)
[2024-04-18] MEDS: APIXABAN 2.5 MG TABLET PO ×2 (09:29→20:01)
--- NOTE | 2024-04-18 11:43 | P.PNIM_ITS ---
Progress Note: A&P Assessment and Plan (1) Urinary tract infection: Code(s): N39.0 - Urinary tract infection, site not specified Status: Ruled-out Assessment and Plan: * UA showing turbid appearance, urine pH greater than 9.0, 4+ urine protein, trace urine glucose, 3+ urine blood, positive nitrate, 3+ leukocytes, 21-50 urine RBC, 10-15 urine WBC. * urine culture still pending * Blood cultures showing no growth to date on preliminary read * patient was started on Augmentin and Azithromycin to ESBL in the urine on previous culture * CT of the chest abdomen pelvis showed moderate right hydronephrosis despite right internal urinary stent, pyelonephritis, cystitis, severe left renal atrophy * WBC down to 7.1 today (2) Pyelonephritis: Code(s): N12 - Tubulo-interstitial nephritis, not specified as acute or chronic Status: Acute Assessment and Plan: see above plan of care (3) Lung infiltrate: Code(s): R91.8 - Other nonspecific abnormal finding of lung field Status: Acute Assessment and Plan: * chest x-ray shown mild infiltrate in the left mid and lower lung zone * CT of the chest abdomen and pelvis shown interstitial pneumonia type pulmonary interstitial fibrosis, no active pneumonia * Crackles noted on the right lower lobe * continue Augmentin and azithromycin (4) CKD (chronic kidney disease): Qualifiers: Chronic kidney disease stage: stage 4 (severe) Qualified Code(s): N18.4 - Chronic kidney disease, stage 4 (severe) Code(s): N18.9 - Chronic kidney disease, unspecified Status: Acute Assessment and Plan: * creatinine currently 1.6 * baseline appears to be 1.6-1.7 * EGFR 30 * patient was given 2 L normal saline while in the ED * continue to trend * CT of the chest abdomen and pelvis shows severe left renal atrophy, moderate right hydronephrosis despite right internal urinary stent (5) History of cerebrovascular accident (CVA) with residual deficit: Code(s): I69.30 - Unspecified sequelae of cerebral infarction Status: Chronic Assessment and Plan: * supportive care * patient is bedbound and uses corey lift at baseline * currently on Eliquis (6) CAD (coronary artery disease): Code(s): I25.10 - Atherosclerotic heart disease of [place] coronary artery without angina pectoris Status: Acute Assessment and Plan: * continues Zeita * CT of the chest abdomen and pelvis shows severe atherosclerotic calcification of the coronary arteries, thoracic and abdominal aorta, mesenteric vessels and renal arteries (7) Failure to thrive: Status: Acute Assessment and Plan: * Extreme weakness and muscular deconditioning * Case management following * Family discussing option of hospice Time Spent With Patient Time with patient: Greater than 35 minutes Subjective Date/time seen: 04/18/24 11:43 Interval history: Interval history: This is an 88-year-old female who presented to the hospital 04/15/2024 with altered mental status. Workup in the hospital included a chest x-ray which showed a questionable mild infiltrate in the left mid and lower lung. Chest/abdomen/ pelvis CT shown pulmonary interstitial fibrosis, no active pneu monia, severe atherosclerotic calcification of the coronary arteries, thoracic and abdominal aorta, mesenteric vessels and renal arteries, severe left renal atrophy, moderate right hydronephrosis despite right internal urinary stent, pyelonephritis, mild thickening of urinary bladder wall suggesting cystitis, prominent amount of fecal matter in the rectum and colon without bowel obstruction or free air, mild sigmoid diverticulosis, small sliding hiatal hernia. Initial labs showed a white blood cell count of 12.7, hemoglobin 9.6, INR 1.8, sodium 132, potassium 5.8, bicarb 19, creatinine 1.9, EGFR 25, troponin was negative, lipase 65. UA showed turbid appearance, greater than 9.0 urine pH, 4+ urine protein, trace glucose, 3+ urine blood, positive nitrate, 3+ leukocyte, 21-50 urine RBC, 10-15 urine WBC. Urine and blood cultures were obtained and are pending. Past urine culture on 01/01/2024 showed E coli that with resistance. patient was given 2 L normal saline, half an amp of D50, 10 units insulin, 40 mg IV push Lasix, Rocephin and azithromycin while in the ED. Subjective: Patient alert to voice. Reporting back pain today. Labs reviewed. Review of Systems Review of Systems: ROS unobtainable: Yes unobtainable due to mental status (obtundation) Constitutional: Constitutional: Reports as per HPI and Reports no additional constitutional complaints Eyes: Eyes: Reports as per HPI and Reports no additional eye complaints ENT: Reports system reviewed and no additional complaints, except as documented and Reports as per HPI Cardiovascular: Cardiovascular: Reports as per HPI and Reports no additional cardiovascular complaints Respiratory: Respiratory: Reports as per HPI and Reports no additional respiratory complaints Gastrointestinal: Gastrointestinal: Reports as per HPI and Reports no additional gastrointestinal complaints Genitourinary: Genitourinary: Reports no additional female genitourinary complaints and Reports as per HPI Musculoskeletal: Musculoskeletal: Reports no additional musculoskeletal complaints and Reports as per HPI Integumentary/Breasts: Skin/Breast: Reports system reviewed and no additional complaints, except as docu and Reports as per HPI Neurologic: Reports system reviewed and no additional complaints, except as documented and Reports as per HPI Psychiatric: Psychiatric: Reports no additional psychiatric complaints and Reports as per HPI Exam Narrative: General: In no acute distress, well nourished Cardiac: Normal S1 and S2. No murmur, gallops or friction rubs, peripheral pulses intact. Respiratory: Lungs clear to auscultation, no adventitious lung sounds, currently on room air Gastrointestinal: soft, non-distended, non-tender, normoactive bowel sounds. : voiding without difficulty. Neuro: Alert and oriented x4 Objective Data Vital Signs Vital Signs: Vital Signs - 24 hr 04/17/24 12:01 04/17/24 14:00 04/17/24 16:03 Temperature 97.5 F L Pulse Rate 95 92 97 Respiratory Rate 16 Blood Pressure 121/47 L Pulse Oximetry 98 Oxygen Delivery 04/17/24 21:41 04/17/24 20:00 04/17/24 20:00 Temperature 97.7 F Pulse Rate 94 98 Respiratory Rate 18 Blood Pressure 131/55 L Pulse Oximetry 99 Oxygen Delivery Room Air 04/18/24 00:00 04/18/24 04:00 04/18/24 05:51 Temperature 97.2 F L Pulse Rate 93 87 95 Respiratory Rate 16 Blood Pressure 147/70 H Pulse Oximetry 99 Oxygen Delivery 04/18/24 09:30 04/18/24 08:00 Temperature Pulse Rate 84 Respiratory Rate Blood Pressure Pulse Oximetry Oxygen Delivery Room Air Intake/Output Intake/Output: Intake & Output 04/15/24 04/16/24 04/17/24 04/18/24 23:59 23:59 23:59 23:59 Intake Total 1509.2 1307 610 220 Output Total 600 600 750 300 Balance 909.2 707 -140 -80 Meds/Results Medications: Active Medications Generic Name Dose Route Start Last Admin Trade Name Freq PRN Reason Stop Dose Admin Acetaminophen 500 mg 04/15/24 02:59 Acetaminophen 500 Mg Tablet PO Q6H PRN Pain 1-3 Hydrocodone Bitart/Acetaminophen 1 tab 04/15/24 02:59 04/18/24 05:43 Hydrocodone/Acetaminophen (*Crx) 7.5-325 Mg Tablet PO 1 tab Q4H PRN Administration pain 4-6 Amoxicillin/Clavulanate Potassium 1 tablet 04/17/24 21:00 04/18/24 09:28 Amoxicillin/Clavulanate K 875-125 Mg Tab PO 1 tablet Q12HR CHIRAG Administration Apixaban 2.5 mg 04/15/24 09:00 04/18/24 09:29 Apixaban 2.5 Mg Tablet PO 2.5 mg Q12HR CHIRAG Administration Bisacodyl 5 mg 04/15/24 02:59 Bisacodyl 5 Mg Tablet Ec PO DAILY PRN Constipation Ezetimibe 10 mg 04/15/24 09:00 04/18/24 09:28 Ezetimibe 10 Mg Tablet PO 10 mg DAILY CHIRAG Administration Levothyroxine Sodium 125 mcg 04/15/24 06:30 04/18/24 05:44 Levothyroxine Sodium 125 Mcg Tablet PO 125 mcg DAILY@0630 CHIRAG Administration Pantoprazole Sodium 40 mg 04/15/24 09:00 04/18/24 09:29 Pantoprazole 40 Mg Tablet PO 40 mg QAM CHIRAG Administration Polyethylene Glycol 17 gm 04/15/24 02:59 Polyethylene Glycol 3350 17 Gm Powd.Pack PO QAM PRN Constipation Sertraline HCl 25 mg 04/15/24 21:00 04/17/24 20:37 Sertraline Hcl 25 Mg Tablet PO 25 mg HS CHIRAG Administration Radiology Results: ITS Impressions Chest X-Ray 04/14/24 19:06 IMPRESSION: Question of mild infiltrate in the left mid and lower lung zones; Limited portable study Chest/Abdomen/Pelvis CT 04/14/24 21:19 IMPRESSIONS: Usual interstitial pneumonia type pulmonary interstitial fibrosis; no active pneumonia is evident Severe atherosclerotic calcification of the coronary arteries, thoracic and abdominal aorta, mesenteric vessels and renal arteries Status post cholecystectomy Severe left renal atrophy Moderate right hydronephrosis despite right internal urinary stent Perinephric stranding and periureteral stranding on the right suggesting pyelonephritis Mild thickening of urinary bladder wall, suggesting possible cystitis Status post hysterectomy Small sliding hiatal hernia Prominent amount of fecal material in the rectum and colon seminal no bowel obstruction or free air Mild sigmoid diverticulosis; no evidence of diverticulitis Labs Labs: Laboratory Results - last 24 hr 04/18/24 05:20 WBC 7.1 RBC 3.46 L Hgb 8.5 L Hct 27.9 L MCV 80.6 MCH 24.6 L MCHC 30.5 L RDW 15.5 H Plt Count 410 H MPV 9.1 Immature Gran % (Auto) 0.9 H Neut % (Auto) 50.1 Lymph % (Auto) 31.2 [place] % (Auto) 10.2 H Eos % (Auto) 7.0 H Baso % (Auto) 0.6 Lymph # (Auto) 2.20 [place] # (Auto) 0.7 H Eos # (Auto) 0.5 H Baso # (Auto) 0.0 Abs Immat Gran (auto) 0.06 H Absolute Neuts (auto) 3.5 Absolute Nucleated RBC 0.000 Nucleated RBC % 0.0 Sodium 132 L Potassium 4.3 Chloride 104 Carbon Dioxide 22 Anion Gap 6 BUN 43 H Creatinine 1.60 H Estim Creat Clear Calc 19 Estimated GFR 30 L Glucose 85 Calcium 8.0 L Total Bilirubin 0.4 AST 22 ALT 8 Alkaline Phosphatase 77 Total Protein 5.0 L Albumin 2.5 L Quality VTE Prophylaxis VTE prophylaxis: pharmacologic ordered
[2024-04-18] MEDS: ACETAMINOPHEN 500 MG TABLET PO (12:31)
[2024-04-18] MEDS: SERTRALINE HCL 25 MG TABLET PO (20:01)
[2024-04-19] VITALS (8 sets, daily range): BP systolic 125–132; BP diastolic 51–56; PULSE 79–95; RESP 14–16; TEMP 36.2–36.8; O2SAT 99–100
[2024-04-19] MEDS: HYDROcodone/acetaminophen (*CRX) 7.5-325 MG TABLET 1 TAB PO ×3 (01:12→14:08)
[2024-04-19 05:14] LABS: Basophils Absolute Auto 0.1 K/mm3 (0.0-0.1); Basophils Percent Auto 0.6 % (0.2-1.2); Eosinophils Absolute Auto 0.5 K/mm3 (0-0.3); Eosinophils Percent Auto 5.5 % (0-4.4); Hematocrit 26.3 % (37.0-47.0); Hemoglobin 7.9 g/dL (12.0-15.0); Immature Granulocyte Absolute 0.06 K/mm3 (0.00-0.031); Immature Granulocyte Percent A 0.7 % (0-0.5); Lymphocytes Absolute Auto 2.57 K/mm3 (0.9-3.2); Lymphocytes Percent Auto 29.6 % (18.3-44.2); Mean Corpuscular Hemoglobin 24.2 pg (26-34); Mean Corpuscular Volume 80.4 fl (80-100); Mean Platelet Volume 9.1 fl (7.4-10.4); Monocytes Absolute Auto 0.8 K/mm3 (0.1-0.6); Monocytes Percent Auto 9.6 % (2.6-8.5); Neutrophils Absolute Auto 4.7 K/mm3 (1.3-6.7); Platelet Count Result 366 k/mm3 (150-375); Red Blood Count 3.27 M/mm3 (4.2-5.4); Red Cell Distribution Width 15.4 % (11.5-14.5); White Blood Count 8.7 K/mm3 (4.5-10.0)
[2024-04-19 05:24] LABS: Alanine Aminotransferase 7 U/L (6-35); Albumin Level 2.3 g/dL (3.5-5.1); Alkaline Phosphatase 73 U/L (38-126); Anion Gap 7 mmol/L (4-12); Aspartate Amino Transferase 20 U/L (14-36); Bilirubin,Total 0.3 mg/dL (0.2-1.3); Blood Urea Nitrogen 40 mg/dL (7-17); Calcium 7.9 mg/dL (8.4-10.2); Carbon Dioxide 22 mmol/L (22-30); Chloride 103 mmol/L (98-107); Estimated CRCL calculation 20 ml/min; Estimated Glomerular Filt Rate 33; Glucose 92 mg/dL (65-110); Potassium 4.5 mmol/L (3.4-5.0); Sodium 132 mmol/L (137-145)
[2024-04-19] MEDS: LEVOTHYROXINE SODIUM 125 MCG TABLET PO (05:42)
[2024-04-19] MEDS: AMOXICILLIN/CLAVULANATE K 875-125 MG TAB 1 TABLET PO ×2 (08:29→20:22)
[2024-04-19] MEDS: EZETIMIBE 10 MG TABLET PO (08:29)
[2024-04-19] MEDS: ACETAMINOPHEN 500 MG TABLET PO (08:29)
[2024-04-19] MEDS: APIXABAN 2.5 MG TABLET PO ×2 (08:29→20:22)
[2024-04-19] MEDS: PANTOPRAZOLE 40 MG TABLET PO (08:30)
[2024-04-19] MEDS: methocarbamoL 500 MG TABLET PO (14:08)
--- NOTE | 2024-04-19 15:09 | P.DS_ITS ---
DS: Admitting Diagnosis Discharge Date 04/19/24 Admitting Diagnosis Urinary tract infection hypertension history of CVA with residual deficit gait abnormality chronic kidney disease generalized weakness left-sided CVA debility lung infiltrates DS: Discharge Diagnosis Discharge Diagnosis (1) Urinary tract infection: Code(s): N39.0 - Urinary tract infection, site not specified Status: Ruled-out (2) Pyelonephritis: Code(s): N12 - Tubulo-interstitial nephritis, not specified as acute or chronic Status: Acute (3) Lung infiltrate: Code(s): R91.8 - Other nonspecific abnormal finding of lung field Status: Acute (4) CKD (chronic kidney disease): Qualifiers: Chronic kidney disease stage: stage 4 (severe) Qualified Code(s): N18.4 - Chronic kidney disease, stage 4 (severe) Code(s): N18.9 - Chronic kidney disease, unspecified Status: Acute (5) History of cerebrovascular accident (CVA) with residual deficit: Code(s): I69.30 - Unspecified sequelae of cerebral infarction Status: Chronic (6) CAD (coronary artery disease): Code(s): I25.10 - Atherosclerotic heart disease of [place] coronary artery without angina pectoris Status: Acute (7) Failure to thrive: Status: Acute DS: Summary Hospital Course Reason for hospitalization: Urinary tract infection hypertension history of CVA with residual deficit gait abnormality chronic kidney disease generalized weakness left-sided CVA debility lung infiltrates Hospital Course: This is an 88-year-old female who presented to the hospital 04/15/2024 with altered mental status. Workup in the hospital included a chest x-ray which showed a questionable mild infiltrate in the left mid and lower lung. Chest/abdomen/ pelvis CT shown pulmonary interstitial fibrosis, no active pneumonia, severe atherosclerotic calcification of the coronary arteries, thoracic and abdominal aorta, mesenteric vessels and renal arteries, severe left renal atrophy, moderate right hydronephrosis despite right internal urinary stent, pyelonephritis, mild thickening of urinary bladder wall suggesting cystitis, prominent amount of fecal matter in the rectum and colon without bowel obstruction or free air, mild sigmoid diverticulosis, small sliding hiatal hernia. Initial labs showed a white blood cell count of 12.7, hemoglobin 9.6, INR 1.8, sodium 132, potassium 5.8, bicarb 19, creatinine 1.9, EGFR 25, troponin was negative, lipase 65. UA showed turbid appearance, greater than 9.0 urine pH, 4+ urine protein, trace glucose, 3+ urine blood, positive nitrate, 3+ leukocyte, 21-50 urine RBC, 10-15 urine WBC. Urine and blood cultures were obtained and are pending. Past urine culture on 01/01/2024 showed E coli that with resistance. patient was given 2 L normal saline, half an amp of D50, 10 units insulin, 40 mg IV push Lasix, Rocephin and azithromycin while in the ED. urine and blood cultures were negative on final read. She was transitioned to Augmentin and azithromycin for community-acquired pneumonia and will need to finish these antibiotics. Vital signs are stable, she is afebrile, she is currently on room air. Family decided against hospice and will be taking her home at discharge. She is stable for discharge at this time. UTI was ruled out with blood and urine cultures being negative On final read. final diagnosis: Community-acquired pneumonia Status at Discharge Cognitive/behavioral status at discharge: alert and oriented x 2-3 Functional status at discharge: wheelchair bound Overall status at discharge: patient is progressing back to baseline Time Spent with Patient Time attestation: Total time spent providing and/or coordinating discharge services: Time spent: Greater than 30 minutes Exam Narrative: General: In no acute distress, well nourished Cardiac: Normal S1 and S2. No murmur, gallops or friction rubs, peripheral pulses intact. Respiratory: Lungs clear to auscultation, no adventitious lung sounds, currently on room air Gastrointestinal: soft, non-distended, non-tender, normoactive bowel sounds. : voiding without difficulty. Neuro: Alert and oriented x3 DS: Data Data Completed and Pending Completed studies during hospitalization: chest x-ray chest/abdomen/ pelvis CT Pending studies at discharge: none Labs on day of discharge: Labs from last 24 hours 04/19/24 05:06 WBC 8.7 RBC 3.27 L Hgb 7.9 L Hct 26.3 L MCV 80.4 MCH 24.2 L MCHC 30.0 L RDW 15.4 H Plt Count 366 MPV 9.1 Immature Gran % (Auto) 0.7 H Neut % (Auto) 54.0 Lymph % (Auto) 29.6 [place] % (Auto) 9.6 H Eos % (Auto) 5.5 H Baso % (Auto) 0.6 Lymph # (Auto) 2.57 [place] # (Auto) 0.8 H Eos # (Auto) 0.5 H Baso # (Auto) 0.1 Abs Immat Gran (auto) 0.06 H Absolute Neuts (auto) 4.7 Absolute Nucleated RBC 0.000 Nucleated RBC % 0.0 Sodium 132 L Potassium 4.5 Chloride 103 Carbon Dioxide 22 Anion Gap 7 BUN 40 H Creatinine 1.50 H Estim Creat Clear Calc 20 Estimated GFR 33 L Glucose 92 Calcium 7.9 L Total Bilirubin 0.3 AST 20 ALT 7 Alkaline Phosphatase 73 Total Protein 5.0 L Albumin 2.3 L Preliminary micro results at discharge 04/14/24 18:47 Blood Culture - Preliminary Blood 04/14/24 19:25 Blood Culture - Preliminary Blood Procedures/Treatments: none Discharge Plan Discharge Attending physician on discharge: Peter Truong Discharging Clinician: Meri Boyce Anticipated Discharge Date/Time: 04/19/24 15:08 Patient Disposition: Home Health Service Activity: as tolerated Diet: as tolerated Discharge Instructions: Per care coordination: Pt to go home with [facility] for RN/PT/OT services. *RN please fax discharge instructions to [phone]* * Finish all your antibiotic as directed even if you are feeling better. * You were negative for UTI * You are being treated for bacterial pneumonia * Follow up with your primary care doctor in 1 week. Patient Instructions: Antibiotic Form, Amoxicillin/Clavulanate Potassium (By mouth), Azithromycin (By mouth), Apixaban (By mouth), Pain Management (DC), Bacterial Pneumonia (DC) Patient Language: [place] Stand Alone Forms: General Discharge Information Follow-up/Referrals: Cullen Jeong MD [Primary Care Provider] - 1 Week Discharge Medications: New amoxicillin-pot clavulanate 875-125 mg tablet 1 tablet PO Q12H Qty: 6 0RF Continued famotidine 10 mg Tablet 10 mg PO DAILY zinc sulfate 50 mg zinc (220 mg) Tablet 50 mg PO DAILY ascorbic acid (vitamin C) 500 mg Tablet 500 mg PO DAILY esomeprazole magnesium 40 mg capsule,delayed release(DR/EC) 40 mg PO DAILY sertraline 25 mg tablet 25 mg PO HS bisacodyl 5 mg Tablet,Delayed Release (Dr/Ec) 5 mg PO DAILY PRN (Reason: Constipation) polyethylene glycol 3350 [Miralax] 17 gram powder in packet 17 g PO QAM PRN (Reason: Constipation) hydrocodone-acetaminophen 7.5-325 mg tablet 1 tablet PO Q4H PRN (Reason: pain) methocarbamol 500 mg tablet 500 mg PO BID acetaminophen 500 mg Tablet 500 mg PO Q6H PRN (Reason: Pain) Eliquis 2.5 mg Tablet 2.5 mg PO BID Qty: 60 0RF levothyroxine [Synthroid] 125 mcg Tablet 125 mcg PO DAILY@0630 30 Days Qty: 30 0RF ezetimibe [Zetia] 10 mg Tablet 10 mg PO DAILY 30 Days Qty: 30 0RF Date of admission: 04/15/24 15:52 Primary Care Provider: Cullen Jeong Admitting Provider: Nicole Klein V. Attending physician on admission: Meri Boyce Condition: Improved Quality VTE Prophylaxis VTE prophylaxis: pharmacologic ordered
[2024-04-19] MEDS: SERTRALINE HCL 25 MG TABLET PO (20:22)
== END 2024-04-19 21:35 | disposition home health service (06) | DRG 194 ==
LOC: ANHED 20:24 → ANH2MED 23:02
PROVIDERS: Admitting Provider Internal Medicine; Emergency Provider Registered Nurse; PCP Family Medicine; Visit Provider Nurse Practitioner Acute Care
DX: J18.9 Pneumonia, unspecified organism (principal); I13.0 Hypertensive heart and chronic kidney disease with heart failure and stage 1 through stage 4 chronic kidney disease, or unspecified chronic kidney disease; N12 Tubulo-interstitial nephritis, not specified as acute or chronic; N18.4 Chronic kidney disease, stage 4 (severe); E03.9 Hypothyroidism, unspecified; E11.22 Type 2 diabetes mellitus with diabetic chronic kidney disease; F41.9 Anxiety disorder, unspecified; I50.9 Heart failure, unspecified; I25.10 Atherosclerotic heart disease of native coronary artery without angina pectoris; H40.9 Unspecified glaucoma; Z66 Do not resuscitate; Z86.718 Personal history of other venous thrombosis and embolism; Z79.01 Long term (current) use of 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; Z86.73 Personal history of transient ischemic attack (TIA), and cerebral infarction without residual deficits; Z98.42 Cataract extraction status, left eye; Z98.41 Cataract extraction status, right eye; Z95.5 Presence of coronary angioplasty implant and graft; Z90.49 Acquired absence of other specified parts of digestive tract; Z96.1 Presence of intraocular lens; Z96.651 Presence of right artificial knee joint
CPT/HCPCS: 36415; 71045; 71250; 74176; 80053; 81001; 82550; 82948; 83605; 83690; 84443; 84484; 85025; 85610; 85730; 87040; 87086; 87088; 93005; 96361; 96365; 96366; 96367; 96375; 96376; 99285; A9270; G0378; J0456; J0696; J1815; J1940; J2185; J7030

== ENCOUNTER 2024-05-23 15:58 | Inpatient (IN) | payer MEDICARE, SELFPAY ==
--- NOTE | ~2024-05-23 | XR_ITS ---
XR hip RT 2V w AP pelvis Ordering provider: Akilah Sparks PA-C History: . hip pain . Comparison: March 12, 2020 FINDINGS: BONES: No acute fracture or dislocation. HIP JOINT SPACES: Severe osteoarthritic changes of both hips. SACROILIAC JOINT SPACES/LUMBAR SPINE: The sacroiliac joint spaces are normal. Mild degenerative farias es of the visualized lower lumbar spine. PUBIC SYMPHYSIS: Normal. SOFT TISSUES: Right double-J stent. Atherosclerotic changes of the aorta and iliac arteries. IVC filt er is noted. IMPRESSION: No acute osseous abnormality pelvis and right hip. Reviewed, dictated and finalized at location A. CENTER DISPATCHER
--- NOTE | ~2024-05-23 | US_ITS ---
RIGHT UPPER EXTREMITY VENOUS ULTRASOUND Ordering provider: Akilah Sparks PA-C History: . edema, erythema . Comparison: None. FINDINGS: --JUGULAR: Patent and free of thrombus. Normal compressibility, phasic flow and augmentation. --SUBCLAVIAN: Patent and free of thrombus. Normal compressibility, phasic flow and augmentation. --AXILLARY: Patent and free of thrombus. Normal compressibility, phasic flow and augmentation. --BRACHIAL: Patent and free of thrombus. Normal compressibility, phasic flow and augmentation. --CEPHALIC: Patent and free of thrombus. Normal compressibility, phasic flow and augmentation. --BASILIC: Patent and free of thrombus. Normal compressibility, phasic flow and augmentation. --RADIAL: Patent and free of thrombus. Normal compressibility, phasic flow and augmentation. --ULNAR: Patent and free of thrombus. Normal compressibility, phasic flow and augmentation. IMPRESSION: Negative right upper extremity venous US. No deep vein thrombosis. Reviewed, dictated and finalized at location A. WEAVER HELPER
--- NOTE | ~2024-05-23 | XR_ITS ---
XR chest 1V Ordering provider: Akilah Sparks PA-C History: 88 years Female with . weakness . Comparison: April 14, 2024 FINDINGS: MEDIASTINUM: The cardiac silhouette is slightly enlarged. Prominent left hilum. LUNGS: No infiltrates, effusions or pneumothorax. Bilateral interstitial changes. Opacity in the left midzone which may be a nodule. 3 months follow-up advised. OTHER: No free air under the diaphragm. Degenerative changes of the spine. Bilateral shoulder osteoar thritic changes. IMPRESSION: No acute cardiopulmonary pathology. Reviewed, dictated and finalized at location A. ING MACHINE ADJUSTER
[2024-05-23 16:08] VITALS: BP 124/80; PULSE 74; RESP 14; TEMP 36.6; O2SAT 100
--- NOTE | 2024-05-23 16:26 | PC.NURSE ---
Pt. arrives with 16 maori chronic hendrix catheter in place. Hendrix removed and replaced with 16 maori hendrix upon arrival to ER.
--- NOTE | 2024-05-23 17:17 | ECG_ITS ---
Test Date: 2024-05-23 18:15:47 Measurements Intervals [place] Rate: 80 P: 15 MS: 194 QRS: -28 QRSD: 93 T: 79 QT: 357 QTc: 414 Interpretive Statements SINUS RHYTHM WITH OCCASIONAL VENTRICULAR PREMATURE COMPLEXES POSSIBLE ANTERIOR MYOCARDIAL INFARCTION , PROBABLY OLD [30 ms Q WAVE IN V3/V4, OR R < 0.2 mV IN V4] MODERATE T-WAVE ABNORMALITY, CONSIDER LATERAL ISCHEMIA [-0.1+ mV T WAVE IN I/aVL/V5/V6] Electronically Signed On 05-27-2024 14:37:55 ORDERLIES TEACHER by Gerson Neumann M.D.
--- NOTE | 2024-05-23 17:20 | ED.EXTPRO ---
HPI - Extremity Problem General Chief complaint: Extremity Problem,Nontraumatic Stated complaint: R hip pain Time Seen by Provider: 05/23/24 17:08 Source: patient and EMS Mode of arrival: EMS Limitations: other (poor historian) History of Present Illness HPI Narrative: This is an 88-year-old female that presents to the emergency department for evaluation of right hip pain. Patient is a poor historian. Reports she is unsure why she is here. With movement she does endorse some right hip pain, otherwise has no focal complaints. Noted to have swelling and redness to the right upper extremity. Wound noted to the right lower leg as well as sacrum. No family in the room for further history Related Data Home Medications ?Medication ?Instructions ?Recorded ?Confirmed ?Last Taken ?Type acetaminophen 500 mg tablet 500 mg PO Q6H PRN Pain 12/27/23 04/14/24 Unknown History ascorbic acid (vitamin C) 500 mg 500 mg PO DAILY 04/14/24 04/14/24 Unknown History tablet bisacodyl 5 mg tablet,delayed 5 mg PO DAILY PRN Constipation 04/14/24 04/14/24 Unknown History release esomeprazole magnesium 40 mg 40 mg PO DAILY 04/14/24 04/14/24 Unknown History capsule,delayed release famotidine 10 mg tablet 10 mg PO DAILY 04/14/24 04/14/24 Unknown History polyethylene glycol 3350 17 gram 17 g PO QAM PRN Constipation 04/14/24 04/14/24 Unknown History oral powder packet (Miralax) zinc sulfate 50 mg zinc (220 mg) 50 mg PO DAILY 04/14/24 04/14/24 Unknown History tablet methocarbamol 500 mg tablet 500 mg PO BID 04/16/24 04/16/24 Unknown History Allergies Allergy/AdvReac Type Severity Reaction Status Date / Time atorvastatin Allergy Unknown ache Verified 04/14/24 22:02 Review of Systems Review of Systems: ROS unobtainable: Yes unobtainable due to mental status PMFSH Past Medical History Medical History Anxiety and depression CAD (coronary artery disease) Cervical myofascial pain syndrome CHF (congestive heart failure) Echocardiogram 06/20/2016: Grade 1 diastolic dysfunction, EF 74%, mild enlargement left atrium Chronic indwelling Peterson catheter Chronic interstitial cystitis 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 mellitus With baseline creatinine between 1.2 and 1.5 DVT, lower extremity, recurrent Left lower extremity distant past, right femoral in lower extremity veins May 2020 Essential hypertension Gastritis Gastritis/duodenitis 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 Hypertension 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 Neck pain, chronic Occlusion and stenosis of basilar artery Osteoarthritis 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, acute TIA (transient ischemic attack) Vision disturbance glaucoma retinal detachment sp cataract extraction bilateral Surgical History Surgical History H/O inguinal hernia repair History of appendectomy History of bladder suspension procedure 2012 and 2013 History of cystoscopy With biopsy of bladder lesion x2 History of heart artery stent (~2006) 4 stents History of hysterectomy Hx of cholecystectomy Status post cataract extraction of both eyes with insertion of intraocular lens Status post right knee replacement Family History Family History Father Pancreas cancer COPD (chronic obstructive pulmonary disease) Mother Acute myocardial infarction Sibling Hypertension Social History Social History Social History: The patient lives in a senior apartment but is independent living. She has been since around 2018. 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 Code status: DNR/DNI (per patient report, confirmed 12/07/23) Surrogate decision maker: Daksha (daughter) Smoking status: Never smoker Substance use type: does not use Do You Feel Safe in your Home?: Yes Lack of Transportation: No Lack of Food: Never True Current Housing: I Have Housing Concerned About Future Housing: No Difficulty Paying Gas/Electric Bills: No Difficulty Paying for Meds: No Currently Unemployed: No Education: High School Diploma/GED Difficulty w/ Childcare or Family Care: No Living arrangements: with family Occupation/Education: retired Gender identity (if verbalized by the patient): Female Sexual Orientation (if Verbalized by the Patient): Straight or Heterosexual Spiritual care concerns: No Agree to blood products: Yes Exam Narrative: GENERAL: Elderly, well-nourished, and in no acute distress. HEAD: Normocephalic, atraumatic. EYES: PERRLA and EOMI. ENT: Nares clear, no rhinorrhea or epistaxis. Mucous membranes moist. Oropharynx without tonsillar hypertrophy exudate or other lesions. NECK: Supple. No adenopathy or masses. CHEST: Clear to auscultation. No respiratory distress. No wheezes rales or rhonchi HEART: Regular rate and rhythm. No murmur heard. Normal peripheral pulses. ABDOMEN: Soft, nontender, nondistended, normal active bowel sounds. EXTREMITIES: Decreased active ROM in the right upper and lower extremity. Edema and redness to the right upper extremity. SKIN: Warm, dry, no rash. Sacral decubitus ulcer present without surrounding erythema. NEURO: No focal deficits. Alert and oriented x2. CN II-XII grossly intact PSYCH: Normal mood and affect Course Course Emergency Course: Patient updated on workup and recommendation for admission Consultations Consultation #1: Spoke with hospitalist about patient and workup who accepts admission. Would like Meropenem for antibiotics to treat for cellulitis as well as UTI based on previous cultures Date: 05/23/24 Vital Signs Vital signs: Vital Signs Temperature 98 F 05/23/24 16:08 Pulse Rate 74 05/23/24 16:08 Respiratory Rate 14 05/23/24 16:08 Blood Pressure 124/80 05/23/24 16:08 Pulse Oximetry 100 05/23/24 16:08 Oxygen Delivery Room Air 05/23/24 16:08 Temperature 98 F 05/23/24 16:08 Pulse Rate 92 05/23/24 19:32 Respiratory Rate 16 05/23/24 19:32 Blood Pressure 121/82 05/23/24 19:32 Pulse Oximetry 98 05/23/24 19:32 Oxygen Delivery Room Air 05/23/24 16:08 MDM - Extremity (Nontraumatic) MDM Narrative Medical decision making narrative: Patient presents to the emergency department for evaluation of right hip pain. Noted to have swelling and redness to the right upper extremity upon arrival. Patient is afebrile and nontoxic appearing. Her vitals are stable. CBC with leukocytosis to 14.8. Hemoglobin appears stable. Kidney function appears stable. Urine with evidence of infection, she does have a chronic indwelling Peterson catheter. This will be sent for culture. Blood cultures obtained. Right hip/pelvic x-ray without acute osseous abnormalities. Chest x-ray without acute cardiopulmonary abnormality. Right upper extremity venous Doppler without evidence of DVT. Patient updated on workup and recommendation for admission. Spoke with hospitalist about patient and workup who accepts admission. Would like Meropenem for antibiotics to treat for cellulitis as well as UTI based on previous cultures Differential Diagnosis Differential diagnosis: Likely cellulitis, deep venous thrombosis of upper extremity and other (UTI, osteoarthritis, hip fracture) Lab Data Attestation: I reviewed the patient's lab results. 05/23/24 17:36 05/23/24 17:36 Labs: Lab Results 05/23/24 05/23/24 05/23/24 Range/Units 17:36 18:22 18:53 WBC 14.8 H (4.5-10.0) K/mm3 RBC 3.46 L (4.2-5.4) M/mm3 Hgb 8.3 L (12.0-15.0) g/dL Hct 28.3 L (37.0-47.0) % MCV 81.8 (80-100) fl MCH 24.0 L (26-34) pg MCHC 29.3 L (32-36) g/dl RDW 20.6 H (11.5-14.5) % Plt Count 481 H (150-375) k/mm3 MPV 10.3 (7.4-10.4) fl Immature Gran % (Auto) 0.3 (0-0.5) % Neut % (Auto) 57.5 (45.5-73.1) % Lymph % (Auto) 30.7 (18.3-44.2) % [place] % (Auto) 6.1 (2.6-8.5) % Eos % (Auto) 4.7 H (0-4.4) % Baso % (Auto) 0.7 (0.2-1.2) % Lymph # (Auto) 4.54 H (0.9-3.2) K/mm3 [place] # (Auto) 0.9 H (0.1-0.6) K/mm3 Eos # (Auto) 0.7 H (0-0.3) K/mm3 Baso # (Auto) 0.1 (0.0-0.1) K/mm3 Abs Immat Gran (auto) 0.05 H (0.00-0.031) K/mm3 Absolute Neuts (auto) 8.5 H (1.3-6.7) K/mm3 Absolute Nucleated RBC 0.000 (0.0-0.012) K/mm3 Nucleated RBC % 0.0 (0.0-0.2) % PT 18.1 H (11.1-14.7) Seconds INR 1.4 APTT 38.5 H (22.3-36.8) Seconds Sodium 138 (137-145) mmol/L Potassium 4.0 (3.4-5.0) mmol/L Chloride 111 H (98-107) mmol/L Carbon Dioxide 25 (22-30) mmol/L Anion Gap 2 L (4-12) mmol/L BUN 29 H D (7-17) mg/dL Creatinine 1.10 H (0.7-1.0) mg/dL Estim Creat Clear Calc Not Reportable Estimated GFR 47 L (59 - ) Glucose 117 H (65-110) mg/dL Lactic Acid 1.0 (0.7-2.0) mmol/L Calcium 8.5 (8.4-10.2) mg/dL Total Bilirubin 0.3 (0.2-1.3) mg/dL AST 21 (14-36) U/L ALT 11 (6-35) U/L Alkaline Phosphatase 86 (38-126) U/L C-Reactive Protein 2.1 H (<1.0) mg/dL Total Protein 6.0 L (6.3-8.2) g/dL Albumin 2.8 L (3.5-5.1) g/dL Urine Color [place] H (Yellow) Urine Appearance Turbid H (Clear) Urine pH 7.0 (5.0-9.0) Ur Specific [place] 1.017 (1.001-1.035) Urine Protein 2+ H (Negative) mg/dL Urine Glucose (UA) Negative (Negative) mg/dL Urine Ketones Negative (Negative) mg/dL Ur Blood (Man) 3+ H (Negative) Urine Nitrate Positive H (Negative) Urine Bilirubin Negative (Negative) Urine Urobilinogen 0.2 (<2.0) mg/dL Add Ur Microanalysis Reviewed Leukocyte Esterase Rfl 3+ H (Negative) DAVID/UL Urine RBC >100 H (0-2) /hpf Urine WBC >100 H (0-3) /hpf Ur Squamous Epith Cells Occasional (Few) /hpf Urine Bacteria 1+ H /hpf Urine Casts 11-20 Urine Yeast (Budding) Present H (None) /hpf Influenza A (RT-PCR) Negative (Negative) Influenza B (RT-PCR) Negative (Negative) RSV (RT-PCR) Negative (Negative) SARS-CoV-2 RNA (RT-PCR) Negative (Negative) Imaging Data Radiologist's impression: ITS Impressions Hip/Pelvis X-Ray 05/23/24 18:45 IMPRESSION: No acute osseous abnormality pelvis and right hip. Chest X-Ray 05/23/24 18:47 IMPRESSION: No acute cardiopulmonary pathology. Venous Doppler Study 05/23/24 19:20 IMPRESSION: Negative right upper extremity venous US. No deep vein thrombosis. ECG Data EKG #1: ECG completion date: 05/23/24 EKG Interpretation: normal rate, sinus rhythm, PVCs, no ST changes and normal QT Critical Care Time Critical Care Time Critical Care Time: No Discharge Plan Discharge Clinical Impression: Cellulitis of right upper extremity Osteoarthritis of right hip Qualifiers: Osteoarthritis type: unspecified Qualified Code(s): M16.11 - Unilateral primary osteoarthritis, right hip Patient Disposition: Still a Patient Condition: Stable Patient Language: Bruneian Prescriptions: No Action famotidine 10 mg Tablet 10 mg PO DAILY zinc sulfate 50 mg zinc (220 mg) Tablet 50 mg PO DAILY ascorbic acid (vitamin C) 500 mg Tablet 500 mg PO DAILY esomeprazole magnesium 40 mg capsule,delayed release(DR/EC) 40 mg PO DAILY bisacodyl 5 mg Tablet,Delayed Release (Dr/Ec) 5 mg PO DAILY PRN (Reason: Constipation) polyethylene glycol 3350 [Miralax] 17 gram powder in packet 17 g PO QAM PRN (Reason: Constipation) methocarbamol 500 mg tablet 500 mg PO BID amoxicillin-pot clavulanate 875-125 mg tablet 1 tablet PO Q12H Qty: 6 0RF levothyroxine [Synthroid] 125 mcg tablet 125 mcg PO DAILY@0630 30 Days Qty: 90 1RF sertraline 25 mg tablet 25 mg PO HS Qty: 90 1RF hydrocodone-acetaminophen 7.5-325 mg tablet 1 tablet PO Q4H PRN (Reason: pain) Qty: 120 0RF doxycycline monohydrate 100 mg capsule 100 mg PO DAILY Qty: 10 0RF (DME) Alternating Pressure Pad See Rx Instructions .Route .MEDSUPPLY Qty: 1 0RF Rx Instructions: As directed acetaminophen 500 mg Tablet 500 mg PO Q6H PRN (Reason: Pain) Eliquis 2.5 mg Tablet 2.5 mg PO BID Qty: 60 0RF ezetimibe [Zetia] 10 mg Tablet 10 mg PO DAILY 30 Days Qty: 30 0RF Follow-up/Referrals: Cullen Jeong MD [Primary Care Provider] -
--- NOTE | 2024-05-23 17:40 | PC.NURSE ---
Pt. to CT.
[2024-05-23 17:43] LABS: Basophils Absolute Auto 0.1 K/mm3 (0.0-0.1); Basophils Percent Auto 0.7 % (0.2-1.2); Eosinophils Absolute Auto 0.7 K/mm3 (0-0.3); Eosinophils Percent Auto 4.7 % (0-4.4); Hematocrit 28.3 % (37.0-47.0); Hemoglobin 8.3 g/dL (12.0-15.0); Immature Granulocyte Absolute 0.05 K/mm3 (0.00-0.031); Immature Granulocyte Percent A 0.3 % (0-0.5); Lymphocytes Absolute Auto 4.54 K/mm3 (0.9-3.2); Lymphocytes Percent Auto 30.7 % (18.3-44.2); Mean Corpuscular HGB Conc 29.3 g/dl (32-36); Mean Corpuscular Volume 81.8 fl (80-100); Mean Platelet Volume 10.3 fl (7.4-10.4); Monocytes Absolute Auto 0.9 K/mm3 (0.1-0.6); Monocytes Percent Auto 6.1 % (2.6-8.5); Neutrophils Absolute Auto 8.5 K/mm3 (1.3-6.7); Neutrophils Percent Auto 57.5 % (45.5-73.1); Platelet Count Result 481 k/mm3 (150-375); Red Blood Count 3.46 M/mm3 (4.2-5.4); Red Cell Distribution Width 20.6 % (11.5-14.5); White Blood Count 14.8 K/mm3 (4.5-10.0)
[2024-05-23 17:55] LABS: Alanine Aminotransferase 11 U/L (6-35); Albumin Level 2.8 g/dL (3.5-5.1); Alkaline Phosphatase 86 U/L (38-126); Anion Gap 2 mmol/L (4-12); Aspartate Amino Transferase 21 U/L (14-36); Bilirubin,Total 0.3 mg/dL (0.2-1.3); Blood Urea Nitrogen 29 mg/dL (7-17); CRP 2.1 mg/dL (<1.0); Calcium 8.5 mg/dL (8.4-10.2); Carbon Dioxide 25 mmol/L (22-30); Chloride 111 mmol/L (98-107); Estimated Glomerular Filt Rate 47; Glucose 117 mg/dL (65-110); Sodium 138 mmol/L (137-145)
[2024-05-23 18:21] LABS: INR 1.4; Prothrombin Time 18.1 Seconds (11.1-14.7)
[2024-05-23 18:22] LABS: Partial Thromboplastin Time 38.5 Seconds (22.3-36.8)
--- NOTE | 2024-05-23 18:32 | PC.NURSE ---
Pt. poked multiple times. Unable to collect a complete set of blood cultures. TAURUS Lara to bedside for labs via ultrasound.
[2024-05-23 18:44] LABS: Bacteria Urine 1+ /hpf; Budding Yeast Urine Present /hpf; Need Manual Microscopic Reviewed; RBC Urine >100 /hpf (0-2); Squamous Epithelial Cell Urine Occasional /hpf (Few); WBC Urine >100 /hpf (0-3)
[2024-05-23 18:45] LABS: Add Urine Microscopic? YES; Appearance Urine Turbid (Clear); Bilirubin Urine Negative (Negative); Blood Urine 3+ (Negative); Color Urine Orange (Yellow); Glucose Urine UA Negative (Negative); Ketones Urine Negative (Negative); Leukocyte Esterase Ur 3+ LEU/UL (Negative); Nitrate Urine Positive (Negative); Protein Urine 2+ mg/dL (Negative); Specific Grav Ur 1.017 (1.001-1.035); Urobilinogen Urine 0.2 mg/dL (<2.0)
[2024-05-23 19:07] LABS: Influenza A QL RT-PCR Negative (Negative); Influenza B QL RT-PCR Negative (Negative); RSV RNA, RT-PCR Negative (Negative); SARS-CoV-2 RNA PCR Negative (Negative)
[2024-05-23 19:32] VITALS: BP 121/82; PULSE 92; RESP 16; O2SAT 98
[2024-05-23] MEDS: ceFAZolin 1 GM/NS 50 ML 1 GM/50 ML BAG IVPB (20:39)
[2024-05-23 22:18] VITALS: BMI 20.7
[2024-05-23 23:00] VITALS: BP 115/67; PULSE 83; RESP 18; TEMP 36.4; O2SAT 100
[2024-05-23] MEDS: MEROPENEM 1 GM/NS 100 ML 1 GM/100 ML BAG IVPB (23:19)
[2024-05-24] MEDS: HYDROcodone/acetaminophen (*CRX) 7.5-325 MG TABLET 1 TAB PO ×4 (03:47→17:24)
[2024-05-24] MEDS: LEVOTHYROXINE SODIUM 125 MCG TABLET PO (04:17)
[2024-05-24 06:00] VITALS: BP 118/43; PULSE 80; RESP 20; TEMP 36.7; O2SAT 98
[2024-05-24 06:50] LABS: Basophils Absolute Auto 0.1 K/mm3 (0.0-0.1); Eosinophils Absolute Auto 0.6 K/mm3 (0-0.3); Eosinophils Percent Auto 5.5 % (0-4.4); Hematocrit 29.3 % (37.0-47.0); Hemoglobin 8.7 g/dL (12.0-15.0); Immature Granulocyte Absolute 0.04 K/mm3 (0.00-0.031); Immature Granulocyte Percent A 0.4 % (0-0.5); Lymphocytes Absolute Auto 2.36 K/mm3 (0.9-3.2); Lymphocytes Percent Auto 20.9 % (18.3-44.2); Mean Corpuscular HGB Conc 29.7 g/dl (32-36); Mean Corpuscular Hemoglobin 24.2 pg (26-34); Mean Corpuscular Volume 81.6 fl (80-100); Mean Platelet Volume 10.2 fl (7.4-10.4); Monocytes Absolute Auto 0.8 K/mm3 (0.1-0.6); Monocytes Percent Auto 7.1 % (2.6-8.5); Neutrophils Absolute Auto 7.4 K/mm3 (1.3-6.7); Neutrophils Percent Auto 65.1 % (45.5-73.1); Platelet Count Result 424 k/mm3 (150-375); Red Blood Count 3.59 M/mm3 (4.2-5.4); Red Cell Distribution Width 20.6 % (11.5-14.5); White Blood Count 11.3 K/mm3 (4.5-10.0)
[2024-05-24 07:04] LABS: Alanine Aminotransferase 10 U/L (6-35); Albumin Level 2.6 g/dL (3.5-5.1); Alkaline Phosphatase 94 U/L (38-126); Anion Gap 4 mmol/L (4-12); Aspartate Amino Transferase 21 U/L (14-36); Bilirubin,Total 0.3 mg/dL (0.2-1.3); Blood Urea Nitrogen 27 mg/dL (7-17); CRP 2.3 mg/dL (<1.0); Calcium 8.5 mg/dL (8.4-10.2); Carbon Dioxide 22 mmol/L (22-30); Chloride 113 mmol/L (98-107); Estimated CRCL calculation 28 ml/min; Estimated Glomerular Filt Rate 47; Glucose 113 mg/dL (65-110); Magnesium 1.8 mg/dL (1.6-2.3); Potassium 3.9 mmol/L (3.4-5.0); Sodium 139 mmol/L (137-145)
[2024-05-24 07:18] LABS: Procalcitonin 0.1 ng/mL
[2024-05-24 07:46] LABS: Anisocytosis 1+; Hypochromasia 1+; Platelet Estimate Increased (Adequate); Schistocytes None Seen
[2024-05-24 07:52] LABS: Erythrocyte Sedimentation Rate 29 mm/hr (0-20)
[2024-05-24 08:00] VITALS: BP 120/58; PULSE 79; RESP 19; TEMP 36.7; O2SAT 97
[2024-05-24] MEDS: EZETIMIBE 10 MG TABLET PO (08:30)
[2024-05-24] MEDS: PANTOPRAZOLE 40 MG TABLET PO (08:31)
[2024-05-24] MEDS: FAMOTIDINE 10 MG TABLET PO (08:31)
[2024-05-24] MEDS: methocarbamoL 500 MG TABLET PO ×2 (08:31→17:23)
[2024-05-24] MEDS: APIXABAN 2.5 MG TABLET PO ×2 (08:31→20:34)
[2024-05-24] MEDS: MEROPENEM 1 GM/NS 100 ML 1 GM/100 ML BAG IVPB ×3 (08:32→23:33)
[2024-05-24] MEDS: ZINC SULFATE 220 MG CAPSULE PO (08:48)
--- NOTE | 2024-05-24 10:44 | P.HP_ITS ---
H&P: HPI History of Present Illness Date/Time: 05/24/24 10:44 Chief Complaint: Patient is an 88 year old female that presented to the ER for evaluation of right hip pain and swelling to right upper extremity for the past week. Patient reports that she lives with her daughter and is wheelchair bound. ED: CBC with leukocytosis to 14.8. Hemoglobin appears stable. Kidney function appears stable. Urine with evidence of infection (Positive nitrates, 3+ blood, >100 RBC, >100 WBC, and Bacteria 1 +), she does have a chronic indwelling Peterson catheter. This will be sent for culture. Blood cultures obtained. Right hip/pelvic x-ray without acute osseous abnormalities. Chest x-ray without acute cardiopulmonary abnormality. Right upper extremity venous Doppler without evidence of DVT. Started on Meropenem for antibiotics to treat for cellulitis as well as UTI based on previous cultures. Review of Systems Review of Systems: All systems reviewed & are unremarkable except as noted in HPI and below PMFSH Past Medical History Medical History Anxiety and depression CAD (coronary artery disease) Cervical myofascial pain syndrome CHF (congestive heart failure) Echocardiogram 06/20/2016: Grade 1 diastolic dysfunction, EF 74%, mild enlargement left atrium Chronic indwelling Peterson catheter Chronic interstitial cystitis 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 mellitus With baseline creatinine between 1.2 and 1.5 DVT, lower extremity, recurrent Left lower extremity distant past, right femoral in lower extremity veins May 2020 Essential hypertension Gastritis Gastritis/duodenitis 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 Hypertension 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 long-term (current) use of 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 Neck pain, chronic Occlusion and stenosis of basilar artery Osteoarthritis 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, acute TIA (transient ischemic attack) Vision disturbance glaucoma retinal detachment sp cataract extraction bilateral Surgical History Surgical History H/O inguinal hernia repair History of appendectomy History of bladder suspension procedure 2012 and 2013 History of cystoscopy With biopsy of bladder lesion x2 History of heart artery stent (~2006) 4 stents History of hysterectomy Hx of cholecystectomy Status post cataract extraction of both eyes with insertion of intraocular lens Status post right knee replacement Family History Family History Father Pancreas cancer COPD (chronic obstructive pulmonary disease) Mother Acute myocardial infarction Sibling Hypertension Social History Social History Social History: The patient lives in a senior apartment but is independent living. She has been since around 2018. 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 Code status: DNR/DNI (per patient report, confirmed 12/07/23) Surrogate decision maker: Daksha (daughter) Smoking status: Never smoker Alcohol intake: never Substance use: never Substance use type: does not use Do You Feel Safe in your Home?: Yes Lack of Transportation: YES Lack of Food: Never True Current Housing: I Have Housing Concerned About Future Housing: No Difficulty Paying Gas/Electric Bills: No Difficulty Paying for Meds: No Currently Unemployed: No Education: Don't Know Difficulty w/ Childcare or Family Care: No Living arrangements: with family Occupation/Education: retired Gender identity (if verbalized by the patient): Female Sexual Orientation (if Verbalized by the Patient): Straight or Heterosexual Spiritual care concerns: No Agree to blood products: Yes Meds Home Medications and Allergies Home Medications ?Medication ?Instructions ?Recorded ?Confirmed ?Type acetaminophen 500 mg tablet 500 mg PO Q6H PRN Pain 12/27/23 05/23/24 History apixaban 2.5 mg tablet (Eliquis) 2.5 mg PO BID #60 tabs 01/12/24 05/23/24 Rx ezetimibe 10 mg tablet (Zetia) 10 mg PO DAILY 30 days #30 tabs 01/12/24 05/23/24 Rx bisacodyl 5 mg tablet,delayed 5 mg PO DAILY PRN Constipation 04/14/24 05/23/24 History release esomeprazole magnesium 40 mg 40 mg PO DAILY 04/14/24 05/23/24 History capsule,delayed release famotidine 10 mg tablet 10 mg PO DAILY 04/14/24 05/23/24 History polyethylene glycol 3350 17 gram 17 g PO QAM PRN Constipation 04/14/24 05/23/24 History oral powder packet (Miralax) zinc sulfate 50 mg zinc (220 mg) 50 mg PO DAILY 04/14/24 05/23/24 History tablet methocarbamol 500 mg tablet 500 mg PO BID 04/16/24 05/23/24 History levothyroxine 125 mcg tablet 125 mcg PO DAILY@0630 30 days #90 04/25/24 05/23/24 Rx (Synthroid) tabs sertraline 25 mg tablet 25 mg PO HS #90 tabs 04/25/24 05/23/24 Rx hydrocodone 7.5 mg-acetaminophen 1 tablet PO Q4H PRN pain #120 tabs 05/02/24 05/23/24 Rx 325 mg tablet Alternating Pressure Pad #1 ea 05/16/24 05/23/24 Rx Allergies Allergy/AdvReac Type Severity Reaction Status Date / Time atorvastatin Allergy Unknown ache Verified 05/24/24 00:05 Vital Signs Vital Signs - 24 hr 05/23/24 16:08 05/23/24 19:32 05/23/24 23:00 Temperature 98 F 97.6 F Pulse Rate 74 92 83 Respiratory Rate 14 16 18 Blood Pressure 124/80 121/82 115/67 Pulse Oximetry 100 98 100 Oxygen Delivery Room Air 05/24/24 00:28 05/24/24 06:00 05/24/24 08:00 Temperature 98.0 F 98.1 F Pulse Rate 80 79 Respiratory Rate 20 19 Blood Pressure 118/43 L 120/58 L Pulse Oximetry 98 97 Oxygen Delivery Room Air Exam Const: General: no acute distress and uncomfortable Eyes: Sclera: sclerae normal Pupils: Equal, round and reactive pupils present Neck: Neck: supple Resp: Effort & Inspection: normal respiratory effort Auscultation: clear to auscultation bilaterally Cardio: Rate: regular rate Rhythm: regular rhythm GI: GI Palp: Yes Soft to palpation Auscultation: normal bowel sounds Urinary Catheter: Urinary Catheter: patent and draining Skin: Other: sacral wound with yeast maceration 7 cm x 14 cm. Left lower leg dry scab area. Neuro: Speech: normal speech Extrem: Other: 2 + cellulitis to right arm with redness . + radial pulse bilaterally. Decreased active ROM in the right upper and lower extremity. Psych: Mental Status: mental status grossly normal Affect: normal affect H&P: Results Labs Labs: Short CBC 05/23/24 05/24/24 Range/Units 17:36 06:10 WBC 14.8 H 11.3 H (4.5-10.0) K/mm3 Hgb 8.3 L 8.7 L (12.0-15.0) g/dL Hct 28.3 L 29.3 L (37.0-47.0) % Plt Count 481 H 424 H (150-375) k/mm3 BMP 05/23/24 05/24/24 17:36 06:10 Sodium 138 139 Potassium 4.0 3.9 Chloride 111 H 113 H Carbon Dioxide 25 22 BUN 29 H D 27 H Creatinine 1.10 H 1.10 H Glucose 117 H 113 H Calcium 8.5 8.5 Liver Function 05/23/24 05/24/24 Range/Units 17:36 06:10 Total Bilirubin 0.3 0.3 (0.2-1.3) mg/dL AST 21 21 (14-36) U/L ALT 11 10 (6-35) U/L Alkaline Phosphatase 86 94 (38-126) U/L Albumin 2.8 L 2.6 L (3.5-5.1) g/dL Urine 05/23/24 Range/Units 18:22 Urine Color [place] H (Yellow) Urine Appearance Turbid H (Clear) Urine pH 7.0 (5.0-9.0) Ur Specific [place] 1.017 (1.001-1.035) Urine Protein 2+ H (Negative) mg/dL Urine Glucose (UA) Negative (Negative) mg/dL Assessment and Plan Assessment and plan (1) Urinary tract infection associated with indwelling urethral catheter: Code(s): T83.511A - Infection and inflammatory reaction due to indwelling urethral catheter, initial encounter; N39.0 - Urinary tract infection, site not specified Status: Acute Assessment and Plan: * Meropenem 1 gram IVPB q 8. * Encourage water intake to flush kidneys. * UA-Positive nitrates, 3+ blood, >100 RBC, >100 WBC, and Bacteria 1 +. * Urine culture pending. * WBC improvin.8>11.3. (2) Neck pain, chronic: Code(s): M54.2 - Cervicalgia; G89.29 - Other chronic pain Status: Acute Assessment and Plan: * Acetaminophen 500 mg PO q 6 PRN, Hydrocodone-Acetaminophen 7.5-325 mg 1 tab q 4 PRN, and Tramadol 25 mg PO q 4 PRN. * Methocarbamol 500 mg PO BID. * Use cervical pillow for support. (3) DVT, lower extremity, recurrent: Code(s): I82.409 - Acute embolism and thrombosis of unspecified deep veins of unspecified lower extremity Status: Acute Assessment and Plan: * Continue Apixaban 2.5 mg PO q 12. (4) Cellulitis of right upper extremity: Code(s): L03.113 - Cellulitis of right upper limb Status: Acute Assessment and Plan: * Meropenem 1 1 gram IVPB q 8. * Elevate arm. * Monitor perfusion. (5) Sacral wound: Code(s): S31.000A - Unspecified open wound of lower back and pelvis without penetration into retroperitoneum, initial encounter Status: Acute Assessment and Plan: * Wound care consulted. * Turn q 2 hours * Antifungal barrier cream to treat, protect, and promote healing. (6) CKD (chronic kidney disease): Qualifiers: Chronic kidney disease stage: stage 4 (severe) Qualified Code(s): N18.4 - Chronic kidney disease, stage 4 (severe) Code(s): N18.9 - Chronic kidney disease, unspecified Status: Acute Assessment and Plan: * BUN 27, Creatinine 1.10, and GFR 47. (7) 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: Code(s): E03.9 - 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, unspecified Status: Acute Assessment and Plan: * Continue Levothyroxine (8) History of CVA (cerebrovascular accident): Code(s): Z86.73 - Personal history of transient ischemic attack (TIA), and cerebral infarction without residual deficits Status: Acute Quality VTE Prophylaxis VTE prophylaxis: pharmacologic ordered Hospitalist MIPS Advance Care Plan I have confirmed that the patient's Advanced Care Plan is present, code status is documented, or surrogate decision maker is listed in patient medical record.: Yes Medication Reconciliation I have utilized all available resources to obtain, update and review the patients current medications (includes all prescriptions, OTC, herbals, cannabis, and nutritional supplements).: Yes
--- NOTE | 2024-05-24 11:44 | PCOTNOTE ---
Patient is a poor historian. Called patient's daughter, Romi, who reports patient is mostly bed-bound at home. They use a corey to get her up to a wheelchair sometimes. Patient is not a candidate for skilled therapy. Left a voicemail with the provider regarding this information. Discharging therapy orders.
[2024-05-24 11:55] VITALS: BMI 20.7
[2024-05-24] MEDS: BISACODYL 5 MG TABLET EC PO (11:59)
[2024-05-24] MEDS: polyethylene glycoL 3350 17 GM POWD.PACK PO (11:59)
[2024-05-24 12:00] VITALS: BP 121/64; PULSE 74; RESP 18; TEMP 36.6; O2SAT 96
[2024-05-24 14:00] VITALS: BP 107/56; PULSE 85; RESP 19; TEMP 36.6; O2SAT 100
[2024-05-24 16:00] VITALS: BP 112/60; PULSE 82; RESP 19; TEMP 36.5; O2SAT 100
[2024-05-24 20:00] VITALS: BP 118/45; PULSE 90; RESP 14; TEMP 36.6; O2SAT 96
[2024-05-24] MEDS: SERTRALINE HCL 25 MG TABLET PO (20:36)
[2024-05-25 06:34] LABS: Basophils Absolute Auto 0.1 K/mm3 (0.0-0.1); Eosinophils Absolute Auto 0.7 K/mm3 (0-0.3); Eosinophils Percent Auto 6.9 % (0-4.4); Hematocrit 24.8 % (37.0-47.0); Hemoglobin 7.5 g/dL (12.0-15.0); Immature Granulocyte Absolute 0.05 K/mm3 (0.00-0.031); Immature Granulocyte Percent A 0.5 % (0-0.5); Lymphocytes Absolute Auto 3.04 K/mm3 (0.9-3.2); Lymphocytes Percent Auto 32.4 % (18.3-44.2); Mean Corpuscular HGB Conc 30.2 g/dl (32-36); Mean Corpuscular Hemoglobin 24.2 pg (26-34); Mean Platelet Volume 10.5 fl (7.4-10.4); Monocytes Absolute Auto 0.7 K/mm3 (0.1-0.6); Monocytes Percent Auto 7.5 % (2.6-8.5); Neutrophils Absolute Auto 4.9 K/mm3 (1.3-6.7); Neutrophils Percent Auto 51.7 % (45.5-73.1); Platelet Count Result 373 k/mm3 (150-375); Red Cell Distribution Width 20.6 % (11.5-14.5); White Blood Count 9.4 K/mm3 (4.5-10.0)
[2024-05-25] MEDS: LEVOTHYROXINE SODIUM 125 MCG TABLET PO (06:38)
[2024-05-25 06:40] VITALS: BP 135/53; PULSE 79; RESP 18; TEMP 36.8; O2SAT 99
[2024-05-25 07:01] LABS: Alanine Aminotransferase 7 U/L (6-35); Albumin Level 2.5 g/dL (3.5-5.1); Alkaline Phosphatase 78 U/L (38-126); Anion Gap 2 mmol/L (4-12); Aspartate Amino Transferase 18 U/L (14-36); Bilirubin,Total 0.4 mg/dL (0.2-1.3); Blood Urea Nitrogen 30 mg/dL (7-17); CRP 3.6 mg/dL (<1.0); Calcium 8.2 mg/dL (8.4-10.2); Carbon Dioxide 22 mmol/L (22-30); Chloride 113 mmol/L (98-107); Estimated CRCL calculation 31 ml/min; Estimated Glomerular Filt Rate 52; Glucose 90 mg/dL (65-110); Magnesium 1.9 mg/dL (1.6-2.3); Potassium 3.8 mmol/L (3.4-5.0); Sodium 137 mmol/L (137-145)
[2024-05-25 07:03] LABS: Procalcitonin 0.1 ng/mL
[2024-05-25 08:08] LABS: Erythrocyte Sedimentation Rate 69 mm/hr (0-20)
[2024-05-25] MEDS: MEROPENEM 1 GM/NS 100 ML 1 GM/100 ML BAG IVPB ×3 (08:37→23:48)
[2024-05-25] MEDS: PANTOPRAZOLE 40 MG TABLET PO (08:38)
[2024-05-25] MEDS: EZETIMIBE 10 MG TABLET PO (08:38)
[2024-05-25] MEDS: APIXABAN 2.5 MG TABLET PO ×2 (08:38→21:16)
[2024-05-25] MEDS: ZINC SULFATE 220 MG CAPSULE PO (08:38)
[2024-05-25] MEDS: methocarbamoL 500 MG TABLET PO ×2 (08:38→15:39)
[2024-05-25] MEDS: FAMOTIDINE 10 MG TABLET PO (08:38)
--- NOTE | 2024-05-25 11:53 | P.PNIM_ITS ---
Progress Note: A&P Assessment and Plan (1) Urinary tract infection associated with indwelling urethral catheter: Code(s): T83.511A - Infection and inflammatory reaction due to indwelling urethral catheter, initial encounter; N39.0 - Urinary tract infection, site not specified Status: Acute Assessment and Plan: * Meropenem 1 gram IVPB q 8. * Encourage water intake to flush kidneys. * UA-Positive nitrates, 3+ blood, >100 RBC, >100 WBC, and Bacteria 1 +. * Urine culture grew proteus mirabilis * WBC improvin.8>11.3>9.4. (2) Neck pain, chronic: Code(s): M54.2 - Cervicalgia; G89.29 - Other chronic pain Status: Acute Assessment and Plan: * Acetaminophen 500 mg PO q 6 PRN, Hydrocodone-Acetaminophen 7.5-325 mg 1 tab q 4 PRN, and Tramadol 25 mg PO q 4 PRN. * Methocarbamol 500 mg PO BID. * Use cervical pillow for support. (3) DVT, lower extremity, recurrent: Code(s): I82.409 - Acute embolism and thrombosis of unspecified deep veins of unspecified lower extremity Status: Acute Assessment and Plan: * Continue Apixaban 2.5 mg PO q 12. (4) Cellulitis of right upper extremity: Code(s): L03.113 - Cellulitis of right upper limb Status: Acute Assessment and Plan: * Meropenem 1 gram IVPB q 8. * Elevate arm. * Monitor perfusion. (5) Sacral wound: Code(s): S31.000A - Unspecified open wound of lower back and pelvis without penetration into retroperitoneum, initial encounter Status: Acute Assessment and Plan: * Wound care consulted. * Sacral wound culture grew pseudomonas aeruginosa, awaiting susceptibilities. * Meropenem 1 gram IVPB q 8. * Turn q 2 hours * Antifungal barrier cream to treat, protect, and promote healing. (6) CKD (chronic kidney disease): Qualifiers: Chronic kidney disease stage: stage 4 (severe) Qualified Code(s): N18.4 - Chronic kidney disease, stage 4 (severe) Code(s): N18.9 - Chronic kidney disease, unspecified Status: Acute Assessment and Plan: * 05/25/24: BUN 30, Creatinine 1.00, and GFR 52. * 05/24/24: BUN 27, Creatinine 1.10, and GFR 47. (7) 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: Code(s): E03.9 - 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, unspecified Status: Acute Assessment and Plan: * Continue Levothyroxine (8) History of CVA (cerebrovascular accident): Code(s): Z86.73 - Personal history of transient ischemic attack (TIA), and cerebral infarction without residual deficits Status: Acute Subjective Date/time seen: 05/25/24 11:53 Interval history: Patient lying in bed. Patient reports pain in neck is a 4 , constant, and aching. Patient denies chest pain, palpitations, nausea, vomiting, headache, or dizziness. Review of Systems Review of Systems: All systems reviewed & are unremarkable except as noted in HPI and below Exam Const: General: no acute distress and uncomfortable Eyes: Sclera: sclerae normal Resp: Effort & Inspection: normal respiratory effort Auscultation: clear to auscultation bilaterally Cardio: Rate: regular rate Rhythm: regular rhythm GI: GI Palp: Yes Soft to palpation Auscultation: normal bowel sounds Urinary Catheter: Urinary Catheter: patent and draining Skin: Other: sacral wound with yeast maceration 7 cm x 14 cm. Left lower leg dry scab area. Neuro: Speech: normal speech Extrem: Other: 2 + cellulitis to right arm with redness . + radial pulse bilaterally. Decreased active ROM in the right upper and lower extremity. Psych: Mental Status: mental status grossly normal Affect: normal affect Objective Data Vital Signs Vital Signs: Vital Signs - 24 hr 05/24/24 12:00 05/24/24 14:00 05/24/24 16:00 Temperature 97.8 F 97.9 F 97.7 F Pulse Rate 74 85 82 Respiratory Rate 18 19 19 Blood Pressure 121/64 107/56 L 112/60 Pulse Oximetry 96 100 100 Oxygen Delivery 05/24/24 20:00 05/24/24 20:00 05/25/24 06:40 Temperature 97.8 F 98.3 F Pulse Rate 90 90 79 Respiratory Rate 14 14 18 Blood Pressure 118/45 L 135/53 L Pulse Oximetry 96 96 99 Oxygen Delivery Room Air 05/25/24 08:00 Temperature Pulse Rate Respiratory Rate Blood Pressure Pulse Oximetry Oxygen Delivery Room Air Intake/Output Intake/Output: Intake & Output 01/06/1505/23/24 05/24/24 05/25/24 23:59 23:59 23:59 23:59 Intake Total 150 782 540 Output Total 525 500 Balance 150 257 40 Meds/Results Medications: Active Medications Generic Name Dose Route Start Last Admin Trade Name Freq PRN Reason Stop Dose Admin Acetaminophen 500 mg 05/24/24 01:23 Acetaminophen 500 Mg Tablet PO Q6H PRN Pain 1-3 Hydrocodone Bitart/Acetaminophen 1 tab 05/24/24 01:23 05/24/24 17:24 Hydrocodone/Acetaminophen (*Crx) 7.5-325 Mg Tablet PO 1 tab Q4H PRN Administration Pain Rated 6 or Greater Apixaban 2.5 mg 05/24/24 09:00 05/25/24 08:38 Apixaban 2.5 Mg Tablet PO 2.5 mg Q12HR CHIRAG Administration Bisacodyl 5 mg 05/24/24 01:23 05/24/24 11:59 Bisacodyl 5 Mg Tablet Ec PO 5 mg DAILY PRN Administration Constipation Ezetimibe 10 mg 05/24/24 09:00 05/25/24 08:38 Ezetimibe 10 Mg Tablet PO 10 mg DAILY CHIRAG Administration Famotidine 10 mg 05/24/24 09:00 05/25/24 08:38 Famotidine 10 Mg Tablet PO 10 mg DAILY CHIRAG Administration Meropenem 1 gm in 100 mls @ 200 mls/hr 05/24/24 08:00 05/25/24 09:15 IVPB Infused Q8H CHIRAG Infusion Levothyroxine Sodium 125 mcg 05/24/24 06:30 05/25/24 06:38 Levothyroxine Sodium 125 Mcg Tablet PO 125 mcg DAILY@0630 CHIRAG Administration Methocarbamol 500 mg 05/24/24 09:00 05/25/24 08:38 Methocarbamol 500 Mg Tablet PO 500 mg BID CHIRAG Administration Pantoprazole Sodium 40 mg 05/24/24 09:00 05/25/24 08:38 Pantoprazole 40 Mg Tablet PO 40 mg QAM CHIRAG Administration Polyethylene Glycol 17 gm 05/24/24 01:23 05/24/24 11:59 Polyethylene Glycol 3350 17 Gm Powd.Pack PO 17 gm QAM PRN Administration Constipation Sertraline HCl 25 mg 05/24/24 21:00 05/24/24 20:36 Sertraline Hcl 25 Mg Tablet PO 25 mg HS CHIRAG Administration Tramadol HCl 25 mg 05/24/24 11:47 Tramadol Hcl (*Crx) 25 Mg Tablet PO Q4H PRN Pain Rated 4-6 Zinc Sulfate 220 mg 05/24/24 09:00 05/25/24 08:38 Zinc Sulfate 220 Mg Capsule PO 220 mg DAILY CHIRAG Administration Radiology Results: ITS Impressions Hip/Pelvis X-Ray 05/23/24 18:45 IMPRESSION: No acute osseous abnormality pelvis and right hip. Chest X-Ray 05/23/24 18:47 IMPRESSION: No acute cardiopulmonary pathology. Venous Doppler Study 05/23/24 19:20 IMPRESSION: Negative right upper extremity venous US. No deep vein thrombosis. Labs Labs: Laboratory Results - last 24 hr 05/25/24 05/25/24 05:56 05:57 WBC 9.4 RBC 3.10 L Hgb 7.5 L Hct 24.8 L MCV 80.0 MCH 24.2 L MCHC 30.2 L RDW 20.6 H Plt Count 373 MPV 10.5 H Immature Gran % (Auto) 0.5 Neut % (Auto) 51.7 Lymph % (Auto) 32.4 [place] % (Auto) 7.5 Eos % (Auto) 6.9 H Baso % (Auto) 1.0 Lymph # (Auto) 3.04 [place] # (Auto) 0.7 H Eos # (Auto) 0.7 H Baso # (Auto) 0.1 Abs Immat Gran (auto) 0.05 H Absolute Neuts (auto) 4.9 Absolute Nucleated RBC 0.000 Nucleated RBC % 0.0 ESR 69 H Sodium 137 Potassium 3.8 Chloride 113 H Carbon Dioxide 22 Anion Gap 2 L BUN 30 H Creatinine 1.00 Estim Creat Clear Calc 31 Estimated GFR 52 L Glucose 90 Calcium 8.2 L Magnesium 1.9 Total Bilirubin 0.4 AST 18 ALT 7 Alkaline Phosphatase 78 C-Reactive Protein 3.6 H Total Protein 5.0 L Albumin 2.5 L Procalcitonin 0.1 Quality VTE Prophylaxis VTE prophylaxis: pharmacologic ordered
[2024-05-25 15:35] VITALS: BP 138/55; PULSE 102; RESP 18; TEMP 36.7; O2SAT 100
[2024-05-25 20:00] VITALS: PULSE 95; RESP 14; O2SAT 98
[2024-05-25] MEDS: SERTRALINE HCL 25 MG TABLET PO (21:16)
[2024-05-25 22:23] VITALS: BP 139/50; PULSE 95; RESP 14; TEMP 36.8; O2SAT 98
[2024-05-26 05:24] VITALS: BP 139/55; PULSE 82; RESP 16; TEMP 36.8; O2SAT 97
[2024-05-26] MEDS: HYDROcodone/acetaminophen (*CRX) 7.5-325 MG TABLET 1 TAB PO ×3 (05:27→23:49)
[2024-05-26] MEDS: LEVOTHYROXINE SODIUM 125 MCG TABLET PO (05:28)
[2024-05-26 07:05] LABS: Basophils Absolute Auto 0.1 K/mm3 (0.0-0.1); Basophils Percent Auto 0.8 % (0.2-1.2); Eosinophils Absolute Auto 0.6 K/mm3 (0-0.3); Eosinophils Percent Auto 6.1 % (0-4.4); Hematocrit 26.6 % (37.0-47.0); Hemoglobin 8.1 g/dL (12.0-15.0); Immature Granulocyte Absolute 0.04 K/mm3 (0.00-0.031); Immature Granulocyte Percent A 0.4 % (0-0.5); Lymphocytes Absolute Auto 3.15 K/mm3 (0.9-3.2); Mean Corpuscular HGB Conc 30.5 g/dl (32-36); Mean Corpuscular Hemoglobin 24.5 pg (26-34); Mean Corpuscular Volume 80.4 fl (80-100); Mean Platelet Volume 10.2 fl (7.4-10.4); Monocytes Absolute Auto 0.9 K/mm3 (0.1-0.6); Neutrophils Absolute Auto 4.3 K/mm3 (1.3-6.7); Neutrophils Percent Auto 47.7 % (45.5-73.1); Platelet Count Result 370 k/mm3 (150-375); Red Blood Count 3.31 M/mm3 (4.2-5.4); Red Cell Distribution Width 20.6 % (11.5-14.5)
[2024-05-26 07:20] LABS: Alanine Aminotransferase 6 U/L (6-35); Albumin Level 2.5 g/dL (3.5-5.1); Alkaline Phosphatase 88 U/L (38-126); Anion Gap 0 mmol/L (4-12); Aspartate Amino Transferase 18 U/L (14-36); Bilirubin,Total 0.4 mg/dL (0.2-1.3); Blood Urea Nitrogen 34 mg/dL (7-17); CRP 2.3 mg/dL (<1.0); Calcium 8.6 mg/dL (8.4-10.2); Carbon Dioxide 25 mmol/L (22-30); Chloride 111 mmol/L (98-107); Estimated CRCL calculation 28 ml/min; Estimated Glomerular Filt Rate 47; Glucose 94 mg/dL (65-110); Magnesium 1.7 mg/dL (1.6-2.3); Potassium 4.2 mmol/L (3.4-5.0); Sodium 136 mmol/L (137-145)
[2024-05-26 07:34] LABS: Erythrocyte Sedimentation Rate 47 mm/hr (0-20)
[2024-05-26 07:36] LABS: Procalcitonin 0.1 ng/mL
[2024-05-26] MEDS: PANTOPRAZOLE 40 MG TABLET PO (10:02)
[2024-05-26] MEDS: MEROPENEM 1 GM/NS 100 ML 1 GM/100 ML BAG IVPB ×3 (10:02→23:44)
[2024-05-26] MEDS: methocarbamoL 500 MG TABLET PO ×2 (10:02→16:33)
[2024-05-26] MEDS: APIXABAN 2.5 MG TABLET PO ×2 (10:02→20:00)
[2024-05-26] MEDS: FAMOTIDINE 10 MG TABLET PO (10:03)
[2024-05-26] MEDS: ZINC SULFATE 220 MG CAPSULE PO (10:03)
[2024-05-26] MEDS: EZETIMIBE 10 MG TABLET PO (10:10)
--- NOTE | 2024-05-26 11:03 | P.PNIM_ITS ---
Progress Note: A&P Assessment and Plan (1) Urinary tract infection associated with indwelling urethral catheter: Code(s): T83.511A - Infection and inflammatory reaction due to indwelling urethral catheter, initial encounter; N39.0 - Urinary tract infection, site not specified Status: Acute Assessment and Plan: * Meropenem 1 gram IVPB q 8. * Encourage water intake to flush kidneys. * UA-Positive nitrates, 3+ blood, >100 RBC, >100 WBC, and Bacteria 1 +. * Urine culture grew proteus mirabilis * WBC improvin.8>11.3>9.4>9.0. (2) Neck pain, chronic: Code(s): M54.2 - Cervicalgia; G89.29 - Other chronic pain Status: Acute Assessment and Plan: * Acetaminophen 500 mg PO q 6 PRN, Hydrocodone-Acetaminophen 7.5-325 mg 1 tab q 4 PRN, and Tramadol 25 mg PO q 4 PRN. * Methocarbamol 500 mg PO BID. * Use cervical pillow for support. (3) DVT, lower extremity, recurrent: Code(s): I82.409 - Acute embolism and thrombosis of unspecified deep veins of unspecified lower extremity Status: Acute Assessment and Plan: * Continue Apixaban 2.5 mg PO q 12. (4) Cellulitis of right upper extremity: Code(s): L03.113 - Cellulitis of right upper limb Status: Acute Assessment and Plan: * Meropenem 1 gram IVPB q 8. * Elevate arm. * Monitor perfusion. (5) Sacral wound: Code(s): S31.000A - Unspecified open wound of lower back and pelvis without penetration into retroperitoneum, initial encounter Status: Acute Assessment and Plan: * Wound care consulted. * Sacral wound culture grew pseudomonas aeruginosa, awaiting susceptibilities. * Meropenem 1 gram IVPB q 8. * Turn q 2 hours * Antifungal barrier cream to treat, protect, and promote healing. (6) CKD (chronic kidney disease): Qualifiers: Chronic kidney disease stage: stage 4 (severe) Qualified Code(s): N18.4 - Chronic kidney disease, stage 4 (severe) Code(s): N18.9 - Chronic kidney disease, unspecified Status: Acute Assessment and Plan: * 05/26/24: BUN 34, Creatinine 1.10, and GFR 47. * 05/25/24: BUN 30, Creatinine 1.00, and GFR 52. * 05/24/24: BUN 27, Creatinine 1.10, and GFR 47. (7) 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: Code(s): E03.9 - 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, unspecified Status: Acute Assessment and Plan: * Continue Levothyroxine (8) History of CVA (cerebrovascular accident): Code(s): Z86.73 - Personal history of transient ischemic attack (TIA), and cerebral infarction without residual deficits Status: Acute Subjective Date/time seen: 05/26/24 11:03 Interval history: Patient lying in bed. Patient denies chest pain, palpitations, shortness of breath, nausea, cough, headache, or dizziness. Review of Systems Review of Systems: All systems reviewed & are unremarkable except as noted in HPI and below Exam Const: General: comfortable and no acute distress Resp: Effort & Inspection: normal respiratory effort Auscultation: clear to auscultation bilaterally Cardio: Rate: regular rate Rhythm: regular rhythm GI: GI Palp: Yes Soft to palpation Auscultation: normal bowel sounds Urinary Catheter: Urinary Catheter: patent and draining Skin: Other: sacral wound with yeast maceration 7 cm x 14 cm. Left lower leg dry scab area. Neuro: Speech: normal speech Extrem: Other: 2+ cellulitis to right arm with sliight redness. + radial pulse bilaterally. Decreased active ROM in the right upper and lower extremity. Psych: Mental Status: mental status grossly normal Affect: normal affect Objective Data Vital Signs Vital Signs: Vital Signs - 24 hr 05/25/24 15:35 05/25/24 20:00 05/25/24 22:23 Temperature 98.1 F 98.2 F Pulse Rate 102 H 95 95 Respiratory Rate 18 14 14 Blood Pressure 138/55 L 139/50 L Pulse Oximetry 100 98 98 Oxygen Delivery Room Air 05/26/24 05:24 Temperature 98.3 F Pulse Rate 82 Respiratory Rate 16 Blood Pressure 139/55 L Pulse Oximetry 97 Oxygen Delivery Intake/Output Intake/Output: Intake & Output 05/23/24 05/24/24 05/25/24 05/26/24 23:59 23:59 23:59 23:59 Intake Total 150 782 760 250 Output Total 525 1100 350 Balance 150 257 -340 -100 Meds/Results Medications: Active Medications Generic Name Dose Route Start Last Admin Trade Name Freq PRN Reason Stop Dose Admin Acetaminophen 500 mg 05/24/24 01:23 Acetaminophen 500 Mg Tablet PO Q6H PRN Pain 1-3 Hydrocodone Bitart/Acetaminophen 1 tab 05/24/24 01:23 05/26/24 05:27 Hydrocodone/Acetaminophen (*Crx) 7.5-325 Mg Tablet PO 1 tab Q4H PRN Administration Pain Rated 6 or Greater Apixaban 2.5 mg 05/24/24 09:00 05/26/24 10:02 Apixaban 2.5 Mg Tablet PO 2.5 mg Q12HR CHIRAG Administration Bisacodyl 5 mg 05/24/24 01:23 05/24/24 11:59 Bisacodyl 5 Mg Tablet Ec PO 5 mg DAILY PRN Administration Constipation Ezetimibe 10 mg 05/24/24 09:00 05/26/24 10:10 Ezetimibe 10 Mg Tablet PO 10 mg DAILY CHIRAG Administration Famotidine 10 mg 05/24/24 09:00 05/26/24 10:03 Famotidine 10 Mg Tablet PO 10 mg DAILY CHIRAG Administration Meropenem 1 gm in 100 mls @ 200 mls/hr 05/24/24 08:00 05/26/24 10:02 IVPB 200 mls/hr Q8H CHIRAG Administration Levothyroxine Sodium 125 mcg 05/24/24 06:30 05/26/24 05:28 Levothyroxine Sodium 125 Mcg Tablet PO 125 mcg DAILY@0630 CHIRAG Administration Methocarbamol 500 mg 05/24/24 09:00 05/26/24 10:02 Methocarbamol 500 Mg Tablet PO 500 mg BID CHIRAG Administration Pantoprazole Sodium 40 mg 05/24/24 09:00 05/26/24 10:02 Pantoprazole 40 Mg Tablet PO 40 mg QAM CHIRAG Administration Polyethylene Glycol 17 gm 05/24/24 01:23 05/24/24 11:59 Polyethylene Glycol 3350 17 Gm Powd.Pack PO 17 gm QAM PRN Administration Constipation Sertraline HCl 25 mg 05/24/24 21:00 05/25/24 21:16 Sertraline Hcl 25 Mg Tablet PO 25 mg HS CHIRAG Administration Tramadol HCl 25 mg 05/24/24 11:47 Tramadol Hcl (*Crx) 25 Mg Tablet PO Q4H PRN Pain Rated 4-6 Zinc Sulfate 220 mg 05/24/24 09:00 05/26/24 10:03 Zinc Sulfate 220 Mg Capsule PO 220 mg DAILY CHIRAG Administration Radiology Results: ITS Impressions Hip/Pelvis X-Ray 05/23/24 18:45 IMPRESSION: No acute osseous abnormality pelvis and right hip. Chest X-Ray 05/23/24 18:47 IMPRESSION: No acute cardiopulmonary pathology. Venous Doppler Study 05/23/24 19:20 IMPRESSION: Negative right upper extremity venous US. No deep vein thrombosis. Labs Labs: Laboratory Results - last 24 hr 05/26/24 06:25 WBC 9.0 RBC 3.31 L Hgb 8.1 L Hct 26.6 L MCV 80.4 MCH 24.5 L MCHC 30.5 L RDW 20.6 H Plt Count 370 MPV 10.2 Immature Gran % (Auto) 0.4 Neut % (Auto) 47.7 Lymph % (Auto) 35.0 [place] % (Auto) 10.0 H Eos % (Auto) 6.1 H Baso % (Auto) 0.8 Lymph # (Auto) 3.15 [place] # (Auto) 0.9 H Eos # (Auto) 0.6 H Baso # (Auto) 0.1 Abs Immat Gran (auto) 0.04 H Absolute Neuts (auto) 4.3 Absolute Nucleated RBC 0.000 Nucleated RBC % 0.0 ESR 47 H Sodium 136 L Potassium 4.2 Chloride 111 H Carbon Dioxide 25 Anion Gap 0 L BUN 34 H Creatinine 1.10 H Estim Creat Clear Calc 28 Estimated GFR 47 L Glucose 94 Calcium 8.6 Magnesium 1.7 Total Bilirubin 0.4 AST 18 ALT 6 Alkaline Phosphatase 88 C-Reactive Protein 2.3 H Total Protein 6.0 L Albumin 2.5 L Procalcitonin 0.1 Quality VTE Prophylaxis VTE prophylaxis: pharmacologic ordered
[2024-05-26 14:00] VITALS: BP 144/67; PULSE 77; RESP 16; TEMP 36.2; O2SAT 99
[2024-05-26 20:00] VITALS: PULSE 77; RESP 16; O2SAT 99
[2024-05-26] MEDS: SERTRALINE HCL 25 MG TABLET PO (20:00)
[2024-05-26 22:00] VITALS: BP 135/69; PULSE 93; RESP 18; TEMP 36.9; O2SAT 99
[2024-05-27] MEDS: HYDROcodone/acetaminophen (*CRX) 7.5-325 MG TABLET 1 TAB PO ×3 (05:46→21:12)
[2024-05-27 05:47] LABS: Basophils Absolute Auto 0.1 K/mm3 (0.0-0.1); Basophils Percent Auto 0.7 % (0.2-1.2); Eosinophils Absolute Auto 0.8 K/mm3 (0-0.3); Eosinophils Percent Auto 9.6 % (0-4.4); Hematocrit 23.8 % (37.0-47.0); Hemoglobin 7.2 g/dL (12.0-15.0); Immature Granulocyte Absolute 0.04 K/mm3 (0.00-0.031); Immature Granulocyte Percent A 0.5 % (0-0.5); Lymphocytes Absolute Auto 3.29 K/mm3 (0.9-3.2); Mean Corpuscular HGB Conc 30.3 g/dl (32-36); Mean Corpuscular Hemoglobin 24.7 pg (26-34); Mean Corpuscular Volume 81.8 fl (80-100); Mean Platelet Volume 10.7 fl (7.4-10.4); Monocytes Absolute Auto 0.7 K/mm3 (0.1-0.6); Neutrophils Absolute Auto 3.2 K/mm3 (1.3-6.7); Neutrophils Percent Auto 39.2 % (45.5-73.1); Platelet Count Result 300 k/mm3 (150-375); Red Blood Count 2.91 M/mm3 (4.2-5.4)
[2024-05-27] MEDS: LEVOTHYROXINE SODIUM 125 MCG TABLET PO (05:47)
[2024-05-27 06:00] VITALS: BP 100/82; PULSE 96; RESP 16; TEMP 36.6; O2SAT 100
[2024-05-27 06:02] LABS: Alanine Aminotransferase 6 U/L (6-35); Albumin Level 2.2 g/dL (3.5-5.1); Alkaline Phosphatase 73 U/L (38-126); Anion Gap -2 mmol/L (4-12); Aspartate Amino Transferase 19 U/L (14-36); Bilirubin,Total 0.3 mg/dL (0.2-1.3); Blood Urea Nitrogen 38 mg/dL (7-17); Calcium 8.1 mg/dL (8.4-10.2); Carbon Dioxide 26 mmol/L (22-30); Chloride 109 mmol/L (98-107); Estimated CRCL calculation 31 ml/min; Estimated Glomerular Filt Rate 52; Glucose 83 mg/dL (65-110); Magnesium 1.8 mg/dL (1.6-2.3); Potassium 3.8 mmol/L (3.4-5.0); Sodium 133 mmol/L (137-145)
[2024-05-27] MEDS: APIXABAN 2.5 MG TABLET PO ×2 (08:13→21:13)
[2024-05-27] MEDS: ZINC SULFATE 220 MG CAPSULE PO (08:14)
[2024-05-27] MEDS: EZETIMIBE 10 MG TABLET PO (08:14)
[2024-05-27] MEDS: methocarbamoL 500 MG TABLET PO ×2 (08:14→17:51)
[2024-05-27] MEDS: PANTOPRAZOLE 40 MG TABLET PO (08:14)
[2024-05-27] MEDS: FAMOTIDINE 10 MG TABLET PO (08:14)
[2024-05-27] MEDS: MEROPENEM 1 GM/NS 100 ML 1 GM/100 ML BAG IVPB (08:15)
[2024-05-27] MEDS: DICLOFENAC SODIUM 1% 100 GM GEL (*BKC) 1 APPLIC TOPICAL ×4 (08:28→21:13)
--- NOTE | 2024-05-27 10:45 | P.PNIM_ITS ---
Progress Note: A&P Assessment and Plan (1) Urinary tract infection associated with indwelling urethral catheter: Code(s): T83.511A - Infection and inflammatory reaction due to indwelling urethral catheter, initial encounter; N39.0 - Urinary tract infection, site not specified Status: Acute Assessment and Plan: * Meropenem 1 gram IVPB q 8 switched today to Augmentin. * Encourage water intake to flush kidneys. * UA-Positive nitrates, 3+ blood, >100 RBC, >100 WBC, and Bacteria 1 +. * Urine culture grew proteus mirabilis * WBC improvin.8>11.3>9.4>9.0>8.0. (2) Neck pain, chronic: Code(s): M54.2 - Cervicalgia; G89.29 - Other chronic pain Status: Acute Assessment and Plan: * Acetaminophen 500 mg PO q 6 PRN, Hydrocodone-Acetaminophen 7.5-325 mg 1 tab q 4 PRN, and Tramadol 25 mg PO q 4 PRN. * Methocarbamol 500 mg PO BID. * Use cervical pillow for support. (3) DVT, lower extremity, recurrent: Code(s): I82.409 - Acute embolism and thrombosis of unspecified deep veins of unspecified lower extremity Status: Acute Assessment and Plan: * Continue Apixaban 2.5 mg PO q 12. (4) Cellulitis of right upper extremity: Code(s): L03.113 - Cellulitis of right upper limb Status: Acute Assessment and Plan: * Meropenem 1 gram IVPB q 8. * Elevate arm. * Monitor perfusion. (5) Sacral wound: Code(s): S31.000A - Unspecified open wound of lower back and pelvis without penetration into retroperitoneum, initial encounter Status: Acute Assessment and Plan: * Wound care consulted. * Sacral wound culture grew pseudomonas aeruginosa. * Meropenem 1 gram IVPB q 8 changed today to oral Levofloxacin. * Turn q 2 hours * Antifungal barrier cream to treat, protect, and promote healing. (6) CKD (chronic kidney disease): Qualifiers: Chronic kidney disease stage: stage 4 (severe) Qualified Code(s): N18.4 - Chronic kidney disease, stage 4 (severe) Code(s): N18.9 - Chronic kidney disease, unspecified Status: Acute Assessment and Plan: * 05/27/23: BUN 38, Creatinine 1.00, and GFR 52. * 05/26/24: BUN 34, Creatinine 1.10, and GFR 47. * 05/25/24: BUN 30, Creatinine 1.00, and GFR 52. * 05/24/24: BUN 27, Creatinine 1.10, and GFR 47. (7) Nausea & vomiting: Code(s): R11.2 - Nausea with vomiting, unspecified Status: Acute Assessment and Plan: * Added Ondansetron 4 mg IVP q 6 PRN. (8) 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: Code(s): E03.9 - 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, unspecified Status: Acute Assessment and Plan: * Continue Levothyroxine (9) History of CVA (cerebrovascular accident): Code(s): Z86.73 - Personal history of transient ischemic attack (TIA), and cerebral infarction without residual deficits Status: Acute Subjective Date/time seen: 05/27/24 10:45 Interval history: Patient had an episode of emesis this morning. Patient rates pain in neck is a 4 , constant, and aching. Patient denies chest pain, palpitations, headache, dizziness, nausea, or vomiting. . Review of Systems Review of Systems: All systems reviewed & are unremarkable except as noted in HPI and below Exam Const: General: no acute distress and uncomfortable Resp: Effort & Inspection: normal respiratory effort Auscultation: clear to auscultation bilaterally Cardio: Rate: regular rate Rhythm: regular rhythm GI: GI Palp: Yes Soft to palpation Auscultation: normal bowel sounds Skin: Other: sacral wound with yeast maceration 7 cm x 14 cm. Left lower leg dry scab area. Neuro: Speech: normal speech Extrem: Other: 1+ cellulitis to right arm with sliight redness. + radial pulse bilaterally. Decreased active ROM in the right upper and lower extremity. Psych: Mental Status: mental status grossly normal Affect: normal affect Objective Data Vital Signs Vital Signs: Vital Signs - 24 hr 05/26/24 14:00 05/26/24 20:00 05/26/24 22:00 Temperature 97.1 F L 98.4 F Pulse Rate 77 77 93 Respiratory Rate 16 16 18 Blood Pressure 144/67 H 135/69 Pulse Oximetry 99 99 99 Oxygen Delivery Room Air 05/27/24 06:00 Temperature 97.9 F Pulse Rate 96 Respiratory Rate 16 Blood Pressure 100/82 Pulse Oximetry 100 Oxygen Delivery Intake/Output Intake/Output: Intake & Output 05/24/24 05/25/24 05/26/24 05/27/24 23:59 23:59 23:59 23:59 Intake Total 782 760 930 350 Output Total 525 1100 1075 550 Balance 257 -340 -145 -200 Meds/Results Medications: Active Medications Generic Name Dose Route Start Last Admin Trade Name Freq PRN Reason Stop Dose Admin Acetaminophen 500 mg 05/24/24 01:23 Acetaminophen 500 Mg Tablet PO Q6H PRN Pain 1-3 Hydrocodone Bitart/Acetaminophen 1 tab 05/24/24 01:23 05/27/24 05:46 Hydrocodone/Acetaminophen (*Crx) 7.5-325 Mg Tablet PO 1 tab Q4H PRN Administration Pain Rated 6 or Greater Apixaban 2.5 mg 05/24/24 09:00 05/27/24 08:13 Apixaban 2.5 Mg Tablet PO 2.5 mg Q12HR CHIRAG Administration Bisacodyl 5 mg 05/24/24 01:23 05/24/24 11:59 Bisacodyl 5 Mg Tablet Ec PO 5 mg DAILY PRN Administration Constipation Diclofenac Sodium 1 applic 05/27/24 09:00 05/27/24 08:28 Diclofenac Sodium 1% 100 Gm Gel (*Bkc) TOPICAL 1 applic QID CHIRAG Administration Ezetimibe 10 mg 05/24/24 09:00 05/27/24 08:14 Ezetimibe 10 Mg Tablet PO 10 mg DAILY CHIRAG Administration Famotidine 10 mg 05/24/24 09:00 05/27/24 08:14 Famotidine 10 Mg Tablet PO 10 mg DAILY CHIRAG Administration Meropenem 1 gm in 100 mls @ 200 mls/hr 05/24/24 08:00 05/27/24 08:45 IVPB Infused Q8H CHIRAG Infusion Levothyroxine Sodium 125 mcg 05/24/24 06:30 05/27/24 05:47 Levothyroxine Sodium 125 Mcg Tablet PO 125 mcg DAILY@0630 CHIRAG Administration Methocarbamol 500 mg 05/24/24 09:00 05/27/24 08:14 Methocarbamol 500 Mg Tablet PO 500 mg BID CHIRAG Administration Pantoprazole Sodium 40 mg 05/24/24 09:00 05/27/24 08:14 Pantoprazole 40 Mg Tablet PO 40 mg QAM CHIRAG Administration Polyethylene Glycol 17 gm 05/24/24 01:23 05/24/24 11:59 Polyethylene Glycol 3350 17 Gm Powd.Pack PO 17 gm QAM PRN Administration Constipation Sertraline HCl 25 mg 05/24/24 21:00 05/26/24 20:00 Sertraline Hcl 25 Mg Tablet PO 25 mg HS CHIRAG Administration Tramadol HCl 25 mg 05/24/24 11:47 Tramadol Hcl (*Crx) 25 Mg Tablet PO Q4H PRN Pain Rated 4-6 Zinc Sulfate 220 mg 05/24/24 09:00 05/27/24 08:14 Zinc Sulfate 220 Mg Capsule PO 220 mg DAILY CHIRAG Administration Radiology Results: ITS Impressions Hip/Pelvis X-Ray 05/23/24 18:45 IMPRESSION: No acute osseous abnormality pelvis and right hip. Chest X-Ray 05/23/24 18:47 IMPRESSION: No acute cardiopulmonary pathology. Venous Doppler Study 05/23/24 19:20 IMPRESSION: Negative right upper extremity venous US. No deep vein thrombosis. Labs Labs: Laboratory Results - last 24 hr 05/27/24 05:04 WBC 8.0 RBC 2.91 L Hgb 7.2 L Hct 23.8 L MCV 81.8 MCH 24.7 L MCHC 30.3 L RDW 21.0 H Plt Count 300 MPV 10.7 H Immature Gran % (Auto) 0.5 Neut % (Auto) 39.2 L Lymph % (Auto) 41.0 [place] % (Auto) 9.0 H Eos % (Auto) 9.6 H Baso % (Auto) 0.7 Lymph # (Auto) 3.29 H [place] # (Auto) 0.7 H Eos # (Auto) 0.8 H Baso # (Auto) 0.1 Abs Immat Gran (auto) 0.04 H Absolute Neuts (auto) 3.2 Absolute Nucleated RBC 0.000 Nucleated RBC % 0.0 Sodium 133 L Potassium 3.8 Chloride 109 H Carbon Dioxide 26 Anion Gap -2 L BUN 38 H Creatinine 1.00 Estim Creat Clear Calc 31 Estimated GFR 52 L Glucose 83 Calcium 8.1 L Magnesium 1.8 Total Bilirubin 0.3 AST 19 ALT 6 Alkaline Phosphatase 73 Total Protein 5.0 L Albumin 2.2 L Quality VTE Prophylaxis VTE prophylaxis: pharmacologic ordered
[2024-05-27] MEDS: ONDANSETRON INJ 4 MG/2 ML VIAL IV PUSH (11:19)
[2024-05-27] MEDS: traMADol HCL (*CRX) 25 MG TABLET PO (12:55)
[2024-05-27 14:53] VITALS: BP 130/59; PULSE 98; RESP 14; TEMP 36.8; O2SAT 100
[2024-05-27 20:00] VITALS: PULSE 83; RESP 18; O2SAT 97
[2024-05-27 20:59] VITALS: BP 111/53; PULSE 83; RESP 18; TEMP 36.6; O2SAT 97
[2024-05-27] MEDS: levoFLOXacin 750 MG TABLET PO (21:12)
[2024-05-27] MEDS: SERTRALINE HCL 25 MG TABLET PO (21:12)
[2024-05-27] MEDS: AMOXICILLIN/CLAVULANATE K 875-125 MG TAB 1 TABLET PO (21:13)
[2024-05-28 04:52] VITALS: BP 131/54; PULSE 88; RESP 16; TEMP 36.7; O2SAT 100
[2024-05-28] MEDS: LEVOTHYROXINE SODIUM 125 MCG TABLET PO (05:43)
[2024-05-28] MEDS: HYDROcodone/acetaminophen (*CRX) 7.5-325 MG TABLET 1 TAB PO ×3 (05:43→17:13)
[2024-05-28 06:22] LABS: Basophils Absolute Auto 0.1 K/mm3 (0.0-0.1); Eosinophils Percent Auto 12.8 % (0-4.4); Hematocrit 26.4 % (37.0-47.0); Hemoglobin 8.1 g/dL (12.0-15.0); Immature Granulocyte Absolute 0.03 K/mm3 (0.00-0.031); Immature Granulocyte Percent A 0.4 % (0-0.5); Lymphocytes Absolute Auto 3.15 K/mm3 (0.9-3.2); Lymphocytes Percent Auto 39.9 % (18.3-44.2); Mean Corpuscular HGB Conc 30.7 g/dl (32-36); Mean Corpuscular Hemoglobin 24.7 pg (26-34); Mean Corpuscular Volume 80.5 fl (80-100); Mean Platelet Volume 9.8 fl (7.4-10.4); Monocytes Absolute Auto 0.8 K/mm3 (0.1-0.6); Monocytes Percent Auto 10.4 % (2.6-8.5); Neutrophils Absolute Auto 2.8 K/mm3 (1.3-6.7); Neutrophils Percent Auto 35.5 % (45.5-73.1); Platelet Count Result 346 k/mm3 (150-375); Red Blood Count 3.28 M/mm3 (4.2-5.4); Red Cell Distribution Width 20.6 % (11.5-14.5); White Blood Count 7.9 K/mm3 (4.5-10.0)
[2024-05-28 06:34] LABS: Alanine Aminotransferase 8 U/L (6-35); Albumin Level 2.5 g/dL (3.5-5.1); Alkaline Phosphatase 93 U/L (38-126); Anion Gap 1 mmol/L (4-12); Aspartate Amino Transferase 23 U/L (14-36); Bilirubin,Total 0.4 mg/dL (0.2-1.3); Blood Urea Nitrogen 35 mg/dL (7-17); Calcium 8.4 mg/dL (8.4-10.2); Carbon Dioxide 27 mmol/L (22-30); Chloride 105 mmol/L (98-107); Estimated CRCL calculation 29 ml/min; Estimated Glomerular Filt Rate 48; Glucose 77 mg/dL (65-110); Magnesium 1.7 mg/dL (1.6-2.3); Sodium 133 mmol/L (137-145)
[2024-05-28] MEDS: methocarbamoL 500 MG TABLET PO ×2 (09:25→17:13)
[2024-05-28] MEDS: ZINC SULFATE 220 MG CAPSULE PO (09:25)
[2024-05-28] MEDS: MAGNESIUM SULF 2 GM/WATER 50ML 2 GM/50 ML BAG IVPB (09:25)
[2024-05-28] MEDS: PANTOPRAZOLE 40 MG TABLET PO (09:26)
[2024-05-28] MEDS: FAMOTIDINE 10 MG TABLET PO (09:26)
[2024-05-28] MEDS: APIXABAN 2.5 MG TABLET PO ×2 (09:26→20:16)
[2024-05-28] MEDS: DICLOFENAC SODIUM 1% 100 GM GEL (*BKC) 1 APPLIC TOPICAL ×4 (09:26→20:17)
[2024-05-28] MEDS: EZETIMIBE 10 MG TABLET PO (09:26)
[2024-05-28] MEDS: AMOXICILLIN/CLAVULANATE K 875-125 MG TAB 1 TABLET PO ×2 (09:26→20:16)
--- NOTE | 2024-05-28 11:58 | P.PNIM_ITS ---
Progress Note: A&P Assessment and Plan (1) Urinary tract infection associated with indwelling urethral catheter: Code(s): T83.511A - Infection and inflammatory reaction due to indwelling urethral catheter, initial encounter; N39.0 - Urinary tract infection, site not specified Status: Acute Assessment and Plan: * Meropenem 1 gram IVPB q 8 switched 05/27/24 to Augmentin. * Encourage water intake to flush kidneys. * UA-Positive nitrates, 3+ blood, >100 RBC, >100 WBC, and Bacteria 1 +. * Urine culture grew proteus mirabilis * WBC improvin.8>11.3>9.4>9.0>8.0>7.9. (2) Neck pain, chronic: Code(s): M54.2 - Cervicalgia; G89.29 - Other chronic pain Status: Acute Assessment and Plan: * Acetaminophen 500 mg PO q 6 PRN, Hydrocodone-Acetaminophen 7.5-325 mg 1 tab q 4 PRN, and Tramadol 25 mg PO q 4 PRN. * Methocarbamol 500 mg PO BID. * Use cervical pillow for support. (3) DVT, lower extremity, recurrent: Code(s): I82.409 - Acute embolism and thrombosis of unspecified deep veins of unspecified lower extremity Status: Acute Assessment and Plan: * Continue Apixaban 2.5 mg PO q 12. (4) Cellulitis of right upper extremity: Code(s): L03.113 - Cellulitis of right upper limb Status: Acute Assessment and Plan: * Switched from Meropenem to Augmentin and Levofloxacin. * Elevate arm. * Monitor perfusion. (5) Sacral wound: Code(s): S31.000A - Unspecified open wound of lower back and pelvis without penetration into retroperitoneum, initial encounter Status: Acute Assessment and Plan: * Wound care consulted. * Sacral wound culture grew pseudomonas aeruginosa. * Meropenem 1 gram IVPB q 8 changed 05/27/24 to oral Levofloxacin. * Turn q 2 hours * Antifungal barrier cream to treat, protect, and promote healing. (6) CKD (chronic kidney disease): Qualifiers: Chronic kidney disease stage: stage 4 (severe) Qualified Code(s): N18.4 - Chronic kidney disease, stage 4 (severe) Code(s): N18.9 - Chronic kidney disease, unspecified Status: Acute Assessment and Plan: * 05/28/24: BUN 35, Creatinine 1.07, and GFR 48. * 05/27/23: BUN 38, Creatinine 1.00, and GFR 52. * 05/26/24: BUN 34, Creatinine 1.10, and GFR 47. * 05/25/24: BUN 30, Creatinine 1.00, and GFR 52. * 05/24/24: BUN 27, Creatinine 1.10, and GFR 47. (7) Nausea & vomiting: Code(s): R11.2 - Nausea with vomiting, unspecified Status: Acute Assessment and Plan: * Added Ondansetron 4 mg IVP q 6 PRN. * Denies today. (8) 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: Code(s): E03.9 - 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, unspecified Status: Acute Assessment and Plan: * Continue Levothyroxine (9) History of CVA (cerebrovascular accident): Code(s): Z86.73 - Personal history of transient ischemic attack (TIA), and cerebral infarction without residual deficits Status: Acute Subjective Date/time seen: 05/28/24 11:58 Interval history: Patient rates pain in neck is a 4 , constant, and aching. Patient denies chest pain, palpitations, headache, dizziness, nausea, or vomiting. Review of Systems Review of Systems: All systems reviewed & are unremarkable except as noted in HPI and below Exam Const: General: no acute distress and uncomfortable Resp: Effort & Inspection: normal respiratory effort Auscultation: clear to auscultation bilaterally Cardio: Rate: regular rate Rhythm: regular rhythm GI: GI Palp: Yes Soft to palpation Auscultation: normal bowel sounds Skin: Other: sacral wound with yeast maceration 7 cm x 14 cm. Left lower leg dry scab area. Neuro: Speech: normal speech Extrem: Other: 1+ cellulitis to right arm with sliight redness. + radial pulse bilaterally. Decreased active ROM in the right upper and lower extremity. Psych: Mental Status: mental status grossly normal Affect: normal affect Objective Data Vital Signs Vital Signs: Vital Signs - 24 hr 05/27/24 14:53 05/27/24 20:00 05/27/24 20:59 Temperature 98.2 F 97.9 F Pulse Rate 98 83 83 Respiratory Rate 14 18 18 Blood Pressure 130/59 L 111/53 L Pulse Oximetry 100 97 97 Oxygen Delivery Room Air 05/28/24 04:52 05/28/24 09:40 Temperature 98.0 F Pulse Rate 88 Respiratory Rate 16 Blood Pressure 131/54 L Pulse Oximetry 100 Oxygen Delivery Room Air Intake/Output Intake/Output: Intake & Output 05/25/24 05/26/24 05/27/24 05/28/24 23:59 23:59 23:59 23:59 Intake Total 478 433 2275 120 Output Total 1100 1075 1100 325 Balance -340 -145 450 -205 Meds/Results Medications: Active Medications Generic Name Dose Route Start Last Admin Trade Name Freq PRN Reason Stop Dose Admin Acetaminophen 500 mg 05/24/24 01:23 Acetaminophen 500 Mg Tablet PO Q6H PRN Pain 1-3 Hydrocodone Bitart/Acetaminophen 1 tab 05/24/24 01:23 05/28/24 09:25 Hydrocodone/Acetaminophen (*Crx) 7.5-325 Mg Tablet PO 1 tab Q4H PRN Administration Pain Rated 6 or Greater Amoxicillin/Clavulanate Potassium 1 tablet 05/27/24 21:00 05/28/24 09:26 Amoxicillin/Clavulanate K 875-125 Mg Tab PO 1 tablet Q12HR CHIRAG Administration Apixaban 2.5 mg 05/24/24 09:00 05/28/24 09:26 Apixaban 2.5 Mg Tablet PO 2.5 mg Q12HR CHIRAG Administration Bisacodyl 5 mg 05/24/24 01:23 05/24/24 11:59 Bisacodyl 5 Mg Tablet Ec PO 5 mg DAILY PRN Administration Constipation Diclofenac Sodium 1 applic 05/27/24 09:00 05/28/24 09:26 Diclofenac Sodium 1% 100 Gm Gel (*Bkc) TOPICAL 1 applic QID CHIRAG Administration Ezetimibe 10 mg 05/24/24 09:00 05/28/24 09:26 Ezetimibe 10 Mg Tablet PO 10 mg DAILY CHIRAG Administration Famotidine 10 mg 05/24/24 09:00 05/28/24 09:26 Famotidine 10 Mg Tablet PO 10 mg DAILY CHIRAG Administration Levofloxacin 750 mg 05/27/24 21:00 05/27/24 21:12 Levofloxacin 750 Mg Tablet PO 750 mg Q48H CHIRAG Administration Levothyroxine Sodium 125 mcg 05/24/24 06:30 05/28/24 05:43 Levothyroxine Sodium 125 Mcg Tablet PO 125 mcg DAILY@0630 CHIRAG Administration Methocarbamol 500 mg 05/24/24 09:00 05/28/24 09:25 Methocarbamol 500 Mg Tablet PO 500 mg BID CHIRAG Administration Ondansetron HCl 4 mg 05/27/24 10:45 05/27/24 11:19 Ondansetron Inj 4 Mg/2 Ml Vial IV PUSH 4 mg Q6H PRN Administration Nausea And Vomiting Pantoprazole Sodium 40 mg 05/24/24 09:00 05/28/24 09:26 Pantoprazole 40 Mg Tablet PO 40 mg QAM CHIRAG Administration Polyethylene Glycol 17 gm 05/24/24 01:23 05/24/24 11:59 Polyethylene Glycol 3350 17 Gm Powd.Pack PO 17 gm QAM PRN Administration Constipation Sertraline HCl 25 mg 05/24/24 21:00 05/27/24 21:12 Sertraline Hcl 25 Mg Tablet PO 25 mg HS CHIRAG Administration Tramadol HCl 25 mg 05/24/24 11:47 05/27/24 12:55 Tramadol Hcl (*Crx) 25 Mg Tablet PO 25 mg Q4H PRN Administration Pain Rated 4-6 Zinc Sulfate 220 mg 05/24/24 09:00 05/28/24 09:25 Zinc Sulfate 220 Mg Capsule PO 220 mg DAILY CHIRAG Administration Radiology Results: ITS Impressions Hip/Pelvis X-Ray 05/23/24 18:45 IMPRESSION: No acute osseous abnormality pelvis and right hip. Chest X-Ray 05/23/24 18:47 IMPRESSION: No acute cardiopulmonary pathology. Venous Doppler Study 05/23/24 19:20 IMPRESSION: Negative right upper extremity venous US. No deep vein thrombosis. Labs Labs: Laboratory Results - last 24 hr 05/28/24 06:01 WBC 7.9 RBC 3.28 L Hgb 8.1 L Hct 26.4 L MCV 80.5 MCH 24.7 L MCHC 30.7 L RDW 20.6 H Plt Count 346 MPV 9.8 Immature Gran % (Auto) 0.4 Neut % (Auto) 35.5 L Lymph % (Auto) 39.9 [place] % (Auto) 10.4 H Eos % (Auto) 12.8 H Baso % (Auto) 1.0 Lymph # (Auto) 3.15 [place] # (Auto) 0.8 H Eos # (Auto) 1.0 H Baso # (Auto) 0.1 Abs Immat Gran (auto) 0.03 Absolute Neuts (auto) 2.8 Absolute Nucleated RBC 0.000 Nucleated RBC % 0.0 Sodium 133 L Potassium 4.0 Chloride 105 Carbon Dioxide 27 Anion Gap 1 L BUN 35 H Creatinine 1.07 H Estim Creat Clear Calc 29 Estimated GFR 48 L Glucose 77 Calcium 8.4 Magnesium 1.7 Total Bilirubin 0.4 AST 23 ALT 8 Alkaline Phosphatase 93 Total Protein 6.0 L Albumin 2.5 L Quality VTE Prophylaxis VTE prophylaxis: pharmacologic ordered
[2024-05-28 14:00] VITALS: BP 128/58; PULSE 82; RESP 17; TEMP 36.6; O2SAT 100
[2024-05-28] MEDS: SERTRALINE HCL 25 MG TABLET PO (20:16)
[2024-05-28 21:44] LABS: Glucose Point of Care 120 mg/dl (65-105)
[2024-05-28 22:00] VITALS: BP 127/52; PULSE 91; RESP 20; TEMP 36.9; O2SAT 99
[2024-05-29] MEDS: LEVOTHYROXINE SODIUM 125 MCG TABLET PO (05:52)
[2024-05-29 06:00] VITALS: BP 126/56; PULSE 88; RESP 20; TEMP 37; O2SAT 98
[2024-05-29 06:00] LABS: Basophils Absolute Auto 0.1 K/mm3 (0.0-0.1); Basophils Percent Auto 1.1 % (0.2-1.2); Eosinophils Absolute Auto 0.9 K/mm3 (0-0.3); Eosinophils Percent Auto 9.2 % (0-4.4); Hematocrit 24.1 % (37.0-47.0); Hemoglobin 7.4 g/dL (12.0-15.0); Immature Granulocyte Absolute 0.03 K/mm3 (0.00-0.031); Immature Granulocyte Percent A 0.3 % (0-0.5); Lymphocytes Absolute Auto 3.49 K/mm3 (0.9-3.2); Lymphocytes Percent Auto 37.6 % (18.3-44.2); Mean Corpuscular HGB Conc 30.7 g/dl (32-36); Mean Corpuscular Hemoglobin 24.6 pg (26-34); Mean Corpuscular Volume 80.1 fl (80-100); Mean Platelet Volume 9.8 fl (7.4-10.4); Monocytes Absolute Auto 0.9 K/mm3 (0.1-0.6); Monocytes Percent Auto 10.1 % (2.6-8.5); Neutrophils Absolute Auto 3.9 K/mm3 (1.3-6.7); Neutrophils Percent Auto 41.7 % (45.5-73.1); Platelet Count Result 292 k/mm3 (150-375); Red Blood Count 3.01 M/mm3 (4.2-5.4); Red Cell Distribution Width 20.5 % (11.5-14.5); White Blood Count 9.3 K/mm3 (4.5-10.0)
[2024-05-29] MEDS: HYDROcodone/acetaminophen (*CRX) 7.5-325 MG TABLET 1 TAB PO ×3 (06:09→23:48)
[2024-05-29 06:16] LABS: Alanine Aminotransferase 7 U/L (6-35); Albumin Level 2.3 g/dL (3.5-5.1); Alkaline Phosphatase 87 U/L (38-126); Anion Gap 2 mmol/L (4-12); Aspartate Amino Transferase 21 U/L (14-36); Bilirubin,Total 0.4 mg/dL (0.2-1.3); Blood Urea Nitrogen 32 mg/dL (7-17); Calcium 8.3 mg/dL (8.4-10.2); Carbon Dioxide 25 mmol/L (22-30); Chloride 106 mmol/L (98-107); Estimated CRCL calculation 29 ml/min; Estimated Glomerular Filt Rate 49; Glucose 83 mg/dL (65-110); Magnesium 2.4 mg/dL (1.6-2.3); Sodium 133 mmol/L (137-145)
[2024-05-29] MEDS: PANTOPRAZOLE 40 MG TABLET PO (08:28)
[2024-05-29] MEDS: polyethylene glycoL 3350 17 GM POWD.PACK PO (08:28)
[2024-05-29] MEDS: ZINC SULFATE 220 MG CAPSULE PO (08:28)
[2024-05-29] MEDS: AMOXICILLIN/CLAVULANATE K 875-125 MG TAB 1 TABLET PO ×2 (08:28→21:08)
[2024-05-29] MEDS: FAMOTIDINE 10 MG TABLET PO (08:28)
[2024-05-29] MEDS: EZETIMIBE 10 MG TABLET PO (08:28)
[2024-05-29] MEDS: methocarbamoL 500 MG TABLET PO ×2 (08:28→18:03)
[2024-05-29] MEDS: APIXABAN 2.5 MG TABLET PO (08:28)
[2024-05-29] MEDS: DICLOFENAC SODIUM 1% 100 GM GEL (*BKC) 1 APPLIC TOPICAL ×4 (08:29→21:09)
--- NOTE | 2024-05-29 09:31 | PCNFU ---
Nutrition Follow-Up Complete: Increased Protein Needs as related to wounds as evidenced by pressure ulcer reported. Adequate Intake of at least 75% of meals/supplements - progressing. Intakes vary from 0-100% Goal: Pt current nutrition is Heart healthy diet, Roney BID for additional 90 kcal and 2.5 g protein with arginine and glutamine for wound healing support. Nutrition recommendation: No new nutrition recommendations. Continue with current nutrition care plan and orders Last recorded weight is 56.7 kg. No weight changes since admission Bowel Motility: No BMs recorded. Miralax and dulcolax added Labs Reviewed: Hgb 7.4, Hct 24.1, Alb 2.3, Na 133, BUN 32, Cre 1.6, Mag 2.4 Meds Noted: Zinc, eliquis, protonix, miralax, dulcolax Skin: Unstageable pressure injury to sacrum Additional Notes: Intakes are fair to good. Continue with orders. Agree with orders Will monitor weight, labs, skin, oral intake, meds every 5 days.
--- NOTE | 2024-05-29 12:29 | P.DS_ITS ---
DS: Admitting Diagnosis Discharge Date 05/29/24 Admitting Diagnosis Right Hip Pain DS: Discharge Diagnosis Discharge Diagnosis (1) Urinary tract infection associated with indwelling urethral catheter: Code(s): T83.511A - Infection and inflammatory reaction due to indwelling urethral catheter, initial encounter; N39.0 - Urinary tract infection, site not specified Status: Acute Assessment and Plan: * Acute * Treated inpatient with Meropenem and will be discharged on Augmentin per sensitivities. (2) Neck pain, chronic: Code(s): M54.2 - Cervicalgia; G89.29 - Other chronic pain Status: Acute Assessment and Plan: * Chronic. * Continue pain meds PRN (3) DVT, lower extremity, recurrent: Code(s): I82.409 - Acute embolism and thrombosis of unspecified deep veins of unspecified lower extremity Status: Acute Assessment and Plan: * Continue Apixaban 2.5 mg PO q 12. (4) Cellulitis of right upper extremity: Code(s): L03.113 - Cellulitis of right upper limb Status: Acute Assessment and Plan: * Covered by Meropenem, Augmentin and Levofloxacin. * No redness noted, mild edema, possibly chronic. (5) Sacral wound: Code(s): S31.000A - Unspecified open wound of lower back and pelvis without penetration into retroperitoneum, initial encounter Status: Acute Assessment and Plan: * Chronic. * Seen by wound-care. * Wound mgt per wound nurse recommendations. (6) CKD (chronic kidney disease): Qualifiers: Chronic kidney disease stage: stage 4 (severe) Qualified Code(s): N18.4 - Chronic kidney disease, stage 4 (severe) Code(s): N18.9 - Chronic kidney disease, unspecified Status: Acute Assessment and Plan: * Stable inpatient. (7) Nausea & vomiting: Code(s): R11.2 - Nausea with vomiting, unspecified Status: Acute Assessment and Plan: * Chronic. * Supportive care provided inpatient. (8) 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: Code(s): E03.9 - 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, unspecified Status: Acute Assessment and Plan: * Chronic. * Continued on Levothyroxine inpatient. (9) History of CVA (cerebrovascular accident): Code(s): Z86.73 - Personal history of transient ischemic attack (TIA), and cerebral in farction without residual deficits Status: Acute Assessment and Plan: - Supportive care. - Fall precautions. Plan Discharge home on Home Health. DS: Summary Hospital Course Reason for hospitalization: Acute UTI Hospital Course: Patient presented to the ER with reports of right-hip pain and right arm swe lling. Initial evaluation in the ER noted abnormal UA consistent with possible UTI. Patient has a chronic hendrix catheter. Right hip/pelvic x-ray was without acute osseous abnormalities. Chest x-ray was without acute cardiopulmonary abnormality. Right upper extremity venous Doppler was without evidence of DVT. Patient was started on Meropenem for UTI and Right Arm cellulitis. Patient had blood, urine and wound cultures collected. Her urine culture grew Proteus Mirabilis that was covered by Cefepime and pt will be discharged on Augmentin per sensitivities to complete treatment. Patient's wound culture grew Pseudomonas aeruginosa and Bacteroides Thetaiotaomicron that was sensitive to Levaquin, which pt will be discharged on to complete treatment. Patient is wheelchair and bedbound at baseline. She's fairly well oriented and states she feels good and wants to go back home. Patient has a Hx of recurrent LE DVT's and is on Eliquis, which was continued inpatient. All her other chronic conditions remained stable inpatient and patient is medically stable for discharge with no acute distress noted or reported prior to discharge. Status at Discharge Functional status at discharge: wheelchair bound Overall status at discharge: patient is progressing back to baseline Time Spent with Patient Time attestation: Total time spent providing and/or coordinating discharge services: Time spent: Greater than 30 minutes Exam Narrative: General: Fair appearing, generalized muscle weakness. HEENT: Atraumatic, PERRL, EOM, anicteric, moist mucosa. NECK: Supple. Lungs: Clear bilaterally. Heart: RRR, no murmurs. Abdomen: Soft, non-tender, non-distended, +Ve BS X4 Quadrants. Extremities: No cyanosis, 2+ edema R. Foot, Mod swelling R. Upper Arm. Neuro: Well oriented, generalized weakness, R>L. Psych: Calm and co-operative. DS: Data Data Completed and Pending Labs on day of discharge: Labs from last 24 hours 05/29/24 05/28/24 05:50 21:25 WBC 9.3 RBC 3.01 L Hgb 7.4 L Hct 24.1 L MCV 80.1 MCH 24.6 L MCHC 30.7 L RDW 20.5 H Plt Count 292 MPV 9.8 Immature Gran % (Auto) 0.3 Neut % (Auto) 41.7 L Lymph % (Auto) 37.6 [place] % (Auto) 10.1 H Eos % (Auto) 9.2 H Baso % (Auto) 1.1 Lymph # (Auto) 3.49 H [place] # (Auto) 0.9 H Eos # (Auto) 0.9 H Baso # (Auto) 0.1 Abs Immat Gran (auto) 0.03 Absolute Neuts (auto) 3.9 Absolute Nucleated RBC 0.000 Nucleated RBC % 0.0 Sodium 133 L Potassium 4.0 Chloride 106 Carbon Dioxide 25 Anion Gap 2 L BUN 32 H Creatinine 1.06 H Estim Creat Clear Calc 29 Estimated GFR 49 L Glucose 83 POC Capillary Glucose 120 H Calcium 8.3 L Magnesium 2.4 H Total Bilirubin 0.4 AST 21 ALT 7 Alkaline Phosphatase 87 Total Protein 5.0 L Albumin 2.3 L Discharge Plan Discharge Attending physician on discharge: Julio Cesar Hernandez Discharging Clinician: Ana Valerio Anticipated Discharge Date/Time: 05/29/24 13:05 Patient Disposition: Home Health Service Activity: as tolerated Diet: as tolerated Discharge Instructions: Per Care Coordination, patient to discharge with [facility] ( ) for fpc services. Please fax discharge instructions and medication sheets to . Patient Instructions: Antibiotic Form, Apixaban (By mouth), Safe Use of Anticoagulants (DC) Patient Language: Kenyan Stand Alone Forms: General Discharge Information Follow-up/Referrals: Cullen Jeong MD [Primary Care Provider] - 1 Week Discharge Medications: New levofloxacin 500 mg tablet 500 mg PO .q48 hrs Qty: 2 0RF amoxicillin-pot clavulanate 875-125 mg tablet 1 tablet PO Q12H Qty: 7 0RF Continued famotidine 10 mg Tablet 10 mg PO DAILY zinc sulfate 50 mg zinc (220 mg) Tablet 50 mg PO DAILY esomeprazole magnesium 40 mg capsule,delayed release(DR/EC) 40 mg PO DAILY bisacodyl 5 mg Tablet,Delayed Release (Dr/Ec) 5 mg PO DAILY PRN (Reason: Constipation) polyethylene glycol 3350 [Miralax] 17 gram powder in packet 17 g PO QAM PRN (Reason: Constipation) methocarbamol 500 mg tablet 500 mg PO BID levothyroxine [Synthroid] 125 mcg tablet 125 mcg PO DAILY@0630 30 Days Qty: 90 1RF sertraline 25 mg tablet 25 mg PO HS Qty: 90 1RF hydrocodone-acetaminophen 7.5-325 mg tablet 1 tablet PO Q4H PRN (Reason: pain) Qty: 120 0RF (DME) Alternating Pressure Pad See Rx Instructions .Route .MEDSUPPLY Qty: 1 0RF Rx Instructions: As directed acetaminophen 500 mg Tablet 500 mg PO Q6H PRN (Reason: Pain) Eliquis 2.5 mg Tablet 2.5 mg PO BID Qty: 60 0RF ezetimibe [Zetia] 10 mg Tablet 10 mg PO DAILY 30 Days Qty: 30 0RF Date of admission: 05/24/24 08:02 Primary Care Provider: Cullen Jeong Admitting Provider: Eran Pleitez Attending physician on admission: Eran Pleitez Condition: Stable Quality VTE Prophylaxis VTE prophylaxis: pharmacologic ordered Hospitalist MIPS Heart Failure (Exclusion) Patient has history of Heart Transplant or Left Ventricular Assistive Device?: No IF YES, STOP HERE Heart Failure (Qualifier) Patient has current or prior documentation of LVEF less than or equal to 40%, or mod/servere depressed LVSF?: No IF NO, STOP HERE
[2024-05-29 14:44] VITALS: BP 109/47; PULSE 103; RESP 18; TEMP 36.7; O2SAT 99
--- NOTE | 2024-05-29 15:15 | P.CONUR_ITS ---
Assessment and Plan Assessment and plan (1) Hydronephrosis, right: Code(s): N13.30 - Unspecified hydronephrosis Status: Acute Assessment and Plan: 11/2023 CT significant for high grade right hydronephrosis s/p ureteral stent placement possibly due to ureteral stones. Lost to follow-up due to CVA, prolonged rehab, transportation issues. Stent is overdue to be removed. Renal function stable. New hematuria despite appropriate UTI management. Chronic anticoagulation (Eliquis). (2) Urinary tract infection: Code(s): N39.0 - Urinary tract infection, site not specified Status: Ruled-out Assessment and Plan: CAUTI. 05/23/24 Urine culture growing Proteus mirabilis. Present on admission. Completed short course of IV meropenem, transitioned to Augmentin. (3) Flaccid neurogenic bladder: Code(s): N31.2 - Flaccid neuropathic bladder, not elsewhere classified Status: Acute Assessment and Plan: / CVA, managed with chronic indwelling Peterson (4) Chronic indwelling Peterson catheter: Code(s): Z97.8 - Presence of other specified devices Status: Acute Assessment and Plan: Continue indwelling Peterson exchanged every 3-4 weeks by home health staff. (5) History of cerebrovascular accident (CVA) with residual deficit: Code(s): I69.30 - Unspecified sequelae of cerebral infarction Status: Chronic Assessment and Plan: Nonambulatory at baseline, requires ambulance for transport. Plan - NPO after midnight for scheduled cystoscopy with right ureteral stent removal in the OR with Dr. Giles tomorrow afternoon - Agree with culture-directed antibiotics for CAUTI - Maintain indwelling Peterson. Please keep off-tension and properly secured. - Encourage compliance with daily Peterson hygiene, recommend UPAK/wipes foam Urology Consult Note HPI Date Seen: 05/29/24 Requesting Physician: Eran Pleitez MD Primary Care Provider: Cullen Jeong MD Consult Narrative Reason for consult: Right ureteral stent management Narrative: Meche Woodward is a pleasant 88 year old female admitted 05/24/24 with CAUTI. She underwent cystoscopy, right retrograde pyelogram, right ureteral stent placement, fulguration of lesion, complex Peterson catheter placement with Dr. Giles 11/2023 for possible right ureteral stone with UTI. Follow-up stent removal, ureteroscopy scheduled for 12/2023 canceled due to acute CVA/prolonged rehab and other medical issues. Per bedside RN, patient is nonambulatory, requires ambulance for all transfers. She has been unable to follow-up with outpatient urology. Patient's family requesting stent management be completed during this inpatient stay given her complex transportation needs. On exam today, patient appears comfortable in no acute distress. Indwelling Peterson draining light red urine, no clots. No family present. Patient reports monthly catheter exchanges by home health nurses. Denies abdominal pain, flank pain, fever, nausea, vomiting. Review of Systems 2 Constitutional: Constitutional: Reports fatigue and Reports weakness Eyes: Eyes: Reports no additional eye complaints ENT: Reports Normal hearing present Cardiovascular: Cardiovascular: Denies chest pain Respiratory: Respiratory: Reports no additional respiratory complaints and Denies dyspnea Gastrointestinal: Gastrointestinal: Reports as per HPI and Reports no additional gastrointestinal complaints Genitourinary: Genitourinary: Reports as per HPI Musculoskeletal: Comments: Chronic neck stiffness Neurologic: Reports as per HPI Psychiatric: Psychiatric: Reports no additional psychiatric complaints [facility] Past Medical History Medical History Anxiety and depression CAD (coronary artery disease) Cervical myofascial pain syndrome CHF (congestive heart failure) Echocardiogram 06/20/2016: Grade 1 diastolic dysfunction, EF 74%, mild enlargement left atrium Chronic indwelling Peterson catheter Chronic interstitial cystitis 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 mellitus With baseline creatinine between 1.2 and 1.5 DVT, lower extremity, recurrent Left lower extremity distant past, right femoral in lower extremity veins May 2020 Essential hypertension Gastritis Gastritis/duodenitis 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 Hypertension 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) use of 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 Neck pain, chronic Occlusion and stenosis of basilar artery Osteoarthritis 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, acute TIA (transient ischemic attack) Vision disturbance glaucoma retinal detachment sp cataract extraction bilateral Surgical History Surgical History H/O inguinal hernia repair History of appendectomy History of bladder suspension procedure 2012 and 2013 History of cystoscopy With biopsy of bladder lesion x2 History of heart artery stent (~2006) 4 stents History of hysterectomy Hx of cholecystectomy Status post cataract extraction of both eyes with insertion of intraocular lens Status post right knee replacement Family History Family History Father Pancreas cancer COPD (chronic obstructive pulmonary disease) Mother Acute myocardial infarction Sibling Hypertension Social History Social History Social History: The patient lives in a senior apartment but is independent living. She has been since around 2018. 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 Code status: DNR/DNI (per patient report, confirmed 12/07/23) Surrogate decision maker: Daksha (daughter) Smoking status: Never smoker Alcohol intake: never Substance use: never Substance use type: does not use Do You Feel Safe in your Home?: Yes Lack of Transportation: YES Lack of Food: Never True Current Housing: I Have Housing Concerned About Future Housing: No Difficulty Paying Gas/Electric Bills: No Difficulty Paying for Meds: No Currently Unemployed: No Education: Don't Know Difficulty w/ Childcare or Family Care: No Living arrangements: with family Occupation/Education: retired Gender identity (if verbalized by the patient): Female Sexual Orientation (if Verbalized by the Patient): Straight or Heterosexual Spiritual care concerns: No Agree to blood products: Yes Meds Home Medications and Allergies Home Medications ?Medication ?Instructions ?Recorded ?Confirmed ?Type acetaminophen 500 mg tablet 500 mg PO Q6H PRN Pain 12/27/23 05/23/24 History apixaban 2.5 mg tablet (Eliquis) 2.5 mg PO BID #60 tabs 01/12/24 05/23/24 Rx ezetimibe 10 mg tablet (Zetia) 10 mg PO DAILY 30 days #30 tabs 01/12/24 05/23/24 Rx bisacodyl 5 mg tablet,delayed 5 mg PO DAILY PRN Constipation 04/14/24 05/23/24 History release esomeprazole magnesium 40 mg 40 mg PO DAILY 04/14/24 05/23/24 History capsule,delayed release famotidine 10 mg tablet 10 mg PO DAILY 04/14/24 05/23/24 History polyethylene glycol 3350 17 gram 17 g PO QAM PRN Constipation 04/14/24 05/23/24 History oral powder packet (Miralax) zinc sulfate 50 mg zinc (220 mg) 50 mg PO DAILY 04/14/24 05/23/24 History tablet methocarbamol 500 mg tablet 500 mg PO BID 04/16/24 05/23/24 History levothyroxine 125 mcg tablet 125 mcg PO DAILY@0630 30 days #90 04/25/24 05/23/24 Rx (Synthroid) tabs sertraline 25 mg tablet 25 mg PO HS #90 tabs 04/25/24 05/23/24 Rx hydrocodone 7.5 mg-acetaminophen 1 tablet PO Q4H PRN pain #120 tabs 05/02/24 05/23/24 Rx 325 mg tablet Alternating Pressure Pad #1 ea 05/16/24 05/23/24 Rx amoxicillin 875 mg-potassium 1 tablet PO Q12H #7 tabs 05/29/24 Rx clavulanate 125 mg tablet levofloxacin 500 mg tablet 500 mg PO .q48 hrs #2 tabs 05/29/24 Rx Allergies Allergy/AdvReac Type Severity Reaction Status Date / Time atorvastatin Allergy Unknown ache Verified 05/24/24 00:05 Vital Signs Vital Signs - 24 hr 05/28/24 20:08 05/28/24 22:00 05/29/24 06:00 Temperature 98.5 F 98.6 F Pulse Rate 91 88 Respiratory Rate 20 20 Blood Pressure 127/52 L 126/56 L Pulse Oximetry 99 98 Oxygen Delivery Room Air 05/29/24 08:25 Temperature Pulse Rate Respiratory Rate Blood Pressure Pulse Oximetry Oxygen Delivery Room Air Exam 2 Const: General: comfortable and no acute distress HENMT: Face/Nose/Sinus: Normal nares present Other: Poor dentition; several missing teeth Eyes: General: appearance normal, both eyes and all related structures Resp: Effort & Inspection: normal respiratory effort Urinary Catheter: Urinary Catheter: patent and draining and urine red Neuro: Speech: normal speech Psych: Affect: normal affect Results Labs 05/29/24 05:50 05/29/24 05:50 Labs: Short CBC 05/29/24 Range/Units 05:50 WBC 9.3 (4.5-10.0) K/mm3 Hgb 7.4 L (12.0-15.0) g/dL Hct 24.1 L (37.0-47.0) % Plt Count 292 (150-375) k/mm3 BMP 05/29/24 05:50 Sodium 133 L Potassium 4.0 Chloride 106 Carbon Dioxide 25 BUN 32 H Creatinine 1.06 H Glucose 83 Calcium 8.3 L Liver Function 05/29/24 Range/Units 05:50 Total Bilirubin 0.4 (0.2-1.3) mg/dL AST 21 (14-36) U/L ALT 7 (6-35) U/L Alkaline Phosphatase 87 (38-126) U/L Albumin 2.3 L (3.5-5.1) g/dL
[2024-05-29] MEDS: SERTRALINE HCL 25 MG TABLET PO (21:08)
[2024-05-29] MEDS: levoFLOXacin 750 MG TABLET PO (21:08)
[2024-05-29 21:39] VITALS: BP 138/69; PULSE 103; RESP 20; TEMP 37; O2SAT 98
[2024-05-30 06:00] VITALS: BP 124/59; PULSE 89; RESP 16; TEMP 36.8; O2SAT 100
[2024-05-30 06:30] LABS: Basophils Absolute Auto 0.1 K/mm3 (0.0-0.1); Basophils Percent Auto 0.8 % (0.2-1.2); Eosinophils Absolute Auto 0.6 K/mm3 (0-0.3); Eosinophils Percent Auto 7.1 % (0-4.4); Hemoglobin 7.1 g/dL (12.0-15.0); Immature Granulocyte Absolute 0.04 K/mm3 (0.00-0.031); Immature Granulocyte Percent A 0.5 % (0-0.5); Lymphocytes Percent Auto 43.5 % (18.3-44.2); Mean Corpuscular HGB Conc 29.6 g/dl (32-36); Mean Corpuscular Hemoglobin 24.2 pg (26-34); Mean Corpuscular Volume 81.9 fl (80-100); Monocytes Absolute Auto 0.9 K/mm3 (0.1-0.6); Neutrophils Absolute Auto 3.3 K/mm3 (1.3-6.7); Neutrophils Percent Auto 38.1 % (45.5-73.1); Platelet Count Result 281 k/mm3 (150-375); Red Blood Count 2.93 M/mm3 (4.2-5.4); Red Cell Distribution Width 20.7 % (11.5-14.5); White Blood Count 8.7 K/mm3 (4.5-10.0)
[2024-05-30 06:45] LABS: Alanine Aminotransferase 7 U/L (6-35); Albumin Level 2.3 g/dL (3.5-5.1); Alkaline Phosphatase 80 U/L (38-126); Anion Gap 1 mmol/L (4-12); Aspartate Amino Transferase 20 U/L (14-36); Bilirubin,Total 0.5 mg/dL (0.2-1.3); Blood Urea Nitrogen 29 mg/dL (7-17); Calcium 7.5 mg/dL (8.4-10.2); Carbon Dioxide 27 mmol/L (22-30); Chloride 105 mmol/L (98-107); Estimated CRCL calculation 28 ml/min; Estimated Glomerular Filt Rate 47; Glucose 76 mg/dL (65-110); Magnesium 2.3 mg/dL (1.6-2.3); Potassium 3.9 mmol/L (3.4-5.0); Sodium 133 mmol/L (137-145)
[2024-05-30 07:05] LABS: Platelet Estimate Adequate (Adequate); Schistocytes None Seen
[2024-05-30 07:06] LABS: Anisocytosis 1+; Hypochromasia 1+
[2024-05-30] MEDS: DICLOFENAC SODIUM 1% 100 GM GEL (*BKC) 1 APPLIC TOPICAL ×3 (08:33→21:09)
--- NOTE | 2024-05-30 12:13 | WPDHPUPDATE1 ---
History and Physical Update Update Date/Time: 05/30/24 12:13 History and Physical has been reviewed, including an updated exam of the patient. There are NO changes in the patient's condition. Risks, benefits, and alternatives have been discussed and questions answered. Patient agrees to proceed with procedure. Proceed with cystoscopy with stent removal.
--- NOTE | 2024-05-30 12:54 | PC.NURSE ---
To OR via bed. Report given to Cat RN.
[2024-05-30 13:28] VITALS: BP 141/70; PULSE 97; RESP 16; O2SAT 98
[2024-05-30] MEDS: LIDOCAINE 2% GEL UROJET 10 ML PKG MUCOUS MEM (13:35)
[2024-05-30 13:38] VITALS: BP 160/69; PULSE 84; RESP 16; O2SAT 98
[2024-05-30 13:47] VITALS: BP 132/65; PULSE 97; RESP 16; O2SAT 98
--- NOTE | 2024-05-30 13:49 | P.OP_ITS ---
Procedure Note - Detailed Date of Procedure 05/30/24 Pre-op Diagnosis Retained ureteral stent Post-op Diagnosis Same Procedure Performed Flexible cystoscopy with stent removal, Peterson catheter placement Surgeon Joaquin Giles MD Anesthesia Local Description of Procedure Patient is taken the operative suite correctly identified. She was prepped draped usual sterile fashion. Prior Peterson catheter was removed. [place] scope was inserted the bladder. The prior stent was grasped with a grasper and retrieved in its entirety. [place] Peterson was then placed with 10 cc in the balloon. She is taken back to her room. This completes dictation. Please send a copy of op note to my office. Estimated Blood Loss 0 Urine Output 275 Drains Yes ([place] Peterson with 10 cc in balloon) Packing No Pathology None sent Complications No immediate complications Condition Stable Disposition Floor
--- NOTE | 2024-05-30 13:58 | PC.NURSE ---
Patient returned to floor via bed from OR. No patient complaints at this time.
[2024-05-30 14:11] VITALS: BP 157/58; PULSE 81; RESP 16; TEMP 36.7; O2SAT 100
[2024-05-30] MEDS: polyethylene glycoL 3350 17 GM POWD.PACK PO (16:32)
[2024-05-30] MEDS: BISACODYL 5 MG TABLET EC PO (16:32)
[2024-05-30] MEDS: HYDROcodone/acetaminophen (*CRX) 7.5-325 MG TABLET 1 TAB PO (17:56)
[2024-05-30] MEDS: methocarbamoL 500 MG TABLET PO (17:57)
[2024-05-30] MEDS: APIXABAN 2.5 MG TABLET PO (21:08)
[2024-05-30] MEDS: AMOXICILLIN/CLAVULANATE K 875-125 MG TAB 1 TABLET PO (21:08)
[2024-05-30] MEDS: SERTRALINE HCL 25 MG TABLET PO (21:09)
[2024-05-30 21:16] VITALS: BP 129/52; PULSE 102; RESP 16; TEMP 36.8; O2SAT 99
--- NOTE | 2024-05-31 13:45 | WPDANESPN ---
Anes - Prog Note Post-Op Date/Time: 05/31/24 13:45 Cardiovascular status: normal Respiratory status: normal Airway patency: baseline Mental status: baseline Post-Op hydration status: normal Vital Signs: Last Vital Signs Temp 36.8 C 05/30/24 21:16 Pulse 102 H 05/30/24 21:16 Resp 16 05/30/24 21:16 BP 129/52 L 05/30/24 21:16 Pulse Ox 99 05/30/24 21:16 O2 Del Method Room Air 05/30/24 13:47 Pain Score (VAS): 0 I/O: Intake & Output 05/30/24 05/31/24 05/31/24 23:59 07:59 15:59 Intake Total 720 Balance 720 Laboratory Tests 05/30/24 05:49 05/30/24 05:49 Post-procedural complaints: none Patient Feedback: Patient satisfied with anesthetic care.
== END 2024-05-30 21:31 | disposition home health service (06) | DRG 699 ==
LOC: ANHED 20:21 → ANH2MED 21:26
PROVIDERS: Nurse Practitioner; Urology; Admitting Provider General Practice; Emergency Provider Physician Assistant; PCP Family Medicine; Visit Provider Nurse Practitioner Adult Health
PROC: 0TP98DZ Removal of Intraluminal Device from Ureter, Via Natural or Artificial Opening Endoscopic (ICD-10-PCS; CPT 52310; principal; 2024-05-30 13:30)
DX: T83.511A Infection and inflammatory reaction due to indwelling urethral catheter, initial encounter (principal); I13.0 Hypertensive heart and chronic kidney disease with heart failure and stage 1 through stage 4 chronic kidney disease, or unspecified chronic kidney disease; L03.113 Cellulitis of right upper limb; N18.4 Chronic kidney disease, stage 4 (severe); N13.30 Unspecified hydronephrosis; N39.0 Urinary tract infection, site not specified; B96.4 Proteus (mirabilis) (morganii) as the cause of diseases classified elsewhere; B96.5 Pseudomonas (aeruginosa) (mallei) (pseudomallei) as the cause of diseases classified elsewhere; B96.89 Other specified bacterial agents as the cause of diseases classified elsewhere; E11.22 Type 2 diabetes mellitus with diabetic chronic kidney disease; E03.9 Hypothyroidism, unspecified; F41.9 Anxiety disorder, unspecified; F32.A Depression, unspecified; I69.30 Unspecified sequelae of cerebral infarction; G89.29 Other chronic pain; H40.9 Unspecified glaucoma; I50.9 Heart failure, unspecified; I25.10 Atherosclerotic heart disease of native coronary artery without angina pectoris; L89.159 Pressure ulcer of sacral region, unspecified stage; L08.9 Local infection of the skin and subcutaneous tissue, unspecified; M54.2 Cervicalgia; M06.9 Rheumatoid arthritis, unspecified; N31.2 Flaccid neuropathic bladder, not elsewhere classified; Z66 Do not resuscitate; R31.9 Hematuria, unspecified; Z99.3 Dependence on wheelchair; Z95.5 Presence of coronary angioplasty implant and graft; Z79.01 Long term (current) use of 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; Z98.41 Cataract extraction status, right eye; Z98.42 Cataract extraction status, left eye; Z96.1 Presence of intraocular lens; Z96.651 Presence of right artificial knee joint; Z86.718 Personal history of other venous thrombosis and embolism; Z20.822 Contact with and (suspected) exposure to COVID-19
CPT/HCPCS: 36415; 71045; 73502; 80053; 81001; 82948; 83605; 83735; 84145; 85025; 85610; 85652; 85730; 86140; 87040; 87070; 87075; 87086; 87186; 87205; 87637; 93005; 93971; 96365; 96367; 99212; 99285; A9270; G0378; G0463; J0690; J2185; J2405; J3475